=== PATIENT | female | born 1945 | race Caucasian/White ===

== ENCOUNTER 2017-05-26 20:09 | Inpatient (IN) | payer MEDICARE ==
[~2017-05-26] VITALS: Ht 157.5 cm; Wt 60.0 kg
[2017-05-26 22:30] VITALS: BP 130/75
[2017-05-26] MEDS ORDERED: MAGNESIUM HYDROXIDE 2,400 MG/30 ML ORAL.SUSP. PO PRN (22:45)
[2017-05-26] MEDS ORDERED: METHYL SALICYLATE/MENTHOL TOPICAL OINTMENT 29GM TUBE. TP PRN (22:45)
[2017-05-26] MEDS ORDERED: MAG HYDROX/AL HYDROX/SIMETH 30 ML ORAL.SUSP PO PRN (22:45)
[2017-05-26 23:11] LABS: BASO % 0 % (0-3); EOS # 0.1 x10^3/uL (0.0-0.7); EOS % 2 % (0-3); HEMATOCRIT 37.2 % (36.0-47.0); HEMOGLOBIN 12.6 g/dL (12.0-15.5); LYMPH # 1.3 x10^3/uL (1.0-4.8); LYMPH % 29 % (24-48); MEAN CORPUSCULAR HEMOGLOBIN 32 pg (25-35); MEAN CORPUSCULAR HGB CONC 34 g/dL (31-37); MEAN CORPUSCULAR VOLUME 95 fL (79-100); MONO # 0.5 x10^3/uL (0.0-1.1); MONO % 10 % (0-9); NEUT # 2.7 x10^3uL (1.8-7.7); NEUT % 59 % (31-73); PLATELET COUNT 256 x10^3/uL (140-400); RED BLOOD COUNT 3.93 x10^6/uL (3.50-5.40); RED CELL DISTRIBUTION WIDTH 12.5 % (11.5-14.5); WHITE BLOOD COUNT 4.6 x10^3/uL (4.0-11.0)
[2017-05-26 23:23] LABS: ALBUMIN 3.9 g/dL (3.4-5.0); ALBUMIN/GLOBULIN RATIO 1.1 (1.0-1.7); CALCIUM 9.3 mg/dL (8.5-10.1); CREATININE 1.1 mg/dL (0.6-1.0); GFR 48.7; MAGNESIUM 1.8 mg/dL (1.8-2.4); POTASSIUM 3.1 mmol/L (3.5-5.1); TOTAL BILIRUBIN 0.3 mg/dL (0.2-1.0); TOTAL PROTEIN 7.5 g/dL (6.4-8.2)
[2017-05-27] MEDS ORDERED: GLUC-12 PO (01:10)
[2017-05-27] MEDS ORDERED: FENO134C PO (01:10)
[2017-05-27] MEDS ORDERED: AMLO10TA4 PO (01:10)
[2017-05-27] MEDS ORDERED: CALC-157 PO (01:10)
[2017-05-27] MEDS ORDERED: ASPI325T8 PO (01:10)
[2017-05-27] MEDS ORDERED: HYDR25TA9 PO (01:18)
[2017-05-27] MEDS ORDERED: MEMA10TA PO (01:18)
[2017-05-27] MEDS ORDERED: OXYC-327 PO (01:18)
[2017-05-27] MEDS ORDERED: LOSA50TA2 PO (01:18)
[2017-05-27] MEDS ORDERED: OLAN2.5T3 PO (01:18)
[2017-05-27] MEDS ORDERED: VENL37.5 PO (01:23)
[2017-05-27] MEDS ORDERED: VENL75CA PO (01:23)
[2017-05-27] MEDS ORDERED: RIVA1PAT23 TD (01:25)
[2017-05-27] MEDS ORDERED: SIMV10TA3 PO (01:25)
[2017-05-27] MEDS: ACETAMINOPHEN 325 MG TABLET PO PRN (05:42)
[2017-05-27 05:56] VITALS: BP 110/65
--- NOTE | 2017-05-27 05:57 | EKG ---
[address] [address] Test Date: 2017-05-27 Test Time: 05:44:28 Pat Name: ANJELICA SCHMIDT Department: Room: [address] [place] [address] Gender: F Spray Machine Operator: JUDY : 1945 Requested By: ERLINDA DYKES Order Number: [id number] Reading MD: Zurdo Messina Measurements Intervals [place] Rate: 56 P: 90 LA: 154 QRS: 58 QRSD: 86 T: 59 QT: 394 QTc: 383 Interpretive Statements SINUS RHYTHM Electronically Signed On 06-02-2017 15:41:44 CDT by Zurdo Messina
[2017-05-27 07:23] LABS: CLARITY,URINE CLEAR; COLOR,URINE YELLOW
[2017-05-27 07:24] LABS: BACTERIA,URINE 0 /HPF (0-FEW); BILIRUBIN,URINE NEG (NEG); GLUCOSE,URINE NEG (NEG); NITRITE,URINE NEG (NEG); SQUAMOUS EPITHELIAL CELL,UR OCC /LPF; UROBILINOGEN,URINE 1 mg/dL (0.2 mg/dL); WBC,URINE OCC /HPF (0-4)
[2017-05-27] MEDS: OLANZapine 2.5 MG TABLET PO SCH (08:30)
[2017-05-27] MEDS: CALCIUM CARB/VIT D3 500/200 TABLET PO SCH (08:30)
[2017-05-27] MEDS: ASPIRIN 325 MG TABLET PO SCH (08:30)
[2017-05-27] MEDS: VENLAFAXINE XR 37.5 MG CAP.ER.24H. PO SCH (08:30)
[2017-05-27] MEDS: LOSARTAN 50 MG TABLET. PO SCH (08:31)
[2017-05-27] MEDS: hydroCHLOROthiazide 25 MG TABLET PO SCH (08:31)
[2017-05-27] MEDS: amLODIPine BESYLATE 10 MG TABLET PO SCH (08:31)
[2017-05-27] MEDS: GLUCOSAMINE/CHOND 500/400MG CAPSULE PO SCH (08:31)
[2017-05-27] MEDS ORDERED: RIVASTIGMINE 9.5MG PATCH. TD SCH (09:00)
[2017-05-27] MEDS ORDERED: MEMANTINE 10 MG TABLET. PO SCH (09:00)
[2017-05-27] MEDS ORDERED: NON FORMULARY ITEM (Venlafaxine Hcl (Effexor Xr) 75 MG) PO SCH (09:00)
[2017-05-27 15:14] LABS: THYROID STIM HORMONE (TSH) 3.423 uIU/mL (0.358-3.740)
[2017-05-27 16:19] VITALS: BP 112/67
[2017-05-27] MEDS: FENOFIBRATE NANOCRYSTALLIZED 145 MG TABLET PO SCH (17:02)
[2017-05-27 19:11] LABS: T3 TOTAL 100 ng/dL (71-180); THYROXINE 7.4 ug/dL (4.5-12.0)
[2017-05-27] MEDS: ATORVASTATIN CALCIUM 10 MG TABLET. PO SCH (19:55)
[2017-05-27] MEDS: POTASSIUM CHLORIDE 20 MEQ TABLET.ER. PO SCH (19:55)
[2017-05-27] MEDS: MEMANTINE 10 MG TABLET. PO SCH (19:56)
--- NOTE | 2017-05-27 20:01 | PDOC ---
Exam Niels Demential Exam: Niels Note: Please also refer to the separate dictated note~for this date of service dictated separately.~Patient seen individually. Discussed the patient with Nursing staff reviewed the chart.~Reviewed interim history and current functioning. Reviewed vital signs,~Labs/ Radiology~and current medications noted below. Continue current treatment with the changes noted in the dictated addendum note Assessment: Vital Signs: Vital Signs Date Time Temp Pulse Resp B/P (MAP) Pulse Ox O2 Delivery O2 Flow Rate FiO2 05/27/17 16:19 97.8 80 18 112/67 (82) 98 Labs: Laboratory Tests Test 05/26/17 22:50 05/27/17 06:15 White Blood Count 4.6 x10^3/uL (4.0-11.0) Red Blood Count 3.93 x10^6/uL (3.50-5.40) Hemoglobin 12.6 g/dL (12.0-15.5) Hematocrit 37.2 % (36.0-47.0) Mean Corpuscular Volume 95 fL (79-100) Mean Corpuscular Hemoglobin 32 pg (25-35) Mean Corpuscular Hemoglobin Concent 34 g/dL (31-37) Red Cell Distribution Width 12.5 % (11.5-14.5) Platelet Count 256 x10^3/uL (140-400) Neutrophils (%) (Auto) 59 % (31-73) Lymphocytes (%) (Auto) 29 % (24-48) Monocytes (%) (Auto) 10 % (0-9) H Eosinophils (%) (Auto) 2 % (0-3) Basophils (%) (Auto) 0 % (0-3) Neutrophils # (Auto) 2.7 x10^3uL (1.8-7.7) Lymphocytes # (Auto) 1.3 x10^3/uL (1.0-4.8) Monocytes # (Auto) 0.5 x10^3/uL (0.0-1.1) Eosinophils # (Auto) 0.1 x10^3/uL (0.0-0.7) Basophils # (Auto) 0.0 x10^3/uL (0.0-0.2) Sodium Level 144 mmol/L (136-145) Potassium Level 3.1 mmol/L (3.5-5.1) L Chloride Level 106 mmol/L (98-107) Carbon Dioxide Level 30 mmol/L (21-32) Anion Gap 8 (6-14) Blood Urea Nitrogen 28 mg/dL (7-20) H Creatinine 1.1 mg/dL (0.6-1.0) H Estimated GFR (Cockcroft-Gault) 48.7 BUN/Creatinine Ratio 25 (6-20) H Glucose Level 138 mg/dL (70-99) H Calcium Level 9.3 mg/dL (8.5-10.1) Magnesium Level 1.8 mg/dL (1.8-2.4) Iron Level 85 ug/dL (50-170) Total Iron Binding Capacity 489 ug/dL (250-450) H Iron Saturation 17 % (15-34) Total Bilirubin 0.3 mg/dL (0.2-1.0) Aspartate Amino Transferase (AST) 27 U/L (15-37) Alanine Aminotransferase (ALT) 20 U/L (14-59) Alkaline Phosphatase 53 U/L (46-116) Total Protein 7.5 g/dL (6.4-8.2) Albumin 3.9 g/dL (3.4-5.0) Albumin/Globulin Ratio 1.1 (1.0-1.7) Triglycerides Level 136 mg/dL (0-150) Cholesterol Level 218 mg/dL (0-200) H LDL Cholesterol, Calculated 114 mg/dL (0-100) H VLDL Cholesterol, Calculated 27 mg/dL (0-40) Non-HDL Cholesterol Calculated 141 mg/dL (0-129) H HDL Cholesterol 77 mg/dL (40-60) H Cholesterol/HDL Ratio 2.0 Vitamin B12 Level 376 pg/mL (247-911) 25-Hydroxy Vitamin D Total Pending Thyroid Stimulating Hormone (TSH) 3.423 uIU/mL (0.358-3.740) Thyroxine (T4) 7.4 ug/dL (4.5-12.0) Total Triiodothyronine (TT3) 100 ng/dL (71-180) RPR Titer Additional Testing Pending Urine Collection Type Unknown Urine Color Yellow Urine Clarity Clear Urine pH 5.5 Urine Specific [place] 1.020 Urine Protein Neg (NEG-TRACE) Urine Glucose (UA) Neg mg/dL (NEG) Urine Ketones (Stick) Neg mg/dL (NEG) Urine Blood Trace (NEG) Urine Nitrite Neg (NEG) Urine Bilirubin Neg (NEG) Urine Urobilinogen Dipstick 1 mg/dL (0.2 mg/dL) Urine Leukocyte Esterase Trace (NEG) Urine RBC 1-2 /HPF (0-2) Urine WBC Occ /HPF (0-4) Urine Squamous Epithelial Cells Occ /LPF Urine Bacteria 0 /HPF (0-FEW) Current Medications: Meds: Current Medications Acetaminophen (Tylenol) 650 mg PRN Q6HRS PRN PO PAIN / TEMP Last administered on 05/27/17 05:42; Start 05/26/17 at 22:45 Multi-Ingredient Ointment (Analgesic [place]) 1 tae PRN QID PRN TP MUSCLE PAIN; Start 05/26/17 at 22:45 Al Hydroxide/Mg Hydroxide (Mylanta Plus Xs) 15 ml PRN AFTMEALHC PRN PO DYSPEPSIA; Start 05/26/17 at 22:45 Magnesium Hydroxide (Milk Of Magnesia) 2,400 mg PRN QHS PRN PO CONSTIPATION; Start 05/26/17 at 22:45 Amlodipine Besylate (Norvasc) 10 mg DAILY PO Last administered on 05/27/17 08: 31; Start 05/27/17 at 09:00 Aspirin (Elsa Aspirin) 325 mg DAILY PO Last administered on 05/27/17 08:30; Start 05/27/17 at 09:00 Calcium/Vitamin D (Oscal D 500mg/ 200uts) 1 tab DAILY PO Last administered on 08:30; Start 05/27/17 at 09:00 Hydrochlorothiazide (Hydrodiuril) 25 mg DAILY PO Last administered on 05/27/17 08:31; Start 05/27/17 at 09:00 Losartan Potassium (Cozaar) 50 mg DAILY PO Last administered on 05/27/17 08:31 ; Start 05/27/17 at 09:00 Oxycodone/ Acetaminophen (Percocet 7.5/ 325) 1 tab PRN Q6HRS PRN PO SEVERE PAIN ; Start 05/27/17 at 01:30 Atorvastatin Calcium (Lipitor) 5 mg QHS PO Last administered on 05/27/17 19:55 ; Start 05/27/17 at 21:00 Fenofibrate (Tricor) 145 mg DAILYWSUP PO Last administered on 05/27/17 17:02; Start 05/27/17 at 17:00 Glucosamine/ Chondroitin (Glucosamine-Chondroitin 500/400mg) 1 cap DAILY PO Last administered on 05/27/17 08:31; Start 05/27/17 at 09:00 Memantine (Namenda) 10 mg DAILY PO Last administered on 05/27/17 08:30; Start 05/27/17 at 09:00; Stop 05/27/17 at 18:23; Status DC Olanzapine (ZyPREXA) 2.5 mg DAILY08 PO Last administered on 05/27/17 08:30; Start 05/27/17 at 08:00 Rivastigmine (Exelon) 1 patch DAILY TD Last administered on 05/27/17 08:31; Start 05/27/17 at 09:00; Stop 05/27/17 at 18:23; Status DC Venlafaxine HCl (Effexor Xr) 112.5 mg DAILY PO Last administered on 05/27/17 08 :30; Start 05/27/17 at 09:00 Non-Formulary Medication 75 mg DAILY PO ; Start 05/27/17 at 09:00; Status UNV Potassium Chloride (Klor-Con) 20 meq BID PO Last administered on 05/27/17 19:55 ; Start 05/27/17 at 21:00 Memantine (Namenda) 10 mg QHS PO Last administered on 05/27/17 19:56; Start 05/27/17 at 21:00 Rivastigmine (Exelon 13.3mg) 1 patch DAILY TD ; Start 05/28/17 at 09:00 Memantine (Namenda) 5 mg DAILY PO ; Start 05/28/17 at 09:00 Active Scripts Active Reported EXELON 9.5mg/24hr (Rivastigmine) 1 Each Patch.td24 1 Patch TD DAILY LAST DOSE GIVEN: DATE: TIME: NEXT DOSE DUE: DATE: TIME: Simvastatin 10 Mg Tablet 10 Mg PO HS LAST DOSE GIVEN: DATE: TIME: NEXT DOSE DUE: DATE: TIME: Effexor Xr (Venlafaxine Hcl) 75 Mg Cap.er.24h 75 Mg PO DAILY LAST DOSE GIVEN: DATE: TIME: NEXT DOSE DUE: DATE: TIME: Effexor Xr (Venlafaxine Hcl) 37.5 Mg Cap.er.24h 37.5 Mg PO DAILY LAST DOSE GIVEN: DATE: TIME: NEXT DOSE DUE: DATE: TIME: Percocet 7.5-325 Mg Tablet (Oxycodone Hcl/Acetaminophen) 1 Each Tablet 1 Tab PO PRN Q6HRS PRN LAST DOSE GIVEN: DATE: TIME: NEXT DOSE DUE: DATE: TIME: Zyprexa (Olanzapine) 2.5 Mg Tablet 2.5 Mg PO DAILY08 LAST DOSE GIVEN: DATE: TIME: NEXT DOSE DUE: DATE: TIME: Namenda (Memantine Hcl) 10 Mg Tablet 10 Mg PO DAILY LAST DOSE GIVEN: DATE: TIME: NEXT DOSE DUE: DATE: TIME: Cozaar (Losartan Potassium) 50 Mg Tablet 50 Mg PO DAILY LAST DOSE GIVEN: DATE: TIME: NEXT DOSE DUE: DATE: TIME: Hydrochlorothiazide Tablet (Hydrochlorothiazide) 25 Mg Tablet 25 Mg PO DAILY LAST DOSE GIVEN: DATE: TIME: NEXT DOSE DUE: DATE: TIME: Glucosamine Chondroit Msm Tab (Glucosamine/Msm/Chondroitin A) 1 Each Tablet 1 Tab PO DAILY LAST DOSE GIVEN: DATE: TIME: NEXT DOSE DUE: DATE: TIME: Calcium 500 + Vit D 200 Tablet (Calcium Carbonate/Vitamin D3) 1 Each Tablet 1 Tab PO DAILY Fenofibrate (Fenofibrate,Micronized) 134 Mg Capsule 134 Mg PO DAILYWSUP LAST DOSE GIVEN: DATE: TIME: NEXT DOSE DUE: DATE: TIME: Aspirin 325 Mg Tablet 325 Mg PO DAILY LAST DOSE GIVEN: DATE: TIME: NEXT DOSE DUE: DATE: TIME: Norvasc (Amlodipine Besylate) 10 Mg Tablet 10 Mg PO DAILY LAST DOSE GIVEN: DATE: TIME: NEXT DOSE DUE: DATE: TIME: Diagnosis: Problems: (1) Anxiety disorder (2) Dementia, vascular, with depression (3) Dementia, vascular, with delusions (4) Dementia in Alzheimer's disease with depression (5) Dementia in Alzheimer's disease with delusions (6) Impulse control disorder ERLINDA DYKES MD May 27, 2017 20:01
--- NOTE | 2017-05-28 00:07 | CONS ---
DATE OF CONSULTATION: 05/27/2017 HISTORY OF PRESENT ILLNESS: The patient is a 72-year-old female patient who lives at home with her and was seen in the [facility] Room and from there, she was [facility] on the account of increased confusion and aggression towards her scratching and throwing things at him, voiced homicidal ideation towards him worsening and her symptoms have been progressing all this in a background of dementia with behavioral disturbances as well as depression. PAST MEDICAL HISTORY: Significant for hypertension, hyperlipidemia as well as arthritis. PAST PSYCHIATRIC HISTORY: Significant for Alzheimer's dementia, depression, anxiety. PAST SURGICAL HISTORY: Significant for appendectomy and foot surgery as well as left heart catheterization, and angioplasty without stent deployment. FAMILY HISTORY: Unremarkable. SOCIAL HISTORY: She lives with her . She does not smoke, drink alcohol or use any recreational drugs. ALLERGIES: She is allergic to PENICILLIN and SELENIUM. MEDICATIONS: She is currently on following medications: Amlodipine besylate 10 mg once a day, aspirin 325 mg once a day, calcium carbonate with vitamin D3 one tablet daily, fenofibrate 134 mg p.o. daily, glucosamine/chondroitin sulfate 1 tablet once a day, hydrochlorothiazide 25 mg once a day, losartan potassium 50 mg once a day, Namenda 10 mg once a day, olanzapine 2.5 mg every 8 hours, oxycodone, hydrocodone/APAP 7.5/325 one tablet every 6 hours, Exelon 9.5 mg transdermal patch once a day, simvastatin 10 mg at bedtime, venlafaxine for Effexor XR 37.5 mg once a day, and Effexor XR 75 mg daily. REVIEW OF SYSTEMS: As per history of present illness. PHYSICAL EXAMINATION GENERAL: When I examined her, she was sitting comfortably in the edge of the bed, in no apparent respiratory distress. She was pale, but no jaundice, cyanosis or thyromegaly. No jugular venous distention. No limb edema. VITAL SIGNS: Her heart rate was 80, blood pressure was 112/67, temperature was 97.8, respiratory rate was 18, and oxygen saturation was 98%. HEAD, EYES, EARS, NOSE, AND THROAT: Showed normocephalic, atraumatic. NECK: Supple. HEART: Showed normal first and second heart sounds with no gallop, rub or murmur. CHEST: Clear to auscultation. No crepitation or rhonchi. ABDOMEN: Distended, soft, and nontender. NEUROLOGIC: She is demented, but without any obvious lateralizing sign. All her cranial nerves are intact. EXTREMITIES: She moves extremities without difficulty. She ambulates without assistance or assistive devices. LABORATORY DATA: Showed a white cell count of 4600, hemoglobin 12.6, hematocrit 37, MCV 95, and platelet count 256,000. Her serum sodium was 144, potassium 3.1, chloride 106, bicarbonate 30, anion gap of 8, BUN 28, creatinine 1.1, estimated GFR was 48 mL per minute. Her glucose 138. Calcium was 9.3, magnesium was 1.8. Serum iron was 85, TIBC was 489. Percent saturation was 17%. Her total bilirubin, AST, ALT, alkaline phosphatase were normal. Total protein was 7.5, albumin 3.9. Her triglycerides were 136, total cholesterol was 218, LDL cholesterol was 114, VLDL was 27, and HDL cholesterol was 77, the ratio was 2. Her vitamin B12 was 376. TSH was 3.423. Urinalysis was essentially unremarkable. The urine was yellow, clear with a pH of 5.5, specific gravity of 1.020. Urine was negative for protein, glucose, ketones, trace of blood, negative for nitrite, and trace of leukocyte esterase. There are 1-2 rbc's, occasional wbc's, and no bacteria. IMPRESSION: In summary, this is a 72-year-old female patient who was admitted with increased confusion, aggressive towards her , scratching, and throwing things at him. She also voiced homicidal ideation towards him and his symptoms have been worsening and progressing, all this in a background of depression and dementia with behavioral disturbances. Medically, she has hypertension, hyperlipidemia, arthritis, and very well controlled. All in all, the patient seems to be medically stable except that her potassium is low, so I will start her on potassium chloride that she is on hydrochlorothiazide. Otherwise, I will continue with all other medication. Thank you, Dr. Vaz for allowing me to participate in the care of this patient. JOCELYN CARDOZO MD DR: GABBI/gurmeet JOB#: [id number] / [id number]
--- NOTE | 2017-05-28 01:13 | ACF ---
Admission Criteria Forms PSYCHIATRIC DISORDERS Clinical Indications for Inpatient Care (Place 'X' for any and all applicable criteria): Ongoing inpatient care may be needed for 1 or more of the following(1)(2)(3)(4)( 6)(7)(8): [ ]I. Danger to self or others not manageable at lower level of care. [ ]II. Grave disability (eg, inability to perform self care necessary at lower level of care) [ ]III. Agitation or inappropriate behavior interfering with care for primary condition (eg, attempting to discontinue lines or drains prematurely, unable to cooperate with respiratory care) [X]IV. Severe disability or disorder indicated by ALL of the following: [X]a) Severe behavioral health disorder-related symptoms or condition indicated by 1 or more of the following: [ ]i) Severe problem with cognition, memory, judgment, or impulse control [X]ii) Severe clinical manifestations (eg, hallucinations, delusions, other acute psychotic symptoms, eddie, extreme agitation or anxiety) [X]b) Patient management at lower level of care is not feasible until acute intervention or modification is initiated. Extended stay beyond goal length of stay for the primary condition may be needed untilALLof the following are present(1)(2)(3)(4)(722)(23): [ ]a) Danger to self or others is absent or manageable at lower level of care [ ]b) Behavior crisis management, including physical or chemical restraints, is required and is not available at a lower level of care. [ ]c) Behavioral symptoms (e.g., agitation, somnolence, inappropriate behavior) are present, and are not manageable at a lower level of care. [ ]d) Patient cannot understand follow-up treatment and crisis plan. [ ]e) Provider and supports are sufficiently available at lower level of care. [ ]f) Patient can participate (e.g., verify absence of plan for harm) and is in needed of monitoring. The original [facility] [employer] content created by [employer] has been revised. The portions of the content which have been revised are identified through the use of italic text, and [employer] has neither reviewed nor approved the modified material. All other unmodified content is copyright [facility] [employer]. Please see references footnoted in the original [facility] edition 2015 Admission Criteria Met?: Yes TRENTON ORR May 28, 2017 01:13
[2017-05-28 06:25] VITALS: BP 143/80
[2017-05-28] MEDS: POTASSIUM CHLORIDE 20 MEQ TABLET.ER. PO SCH ×2 (08:56→19:54)
[2017-05-28] MEDS: VENLAFAXINE XR 37.5 MG CAP.ER.24H. PO SCH (08:56)
[2017-05-28] MEDS: OLANZapine 2.5 MG TABLET PO SCH (08:56)
[2017-05-28] MEDS: ASPIRIN 325 MG TABLET PO SCH (08:56)
[2017-05-28] MEDS: CALCIUM CARB/VIT D3 500/200 TABLET PO SCH (08:56)
[2017-05-28] MEDS: hydroCHLOROthiazide 25 MG TABLET PO SCH (08:56)
[2017-05-28] MEDS: GLUCOSAMINE/CHOND 500/400MG CAPSULE PO SCH (08:57)
[2017-05-28] MEDS: LOSARTAN 50 MG TABLET. PO SCH (08:57)
[2017-05-28] MEDS: amLODIPine BESYLATE 10 MG TABLET PO SCH (08:57)
[2017-05-28] MEDS: MEMANTINE 5 MG TABLET. PO SCH (09:04)
[2017-05-28] MEDS: RIVASTIGMINE 13.3MG PATCH. TD SCH (09:04)
[2017-05-28] MEDS: oxyCODONE/APAP 7.5/325 1 TAB TABLET PO PRN (09:11)
--- NOTE | 2017-05-28 13:48 | HP ---
ADMIT DATE: 05/27/2017 PSYCHIATRIC ADMISSION HISTORY/EVALUATION IDENTIFYING DATA: The patient is a 72-year-old female [facility] [place], [place]. She presented from home with a several week history of increased aggression towards her , worsening confusion, making statements that she was going to commit suicide, intermittently psychotic, depressed. She had failed outpatient psychiatric interventions. Behaviors were deemed to be a potential danger to herself and her and she was referred for inpatient stabilization by Dr. Melissa West, her primary care physician telephone . The patient was seen individually evening of 05/27/2017 for this assessment. CHIEF COMPLAINT: "I have been here for many weeks." The patient responded after a question when she came here. In fact, she was admitted, the evening of 05/26/2017. HISTORY OF PRESENT ILLNESS: The patient has a history of dementia, Alzheimer's vascular type. She has had some short term memory deficits, which seem to vary from time to time. When I met her late in the evening of 05/27/2017, she was able to tell me what she had for supper, which was a hamburger and this was accurate, but in other respect she seems confused, believing she lives at home with her 3 children, who are not yet teenagers. She has had sleep and appetite changes and intermittent psychotic symptoms. No clear suicidal or homicidal ideation. No clear history of bipolar disorder. PAST PSYCHIATRIC HISTORY: As above. MEDICAL HISTORY: Hypertension, hyperlipidemia, arthritis, Accu-Cheks none. DIET: Regular. MEDICATIONS: She takes them whole. LABORATORY DATA: UA on 05/26/2017, negative at [facility] according to the records. ALLERGIES: PENICILLIN and PSYLLIUM. CURRENT PSYCHOTROPICS: Namenda 10 mg daily, Zyprexa 2.5 mg daily with breakfast, Effexor XR 112.5 mg daily, Exelon patch 9.5 mg daily. FAMILY HISTORY: Noncontributory. 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 I am not sure if this is accurate social service staff will gathered historical information. No alcohol or drug abuse, physical, sexual, or elder abuse history is noted. She is not known to be a perpetrator. MENTAL STATUS EXAMINATION: The patient was seen individually evening of 05/27/2017. She is pleasant, cooperative. Insight, judgment, recent memory has some impairment, remote is intermittently impaired. She appears somewhat psychotic, delusional, thoroughly denies suicidal ideation and smiled when I questioned her since suicidal ideation was part of the presenting referral symptoms. No homicidal ideation. Attention span short, language function intact. Intellect average. REVIEW OF SYSTEMS: No CV, , pulmonary, eye, ENT system symptoms on review. IMPRESSION: Psychotic disorder, unspecified; major neurocognitive disorder, probably vascular with delusion, depression, behavioral disturbance; anxiety disorder, unspecified; impulse control disorder, unspecified. PLAN: Admit to the Geropsychiatry Unit at [facility]. I will see the patient daily individually from a psychiatric standpoint, medical followup with Dr. Gibbs/Dr. Vazquez. We will increase the patient's Exelon patch from 9.5 mg a day to 13.3 mg a day and Namenda from 10 mg daily to 5 mg in the morning and 10 mg in the evening; and continue Zyprexa, Effexor for now. We will observe further baseline and make further changes in psychotropics as clinically indicated. ERLINDA DYKES MD DR: MELISSA/gurmeet JOB#: [id number] / [id number]
[2017-05-28 16:32] VITALS: BP 103/63
[2017-05-28] MEDS: FENOFIBRATE NANOCRYSTALLIZED 145 MG TABLET PO SCH (17:03)
[2017-05-28] MEDS: ACETAMINOPHEN 325 MG TABLET PO PRN (18:19)
[2017-05-28] MEDS: ATORVASTATIN CALCIUM 10 MG TABLET. PO SCH (19:54)
[2017-05-28] MEDS: MEMANTINE 10 MG TABLET. PO SCH (19:54)
--- NOTE | 2017-05-28 22:22 | PDOC ---
Exam Niels Demential Exam: Niels Note: Please also refer to the separate dictated note~for this date of service dictated separately.~Patient seen individually. Discussed the patient with Nursing staff reviewed the chart.~Reviewed interim history and current functioning. Reviewed vital signs,~Labs/ Radiology~and current medications noted below. Continue current treatment with the changes noted in the dictated addendum note Assessment: Vital Signs: Vital Signs Date Time Temp Pulse Resp B/P (MAP) Pulse Ox O2 Delivery O2 Flow Rate FiO2 05/28/17 16:32 98.0 74 20 103/63 (76) 97 I&O Intake and Output 05/28/17 07:00 Intake Total 600 ml Balance 600 ml Intake Oral 600 ml Current Medications: Meds: Current Medications Acetaminophen (Tylenol) 650 mg PRN Q6HRS PRN PO PAIN / TEMP Last administered on 05/28/17 18:19; Start 05/26/17 at 22:45 Multi-Ingredient Ointment (Analgesic [place]) 1 tae PRN QID PRN TP MUSCLE PAIN; Start 05/26/17 at 22:45 Al Hydroxide/Mg Hydroxide (Mylanta Plus Xs) 15 ml PRN AFTMEALHC PRN PO DYSPEPSIA; Start 05/26/17 at 22:45 Magnesium Hydroxide (Milk Of Magnesia) 2,400 mg PRN QHS PRN PO CONSTIPATION; Start 05/26/17 at 22:45 Amlodipine Besylate (Norvasc) 10 mg DAILY PO Last administered on 05/28/17 08: 57; Start 05/27/17 at 09:00 Aspirin (Elsa Aspirin) 325 mg DAILY PO Last administered on 05/28/17 08:56; Start 05/27/17 at 09:00 Calcium/Vitamin D (Oscal D 500mg/ 200uts) 1 tab DAILY PO Last administered on 08:56; Start 05/27/17 at 09:00 Hydrochlorothiazide (Hydrodiuril) 25 mg DAILY PO Last administered on 05/28/17 08:56; Start 05/27/17 at 09:00 Losartan Potassium (Cozaar) 50 mg DAILY PO Last administered on 05/28/17 08:57 ; Start 05/27/17 at 09:00 Oxycodone/ Acetaminophen (Percocet 7.5/ 325) 1 tab PRN Q6HRS PRN PO SEVERE PAIN Last administered on 05/28/17 09:11; Start 05/27/17 at 01:30 Atorvastatin Calcium (Lipitor) 5 mg QHS PO Last administered on 05/28/17 19:54 ; Start 05/27/17 at 21:00 Fenofibrate (Tricor) 145 mg DAILYWSUP PO Last administered on 05/28/17 17:03; Start 05/27/17 at 17:00 Glucosamine/ Chondroitin (Glucosamine-Chondroitin 500/400mg) 1 cap DAILY PO Last administered on 05/28/17 08:57; Start 05/27/17 at 09:00 Memantine (Namenda) 10 mg DAILY PO Last administered on 05/27/17 08:30; Start 05/27/17 at 09:00; Stop 05/27/17 at 18:23; Status DC Olanzapine (ZyPREXA) 2.5 mg DAILY08 PO Last administered on 05/28/17 08:56; Start 05/27/17 at 08:00 Rivastigmine (Exelon) 1 patch DAILY TD Last administered on 05/27/17 08:31; Start 05/27/17 at 09:00; Stop 05/27/17 at 18:23; Status DC Venlafaxine HCl (Effexor Xr) 112.5 mg DAILY PO Last administered on 05/28/17 08 :56; Start 05/27/17 at 09:00 Non-Formulary Medication 75 mg DAILY PO ; Start 05/27/17 at 09:00; Status UNV Potassium Chloride (Klor-Con) 20 meq BID PO Last administered on 05/28/17 19:54 ; Start 05/27/17 at 21:00 Memantine (Namenda) 10 mg QHS PO Last administered on 05/28/17 19:54; Start 05/27/17 at 21:00 Rivastigmine (Exelon 13.3mg) 1 patch DAILY TD Last administered on 05/28/17 09: 04; Start 05/28/17 at 09:00 Memantine (Namenda) 5 mg DAILY PO Last administered on 05/28/17 09:04; Start at 09:00 Active Scripts Active Reported EXELON 9.5mg/24hr (Rivastigmine) 1 Each Patch.td24 1 Patch TD DAILY LAST DOSE GIVEN: DATE: TIME: NEXT DOSE DUE: DATE: TIME: Simvastatin 10 Mg Tablet 10 Mg PO HS LAST DOSE GIVEN: DATE: TIME: NEXT DOSE DUE: DATE: TIME: Effexor Xr (Venlafaxine Hcl) 75 Mg Cap.er.24h 75 Mg PO DAILY LAST DOSE GIVEN: DATE: TIME: NEXT DOSE DUE: DATE: TIME: Effexor Xr (Venlafaxine Hcl) 37.5 Mg Cap.er.24h 37.5 Mg PO DAILY LAST DOSE GIVEN: DATE: TIME: NEXT DOSE DUE: DATE: TIME: Percocet 7.5-325 Mg Tablet (Oxycodone Hcl/Acetaminophen) 1 Each Tablet 1 Tab PO PRN Q6HRS PRN LAST DOSE GIVEN: DATE: TIME: NEXT DOSE DUE: DATE: TIME: Zyprexa (Olanzapine) 2.5 Mg Tablet 2.5 Mg PO DAILY08 LAST DOSE GIVEN: DATE: TIME: NEXT DOSE DUE: DATE: TIME: Namenda (Memantine Hcl) 10 Mg Tablet 10 Mg PO DAILY LAST DOSE GIVEN: DATE: TIME: NEXT DOSE DUE: DATE: TIME: Cozaar (Losartan Potassium) 50 Mg Tablet 50 Mg PO DAILY LAST DOSE GIVEN: DATE: TIME: NEXT DOSE DUE: DATE: TIME: Hydrochlorothiazide Tablet (Hydrochlorothiazide) 25 Mg Tablet 25 Mg PO DAILY LAST DOSE GIVEN: DATE: TIME: NEXT DOSE DUE: DATE: TIME: Glucosamine Chondroit Msm Tab (Glucosamine/Msm/Chondroitin A) 1 Each Tablet 1 Tab PO DAILY LAST DOSE GIVEN: DATE: TIME: NEXT DOSE DUE: DATE: TIME: Calcium 500 + Vit D 200 Tablet (Calcium Carbonate/Vitamin D3) 1 Each Tablet 1 Tab PO DAILY Fenofibrate (Fenofibrate,Micronized) 134 Mg Capsule 134 Mg PO DAILYWSUP LAST DOSE GIVEN: DATE: TIME: NEXT DOSE DUE: DATE: TIME: Aspirin 325 Mg Tablet 325 Mg PO DAILY LAST DOSE GIVEN: DATE: TIME: NEXT DOSE DUE: DATE: TIME: Norvasc (Amlodipine Besylate) 10 Mg Tablet 10 Mg PO DAILY LAST DOSE GIVEN: DATE: TIME: NEXT DOSE DUE: DATE: TIME: Diagnosis: Problems: (1) Anxiety disorder (2) Dementia, vascular, with depression (3) Dementia, vascular, with delusions (4) Dementia in Alzheimer's disease with depression (5) Dementia in Alzheimer's disease with delusions (6) Impulse control disorder ERLINDA DYKES MD May 28, 2017 22:22
[2017-05-29] MEDS: oxyCODONE/APAP 7.5/325 1 TAB TABLET PO PRN ×3 (05:42→23:18)
[2017-05-29 06:25] VITALS: BP 121/68
[2017-05-29] MEDS: RIVASTIGMINE 13.3MG PATCH. TD SCH (08:18)
[2017-05-29] MEDS: LOSARTAN 50 MG TABLET. PO SCH (08:19)
[2017-05-29] MEDS: MEMANTINE 5 MG TABLET. PO SCH (08:19)
[2017-05-29] MEDS: amLODIPine BESYLATE 10 MG TABLET PO SCH (08:20)
[2017-05-29] MEDS: VENLAFAXINE XR 37.5 MG CAP.ER.24H. PO SCH (08:20)
[2017-05-29] MEDS: GLUCOSAMINE/CHOND 500/400MG CAPSULE PO SCH (08:21)
[2017-05-29] MEDS: POTASSIUM CHLORIDE 20 MEQ TABLET.ER. PO SCH ×2 (08:21→19:48)
[2017-05-29] MEDS: hydroCHLOROthiazide 25 MG TABLET PO SCH (08:21)
[2017-05-29] MEDS: CALCIUM CARB/VIT D3 500/200 TABLET PO SCH (08:21)
[2017-05-29] MEDS: ASPIRIN 325 MG TABLET PO SCH (08:21)
[2017-05-29] MEDS: OLANZapine 2.5 MG TABLET PO SCH (08:21)
[2017-05-29 08:57] LABS: CALCIUM 9.4 mg/dL (8.5-10.1); CREATININE 1.3 mg/dL (0.6-1.0); GFR 40.2; POTASSIUM 4.8 mmol/L (3.5-5.1)
[2017-05-29 15:53] VITALS: BP 108/66
[2017-05-29] MEDS: FENOFIBRATE NANOCRYSTALLIZED 145 MG TABLET PO SCH (17:26)
[2017-05-29] MEDS: MEMANTINE 10 MG TABLET. PO SCH (19:48)
[2017-05-29] MEDS: ATORVASTATIN CALCIUM 10 MG TABLET. PO SCH (19:48)
--- NOTE | 2017-05-29 19:55 | PDOC ---
Exam Niels Demential Exam: Niels Note: Please also refer to the separate dictated note~for this date of service dictated separately.~Patient seen individually. Discussed the patient with Nursing staff reviewed the chart.~Reviewed interim history and current functioning. Reviewed vital signs,~Labs/ Radiology~and current medications noted below. Continue current treatment with the changes noted in the dictated addendum note Assessment: Vital Signs: Vital Signs Date Time Temp Pulse Resp B/P (MAP) Pulse Ox O2 Delivery O2 Flow Rate FiO2 05/29/17 18:50 18 05/29/17 15:53 98.2 71 108/66 (80) 98 I&O Intake and Output 05/29/17 07:00 Intake Total 1080 ml Balance 1080 ml Intake Oral 1080 ml Labs: Laboratory Tests Test 05/29/17 06:45 Sodium Level 143 mmol/L (136-145) Potassium Level 4.8 mmol/L (3.5-5.1) Chloride Level 108 mmol/L (98-107) H Carbon Dioxide Level 30 mmol/L (21-32) Anion Gap 5 (6-14) L Blood Urea Nitrogen 37 mg/dL (7-20) H Creatinine 1.3 mg/dL (0.6-1.0) H Estimated GFR (Cockcroft-Gault) 40.2 Glucose Level 89 mg/dL (70-99) Calcium Level 9.4 mg/dL (8.5-10.1) Current Medications: Meds: Current Medications Acetaminophen (Tylenol) 650 mg PRN Q6HRS PRN PO PAIN / TEMP Last administered on 05/28/17 18:19; Start 05/26/17 at 22:45 Multi-Ingredient Ointment (Analgesic [place]) 1 tae PRN QID PRN TP MUSCLE PAIN; Start 05/26/17 at 22:45 Al Hydroxide/Mg Hydroxide (Mylanta Plus Xs) 15 ml PRN AFTMEALHC PRN PO DYSPEPSIA; Start 05/26/17 at 22:45 Magnesium Hydroxide (Milk Of Magnesia) 2,400 mg PRN QHS PRN PO CONSTIPATION; Start 05/26/17 at 22:45 Amlodipine Besylate (Norvasc) 10 mg DAILY PO Last administered on 05/29/17 08: 20; Start 05/27/17 at 09:00 Aspirin (Elsa Aspirin) 325 mg DAILY PO Last administered on 05/29/17 08:21; Start 05/27/17 at 09:00 Calcium/Vitamin D (Oscal D 500mg/ 200uts) 1 tab DAILY PO Last administered on 08:21; Start 05/27/17 at 09:00 Hydrochlorothiazide (Hydrodiuril) 25 mg DAILY PO Last administered on 05/29/17 08:21; Start 05/27/17 at 09:00; Stop 05/29/17 at 12:32; Status DC Losartan Potassium (Cozaar) 50 mg DAILY PO Last administered on 05/29/17 08:19 ; Start 05/27/17 at 09:00 Oxycodone/ Acetaminophen (Percocet 7.5/ 325) 1 tab PRN Q6HRS PRN PO SEVERE PAIN Last administered on 05/29/17 17:33; Start 05/27/17 at 01:30 Atorvastatin Calcium (Lipitor) 5 mg QHS PO Last administered on 05/29/17 19:48 ; Start 05/27/17 at 21:00 Fenofibrate (Tricor) 145 mg DAILYWSUP PO Last administered on 05/29/17 17:26; Start 05/27/17 at 17:00 Glucosamine/ Chondroitin (Glucosamine-Chondroitin 500/400mg) 1 cap DAILY PO Last administered on 05/29/17 08:21; Start 05/27/17 at 09:00 Memantine (Namenda) 10 mg DAILY PO Last administered on 05/27/17 08:30; Start 05/27/17 at 09:00; Stop 05/27/17 at 18:23; Status DC Olanzapine (ZyPREXA) 2.5 mg DAILY08 PO Last administered on 05/29/17 08:21; Start 05/27/17 at 08:00; Stop 05/29/17 at 18:52; Status DC Rivastigmine (Exelon) 1 patch DAILY TD Last administered on 05/27/17 08:31; Start 05/27/17 at 09:00; Stop 05/27/17 at 18:23; Status DC Venlafaxine HCl (Effexor Xr) 112.5 mg DAILY PO Last administered on 05/29/17 08 :20; Start 05/27/17 at 09:00 Non-Formulary Medication 75 mg DAILY PO ; Start 05/27/17 at 09:00; Status UNV Potassium Chloride (Klor-Con) 20 meq BID PO Last administered on 05/29/17 19:48 ; Start 05/27/17 at 21:00 Memantine (Namenda) 10 mg QHS PO Last administered on 05/29/17 19:48; Start 05/27/17 at 21:00 Rivastigmine (Exelon 13.3mg) 1 patch DAILY TD Last administered on 05/29/17 08: 18; Start 05/28/17 at 09:00 Memantine (Namenda) 5 mg DAILY PO Last administered on 05/29/17 08:19; Start at 09:00 Vitamin D (Vitamin D3) 50,000 unit WEEKLY PO ; Start 05/30/17 at 09:00 Quetiapine Fumarate (SEROquel) 12.5 mg BID92 PO ; Start 05/30/17 at 09:00 Active Scripts Active Reported EXELON 9.5mg/24hr (Rivastigmine) 1 Each Patch.td24 1 Patch TD DAILY LAST DOSE GIVEN: DATE: TIME: NEXT DOSE DUE: DATE: TIME: Simvastatin 10 Mg Tablet 10 Mg PO HS LAST DOSE GIVEN: DATE: TIME: NEXT DOSE DUE: DATE: TIME: Effexor Xr (Venlafaxine Hcl) 75 Mg Cap.er.24h 75 Mg PO DAILY LAST DOSE GIVEN: DATE: TIME: NEXT DOSE DUE: DATE: TIME: Effexor Xr (Venlafaxine Hcl) 37.5 Mg Cap.er.24h 37.5 Mg PO DAILY LAST DOSE GIVEN: DATE: TIME: NEXT DOSE DUE: DATE: TIME: Percocet 7.5-325 Mg Tablet (Oxycodone Hcl/Acetaminophen) 1 Each Tablet 1 Tab PO PRN Q6HRS PRN LAST DOSE GIVEN: DATE: TIME: NEXT DOSE DUE: DATE: TIME: Zyprexa (Olanzapine) 2.5 Mg Tablet 2.5 Mg PO DAILY08 LAST DOSE GIVEN: DATE: TIME: NEXT DOSE DUE: DATE: TIME: Namenda (Memantine Hcl) 10 Mg Tablet 10 Mg PO DAILY LAST DOSE GIVEN: DATE: TIME: NEXT DOSE DUE: DATE: TIME: Cozaar (Losartan Potassium) 50 Mg Tablet 50 Mg PO DAILY LAST DOSE GIVEN: DATE: TIME: NEXT DOSE DUE: DATE: TIME: Hydrochlorothiazide Tablet (Hydrochlorothiazide) 25 Mg Tablet 25 Mg PO DAILY LAST DOSE GIVEN: DATE: TIME: NEXT DOSE DUE: DATE: TIME: Glucosamine Chondroit Msm Tab (Glucosamine/Msm/Chondroitin A) 1 Each Tablet 1 Tab PO DAILY LAST DOSE GIVEN: DATE: TIME: NEXT DOSE DUE: DATE: TIME: Calcium 500 + Vit D 200 Tablet (Calcium Carbonate/Vitamin D3) 1 Each Tablet 1 Tab PO DAILY Fenofibrate (Fenofibrate,Micronized) 134 Mg Capsule 134 Mg PO DAILYWSUP LAST DOSE GIVEN: DATE: TIME: NEXT DOSE DUE: DATE: TIME: Aspirin 325 Mg Tablet 325 Mg PO DAILY LAST DOSE GIVEN: DATE: TIME: NEXT DOSE DUE: DATE: TIME: Norvasc (Amlodipine Besylate) 10 Mg Tablet 10 Mg PO DAILY LAST DOSE GIVEN: DATE: TIME: NEXT DOSE DUE: DATE: TIME: Diagnosis: Problems: (1) Anxiety disorder (2) Dementia, vascular, with depression (3) Dementia, vascular, with delusions (4) Dementia in Alzheimer's disease with depression (5) Dementia in Alzheimer's disease with delusions (6) Impulse control disorder ERLINDA DYKES MD May 29, 2017 19:55
--- NOTE | 2017-05-29 20:18 | PN ---
DATE: 05/28/2017 PSYCHIATRIC PROGRESS NOTE This is a late entry for 05/28/2017, covers elements not covered in my initial note of 05/28/2017. SUBJECTIVE: I met with the patient individually in her room the evening of 05/28/2017 and earlier in the dining area. The patient remains confused, believes she needs to go down, so that her can go pick her up. She was tearful as I met with her the evening of 05/28/2017 and depressed. REVIEW OF SYSTEMS: Complains of some back pain. No CV, , pulmonary, eye, ENT system symptoms on review. MENTAL STATUS EXAM: Oriented to herself and situation. Speech is coherent, abstraction fair, computation impaired. Mood and affect is depressed. LABORATORY DATA: Reviewed. IMPRESSION: Major neurocognitive disorder, Alzheimer, vascular with depression, delusions; anxiety disorder, unspecified; impulse control disorder, unspecified. PLAN: Continue Namenda 5 mg in the morning and 10 mg at night, Zyprexa 2.5 mg in the morning, Effexor XR 112.5 mg a day, and Exelon patch 13.3 mg a day. Adjust further as clinically indicated. MAN Amor DYKES MD DR: MELISSA/gurmeet JOB#: [id number] / [id number]
[2017-05-30] MEDS ORDERED: CHOL500050 PO (02:35)
[2017-05-30 06:07] VITALS: BP 146/83
[2017-05-30] MEDS: MEMANTINE 5 MG TABLET. PO SCH (08:11)
[2017-05-30] MEDS: ASPIRIN 325 MG TABLET PO SCH (08:11)
[2017-05-30] MEDS: LOSARTAN 50 MG TABLET. PO SCH (08:11)
[2017-05-30] MEDS: VENLAFAXINE XR 37.5 MG CAP.ER.24H. PO SCH (08:11)
[2017-05-30] MEDS: GLUCOSAMINE/CHOND 500/400MG CAPSULE PO SCH (08:12)
[2017-05-30] MEDS: POTASSIUM CHLORIDE 20 MEQ TABLET.ER. PO SCH ×2 (08:12→19:32)
[2017-05-30] MEDS: CALCIUM CARB/VIT D3 500/200 TABLET PO SCH (08:13)
[2017-05-30] MEDS: amLODIPine BESYLATE 10 MG TABLET PO SCH (08:13)
[2017-05-30] MEDS: RIVASTIGMINE 13.3MG PATCH. TD SCH (08:14)
[2017-05-30] MEDS: QUEtiapine 25 MG TABLET. PO SCH ×2 (08:15→14:00)
[2017-05-30] MEDS: CHOLECALCIFEROL (VITAMIN D3) 50,000 UNIT CAPSULE PO SCH (08:15)
[2017-05-30] MEDS: oxyCODONE/APAP 7.5/325 1 TAB TABLET PO PRN ×2 (08:17→19:32)
[2017-05-30 16:14] VITALS: BP 99/66
[2017-05-30] MEDS: FENOFIBRATE NANOCRYSTALLIZED 145 MG TABLET PO SCH (17:21)
[2017-05-30] MEDS: MEMANTINE 10 MG TABLET. PO SCH (19:32)
[2017-05-30] MEDS: ATORVASTATIN CALCIUM 10 MG TABLET. PO SCH (19:33)
--- NOTE | 2017-05-30 20:06 | PDOC ---
Exam Niels Demential Exam: Niels Note: Please also refer to the separate dictated note~for this date of service dictated separately.~Patient seen individually. Discussed the patient with Nursing staff reviewed the chart.~Reviewed interim history and current functioning. Reviewed vital signs,~Labs/ Radiology~and current medications noted below. Continue current treatment with the changes noted in the dictated addendum note Assessment: Vital Signs: Vital Signs Date Time Temp Pulse Resp B/P (MAP) Pulse Ox O2 Delivery O2 Flow Rate FiO2 05/30/17 19:32 97 Room Air 05/30/17 16:14 98.1 75 16 99/66 (77) I&O Intake and Output 05/30/17 07:00 Intake Total 1020 ml Balance 1020 ml Intake Oral 1020 ml Current Medications: Meds: Current Medications Acetaminophen (Tylenol) 650 mg PRN Q6HRS PRN PO PAIN / TEMP Last administered on 05/28/17 18:19; Start 05/26/17 at 22:45 Multi-Ingredient Ointment (Analgesic [place]) 1 tae PRN QID PRN TP MUSCLE PAIN; Start 05/26/17 at 22:45 Al Hydroxide/Mg Hydroxide (Mylanta Plus Xs) 15 ml PRN AFTMEALHC PRN PO DYSPEPSIA; Start 05/26/17 at 22:45 Magnesium Hydroxide (Milk Of Magnesia) 2,400 mg PRN QHS PRN PO CONSTIPATION; Start 05/26/17 at 22:45 Amlodipine Besylate (Norvasc) 10 mg DAILY PO Last administered on 05/30/17 08: 13; Start 05/27/17 at 09:00 Aspirin (Elsa Aspirin) 325 mg DAILY PO Last administered on 05/30/17 08:11; Start 05/27/17 at 09:00 Calcium/Vitamin D (Oscal D 500mg/ 200uts) 1 tab DAILY PO Last administered on 08:13; Start 05/27/17 at 09:00 Hydrochlorothiazide (Hydrodiuril) 25 mg DAILY PO Last administered on 05/29/17 08:21; Start 05/27/17 at 09:00; Stop 05/29/17 at 12:32; Status DC Losartan Potassium (Cozaar) 50 mg DAILY PO Last administered on 05/30/17 08:11 ; Start 05/27/17 at 09:00 Oxycodone/ Acetaminophen (Percocet 7.5/ 325) 1 tab PRN Q6HRS PRN PO SEVERE PAIN Last administered on 05/30/17 19:32; Start 05/27/17 at 01:30 Atorvastatin Calcium (Lipitor) 5 mg QHS PO Last administered on 05/30/17 19:33 ; Start 05/27/17 at 21:00 Fenofibrate (Tricor) 145 mg DAILYWSUP PO Last administered on 05/30/17 17:21; Start 05/27/17 at 17:00 Glucosamine/ Chondroitin (Glucosamine-Chondroitin 500/400mg) 1 cap DAILY PO Last administered on 05/30/17 08:12; Start 05/27/17 at 09:00 Memantine (Namenda) 10 mg DAILY PO Last administered on 05/27/17 08:30; Start 05/27/17 at 09:00; Stop 05/27/17 at 18:23; Status DC Olanzapine (ZyPREXA) 2.5 mg DAILY08 PO Last administered on 05/29/17 08:21; Start 05/27/17 at 08:00; Stop 05/29/17 at 18:52; Status DC Rivastigmine (Exelon) 1 patch DAILY TD Last administered on 05/27/17 08:31; Start 05/27/17 at 09:00; Stop 05/27/17 at 18:23; Status DC Venlafaxine HCl (Effexor Xr) 112.5 mg DAILY PO Last administered on 05/30/17 08 :11; Start 05/27/17 at 09:00 Non-Formulary Medication 75 mg DAILY PO ; Start 05/27/17 at 09:00; Status UNV Potassium Chloride (Klor-Con) 20 meq BID PO Last administered on 05/30/17 19:32 ; Start 05/27/17 at 21:00 Memantine (Namenda) 10 mg QHS PO Last administered on 05/30/17 19:32; Start 05/27/17 at 21:00 Rivastigmine (Exelon 13.3mg) 1 patch DAILY TD Last administered on 05/30/17 08: 14; Start 05/28/17 at 09:00 Memantine (Namenda) 5 mg DAILY PO Last administered on 05/30/17 08:11; Start at 09:00 Vitamin D (Vitamin D3) 50,000 unit WEEKLY PO Last administered on 05/30/17 08: 15; Start 05/30/17 at 09:00 Quetiapine Fumarate (SEROquel) 12.5 mg BID92 PO Last administered on 05/30/17 14:00; Start 05/30/17 at 09:00 Active Scripts Active Reported EXELON 9.5mg/24hr (Rivastigmine) 1 Each Patch.td24 1 Patch TD DAILY LAST DOSE GIVEN: DATE: TIME: NEXT DOSE DUE: DATE: TIME: Simvastatin 10 Mg Tablet 10 Mg PO HS LAST DOSE GIVEN: DATE: TIME: NEXT DOSE DUE: DATE: TIME: Effexor Xr (Venlafaxine Hcl) 75 Mg Cap.er.24h 75 Mg PO DAILY LAST DOSE GIVEN: DATE: TIME: NEXT DOSE DUE: DATE: TIME: Effexor Xr (Venlafaxine Hcl) 37.5 Mg Cap.er.24h 37.5 Mg PO DAILY LAST DOSE GIVEN: DATE: TIME: NEXT DOSE DUE: DATE: TIME: Percocet 7.5-325 Mg Tablet (Oxycodone Hcl/Acetaminophen) 1 Each Tablet 1 Tab PO PRN Q6HRS PRN LAST DOSE GIVEN: DATE: TIME: NEXT DOSE DUE: DATE: TIME: Zyprexa (Olanzapine) 2.5 Mg Tablet 2.5 Mg PO DAILY08 LAST DOSE GIVEN: DATE: TIME: NEXT DOSE DUE: DATE: TIME: Namenda (Memantine Hcl) 10 Mg Tablet 10 Mg PO DAILY LAST DOSE GIVEN: DATE: TIME: NEXT DOSE DUE: DATE: TIME: Cozaar (Losartan Potassium) 50 Mg Tablet 50 Mg PO DAILY LAST DOSE GIVEN: DATE: TIME: NEXT DOSE DUE: DATE: TIME: Hydrochlorothiazide Tablet (Hydrochlorothiazide) 25 Mg Tablet 25 Mg PO DAILY LAST DOSE GIVEN: DATE: TIME: NEXT DOSE DUE: DATE: TIME: Glucosamine Chondroit Msm Tab (Glucosamine/Msm/Chondroitin A) 1 Each Tablet 1 Tab PO DAILY LAST DOSE GIVEN: DATE: TIME: NEXT DOSE DUE: DATE: TIME: Calcium 500 + Vit D 200 Tablet (Calcium Carbonate/Vitamin D3) 1 Each Tablet 1 Tab PO DAILY Fenofibrate (Fenofibrate,Micronized) 134 Mg Capsule 134 Mg PO DAILYWSUP LAST DOSE GIVEN: DATE: TIME: NEXT DOSE DUE: DATE: TIME: Aspirin 325 Mg Tablet 325 Mg PO DAILY LAST DOSE GIVEN: DATE: TIME: NEXT DOSE DUE: DATE: TIME: Norvasc (Amlodipine Besylate) 10 Mg Tablet 10 Mg PO DAILY LAST DOSE GIVEN: DATE: TIME: NEXT DOSE DUE: DATE: TIME: Diagnosis: Problems: (1) Dementia, vascular, with depression (2) Anxiety disorder (3) Dementia, vascular, with delusions (4) Dementia in Alzheimer's disease with depression (5) Dementia in Alzheimer's disease with delusions (6) Impulse control disorder ERLINDA DYKES MD May 30, 2017 20:06
--- NOTE | 2017-05-31 00:59 | PN ---
DATE: 05/29/2017 SUBJECTIVE: This is a late entry 05/29/2017, covers elements not covered in my initial note of 05/29/2017. I met with the patient in the evening of 05/29/2017. The patient was quite confused the previous evening and had a good day on 05/29/2017 per nursing report. As I met with her, she complained of back pain. She has received p.r.n. for this per nursing report. She was crying in her room. REVIEW OF SYSTEMS: Other than back pain no CV, , pulmonary, eye, ENT, or integumentary system symptoms on review. Reliability poor. MENTAL STATUS EXAM: Oriented to herself. Insight, judgment, recent and remote memory, attention, concentration, and fund of knowledge poor consistent with her diagnosis as mentioned in my initial note. IMPRESSION: Major neurocognitive disorder, Alzheimer, vascular with depression, delusion, and behavioral disturbance. Rest unchanged. PLAN: Change Zyprexa 2.5 mg daily to Seroquel 12.5 mg at 9 a.m. and 2 p.m. Maintain Namenda 5 mg a.m. and 10 mg at bedtime, Effexor XR 112.5 mg a day, and Exelon patch 13.3 mg a day. Adjust further as clinically indicated. MAN Amor DYKES MD DR: MELISSA/gurmeet JOB#: [id number] / [id number]
[2017-05-31 05:50] VITALS: BP 125/73
[2017-05-31] MEDS: VENLAFAXINE XR 37.5 MG CAP.ER.24H. PO SCH (09:03)
[2017-05-31] MEDS: ASPIRIN 325 MG TABLET PO SCH (09:03)
[2017-05-31] MEDS: QUEtiapine 25 MG TABLET. PO SCH ×2 (09:03→13:56)
[2017-05-31] MEDS: POTASSIUM CHLORIDE 20 MEQ TABLET.ER. PO SCH ×2 (09:03→20:45)
[2017-05-31] MEDS: GLUCOSAMINE/CHOND 500/400MG CAPSULE PO SCH (09:03)
[2017-05-31] MEDS: LOSARTAN 50 MG TABLET. PO SCH (09:03)
[2017-05-31] MEDS: MEMANTINE 5 MG TABLET. PO SCH (09:03)
[2017-05-31] MEDS: CALCIUM CARB/VIT D3 500/200 TABLET PO SCH (09:03)
[2017-05-31] MEDS: amLODIPine BESYLATE 10 MG TABLET PO SCH (09:04)
[2017-05-31] MEDS: RIVASTIGMINE 13.3MG PATCH. TD SCH (09:04)
[2017-05-31] MEDS: oxyCODONE/APAP 7.5/325 1 TAB TABLET PO PRN ×2 (09:09→20:54)
[2017-05-31] MEDS: CYANOCOBALAMIN (VITAMIN B-12) 250 MCG TABLET PO SCH (11:30)
[2017-05-31 16:04] VITALS: BP 108/61
[2017-05-31] MEDS: FENOFIBRATE NANOCRYSTALLIZED 145 MG TABLET PO SCH (17:11)
--- NOTE | 2017-05-31 19:54 | PDOC ---
Exam Niels Demential Exam: Niels Note: Please also refer to the separate dictated note~for this date of service dictated separately.~Patient seen individually. Discussed the patient with Nursing staff reviewed the chart.~Reviewed interim history and current functioning. Reviewed vital signs,~Labs/ Radiology~and current medications noted below. Continue current treatment with the changes noted in the dictated addendum note Assessment: Vital Signs: Vital Signs Date Time Temp Pulse Resp B/P (MAP) Pulse Ox O2 Delivery O2 Flow Rate FiO2 05/31/17 16:04 98.3 72 19 108/61 (77) 99 05/30/17 20:32 Room Air I&O Intake and Output 05/31/17 07:00 Intake Total 900 ml Balance 900 ml Intake Oral 900 ml Current Medications: Meds: Current Medications Acetaminophen (Tylenol) 650 mg PRN Q6HRS PRN PO PAIN / TEMP Last administered on 05/28/17 18:19; Start 05/26/17 at 22:45 Multi-Ingredient Ointment (Analgesic [place]) 1 tae PRN QID PRN TP MUSCLE PAIN; Start 05/26/17 at 22:45 Al Hydroxide/Mg Hydroxide (Mylanta Plus Xs) 15 ml PRN AFTMEALHC PRN PO DYSPEPSIA; Start 05/26/17 at 22:45 Magnesium Hydroxide (Milk Of Magnesia) 2,400 mg PRN QHS PRN PO CONSTIPATION; Start 05/26/17 at 22:45 Amlodipine Besylate (Norvasc) 10 mg DAILY PO Last administered on 05/31/17 09: 04; Start 05/27/17 at 09:00 Aspirin (Elsa Aspirin) 325 mg DAILY PO Last administered on 05/31/17 09:03; Start 05/27/17 at 09:00 Calcium/Vitamin D (Oscal D 500mg/ 200uts) 1 tab DAILY PO Last administered on 09:03; Start 05/27/17 at 09:00 Hydrochlorothiazide (Hydrodiuril) 25 mg DAILY PO Last administered on 05/29/17 08:21; Start 05/27/17 at 09:00; Stop 05/29/17 at 12:32; Status DC Losartan Potassium (Cozaar) 50 mg DAILY PO Last administered on 05/31/17 09:03 ; Start 05/27/17 at 09:00 Oxycodone/ Acetaminophen (Percocet 7.5/ 325) 1 tab PRN Q6HRS PRN PO SEVERE PAIN Last administered on 05/31/17 09:09; Start 05/27/17 at 01:30; Stop 05/31/17 at 12:28; Status DC Atorvastatin Calcium (Lipitor) 5 mg QHS PO Last administered on 05/30/17 19:33 ; Start 05/27/17 at 21:00 Fenofibrate (Tricor) 145 mg DAILYWSUP PO Last administered on 05/31/17 17:11; Start 05/27/17 at 17:00 Glucosamine/ Chondroitin (Glucosamine-Chondroitin 500/400mg) 1 cap DAILY PO Last administered on 05/31/17 09:03; Start 05/27/17 at 09:00 Memantine (Namenda) 10 mg DAILY PO Last administered on 05/27/17 08:30; Start 05/27/17 at 09:00; Stop 05/27/17 at 18:23; Status DC Olanzapine (ZyPREXA) 2.5 mg DAILY08 PO Last administered on 05/29/17 08:21; Start 05/27/17 at 08:00; Stop 05/29/17 at 18:52; Status DC Rivastigmine (Exelon) 1 patch DAILY TD Last administered on 05/27/17 08:31; Start 05/27/17 at 09:00; Stop 05/27/17 at 18:23; Status DC Venlafaxine HCl (Effexor Xr) 112.5 mg DAILY PO Last administered on 05/31/17 09 :03; Start 05/27/17 at 09:00 Non-Formulary Medication 75 mg DAILY PO ; Start 05/27/17 at 09:00; Status UNV Potassium Chloride (Klor-Con) 20 meq BID PO Last administered on 05/31/17 09:03 ; Start 05/27/17 at 21:00 Memantine (Namenda) 10 mg QHS PO Last administered on 05/30/17 19:32; Start 05/27/17 at 21:00 Rivastigmine (Exelon 13.3mg) 1 patch DAILY TD Last administered on 05/31/17 09: 04; Start 05/28/17 at 09:00 Memantine (Namenda) 5 mg DAILY PO Last administered on 05/31/17 09:03; Start at 09:00 Vitamin D (Vitamin D3) 50,000 unit WEEKLY PO Last administered on 05/30/17 08: 15; Start 05/30/17 at 09:00 Quetiapine Fumarate (SEROquel) 12.5 mg BID92 PO Last administered on 05/31/17 13:56; Start 05/30/17 at 09:00 Cyanocobalamin (Vitamin B-12) 250 mcg DAILYBFRLUN PO Last administered on 11:30; Start 05/31/17 at 11:30 Oxycodone/ Acetaminophen (Percocet 7.5/ 325) 1 tab PRN BID PRN PO SEVERE PAIN; Start 05/31/17 at 18:00 Mirtazapine (Remeron) 7.5 mg QHS PO ; Start 05/31/17 at 21:00 Active Scripts Active Reported EXELON 9.5mg/24hr (Rivastigmine) 1 Each Patch.td24 1 Patch TD DAILY LAST DOSE GIVEN: DATE: TIME: NEXT DOSE DUE: DATE: TIME: Simvastatin 10 Mg Tablet 10 Mg PO HS LAST DOSE GIVEN: DATE: TIME: NEXT DOSE DUE: DATE: TIME: Effexor Xr (Venlafaxine Hcl) 75 Mg Cap.er.24h 75 Mg PO DAILY LAST DOSE GIVEN: DATE: TIME: NEXT DOSE DUE: DATE: TIME: Effexor Xr (Venlafaxine Hcl) 37.5 Mg Cap.er.24h 37.5 Mg PO DAILY LAST DOSE GIVEN: DATE: TIME: NEXT DOSE DUE: DATE: TIME: Percocet 7.5-325 Mg Tablet (Oxycodone Hcl/Acetaminophen) 1 Each Tablet 1 Tab PO PRN Q6HRS PRN LAST DOSE GIVEN: DATE: TIME: NEXT DOSE DUE: DATE: TIME: Zyprexa (Olanzapine) 2.5 Mg Tablet 2.5 Mg PO DAILY08 LAST DOSE GIVEN: DATE: TIME: NEXT DOSE DUE: DATE: TIME: Namenda (Memantine Hcl) 10 Mg Tablet 10 Mg PO DAILY LAST DOSE GIVEN: DATE: TIME: NEXT DOSE DUE: DATE: TIME: Cozaar (Losartan Potassium) 50 Mg Tablet 50 Mg PO DAILY LAST DOSE GIVEN: DATE: TIME: NEXT DOSE DUE: DATE: TIME: Hydrochlorothiazide Tablet (Hydrochlorothiazide) 25 Mg Tablet 25 Mg PO DAILY LAST DOSE GIVEN: DATE: TIME: NEXT DOSE DUE: DATE: TIME: Glucosamine Chondroit Msm Tab (Glucosamine/Msm/Chondroitin A) 1 Each Tablet 1 Tab PO DAILY LAST DOSE GIVEN: DATE: TIME: NEXT DOSE DUE: DATE: TIME: Calcium 500 + Vit D 200 Tablet (Calcium Carbonate/Vitamin D3) 1 Each Tablet 1 Tab PO DAILY Fenofibrate (Fenofibrate,Micronized) 134 Mg Capsule 134 Mg PO DAILYWSUP LAST DOSE GIVEN: DATE: TIME: NEXT DOSE DUE: DATE: TIME: Aspirin 325 Mg Tablet 325 Mg PO DAILY LAST DOSE GIVEN: DATE: TIME: NEXT DOSE DUE: DATE: TIME: Norvasc (Amlodipine Besylate) 10 Mg Tablet 10 Mg PO DAILY LAST DOSE GIVEN: DATE: TIME: NEXT DOSE DUE: DATE: TIME: Diagnosis: Problems: (1) Anxiety disorder (2) Dementia, vascular, with depression (3) Dementia, vascular, with delusions (4) Dementia in Alzheimer's disease with depression (5) Dementia in Alzheimer's disease with delusions ERLINDA DYKES MD May 31, 2017 19:54
[2017-05-31] MEDS: ATORVASTATIN CALCIUM 10 MG TABLET. PO SCH (20:45)
[2017-05-31] MEDS: MEMANTINE 10 MG TABLET. PO SCH (20:45)
[2017-05-31] MEDS ORDERED: MIRTAZAPINE 7.5 MG TABLET. PO SCH (21:00)
--- NOTE | 2017-05-31 23:41 | PN ---
DATE: 05/30/2017 PSYCHIATRIC PROGRESS NOTE This is a late entry for 05/30/2017, covers elements not covered in my initial note of 05/30/2017. SUBJECTIVE: Per nursing report, the patient is somewhat withdrawn, drowsy, pleasant, interactive. She was tearful the previous evening, but not during the day on 05/30/2017. I met with her the evening of 05/30/2017. REVIEW OF SYSTEMS: No CV, , eye, ENT or pulmonary system symptoms on review. Reliability fair. MENTAL STATUS EXAM: Oriented to herself and situation. Speech moderate latency, often responses monosyllabic. Abstraction fair, computation impaired, language function intact. Attention span short. Short term memory is impaired. No suicidal or homicidal ideation. No psychotic symptoms. LABORATORY DATA: Reviewed. IMPRESSION: Unchanged from initial note. PLAN: Continue Namenda 5 mg a.m. and 10 mg at bedtime. We will increase this in a day or so. Continue Effexor XR 112.5 mg a day, Exelon patch 13.3 mg patch daily, Seroquel 12.5 mg b.i.d., may need to adjust gradually as clinically indicated. MAN Amor DYKES MD DR: MELISSA/gurmeet JOB#: [id number] / [id number]
[2017-06-01 06:07] VITALS: BP 118/74
[2017-06-01] MEDS: CALCIUM CARB/VIT D3 500/200 TABLET PO SCH (08:13)
[2017-06-01] MEDS: VENLAFAXINE XR 37.5 MG CAP.ER.24H. PO SCH (08:13)
[2017-06-01] MEDS: GLUCOSAMINE/CHOND 500/400MG CAPSULE PO SCH (08:13)
[2017-06-01] MEDS: MEMANTINE 5 MG TABLET. PO SCH (08:14)
[2017-06-01] MEDS: POTASSIUM CHLORIDE 20 MEQ TABLET.ER. PO SCH ×3 (08:14→21:00)
[2017-06-01] MEDS: QUEtiapine 25 MG TABLET. PO SCH ×2 (08:15→15:16)
[2017-06-01] MEDS: ASPIRIN 325 MG TABLET PO SCH (08:15)
[2017-06-01] MEDS: RIVASTIGMINE 13.3MG PATCH. TD SCH (08:16)
[2017-06-01] MEDS: CYANOCOBALAMIN (VITAMIN B-12) 250 MCG TABLET PO SCH (08:17)
[2017-06-01] MEDS: amLODIPine BESYLATE 10 MG TABLET PO SCH (08:18)
[2017-06-01] MEDS: LOSARTAN 50 MG TABLET. PO SCH (08:18)
[2017-06-01 08:20] VITALS: BP 124/62
[2017-06-01 16:16] VITALS: BP 114/62
[2017-06-01] MEDS: FENOFIBRATE NANOCRYSTALLIZED 145 MG TABLET PO SCH (17:22)
[2017-06-01] MEDS: MEMANTINE 10 MG TABLET. PO SCH ×2 (19:29→21:00)
[2017-06-01] MEDS: oxyCODONE/APAP 7.5/325 1 TAB TABLET PO PRN (19:29)
[2017-06-01] MEDS: ATORVASTATIN CALCIUM 10 MG TABLET. PO SCH ×2 (19:29→21:00)
[2017-06-01] MEDS: MIRTAZAPINE 15 MG TABLET PO SCH ×2 (19:30→21:00)
--- NOTE | 2017-06-01 19:48 | PDOC ---
Exam Niels Demential Exam: Niels Note: Please also refer to the separate dictated note~for this date of service dictated separately.~Patient seen individually. Discussed the patient with Nursing staff reviewed the chart.~Reviewed interim history and current functioning. Reviewed vital signs,~Labs/ Radiology~and current medications noted below. Continue current treatment with the changes noted in the dictated addendum note Assessment: Vital Signs: Vital Signs Date Time Temp Pulse Resp B/P (MAP) Pulse Ox O2 Delivery O2 Flow Rate FiO2 06/01/17 19:29 100 Room Air 06/01/17 16:16 97.3 81 17 114/62 (79) I&O Intake and Output 06/01/17 07:00 Intake Total 900 ml Balance 900 ml Intake Oral 900 ml Current Medications: Meds: Current Medications Acetaminophen (Tylenol) 650 mg PRN Q6HRS PRN PO PAIN / TEMP Last administered on 05/28/17 18:19; Start 05/26/17 at 22:45 Multi-Ingredient Ointment (Analgesic Hollister) 1 tae PRN QID PRN TP MUSCLE PAIN; Start 05/26/17 at 22:45 Al Hydroxide/Mg Hydroxide (Mylanta Plus Xs) 15 ml PRN AFTMEALHC PRN PO DYSPEPSIA; Start 05/26/17 at 22:45 Magnesium Hydroxide (Milk Of Magnesia) 2,400 mg PRN QHS PRN PO CONSTIPATION; Start 05/26/17 at 22:45 Amlodipine Besylate (Norvasc) 10 mg DAILY PO Last administered on 06/01/17 08: 18; Start 05/27/17 at 09:00 Aspirin (Elsa Aspirin) 325 mg DAILY PO Last administered on 06/01/17 08:15; Start 05/27/17 at 09:00 Calcium/Vitamin D (Oscal D 500mg/ 200uts) 1 tab DAILY PO Last administered on 08:13; Start 05/27/17 at 09:00 Hydrochlorothiazide (Hydrodiuril) 25 mg DAILY PO Last administered on 05/29/17 08:21; Start 05/27/17 at 09:00; Stop 05/29/17 at 12:32; Status DC Losartan Potassium (Cozaar) 50 mg DAILY PO Last administered on 06/01/17 08:18 ; Start 05/27/17 at 09:00 Oxycodone/ Acetaminophen (Percocet 7.5/ 325) 1 tab PRN Q6HRS PRN PO SEVERE PAIN Last administered on 05/31/17 09:09; Start 05/27/17 at 01:30; Stop 05/31/17 at 12:28; Status DC Atorvastatin Calcium (Lipitor) 5 mg QHS PO Last administered on 06/01/17 19:29 ; Start 05/27/17 at 21:00 Fenofibrate (Tricor) 145 mg DAILYWSUP PO Last administered on 06/01/17 17:22; Start 05/27/17 at 17:00 Glucosamine/ Chondroitin (Glucosamine-Chondroitin 500/400mg) 1 cap DAILY PO Last administered on 06/01/17 08:13; Start 05/27/17 at 09:00 Memantine (Namenda) 10 mg DAILY PO Last administered on 05/27/17 08:30; Start 05/27/17 at 09:00; Stop 05/27/17 at 18:23; Status DC Olanzapine (ZyPREXA) 2.5 mg DAILY08 PO Last administered on 05/29/17 08:21; Start 05/27/17 at 08:00; Stop 05/29/17 at 18:52; Status DC Rivastigmine (Exelon) 1 patch DAILY TD Last administered on 05/27/17 08:31; Start 05/27/17 at 09:00; Stop 05/27/17 at 18:23; Status DC Venlafaxine HCl (Effexor Xr) 112.5 mg DAILY PO Last administered on 06/01/17 08 :13; Start 05/27/17 at 09:00 Non-Formulary Medication 75 mg DAILY PO ; Start 05/27/17 at 09:00; Status UNV Potassium Chloride (Klor-Con) 20 meq BID PO Last administered on 06/01/17 19:29 ; Start 05/27/17 at 21:00 Memantine (Namenda) 10 mg QHS PO Last administered on 06/01/17 19:29; Start 05/27/17 at 21:00 Rivastigmine (Exelon 13.3mg) 1 patch DAILY TD Last administered on 06/01/17 08: 16; Start 05/28/17 at 09:00 Memantine (Namenda) 5 mg DAILY PO Last administered on 06/01/17 08:14; Start at 09:00 Vitamin D (Vitamin D3) 50,000 unit WEEKLY PO Last administered on 05/30/17 08: 15; Start 05/30/17 at 09:00 Quetiapine Fumarate (SEROquel) 12.5 mg BID92 PO Last administered on 06/01/17 15:16; Start 05/30/17 at 09:00 Cyanocobalamin (Vitamin B-12) 250 mcg DAILYBFRLUN PO Last administered on 08:17; Start 05/31/17 at 11:30 Oxycodone/ Acetaminophen (Percocet 7.5/ 325) 1 tab PRN BID PRN PO SEVERE PAIN Last administered on 06/01/17 19:29; Start 05/31/17 at 18:00 Mirtazapine (Remeron) 7.5 mg QHS PO Last administered on 05/31/17 20:47; Start 05/31/17 at 21:00; Stop 06/01/17 at 18:30; Status DC Mirtazapine (Remeron) 15 mg QHS PO Last administered on 06/01/17 19:30; Start 06/01/17 at 21:00 Active Scripts Active Reported EXELON 9.5mg/24hr (Rivastigmine) 1 Each Patch.td24 1 Patch TD DAILY LAST DOSE GIVEN: DATE: TIME: NEXT DOSE DUE: DATE: TIME: Simvastatin 10 Mg Tablet 10 Mg PO HS LAST DOSE GIVEN: DATE: TIME: NEXT DOSE DUE: DATE: TIME: Effexor Xr (Venlafaxine Hcl) 75 Mg Cap.er.24h 75 Mg PO DAILY LAST DOSE GIVEN: DATE: TIME: NEXT DOSE DUE: DATE: TIME: Effexor Xr (Venlafaxine Hcl) 37.5 Mg Cap.er.24h 37.5 Mg PO DAILY LAST DOSE GIVEN: DATE: TIME: NEXT DOSE DUE: DATE: TIME: Percocet 7.5-325 Mg Tablet (Oxycodone Hcl/Acetaminophen) 1 Each Tablet 1 Tab PO PRN Q6HRS PRN LAST DOSE GIVEN: DATE: TIME: NEXT DOSE DUE: DATE: TIME: Zyprexa (Olanzapine) 2.5 Mg Tablet 2.5 Mg PO DAILY08 LAST DOSE GIVEN: DATE: TIME: NEXT DOSE DUE: DATE: TIME: Namenda (Memantine Hcl) 10 Mg Tablet 10 Mg PO DAILY LAST DOSE GIVEN: DATE: TIME: NEXT DOSE DUE: DATE: TIME: Cozaar (Losartan Potassium) 50 Mg Tablet 50 Mg PO DAILY LAST DOSE GIVEN: DATE: TIME: NEXT DOSE DUE: DATE: TIME: Hydrochlorothiazide Tablet (Hydrochlorothiazide) 25 Mg Tablet 25 Mg PO DAILY LAST DOSE GIVEN: DATE: TIME: NEXT DOSE DUE: DATE: TIME: Glucosamine Chondroit Msm Tab (Glucosamine/Msm/Chondroitin A) 1 Each Tablet 1 Tab PO DAILY LAST DOSE GIVEN: DATE: TIME: NEXT DOSE DUE: DATE: TIME: Calcium 500 + Vit D 200 Tablet (Calcium Carbonate/Vitamin D3) 1 Each Tablet 1 Tab PO DAILY Fenofibrate (Fenofibrate,Micronized) 134 Mg Capsule 134 Mg PO DAILYWSUP LAST DOSE GIVEN: DATE: TIME: NEXT DOSE DUE: DATE: TIME: Aspirin 325 Mg Tablet 325 Mg PO DAILY LAST DOSE GIVEN: DATE: TIME: NEXT DOSE DUE: DATE: TIME: Norvasc (Amlodipine Besylate) 10 Mg Tablet 10 Mg PO DAILY LAST DOSE GIVEN: DATE: TIME: NEXT DOSE DUE: DATE: TIME: Diagnosis: Problems: (1) Anxiety disorder (2) Dementia, vascular, with depression (3) Dementia, vascular, with delusions (4) Dementia in Alzheimer's disease with depression (5) Dementia in Alzheimer's disease with delusions (6) Impulse control disorder ERLINDA DYKES MD Jun 01, 2017 19:48
--- NOTE | 2017-06-02 00:40 | PN ---
DATE: 05/31/2017 PSYCHIATRIC PROGRESS NOTE This is a late entry of 05/31/2017 covers elements not covered in my initial note. SUBJECTIVE: I met with the patient in the evening of 05/31/2017. She slept 4 hours previous evening, otherwise, cooperative, less tearful. No CV, , pulmonary, eye, ENT system symptoms on review. Reliability poor. MENTAL STATUS EXAM: Oriented to herself. Insight, judgment, recent and remote memory, attention, concentration, fund of knowledge poor, consistent with her diagnosis. She is quite confused the previous evening done better during the day on 05/31/2017 per nursing report. LABORATORY DATA: Reviewed. IMPRESSION: Unchanged from initial note. PLAN: Continue Namenda 5 in the morning and 10 at night, Effexor XR 112.5 mg a day, Exelon 13.3 mg patch every day, Seroquel 12.5 b.i.d. Start Remeron 7.5 mg at bedtime. Adjust further as clinically indicated. Reviewed drug interaction risk benefit ratio indicates no further change at this time. ERLINDA DYKES MD DR: MELISSA/gurmeet JOB#: [id number] / [id number]
[2017-06-02] MEDS: oxyCODONE/APAP 7.5/325 1 TAB TABLET PO PRN (05:19)
[2017-06-02 06:48] VITALS: BP 118/71
[2017-06-02] MEDS: RIVASTIGMINE 13.3MG PATCH. TD SCH (10:17)
[2017-06-02] MEDS: LOSARTAN 50 MG TABLET. PO SCH (10:18)
[2017-06-02] MEDS: ASPIRIN 325 MG TABLET PO SCH (10:18)
[2017-06-02] MEDS: CALCIUM CARB/VIT D3 500/200 TABLET PO SCH (10:18)
[2017-06-02] MEDS: GLUCOSAMINE/CHOND 500/400MG CAPSULE PO SCH (10:18)
[2017-06-02] MEDS: POTASSIUM CHLORIDE 20 MEQ TABLET.ER. PO SCH ×2 (10:18→20:09)
[2017-06-02] MEDS: amLODIPine BESYLATE 10 MG TABLET PO SCH (10:18)
[2017-06-02] MEDS: QUEtiapine 25 MG TABLET. PO SCH ×2 (10:18→13:06)
[2017-06-02] MEDS: MEMANTINE 5 MG TABLET. PO SCH (10:19)
[2017-06-02] MEDS: VENLAFAXINE XR 37.5 MG CAP.ER.24H. PO SCH (10:19)
[2017-06-02] MEDS: CYANOCOBALAMIN (VITAMIN B-12) 250 MCG TABLET PO SCH (13:06)
[2017-06-02 16:29] VITALS: BP 126/64
[2017-06-02] MEDS: FENOFIBRATE NANOCRYSTALLIZED 145 MG TABLET PO SCH (17:19)
--- NOTE | 2017-06-02 19:51 | PDOC ---
Exam Niels Demential Exam: Niels Note: Please also refer to the separate dictated note~for this date of service dictated separately.~Patient seen individually. Discussed the patient with Nursing staff reviewed the chart.~Reviewed interim history and current functioning. Reviewed vital signs,~Labs/ Radiology~and current medications noted below. Continue current treatment with the changes noted in the dictated addendum note Assessment: Vital Signs: Vital Signs Date Time Temp Pulse Resp B/P (MAP) Pulse Ox O2 Delivery O2 Flow Rate FiO2 06/02/17 16:29 98.4 79 18 126/64 (84) 96 Room Air I&O Intake and Output 06/02/17 07:00 Intake Total 960 ml Balance 960 ml Intake Oral 960 ml Current Medications: Meds: Current Medications Acetaminophen (Tylenol) 650 mg PRN Q6HRS PRN PO PAIN / TEMP Last administered on 05/28/17 18:19; Start 05/26/17 at 22:45 Multi-Ingredient Ointment (Analgesic Delia) 1 tae PRN QID PRN TP MUSCLE PAIN; Start 05/26/17 at 22:45 Al Hydroxide/Mg Hydroxide (Mylanta Plus Xs) 15 ml PRN AFTMEALHC PRN PO DYSPEPSIA; Start 05/26/17 at 22:45 Magnesium Hydroxide (Milk Of Magnesia) 2,400 mg PRN QHS PRN PO CONSTIPATION; Start 05/26/17 at 22:45 Amlodipine Besylate (Norvasc) 10 mg DAILY PO Last administered on 06/02/17 10: 18; Start 05/27/17 at 09:00 Aspirin (Elsa Aspirin) 325 mg DAILY PO Last administered on 06/02/17 10:18; Start 05/27/17 at 09:00 Calcium/Vitamin D (Oscal D 500mg/ 200uts) 1 tab DAILY PO Last administered on 10:18; Start 05/27/17 at 09:00 Hydrochlorothiazide (Hydrodiuril) 25 mg DAILY PO Last administered on 05/29/17 08:21; Start 05/27/17 at 09:00; Stop 05/29/17 at 12:32; Status DC Losartan Potassium (Cozaar) 50 mg DAILY PO Last administered on 06/02/17 10:18 ; Start 05/27/17 at 09:00 Oxycodone/ Acetaminophen (Percocet 7.5/ 325) 1 tab PRN Q6HRS PRN PO SEVERE PAIN Last administered on 05/31/17 09:09; Start 05/27/17 at 01:30; Stop 05/31/17 at 12:28; Status DC Atorvastatin Calcium (Lipitor) 5 mg QHS PO Last administered on 05/31/17 20:45 ; Start 05/27/17 at 21:00 Fenofibrate (Tricor) 145 mg DAILYWSUP PO Last administered on 06/02/17 17:19; Start 05/27/17 at 17:00 Glucosamine/ Chondroitin (Glucosamine-Chondroitin 500/400mg) 1 cap DAILY PO Last administered on 06/02/17 10:18; Start 05/27/17 at 09:00 Memantine (Namenda) 10 mg DAILY PO Last administered on 05/27/17 08:30; Start 05/27/17 at 09:00; Stop 05/27/17 at 18:23; Status DC Olanzapine (ZyPREXA) 2.5 mg DAILY08 PO Last administered on 05/29/17 08:21; Start 05/27/17 at 08:00; Stop 05/29/17 at 18:52; Status DC Rivastigmine (Exelon) 1 patch DAILY TD Last administered on 05/27/17 08:31; Start 05/27/17 at 09:00; Stop 05/27/17 at 18:23; Status DC Venlafaxine HCl (Effexor Xr) 112.5 mg DAILY PO Last administered on 06/02/17 10:19; Start 05/27/17 at 09:00 Non-Formulary Medication 75 mg DAILY PO ; Start 05/27/17 at 09:00; Status UNV Potassium Chloride (Klor-Con) 20 meq BID PO Last administered on 06/02/17 10: 18; Start 05/27/17 at 21:00 Memantine (Namenda) 10 mg QHS PO Last administered on 05/31/17 20:45; Start 05/27/17 at 21:00 Rivastigmine (Exelon 13.3mg) 1 patch DAILY TD Last administered on 06/02/17 10 :17; Start 05/28/17 at 09:00 Memantine (Namenda) 5 mg DAILY PO Last administered on 06/02/17 10:19; Start 05/28/17 at 09:00 Vitamin D (Vitamin D3) 50,000 unit WEEKLY PO Last administered on 05/30/17 08: 15; Start 05/30/17 at 09:00 Quetiapine Fumarate (SEROquel) 12.5 mg BID92 PO Last administered on 06/02/17 13:06; Start 05/30/17 at 09:00 Cyanocobalamin (Vitamin B-12) 250 mcg DAILYBFRLUN PO Last administered on 13:06; Start 05/31/17 at 11:30 Oxycodone/ Acetaminophen (Percocet 7.5/ 325) 1 tab PRN BID PRN PO SEVERE PAIN Last administered on 06/02/17 05:19; Start 05/31/17 at 18:00 Mirtazapine (Remeron) 7.5 mg QHS PO Last administered on 05/31/17 20:47; Start 05/31/17 at 21:00; Stop 06/01/17 at 18:30; Status DC Mirtazapine (Remeron) 15 mg QHS PO ; Start 06/01/17 at 21:00 Active Scripts Active Reported EXELON 9.5mg/24hr (Rivastigmine) 1 Each Patch.td24 1 Patch TD DAILY LAST DOSE GIVEN: DATE: TIME: NEXT DOSE DUE: DATE: TIME: Simvastatin 10 Mg Tablet 10 Mg PO HS LAST DOSE GIVEN: DATE: TIME: NEXT DOSE DUE: DATE: TIME: Effexor Xr (Venlafaxine Hcl) 75 Mg Cap.er.24h 75 Mg PO DAILY LAST DOSE GIVEN: DATE: TIME: NEXT DOSE DUE: DATE: TIME: Effexor Xr (Venlafaxine Hcl) 37.5 Mg Cap.er.24h 37.5 Mg PO DAILY LAST DOSE GIVEN: DATE: TIME: NEXT DOSE DUE: DATE: TIME: Percocet 7.5-325 Mg Tablet (Oxycodone Hcl/Acetaminophen) 1 Each Tablet 1 Tab PO PRN Q6HRS PRN LAST DOSE GIVEN: DATE: TIME: NEXT DOSE DUE: DATE: TIME: Zyprexa (Olanzapine) 2.5 Mg Tablet 2.5 Mg PO DAILY08 LAST DOSE GIVEN: DATE: TIME: NEXT DOSE DUE: DATE: TIME: Namenda (Memantine Hcl) 10 Mg Tablet 10 Mg PO DAILY LAST DOSE GIVEN: DATE: TIME: NEXT DOSE DUE: DATE: TIME: Cozaar (Losartan Potassium) 50 Mg Tablet 50 Mg PO DAILY LAST DOSE GIVEN: DATE: TIME: NEXT DOSE DUE: DATE: TIME: Hydrochlorothiazide Tablet (Hydrochlorothiazide) 25 Mg Tablet 25 Mg PO DAILY LAST DOSE GIVEN: DATE: TIME: NEXT DOSE DUE: DATE: TIME: Glucosamine Chondroit Msm Tab (Glucosamine/Msm/Chondroitin A) 1 Each Tablet 1 Tab PO DAILY LAST DOSE GIVEN: DATE: TIME: NEXT DOSE DUE: DATE: TIME: Calcium 500 + Vit D 200 Tablet (Calcium Carbonate/Vitamin D3) 1 Each Tablet 1 Tab PO DAILY Fenofibrate (Fenofibrate,Micronized) 134 Mg Capsule 134 Mg PO DAILYWSUP LAST DOSE GIVEN: DATE: TIME: NEXT DOSE DUE: DATE: TIME: Aspirin 325 Mg Tablet 325 Mg PO DAILY LAST DOSE GIVEN: DATE: TIME: NEXT DOSE DUE: DATE: TIME: Norvasc (Amlodipine Besylate) 10 Mg Tablet 10 Mg PO DAILY LAST DOSE GIVEN: DATE: TIME: NEXT DOSE DUE: DATE: TIME: Diagnosis: Problems: (1) Anxiety disorder (2) Dementia, vascular, with depression (3) Dementia, vascular, with delusions (4) Dementia in Alzheimer's disease with depression (5) Dementia in Alzheimer's disease with delusions (6) Impulse control disorder ERLINDA DYKES MD Jun 02, 2017 19:51
[2017-06-02] MEDS: MEMANTINE 10 MG TABLET. PO SCH (20:09)
[2017-06-02] MEDS: ATORVASTATIN CALCIUM 10 MG TABLET. PO SCH (20:10)
[2017-06-02] MEDS: MIRTAZAPINE 15 MG TABLET PO SCH (20:10)
--- NOTE | 2017-06-02 22:51 | PN ---
DATE: 06/01/2017 This is a late entry for 06/01/2017 and covers the elements not covered in my initial note of 06/01/2017. SUBJECTIVE: I met with the patient evening of 06/01/2017. The patient slept 4-1/4 hours previous evening, withdrawn to her room much of the time, but not tearful, which is an improvement. REVIEW OF SYSTEMS: No CV, , eye, ENT or pulmonary system symptoms on review. Reliability poor. MENTAL STATUS EXAM: Oriented to herself and situation. Speech moderate latency, often responses monosyllabic, pleasant, verbal, as I met with her. Recent and remote memory, attention, concentration, fund of knowledge poor, consistent with her diagnosis mentioned in my initial note. PLAN: Continue current psychotropics. Increase Remeron from 7.5 at bedtime to 15 mg at bedtime. Adjust as further as clinically indicated. MAN Amor DYKES MD DR: MELISSA/gurmeet JOB#: [id number] / [id number]
[2017-06-03 05:50] VITALS: BP 123/62
[2017-06-03] MEDS: RIVASTIGMINE 13.3MG PATCH. TD SCH (09:30)
[2017-06-03] MEDS: ASPIRIN 325 MG TABLET PO SCH (09:31)
[2017-06-03] MEDS: LOSARTAN 50 MG TABLET. PO SCH (09:31)
[2017-06-03] MEDS: GLUCOSAMINE/CHOND 500/400MG CAPSULE PO SCH (09:31)
[2017-06-03] MEDS: VENLAFAXINE XR 37.5 MG CAP.ER.24H. PO SCH (09:31)
[2017-06-03] MEDS: amLODIPine BESYLATE 10 MG TABLET PO SCH (09:31)
[2017-06-03] MEDS: CALCIUM CARB/VIT D3 500/200 TABLET PO SCH (09:32)
[2017-06-03] MEDS: QUEtiapine 25 MG TABLET. PO SCH ×2 (09:32→13:43)
[2017-06-03] MEDS: MEMANTINE 5 MG TABLET. PO SCH (09:32)
[2017-06-03] MEDS: POTASSIUM CHLORIDE 20 MEQ TABLET.ER. PO SCH ×2 (09:34→19:22)
[2017-06-03] MEDS: CYANOCOBALAMIN (VITAMIN B-12) 250 MCG TABLET PO SCH (13:43)
[2017-06-03] MEDS: ACETAMINOPHEN 325 MG TABLET PO PRN (13:54)
[2017-06-03 16:10] VITALS: BP 109/68
[2017-06-03] MEDS: FENOFIBRATE NANOCRYSTALLIZED 145 MG TABLET PO SCH (16:33)
[2017-06-03] MEDS: MEMANTINE 10 MG TABLET. PO SCH (19:21)
[2017-06-03] MEDS: MIRTAZAPINE 15 MG TABLET PO SCH (19:21)
[2017-06-03] MEDS: ATORVASTATIN CALCIUM 10 MG TABLET. PO SCH (19:21)
[2017-06-03] MEDS: oxyCODONE/APAP 7.5/325 1 TAB TABLET PO PRN (19:22)
--- NOTE | 2017-06-03 19:57 | PDOC ---
Exam Niels Demential Exam: Niels Note: Please also refer to the separate dictated note~for this date of service dictated separately.~Patient seen individually. Discussed the patient with Nursing staff reviewed the chart.~Reviewed interim history and current functioning. Reviewed vital signs,~Labs/ Radiology~and current medications noted below. Continue current treatment with the changes noted in the dictated addendum note Assessment: Vital Signs: Vital Signs Date Time Temp Pulse Resp B/P (MAP) Pulse Ox O2 Delivery O2 Flow Rate FiO2 06/03/17 19:22 22 06/03/17 16:10 97.7 85 109/68 (82) 97 06/03/17 05:50 Room Air I&O Intake and Output 06/03/17 07:00 Intake Total 1140 ml Balance 1140 ml Intake Oral 1140 ml Current Medications: Meds: Current Medications Acetaminophen (Tylenol) 650 mg PRN Q6HRS PRN PO PAIN / TEMP Last administered on 06/03/17 13:54; Start 05/26/17 at 22:45 Multi-Ingredient Ointment (Analgesic Alpha) 1 tae PRN QID PRN TP MUSCLE PAIN; Start 05/26/17 at 22:45 Al Hydroxide/Mg Hydroxide (Mylanta Plus Xs) 15 ml PRN AFTMEALHC PRN PO DYSPEPSIA; Start 05/26/17 at 22:45 Magnesium Hydroxide (Milk Of Magnesia) 2,400 mg PRN QHS PRN PO CONSTIPATION; Start 05/26/17 at 22:45 Amlodipine Besylate (Norvasc) 10 mg DAILY PO Last administered on 06/03/17 09: 31; Start 05/27/17 at 09:00 Aspirin (Elsa Aspirin) 325 mg DAILY PO Last administered on 06/03/17 09:31; Start 05/27/17 at 09:00 Calcium/Vitamin D (Oscal D 500mg/ 200uts) 1 tab DAILY PO Last administered on 09:32; Start 05/27/17 at 09:00 Hydrochlorothiazide (Hydrodiuril) 25 mg DAILY PO Last administered on 05/29/17 08:21; Start 05/27/17 at 09:00; Stop 05/29/17 at 12:32; Status DC Losartan Potassium (Cozaar) 50 mg DAILY PO Last administered on 06/03/17 09:31 ; Start 05/27/17 at 09:00 Oxycodone/ Acetaminophen (Percocet 7.5/ 325) 1 tab PRN Q6HRS PRN PO SEVERE PAIN Last administered on 05/31/17 09:09; Start 05/27/17 at 01:30; Stop 05/31/17 at 12:28; Status DC Atorvastatin Calcium (Lipitor) 5 mg QHS PO Last administered on 06/03/17 19:21 ; Start 05/27/17 at 21:00 Fenofibrate (Tricor) 145 mg DAILYWSUP PO Last administered on 06/03/17 16:33; Start 05/27/17 at 17:00 Glucosamine/ Chondroitin (Glucosamine-Chondroitin 500/400mg) 1 cap DAILY PO Last administered on 06/03/17 09:31; Start 05/27/17 at 09:00 Memantine (Namenda) 10 mg DAILY PO Last administered on 05/27/17 08:30; Start 05/27/17 at 09:00; Stop 05/27/17 at 18:23; Status DC Olanzapine (ZyPREXA) 2.5 mg DAILY08 PO Last administered on 05/29/17 08:21; Start 05/27/17 at 08:00; Stop 05/29/17 at 18:52; Status DC Rivastigmine (Exelon) 1 patch DAILY TD Last administered on 05/27/17 08:31; Start 05/27/17 at 09:00; Stop 05/27/17 at 18:23; Status DC Venlafaxine HCl (Effexor Xr) 112.5 mg DAILY PO Last administered on 06/03/17 09:31; Start 05/27/17 at 09:00 Non-Formulary Medication 75 mg DAILY PO ; Start 05/27/17 at 09:00; Status UNV Potassium Chloride (Klor-Con) 20 meq BID PO Last administered on 06/03/17 19: 22; Start 05/27/17 at 21:00 Memantine (Namenda) 10 mg QHS PO Last administered on 06/03/17 19:21; Start at 21:00 Rivastigmine (Exelon 13.3mg) 1 patch DAILY TD Last administered on 06/03/17 09 :30; Start 05/28/17 at 09:00 Memantine (Namenda) 5 mg DAILY PO Last administered on 06/03/17 09:32; Start 05/28/17 at 09:00 Vitamin D (Vitamin D3) 50,000 unit WEEKLY PO Last administered on 05/30/17 08: 15; Start 05/30/17 at 09:00 Quetiapine Fumarate (SEROquel) 12.5 mg BID92 PO Last administered on 06/03/17 13:43; Start 05/30/17 at 09:00; Stop 06/03/17 at 18:32; Status DC Cyanocobalamin (Vitamin B-12) 250 mcg DAILYBFRLUN PO Last administered on 13:43; Start 05/31/17 at 11:30 Oxycodone/ Acetaminophen (Percocet 7.5/ 325) 1 tab PRN BID PRN PO SEVERE PAIN Last administered on 06/03/17 19:22; Start 05/31/17 at 18:00 Mirtazapine (Remeron) 7.5 mg QHS PO Last administered on 05/31/17 20:47; Start 05/31/17 at 21:00; Stop 06/01/17 at 18:30; Status DC Mirtazapine (Remeron) 15 mg QHS PO Last administered on 06/03/17 19:21; Start 06/01/17 at 21:00 Olanzapine (ZyPREXA ZYDIS) 1.25 mg PRN Q2HR PRN PO PSYCHOSIS; Start 06/03/17 at 18:30 Quetiapine Fumarate (SEROquel) 12.5 mg TID@0900,1400,1800 PO ; Start 06/04/17 at 09:00 Active Scripts Active Reported EXELON 9.5mg/24hr (Rivastigmine) 1 Each Patch.td24 1 Patch TD DAILY LAST DOSE GIVEN: DATE: TIME: NEXT DOSE DUE: DATE: TIME: Simvastatin 10 Mg Tablet 10 Mg PO HS LAST DOSE GIVEN: DATE: TIME: NEXT DOSE DUE: DATE: TIME: Effexor Xr (Venlafaxine Hcl) 75 Mg Cap.er.24h 75 Mg PO DAILY LAST DOSE GIVEN: DATE: TIME: NEXT DOSE DUE: DATE: TIME: Effexor Xr (Venlafaxine Hcl) 37.5 Mg Cap.er.24h 37.5 Mg PO DAILY LAST DOSE GIVEN: DATE: TIME: NEXT DOSE DUE: DATE: TIME: Percocet 7.5-325 Mg Tablet (Oxycodone Hcl/Acetaminophen) 1 Each Tablet 1 Tab PO PRN Q6HRS PRN LAST DOSE GIVEN: DATE: TIME: NEXT DOSE DUE: DATE: TIME: Zyprexa (Olanzapine) 2.5 Mg Tablet 2.5 Mg PO DAILY08 LAST DOSE GIVEN: DATE: TIME: NEXT DOSE DUE: DATE: TIME: Namenda (Memantine Hcl) 10 Mg Tablet 10 Mg PO DAILY LAST DOSE GIVEN: DATE: TIME: NEXT DOSE DUE: DATE: TIME: Cozaar (Losartan Potassium) 50 Mg Tablet 50 Mg PO DAILY LAST DOSE GIVEN: DATE: TIME: NEXT DOSE DUE: DATE: TIME: Hydrochlorothiazide Tablet (Hydrochlorothiazide) 25 Mg Tablet 25 Mg PO DAILY LAST DOSE GIVEN: DATE: TIME: NEXT DOSE DUE: DATE: TIME: Glucosamine Chondroit Msm Tab (Glucosamine/Msm/Chondroitin A) 1 Each Tablet 1 Tab PO DAILY LAST DOSE GIVEN: DATE: TIME: NEXT DOSE DUE: DATE: TIME: Calcium 500 + Vit D 200 Tablet (Calcium Carbonate/Vitamin D3) 1 Each Tablet 1 Tab PO DAILY Fenofibrate (Fenofibrate,Micronized) 134 Mg Capsule 134 Mg PO DAILYWSUP LAST DOSE GIVEN: DATE: TIME: NEXT DOSE DUE: DATE: TIME: Aspirin 325 Mg Tablet 325 Mg PO DAILY LAST DOSE GIVEN: DATE: TIME: NEXT DOSE DUE: DATE: TIME: Norvasc (Amlodipine Besylate) 10 Mg Tablet 10 Mg PO DAILY LAST DOSE GIVEN: DATE: TIME: NEXT DOSE DUE: DATE: TIME: Diagnosis: Problems: (1) Anxiety disorder (2) Dementia, vascular, with depression (3) Dementia, vascular, with delusions (4) Dementia in Alzheimer's disease with depression (5) Dementia in Alzheimer's disease with delusions (6) Impulse control disorder ERLINDA DYKES MD Jun 03, 2017 19:57
--- NOTE | 2017-06-03 22:18 | PN ---
DATE: 06/02/2017 This late entry 06/02/2017 covers elements not covered in my initial note. SUBJECTIVE: The patient was staffed at treatment team meeting with entire team morning of 06/02/2017 and seen individually evening of 06/02/2017. We tried to call the patient's daughter Melissa West, but she was not available for the treatment team meeting. The patient refused her medications previous evening, during the day compliant with the medications on 06/02/2017, sleeping about 5 hours, appetite 80%, tearful at times, calls out for her . REVIEW OF SYSTEMS: No CV, , pulmonary, eye, ENT system symptoms on review. Reliability poor. MENTAL STATUS EXAM: Oriented to herself. Insight, judgment, recent and remote memory, attention, concentration, fund of knowledge poor, consistent with her diagnosis mentioned in my initial note. PLAN: Continue psychotropics mentioned in my initial note including Effexor, Namenda, Exelon, Seroquel, Remeron. ERLINDA DYKES MD DR: MELISSA/gurmeet JOB#: [id number] / [id number]
[2017-06-04 06:16] VITALS: BP 149/81
[2017-06-04] MEDS: ASPIRIN 325 MG TABLET PO SCH (08:26)
[2017-06-04] MEDS: GLUCOSAMINE/CHOND 500/400MG CAPSULE PO SCH (08:26)
[2017-06-04] MEDS: VENLAFAXINE XR 37.5 MG CAP.ER.24H. PO SCH (08:26)
[2017-06-04] MEDS: CALCIUM CARB/VIT D3 500/200 TABLET PO SCH (08:27)
[2017-06-04] MEDS: POTASSIUM CHLORIDE 20 MEQ TABLET.ER. PO SCH ×2 (08:27→19:32)
[2017-06-04] MEDS: amLODIPine BESYLATE 10 MG TABLET PO SCH (08:27)
[2017-06-04] MEDS: MEMANTINE 5 MG TABLET. PO SCH (08:27)
[2017-06-04] MEDS: LOSARTAN 50 MG TABLET. PO SCH (08:27)
[2017-06-04] MEDS: RIVASTIGMINE 13.3MG PATCH. TD SCH (08:28)
[2017-06-04] MEDS: QUEtiapine 25 MG TABLET. PO SCH ×3 (08:29→17:13)
[2017-06-04] MEDS: CYANOCOBALAMIN (VITAMIN B-12) 250 MCG TABLET PO SCH (12:32)
[2017-06-04] MEDS: ACETAMINOPHEN 325 MG TABLET PO PRN (12:32)
[2017-06-04 16:30] VITALS: BP 119/65
[2017-06-04] MEDS: oxyCODONE/APAP 7.5/325 1 TAB TABLET PO PRN (17:13)
[2017-06-04] MEDS: FENOFIBRATE NANOCRYSTALLIZED 145 MG TABLET PO SCH (17:13)
[2017-06-04] MEDS: MEMANTINE 10 MG TABLET. PO SCH (19:32)
[2017-06-04] MEDS: ATORVASTATIN CALCIUM 10 MG TABLET. PO SCH (19:32)
[2017-06-04] MEDS: MIRTAZAPINE 15 MG TABLET PO SCH (19:32)
--- NOTE | 2017-06-04 20:50 | PN ---
DATE: 06/03/2017 This is a late entry for 06/03/2017 and covers elements not covered in my initial note. I met with the patient evening of 06/03/2017 for this evaluation and talked to the patient's daughter, Odette West at [phone] at some length on the telephone evening of 06/03/2017. Daughter is a nurse. We discussed the patient's diagnosis, current medications, risk/benefit ratio, placement options. The patient has been following outpatient at the [facility] and with her PCP, Dr. Radha Patterson. She did tell the previous evening. During most of the day, she did well, but by the evening I met with her, she was anxious, labile and tearful, paranoid, complains of feeling nausea because she wants to get home. Zyprexa was added p.r.n. REVIEW OF SYSTEMS: Other than nausea, no CV, , pulmonary, eye, ENT system symptoms on review. Reliability poor. MENTAL STATUS EXAM: Oriented to herself. Insight, judgment, recent and remote memory, attention, concentration, fund of knowledge poor, consistent with her diagnosis mentioned in my initial note. PLAN: Increase Seroquel from 12.5 mg b.i.d. to 12.5 mg t.i.d. Continue rest unchanged. Reviewed risks/benefit ratio, drug interactions at length and ratio indicates no further change at this time beyond the increase of Seroquel and adding Zyprexa p.r.n. ERLINDA DYKES MD DR: MELISSA/gurmeet JOB#: [id number] / [id number]
--- NOTE | 2017-06-04 23:16 | PDOC ---
Exam Niels Demential Exam: Niels Note: Please also refer to the separate dictated note~for this date of service dictated separately.~Patient seen individually. Discussed the patient with Nursing staff reviewed the chart.~Reviewed interim history and current functioning. Reviewed vital signs,~Labs/ Radiology~and current medications noted below. Continue current treatment with the changes noted in the dictated addendum note Assessment: Vital Signs: Vital Signs Date Time Temp Pulse Resp B/P (MAP) Pulse Ox O2 Delivery O2 Flow Rate FiO2 06/04/17 19:31 20 06/04/17 17:13 Room Air 06/04/17 16:30 97.7 86 119/65 (83) 97 I&O Intake and Output 06/04/17 07:00 Intake Total 1320 ml Balance 1320 ml Intake Oral 1320 ml Current Medications: Meds: Current Medications Acetaminophen (Tylenol) 650 mg PRN Q6HRS PRN PO PAIN / TEMP Last administered on 06/04/17 12:32; Start 05/26/17 at 22:45 Multi-Ingredient Ointment (Analgesic [place]) 1 tae PRN QID PRN TP MUSCLE PAIN; Start 05/26/17 at 22:45 Al Hydroxide/Mg Hydroxide (Mylanta Plus Xs) 15 ml PRN AFTMEALHC PRN PO DYSPEPSIA; Start 05/26/17 at 22:45 Magnesium Hydroxide (Milk Of Magnesia) 2,400 mg PRN QHS PRN PO CONSTIPATION; Start 05/26/17 at 22:45 Amlodipine Besylate (Norvasc) 10 mg DAILY PO Last administered on 06/04/17 08: 27; Start 05/27/17 at 09:00 Aspirin (Elsa Aspirin) 325 mg DAILY PO Last administered on 06/04/17 08:26; Start 05/27/17 at 09:00 Calcium/Vitamin D (Oscal D 500mg/ 200uts) 1 tab DAILY PO Last administered on 08:27; Start 05/27/17 at 09:00 Hydrochlorothiazide (Hydrodiuril) 25 mg DAILY PO Last administered on 05/29/17 08:21; Start 05/27/17 at 09:00; Stop 05/29/17 at 12:32; Status DC Losartan Potassium (Cozaar) 50 mg DAILY PO Last administered on 06/04/17 08:27 ; Start 05/27/17 at 09:00 Oxycodone/ Acetaminophen (Percocet 7.5/ 325) 1 tab PRN Q6HRS PRN PO SEVERE PAIN Last administered on 05/31/17 09:09; Start 05/27/17 at 01:30; Stop 05/31/17 at 12:28; Status DC Atorvastatin Calcium (Lipitor) 5 mg QHS PO Last administered on 06/04/17 19:32 ; Start 05/27/17 at 21:00 Fenofibrate (Tricor) 145 mg DAILYWSUP PO Last administered on 06/04/17 17:13; Start 05/27/17 at 17:00 Glucosamine/ Chondroitin (Glucosamine-Chondroitin 500/400mg) 1 cap DAILY PO Last administered on 06/04/17 08:26; Start 05/27/17 at 09:00 Memantine (Namenda) 10 mg DAILY PO Last administered on 05/27/17 08:30; Start 05/27/17 at 09:00; Stop 05/27/17 at 18:23; Status DC Olanzapine (ZyPREXA) 2.5 mg DAILY08 PO Last administered on 05/29/17 08:21; Start 05/27/17 at 08:00; Stop 05/29/17 at 18:52; Status DC Rivastigmine (Exelon) 1 patch DAILY TD Last administered on 05/27/17 08:31; Start 05/27/17 at 09:00; Stop 05/27/17 at 18:23; Status DC Venlafaxine HCl (Effexor Xr) 112.5 mg DAILY PO Last administered on 06/04/17 08:26; Start 05/27/17 at 09:00 Non-Formulary Medication 75 mg DAILY PO ; Start 05/27/17 at 09:00; Status UNV Potassium Chloride (Klor-Con) 20 meq BID PO Last administered on 06/04/17 19: 32; Start 05/27/17 at 21:00 Memantine (Namenda) 10 mg QHS PO Last administered on 06/04/17 19:32; Start at 21:00 Rivastigmine (Exelon 13.3mg) 1 patch DAILY TD Last administered on 06/04/17 08 :28; Start 05/28/17 at 09:00 Memantine (Namenda) 5 mg DAILY PO Last administered on 06/04/17 08:27; Start 05/28/17 at 09:00 Vitamin D (Vitamin D3) 50,000 unit WEEKLY PO Last administered on 05/30/17 08: 15; Start 05/30/17 at 09:00 Quetiapine Fumarate (SEROquel) 12.5 mg BID92 PO Last administered on 06/03/17 13:43; Start 05/30/17 at 09:00; Stop 06/03/17 at 18:32; Status DC Cyanocobalamin (Vitamin B-12) 250 mcg DAILYBFRLUN PO Last administered on 12:32; Start 05/31/17 at 11:30 Oxycodone/ Acetaminophen (Percocet 7.5/ 325) 1 tab PRN BID PRN PO SEVERE PAIN Last administered on 06/04/17 17:13; Start 05/31/17 at 18:00 Mirtazapine (Remeron) 7.5 mg QHS PO Last administered on 05/31/17 20:47; Start 05/31/17 at 21:00; Stop 06/01/17 at 18:30; Status DC Mirtazapine (Remeron) 15 mg QHS PO Last administered on 06/04/17 19:32; Start 06/01/17 at 21:00 Olanzapine (ZyPREXA ZYDIS) 1.25 mg PRN Q2HR PRN PO PSYCHOSIS Last administered on 06/04/17 20:52; Start 06/03/17 at 18:30 Quetiapine Fumarate (SEROquel) 12.5 mg TID@0900,1400,1800 PO Last administered on 06/04/17 17:13; Start 06/04/17 at 09:00 Active Scripts Active Reported EXELON 9.5mg/24hr (Rivastigmine) 1 Each Patch.td24 1 Patch TD DAILY LAST DOSE GIVEN: DATE: TIME: NEXT DOSE DUE: DATE: TIME: Simvastatin 10 Mg Tablet 10 Mg PO HS LAST DOSE GIVEN: DATE: TIME: NEXT DOSE DUE: DATE: TIME: Effexor Xr (Venlafaxine Hcl) 75 Mg Cap.er.24h 75 Mg PO DAILY LAST DOSE GIVEN: DATE: TIME: NEXT DOSE DUE: DATE: TIME: Effexor Xr (Venlafaxine Hcl) 37.5 Mg Cap.er.24h 37.5 Mg PO DAILY LAST DOSE GIVEN: DATE: TIME: NEXT DOSE DUE: DATE: TIME: Percocet 7.5-325 Mg Tablet (Oxycodone Hcl/Acetaminophen) 1 Each Tablet 1 Tab PO PRN Q6HRS PRN LAST DOSE GIVEN: DATE: TIME: NEXT DOSE DUE: DATE: TIME: Zyprexa (Olanzapine) 2.5 Mg Tablet 2.5 Mg PO DAILY08 LAST DOSE GIVEN: DATE: TIME: NEXT DOSE DUE: DATE: TIME: Namenda (Memantine Hcl) 10 Mg Tablet 10 Mg PO DAILY LAST DOSE GIVEN: DATE: TIME: NEXT DOSE DUE: DATE: TIME: Cozaar (Losartan Potassium) 50 Mg Tablet 50 Mg PO DAILY LAST DOSE GIVEN: DATE: TIME: NEXT DOSE DUE: DATE: TIME: Hydrochlorothiazide Tablet (Hydrochlorothiazide) 25 Mg Tablet 25 Mg PO DAILY LAST DOSE GIVEN: DATE: TIME: NEXT DOSE DUE: DATE: TIME: Glucosamine Chondroit Msm Tab (Glucosamine/Msm/Chondroitin A) 1 Each Tablet 1 Tab PO DAILY LAST DOSE GIVEN: DATE: TIME: NEXT DOSE DUE: DATE: TIME: Calcium 500 + Vit D 200 Tablet (Calcium Carbonate/Vitamin D3) 1 Each Tablet 1 Tab PO DAILY Fenofibrate (Fenofibrate,Micronized) 134 Mg Capsule 134 Mg PO DAILYWSUP LAST DOSE GIVEN: DATE: TIME: NEXT DOSE DUE: DATE: TIME: Aspirin 325 Mg Tablet 325 Mg PO DAILY LAST DOSE GIVEN: DATE: TIME: NEXT DOSE DUE: DATE: TIME: Norvasc (Amlodipine Besylate) 10 Mg Tablet 10 Mg PO DAILY LAST DOSE GIVEN: DATE: TIME: NEXT DOSE DUE: DATE: TIME: Diagnosis: Problems: (1) Anxiety disorder (2) Dementia, vascular, with depression (3) Dementia, vascular, with delusions (4) Dementia in Alzheimer'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
[2017-06-05 06:18] VITALS: BP 123/62
[2017-06-05] MEDS: RIVASTIGMINE 13.3MG PATCH. TD SCH (08:07)
[2017-06-05] MEDS: QUEtiapine 25 MG TABLET. PO SCH ×3 (08:08→18:00)
[2017-06-05] MEDS: amLODIPine BESYLATE 10 MG TABLET PO SCH (08:08)
[2017-06-05] MEDS: GLUCOSAMINE/CHOND 500/400MG CAPSULE PO SCH (08:08)
[2017-06-05] MEDS: VENLAFAXINE XR 37.5 MG CAP.ER.24H. PO SCH (08:08)
[2017-06-05] MEDS: MEMANTINE 5 MG TABLET. PO SCH (08:09)
[2017-06-05] MEDS: LOSARTAN 50 MG TABLET. PO SCH (08:10)
[2017-06-05] MEDS: ASPIRIN 325 MG TABLET PO SCH (08:10)
[2017-06-05] MEDS: POTASSIUM CHLORIDE 20 MEQ TABLET.ER. PO SCH ×2 (08:10→19:34)
[2017-06-05] MEDS: CALCIUM CARB/VIT D3 500/200 TABLET PO SCH (08:10)
[2017-06-05] MEDS: CYANOCOBALAMIN (VITAMIN B-12) 250 MCG TABLET PO SCH (14:40)
[2017-06-05] MEDS: oxyCODONE/APAP 7.5/325 1 TAB TABLET PO PRN ×2 (14:53→20:26)
[2017-06-05 17:30] VITALS: BP 158/73
[2017-06-05] MEDS: FENOFIBRATE NANOCRYSTALLIZED 145 MG TABLET PO SCH (18:26)
[2017-06-05] MEDS: MEMANTINE 10 MG TABLET. PO SCH (19:34)
[2017-06-05] MEDS: ATORVASTATIN CALCIUM 10 MG TABLET. PO SCH (19:34)
[2017-06-05] MEDS: MIRTAZAPINE 15 MG TABLET PO SCH (19:34)
--- NOTE | 2017-06-05 20:23 | PDOC ---
Exam Niels Demential Exam: Niels Note: Please also refer to the separate dictated note~for this date of service dictated separately.~Patient seen individually. Discussed the patient with Nursing staff reviewed the chart.~Reviewed interim history and current functioning. Reviewed vital signs,~Labs/ Radiology~and current medications noted below. Continue current treatment with the changes noted in the dictated addendum note Assessment: Vital Signs: Vital Signs Date Time Temp Pulse Resp B/P (MAP) Pulse Ox O2 Delivery O2 Flow Rate FiO2 06/05/17 17:30 99.1 63 18 158/73 (101) 93 06/04/17 17:13 Room Air I&O Intake and Output 06/05/17 07:00 Intake Total 900 ml Balance 900 ml Intake Oral 900 ml Current Medications: Meds: Current Medications Acetaminophen (Tylenol) 650 mg PRN Q6HRS PRN PO PAIN / TEMP Last administered on 06/04/17 12:32; Start 05/26/17 at 22:45 Multi-Ingredient Ointment (Analgesic [place]) 1 tae PRN QID PRN TP MUSCLE PAIN; Start 05/26/17 at 22:45 Al Hydroxide/Mg Hydroxide (Mylanta Plus Xs) 15 ml PRN AFTMEALHC PRN PO DYSPEPSIA; Start 05/26/17 at 22:45 Magnesium Hydroxide (Milk Of Magnesia) 2,400 mg PRN QHS PRN PO CONSTIPATION; Start 05/26/17 at 22:45 Amlodipine Besylate (Norvasc) 10 mg DAILY PO Last administered on 06/05/17 08: 08; Start 05/27/17 at 09:00 Aspirin (Elsa Aspirin) 325 mg DAILY PO Last administered on 06/05/17 08:10; Start 05/27/17 at 09:00 Calcium/Vitamin D (Oscal D 500mg/ 200uts) 1 tab DAILY PO Last administered on 08:10; Start 05/27/17 at 09:00 Hydrochlorothiazide (Hydrodiuril) 25 mg DAILY PO Last administered on 05/29/17 08:21; Start 05/27/17 at 09:00; Stop 05/29/17 at 12:32; Status DC Losartan Potassium (Cozaar) 50 mg DAILY PO Last administered on 06/05/17 08:10 ; Start 05/27/17 at 09:00 Oxycodone/ Acetaminophen (Percocet 7.5/ 325) 1 tab PRN Q6HRS PRN PO SEVERE PAIN Last administered on 05/31/17 09:09; Start 05/27/17 at 01:30; Stop 05/31/17 at 12:28; Status DC Atorvastatin Calcium (Lipitor) 5 mg QHS PO Last administered on 06/05/17 19:34 ; Start 05/27/17 at 21:00 Fenofibrate (Tricor) 145 mg DAILYWSUP PO Last administered on 06/05/17 18:26; Start 05/27/17 at 17:00 Glucosamine/ Chondroitin (Glucosamine-Chondroitin 500/400mg) 1 cap DAILY PO Last administered on 06/05/17 08:08; Start 05/27/17 at 09:00 Memantine (Namenda) 10 mg DAILY PO Last administered on 05/27/17 08:30; Start 05/27/17 at 09:00; Stop 05/27/17 at 18:23; Status DC Olanzapine (ZyPREXA) 2.5 mg DAILY08 PO Last administered on 05/29/17 08:21; Start 05/27/17 at 08:00; Stop 05/29/17 at 18:52; Status DC Rivastigmine (Exelon) 1 patch DAILY TD Last administered on 05/27/17 08:31; Start 05/27/17 at 09:00; Stop 05/27/17 at 18:23; Status DC Venlafaxine HCl (Effexor Xr) 112.5 mg DAILY PO Last administered on 06/05/17 08:08; Start 05/27/17 at 09:00 Non-Formulary Medication 75 mg DAILY PO ; Start 05/27/17 at 09:00; Status UNV Potassium Chloride (Klor-Con) 20 meq BID PO Last administered on 06/05/17 19: 34; Start 05/27/17 at 21:00 Memantine (Namenda) 10 mg QHS PO Last administered on 06/05/17 19:34; Start at 21:00 Rivastigmine (Exelon 13.3mg) 1 patch DAILY TD Last administered on 06/05/17 08 :07; Start 05/28/17 at 09:00 Memantine (Namenda) 5 mg DAILY PO Last administered on 06/05/17 08:09; Start 05/28/17 at 09:00 Vitamin D (Vitamin D3) 50,000 unit WEEKLY PO Last administered on 05/30/17 08: 15; Start 05/30/17 at 09:00 Quetiapine Fumarate (SEROquel) 12.5 mg BID92 PO Last administered on 06/03/17 13:43; Start 05/30/17 at 09:00; Stop 06/03/17 at 18:32; Status DC Cyanocobalamin (Vitamin B-12) 250 mcg DAILYBFRLUN PO Last administered on 14:40; Start 05/31/17 at 11:30 Oxycodone/ Acetaminophen (Percocet 7.5/ 325) 1 tab PRN BID PRN PO SEVERE PAIN Last administered on 06/05/17 14:53; Start 05/31/17 at 18:00 Mirtazapine (Remeron) 7.5 mg QHS PO Last administered on 05/31/17 20:47; Start 05/31/17 at 21:00; Stop 06/01/17 at 18:30; Status DC Mirtazapine (Remeron) 15 mg QHS PO Last administered on 06/05/17 19:34; Start 06/01/17 at 21:00 Olanzapine (ZyPREXA ZYDIS) 1.25 mg PRN Q2HR PRN PO PSYCHOSIS Last administered on 06/04/17 20:52; Start 06/03/17 at 18:30 Quetiapine Fumarate (SEROquel) 12.5 mg TID@0900,1400,1800 PO Last administered on 06/05/17 18:00; Start 06/04/17 at 09:00 Active Scripts Active Reported EXELON 9.5mg/24hr (Rivastigmine) 1 Each Patch.td24 1 Patch TD DAILY LAST DOSE GIVEN: DATE: TIME: NEXT DOSE DUE: DATE: TIME: Simvastatin 10 Mg Tablet 10 Mg PO HS LAST DOSE GIVEN: DATE: TIME: NEXT DOSE DUE: DATE: TIME: Effexor Xr (Venlafaxine Hcl) 75 Mg Cap.er.24h 75 Mg PO DAILY LAST DOSE GIVEN: DATE: TIME: NEXT DOSE DUE: DATE: TIME: Effexor Xr (Venlafaxine Hcl) 37.5 Mg Cap.er.24h 37.5 Mg PO DAILY LAST DOSE GIVEN: DATE: TIME: NEXT DOSE DUE: DATE: TIME: Percocet 7.5-325 Mg Tablet (Oxycodone Hcl/Acetaminophen) 1 Each Tablet 1 Tab PO PRN Q6HRS PRN LAST DOSE GIVEN: DATE: TIME: NEXT DOSE DUE: DATE: TIME: Zyprexa (Olanzapine) 2.5 Mg Tablet 2.5 Mg PO DAILY08 LAST DOSE GIVEN: DATE: TIME: NEXT DOSE DUE: DATE: TIME: Namenda (Memantine Hcl) 10 Mg Tablet 10 Mg PO DAILY LAST DOSE GIVEN: DATE: TIME: NEXT DOSE DUE: DATE: TIME: Cozaar (Losartan Potassium) 50 Mg Tablet 50 Mg PO DAILY LAST DOSE GIVEN: DATE: TIME: NEXT DOSE DUE: DATE: TIME: Hydrochlorothiazide Tablet (Hydrochlorothiazide) 25 Mg Tablet 25 Mg PO DAILY LAST DOSE GIVEN: DATE: TIME: NEXT DOSE DUE: DATE: TIME: Glucosamine Chondroit Msm Tab (Glucosamine/Msm/Chondroitin A) 1 Each Tablet 1 Tab PO DAILY LAST DOSE GIVEN: DATE: TIME: NEXT DOSE DUE: DATE: TIME: Calcium 500 + Vit D 200 Tablet (Calcium Carbonate/Vitamin D3) 1 Each Tablet 1 Tab PO DAILY Fenofibrate (Fenofibrate,Micronized) 134 Mg Capsule 134 Mg PO DAILYWSUP LAST DOSE GIVEN: DATE: TIME: NEXT DOSE DUE: DATE: TIME: Aspirin 325 Mg Tablet 325 Mg PO DAILY LAST DOSE GIVEN: DATE: TIME: NEXT DOSE DUE: DATE: TIME: Norvasc (Amlodipine Besylate) 10 Mg Tablet 10 Mg PO DAILY LAST DOSE GIVEN: DATE: TIME: NEXT DOSE DUE: DATE: TIME: Diagnosis: Problems: (1) Anxiety disorder (2) Dementia, vascular, with depression (3) Dementia, vascular, with delusions (4) Dementia in Alzheimer's disease with depression (5) Dementia in Alzheimer's disease with delusions (6) Impulse control disorder ERLINDA DYKES MD Jun 05, 2017 20:23
--- NOTE | 2017-06-05 20:35 | PN ---
DATE: 06/04/2017 This is a late entry for 06/04/2017 and covers elements not covered in my initial note of 06/04/2017. SUBJECTIVE: I met with the patient evening of 06/04/2017. Per nursing report, the patient has been anxious, pacing, crying, repeating herself, worse after the visit with her . REVIEW OF SYSTEMS: No CV, , pulmonary, eye, ENT system symptoms on review. Reliability poor. MENTAL STATUS EXAM: Oriented to herself. Insight, judgment, recent and remote memory, attention, concentration, fund of knowledge poor, consistent with her diagnosis mentioned in my initial note. LABORATORY DATA: Reviewed. IMPRESSION: Unchanged from initial note. PLAN: Continue current psychotropics. Adjust further as clinically indicated. MAN Amor DYKES MD DR: MELISSA/gurmeet JOB#: [id number] / [id number]
[2017-06-05] MEDS ORDERED: QUEtiapine 25 MG TABLET. PO ONE (21:30)
[2017-06-06 06:22] VITALS: BP 121/70
[2017-06-06] MEDS: VENLAFAXINE XR 37.5 MG CAP.ER.24H. PO SCH (08:09)
[2017-06-06] MEDS: RIVASTIGMINE 13.3MG PATCH. TD SCH (08:09)
[2017-06-06] MEDS: QUEtiapine 25 MG TABLET. PO SCH ×3 (08:10→17:27)
[2017-06-06] MEDS: POTASSIUM CHLORIDE 20 MEQ TABLET.ER. PO SCH ×2 (08:11→19:44)
[2017-06-06] MEDS: CALCIUM CARB/VIT D3 500/200 TABLET PO SCH (08:11)
[2017-06-06] MEDS: ASPIRIN 325 MG TABLET PO SCH (08:11)
[2017-06-06] MEDS: GLUCOSAMINE/CHOND 500/400MG CAPSULE PO SCH (08:11)
[2017-06-06] MEDS: LOSARTAN 50 MG TABLET. PO SCH (08:12)
[2017-06-06] MEDS: amLODIPine BESYLATE 10 MG TABLET PO SCH (08:12)
[2017-06-06] MEDS: CHOLECALCIFEROL (VITAMIN D3) 50,000 UNIT CAPSULE PO SCH (08:12)
[2017-06-06] MEDS: MEMANTINE 5 MG TABLET. PO SCH (08:14)
[2017-06-06] MEDS: CYANOCOBALAMIN (VITAMIN B-12) 250 MCG TABLET PO SCH (14:21)
[2017-06-06 16:55] VITALS: BP 110/71
[2017-06-06] MEDS: FENOFIBRATE NANOCRYSTALLIZED 145 MG TABLET PO SCH (17:27)
[2017-06-06] MEDS: MEMANTINE 10 MG TABLET. PO SCH (19:44)
[2017-06-06] MEDS: MIRTAZAPINE 15 MG TABLET PO SCH (19:44)
[2017-06-06] MEDS: ATORVASTATIN CALCIUM 10 MG TABLET. PO SCH (19:44)
--- NOTE | 2017-06-06 20:23 | PDOC ---
Exam Niels Demential Exam: Niels Note: Please also refer to the separate dictated note~for this date of service dictated separately.~Patient seen individually. Discussed the patient with Nursing staff reviewed the chart.~Reviewed interim history and current functioning. Reviewed vital signs,~Labs/ Radiology~and current medications noted below. Continue current treatment with the changes noted in the dictated addendum note Assessment: Vital Signs: Vital Signs Date Time Temp Pulse Resp B/P (MAP) Pulse Ox O2 Delivery O2 Flow Rate FiO2 06/06/17 16:55 98.0 77 18 110/71 (84) 95 06/04/17 17:13 Room Air I&O Intake and Output 06/06/17 07:00 Intake Total 720 ml Balance 720 ml Intake Oral 720 ml Current Medications: Meds: Current Medications Acetaminophen (Tylenol) 650 mg PRN Q6HRS PRN PO PAIN / TEMP Last administered on 06/04/17 12:32; Start 05/26/17 at 22:45 Multi-Ingredient Ointment (Analgesic [place]) 1 tae PRN QID PRN TP MUSCLE PAIN; Start 05/26/17 at 22:45 Al Hydroxide/Mg Hydroxide (Mylanta Plus Xs) 15 ml PRN AFTMEALHC PRN PO DYSPEPSIA; Start 05/26/17 at 22:45 Magnesium Hydroxide (Milk Of Magnesia) 2,400 mg PRN QHS PRN PO CONSTIPATION; Start 05/26/17 at 22:45 Amlodipine Besylate (Norvasc) 10 mg DAILY PO Last administered on 06/06/17 08: 12; Start 05/27/17 at 09:00 Aspirin (Elsa Aspirin) 325 mg DAILY PO Last administered on 06/06/17 08:11; Start 05/27/17 at 09:00 Calcium/Vitamin D (Oscal D 500mg/ 200uts) 1 tab DAILY PO Last administered on 08:11; Start 05/27/17 at 09:00 Hydrochlorothiazide (Hydrodiuril) 25 mg DAILY PO Last administered on 05/29/17 08:21; Start 05/27/17 at 09:00; Stop 05/29/17 at 12:32; Status DC Losartan Potassium (Cozaar) 50 mg DAILY PO Last administered on 06/06/17 08:12 ; Start 05/27/17 at 09:00 Oxycodone/ Acetaminophen (Percocet 7.5/ 325) 1 tab PRN Q6HRS PRN PO SEVERE PAIN Last administered on 05/31/17 09:09; Start 05/27/17 at 01:30; Stop 05/31/17 at 12:28; Status DC Atorvastatin Calcium (Lipitor) 5 mg QHS PO Last administered on 06/06/17 19:44 ; Start 05/27/17 at 21:00 Fenofibrate (Tricor) 145 mg DAILYWSUP PO Last administered on 06/06/17 17:27; Start 05/27/17 at 17:00 Glucosamine/ Chondroitin (Glucosamine-Chondroitin 500/400mg) 1 cap DAILY PO Last administered on 06/06/17 08:11; Start 05/27/17 at 09:00 Memantine (Namenda) 10 mg DAILY PO Last administered on 05/27/17 08:30; Start 05/27/17 at 09:00; Stop 05/27/17 at 18:23; Status DC Olanzapine (ZyPREXA) 2.5 mg DAILY08 PO Last administered on 05/29/17 08:21; Start 05/27/17 at 08:00; Stop 05/29/17 at 18:52; Status DC Rivastigmine (Exelon) 1 patch DAILY TD Last administered on 05/27/17 08:31; Start 05/27/17 at 09:00; Stop 05/27/17 at 18:23; Status DC Venlafaxine HCl (Effexor Xr) 112.5 mg DAILY PO Last administered on 06/06/17 08:09; Start 05/27/17 at 09:00 Non-Formulary Medication 75 mg DAILY PO ; Start 05/27/17 at 09:00; Status UNV Potassium Chloride (Klor-Con) 20 meq BID PO Last administered on 06/06/17 19: 44; Start 05/27/17 at 21:00 Memantine (Namenda) 10 mg QHS PO Last administered on 06/06/17 19:44; Start at 21:00 Rivastigmine (Exelon 13.3mg) 1 patch DAILY TD Last administered on 06/06/17 08 :09; Start 05/28/17 at 09:00 Memantine (Namenda) 5 mg DAILY PO Last administered on 06/06/17 08:14; Start 05/28/17 at 09:00 Vitamin D (Vitamin D3) 50,000 unit WEEKLY PO Last administered on 06/06/17 08: 12; Start 05/30/17 at 09:00 Quetiapine Fumarate (SEROquel) 12.5 mg BID92 PO Last administered on 06/03/17 13:43; Start 05/30/17 at 09:00; Stop 06/03/17 at 18:32; Status DC Cyanocobalamin (Vitamin B-12) 250 mcg DAILYBFRLUN PO Last administered on 14:21; Start 05/31/17 at 11:30 Oxycodone/ Acetaminophen (Percocet 7.5/ 325) 1 tab PRN BID PRN PO SEVERE PAIN Last administered on 06/05/17 20:26; Start 05/31/17 at 18:00 Mirtazapine (Remeron) 7.5 mg QHS PO Last administered on 05/31/17 20:47; Start 05/31/17 at 21:00; Stop 06/01/17 at 18:30; Status DC Mirtazapine (Remeron) 15 mg QHS PO Last administered on 06/06/17 19:44; Start 06/01/17 at 21:00 Olanzapine (ZyPREXA ZYDIS) 1.25 mg PRN Q2HR PRN PO PSYCHOSIS Last administered on 06/05/17 20:52; Start 06/03/17 at 18:30 Quetiapine Fumarate (SEROquel) 12.5 mg TID@0900,1400,1800 PO Last administered on 06/05/17 18:00; Start 06/04/17 at 09:00; Stop 06/05/17 at 21:22; Status DC Quetiapine Fumarate (SEROquel) 12.5 mg BID@0900,1400 PO Last administered on 14:22; Start 06/06/17 at 09:00 Quetiapine Fumarate (SEROquel) 37.5 mg DAILY@1800 PO Last administered on 17:27; Start 06/06/17 at 18:00 Quetiapine Fumarate (SEROquel) 25 mg 1X ONCE PO Last administered on t 21:27; Start 06/05/17 at 21:30; Stop 06/05/17 at 21:31; Status DC Active Scripts Active Reported EXELON 9.5mg/24hr (Rivastigmine) 1 Each Patch.td24 1 Patch TD DAILY LAST DOSE GIVEN: DATE: TIME: NEXT DOSE DUE: DATE: TIME: Simvastatin 10 Mg Tablet 10 Mg PO HS LAST DOSE GIVEN: DATE: TIME: NEXT DOSE DUE: DATE: TIME: Effexor Xr (Venlafaxine Hcl) 75 Mg Cap.er.24h 75 Mg PO DAILY LAST DOSE GIVEN: DATE: TIME: NEXT DOSE DUE: DATE: TIME: Effexor Xr (Venlafaxine Hcl) 37.5 Mg Cap.er.24h 37.5 Mg PO DAILY LAST DOSE GIVEN: DATE: TIME: NEXT DOSE DUE: DATE: TIME: Percocet 7.5-325 Mg Tablet (Oxycodone Hcl/Acetaminophen) 1 Each Tablet 1 Tab PO PRN Q6HRS PRN LAST DOSE GIVEN: DATE: TIME: NEXT DOSE DUE: DATE: TIME: Zyprexa (Olanzapine) 2.5 Mg Tablet 2.5 Mg PO DAILY08 LAST DOSE GIVEN: DATE: TIME: NEXT DOSE DUE: DATE: TIME: Namenda (Memantine Hcl) 10 Mg Tablet 10 Mg PO DAILY LAST DOSE GIVEN: DATE: TIME: NEXT DOSE DUE: DATE: TIME: Cozaar (Losartan Potassium) 50 Mg Tablet 50 Mg PO DAILY LAST DOSE GIVEN: DATE: TIME: NEXT DOSE DUE: DATE: TIME: Hydrochlorothiazide Tablet (Hydrochlorothiazide) 25 Mg Tablet 25 Mg PO DAILY LAST DOSE GIVEN: DATE: TIME: NEXT DOSE DUE: DATE: TIME: Glucosamine Chondroit Msm Tab (Glucosamine/Msm/Chondroitin A) 1 Each Tablet 1 Tab PO DAILY LAST DOSE GIVEN: DATE: TIME: NEXT DOSE DUE: DATE: TIME: Calcium 500 + Vit D 200 Tablet (Calcium Carbonate/Vitamin D3) 1 Each Tablet 1 Tab PO DAILY Fenofibrate (Fenofibrate,Micronized) 134 Mg Capsule 134 Mg PO DAILYWSUP LAST DOSE GIVEN: DATE: TIME: NEXT DOSE DUE: DATE: TIME: Aspirin 325 Mg Tablet 325 Mg PO DAILY LAST DOSE GIVEN: DATE: TIME: NEXT DOSE DUE: DATE: TIME: Norvasc (Amlodipine Besylate) 10 Mg Tablet 10 Mg PO DAILY LAST DOSE GIVEN: DATE: TIME: NEXT DOSE DUE: DATE: TIME: Diagnosis: Problems: (1) Anxiety disorder (2) Dementia, vascular, with depression (3) Dementia, vascular, with delusions (4) 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
[2017-06-07] MEDS: oxyCODONE/APAP 7.5/325 1 TAB TABLET PO PRN ×2 (04:59→21:31)
[2017-06-07 05:32] VITALS: BP 122/61
[2017-06-07] MEDS: POTASSIUM CHLORIDE 20 MEQ TABLET.ER. PO SCH ×2 (08:59→19:34)
[2017-06-07] MEDS: MEMANTINE 5 MG TABLET. PO SCH (08:59)
[2017-06-07] MEDS: VENLAFAXINE XR 37.5 MG CAP.ER.24H. PO SCH (08:59)
[2017-06-07] MEDS: QUEtiapine 25 MG TABLET. PO SCH ×3 (09:00→17:48)
[2017-06-07] MEDS: CALCIUM CARB/VIT D3 500/200 TABLET PO SCH (09:00)
[2017-06-07] MEDS: ASPIRIN 325 MG TABLET PO SCH (09:00)
[2017-06-07] MEDS: GLUCOSAMINE/CHOND 500/400MG CAPSULE PO SCH (09:00)
[2017-06-07] MEDS: LOSARTAN 50 MG TABLET. PO SCH (09:01)
[2017-06-07] MEDS: amLODIPine BESYLATE 10 MG TABLET PO SCH (09:01)
[2017-06-07] MEDS: RIVASTIGMINE 13.3MG PATCH. TD SCH (09:02)
[2017-06-07] MEDS: ACETAMINOPHEN 325 MG TABLET PO PRN (09:34)
[2017-06-07] MEDS: CYANOCOBALAMIN (VITAMIN B-12) 250 MCG TABLET PO SCH (11:37)
--- NOTE | 2017-06-07 12:46 | PN ---
DATE: 06/05/2017 PSYCHIATRIC PROGRESS NOTE This is a late entry for 06/05/2017, covers elements not covered in my initial note. SUBJECTIVE: I met with the patient in the evening of 06/05/2017. She slept 5 hours previous evening. Has been calm, gets delusional, feels she is a nurse on the unit. After I had seen her on rounds I was called around 10:00 p.m. by nursing staff. The patient was extremely agitated, aggressive, disruptive, delusional, believing she was a worker here rather than a patient. We did add p.r.n. medications to help with this. Family came to visit her on 06/05/2017. REVIEW OF SYSTEMS: No CV, , pulmonary, eye, ENT system symptoms on review. Reliability poor. MENTAL STATUS EXAM: Oriented to herself. Insight, judgment, recent and remote memory, attention, concentration, fund of knowledge poor, consistent with her diagnosis mentioned in my initial note. LABORATORY DATA: Reviewed. IMPRESSION: Unchanged from initial note. PLAN: Continue current psychotropics. Reviewed drug interaction risk/benefit ratio, favors no further change at this time. MAN Amor DYKES MD DR: MELISSA/gurmeet JOB#: [id number] / [id number]
[2017-06-07 16:31] VITALS: BP 114/65
[2017-06-07] MEDS: FENOFIBRATE NANOCRYSTALLIZED 145 MG TABLET PO SCH (17:48)
[2017-06-07] MEDS: MIRTAZAPINE 15 MG TABLET PO SCH (19:34)
[2017-06-07] MEDS: MEMANTINE 10 MG TABLET. PO SCH (19:34)
[2017-06-07] MEDS: ATORVASTATIN CALCIUM 10 MG TABLET. PO SCH (19:34)
--- NOTE | 2017-06-07 19:57 | PDOC ---
Exam Niels Demential Exam: Niels Note: Please also refer to the separate dictated note~for this date of service dictated separately.~Patient seen individually. Discussed the patient with Nursing staff reviewed the chart.~Reviewed interim history and current functioning. Reviewed vital signs,~Labs/ Radiology~and current medications noted below. Continue current treatment with the changes noted in the dictated addendum note Assessment: Vital Signs: Vital Signs Date Time Temp Pulse Resp B/P (MAP) Pulse Ox O2 Delivery O2 Flow Rate FiO2 06/07/17 16:31 98.2 94 18 114/65 (81) 96 06/07/17 05:59 Room Air I&O Intake and Output 06/07/17 07:00 Intake Total 1080 ml Balance 1080 ml Intake Oral 1080 ml Current Medications: Meds: Current Medications Acetaminophen (Tylenol) 650 mg PRN Q6HRS PRN PO PAIN / TEMP Last administered on 06/07/17 09:34; Start 05/26/17 at 22:45 Multi-Ingredient Ointment (Analgesic [place]) 1 tae PRN QID PRN TP MUSCLE PAIN; Start 05/26/17 at 22:45 Al Hydroxide/Mg Hydroxide (Mylanta Plus Xs) 15 ml PRN AFTMEALHC PRN PO DYSPEPSIA; Start 05/26/17 at 22:45 Magnesium Hydroxide (Milk Of Magnesia) 2,400 mg PRN QHS PRN PO CONSTIPATION; Start 05/26/17 at 22:45 Amlodipine Besylate (Norvasc) 10 mg DAILY PO Last administered on 06/07/17 09: 01; Start 05/27/17 at 09:00 Aspirin (Elsa Aspirin) 325 mg DAILY PO Last administered on 06/07/17 09:00; Start 05/27/17 at 09:00 Calcium/Vitamin D (Oscal D 500mg/ 200uts) 1 tab DAILY PO Last administered on 09:00; Start 05/27/17 at 09:00 Hydrochlorothiazide (Hydrodiuril) 25 mg DAILY PO Last administered on 05/29/17 08:21; Start 05/27/17 at 09:00; Stop 05/29/17 at 12:32; Status DC Losartan Potassium (Cozaar) 50 mg DAILY PO Last administered on 06/07/17 09:01 ; Start 05/27/17 at 09:00 Oxycodone/ Acetaminophen (Percocet 7.5/ 325) 1 tab PRN Q6HRS PRN PO SEVERE PAIN Last administered on 05/31/17 09:09; Start 05/27/17 at 01:30; Stop 05/31/17 at 12:28; Status DC Atorvastatin Calcium (Lipitor) 5 mg QHS PO Last administered on 06/07/17 19:34 ; Start 05/27/17 at 21:00 Fenofibrate (Tricor) 145 mg DAILYWSUP PO Last administered on 06/07/17 17:48; Start 05/27/17 at 17:00 Glucosamine/ Chondroitin (Glucosamine-Chondroitin 500/400mg) 1 cap DAILY PO Last administered on 06/07/17 09:00; Start 05/27/17 at 09:00 Memantine (Namenda) 10 mg DAILY PO Last administered on 05/27/17 08:30; Start 05/27/17 at 09:00; Stop 05/27/17 at 18:23; Status DC Olanzapine (ZyPREXA) 2.5 mg DAILY08 PO Last administered on 05/29/17 08:21; Start 05/27/17 at 08:00; Stop 05/29/17 at 18:52; Status DC Rivastigmine (Exelon) 1 patch DAILY TD Last administered on 05/27/17 08:31; Start 05/27/17 at 09:00; Stop 05/27/17 at 18:23; Status DC Venlafaxine HCl (Effexor Xr) 112.5 mg DAILY PO Last administered on 06/07/17 08:59; Start 05/27/17 at 09:00 Non-Formulary Medication 75 mg DAILY PO ; Start 05/27/17 at 09:00; Status UNV Potassium Chloride (Klor-Con) 20 meq BID PO Last administered on 06/07/17 19: 34; Start 05/27/17 at 21:00 Memantine (Namenda) 10 mg QHS PO Last administered on 06/06/17 19:44; Start at 21:00; Stop 06/07/17 at 13:34; Status DC Rivastigmine (Exelon 13.3mg) 1 patch DAILY TD Last administered on 06/07/17 09 :02; Start 05/28/17 at 09:00 Memantine (Namenda) 5 mg DAILY PO Last administered on 06/07/17 08:59; Start 05/28/17 at 09:00; Stop 06/07/17 at 13:34; Status DC Vitamin D (Vitamin D3) 50,000 unit WEEKLY PO Last administered on 06/06/17 08: 12; Start 05/30/17 at 09:00 Quetiapine Fumarate (SEROquel) 12.5 mg BID92 PO Last administered on 06/03/17 13:43; Start 05/30/17 at 09:00; Stop 06/03/17 at 18:32; Status DC Cyanocobalamin (Vitamin B-12) 250 mcg DAILYBFRLUN PO Last administered on 11:37; Start 05/31/17 at 11:30 Oxycodone/ Acetaminophen (Percocet 7.5/ 325) 1 tab PRN BID PRN PO SEVERE PAIN Last administered on 06/07/17 04:59; Start 05/31/17 at 18:00 Mirtazapine (Remeron) 7.5 mg QHS PO Last administered on 05/31/17 20:47; Start 05/31/17 at 21:00; Stop 06/01/17 at 18:30; Status DC Mirtazapine (Remeron) 15 mg QHS PO Last administered on 06/07/17 19:34; Start 06/01/17 at 21:00 Olanzapine (ZyPREXA ZYDIS) 1.25 mg PRN Q2HR PRN PO PSYCHOSIS Last administered on 06/07/17 13:23; Start 06/03/17 at 18:30 Quetiapine Fumarate (SEROquel) 12.5 mg TID@0900,1400,1800 PO Last administered on 06/05/17 18:00; Start 06/04/17 at 09:00; Stop 06/05/17 at 21:22; Status DC Quetiapine Fumarate (SEROquel) 12.5 mg BID@0900,1400 PO Last administered on 13:25; Start 06/06/17 at 09:00 Quetiapine Fumarate (SEROquel) 37.5 mg DAILY@1800 PO Last administered on 17:48; Start 06/06/17 at 18:00 Quetiapine Fumarate (SEROquel) 25 mg 1X ONCE PO Last administered on 21:27; Start 06/05/17 at 21:30; Stop 06/05/17 at 21:31; Status DC Memantine (Namenda) 10 mg BID PO Last administered on 06/07/17 19:34; Start at 21:00 Active Scripts Active Reported EXELON 9.5mg/24hr (Rivastigmine) 1 Each Patch.td24 1 Patch TD DAILY LAST DOSE GIVEN: DATE: TIME: NEXT DOSE DUE: DATE: TIME: Simvastatin 10 Mg Tablet 10 Mg PO HS LAST DOSE GIVEN: DATE: TIME: NEXT DOSE DUE: DATE: TIME: Effexor Xr (Venlafaxine Hcl) 75 Mg Cap.er.24h 75 Mg PO DAILY LAST DOSE GIVEN: DATE: TIME: NEXT DOSE DUE: DATE: TIME: Effexor Xr (Venlafaxine Hcl) 37.5 Mg Cap.er.24h 37.5 Mg PO DAILY LAST DOSE GIVEN: DATE: TIME: NEXT DOSE DUE: DATE: TIME: Percocet 7.5-325 Mg Tablet (Oxycodone Hcl/Acetaminophen) 1 Each Tablet 1 Tab PO PRN Q6HRS PRN LAST DOSE GIVEN: DATE: TIME: NEXT DOSE DUE: DATE: TIME: Zyprexa (Olanzapine) 2.5 Mg Tablet 2.5 Mg PO DAILY08 LAST DOSE GIVEN: DATE: TIME: NEXT DOSE DUE: DATE: TIME: Namenda (Memantine Hcl) 10 Mg Tablet 10 Mg PO DAILY LAST DOSE GIVEN: DATE: TIME: NEXT DOSE DUE: DATE: TIME: Cozaar (Losartan Potassium) 50 Mg Tablet 50 Mg PO DAILY LAST DOSE GIVEN: DATE: TIME: NEXT DOSE DUE: DATE: TIME: Hydrochlorothiazide Tablet (Hydrochlorothiazide) 25 Mg Tablet 25 Mg PO DAILY LAST DOSE GIVEN: DATE: TIME: NEXT DOSE DUE: DATE: TIME: Glucosamine Chondroit Msm Tab (Glucosamine/Msm/Chondroitin A) 1 Each Tablet 1 Tab PO DAILY LAST DOSE GIVEN: DATE: TIME: NEXT DOSE DUE: DATE: TIME: Calcium 500 + Vit D 200 Tablet (Calcium Carbonate/Vitamin D3) 1 Each Tablet 1 Tab PO DAILY Fenofibrate (Fenofibrate,Micronized) 134 Mg Capsule 134 Mg PO DAILYWSUP LAST DOSE GIVEN: DATE: TIME: NEXT DOSE DUE: DATE: TIME: Aspirin 325 Mg Tablet 325 Mg PO DAILY LAST DOSE GIVEN: DATE: TIME: NEXT DOSE DUE: DATE: TIME: Norvasc (Amlodipine Besylate) 10 Mg Tablet 10 Mg PO DAILY LAST DOSE GIVEN: DATE: TIME: NEXT DOSE DUE: DATE: TIME: Diagnosis: Problems: (1) Anxiety disorder (2) Dementia, vascular, with depression (3) Dementia, vascular, with delusions (4) 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
--- NOTE | 2017-06-08 04:08 | PN ---
DATE: 06/06/2017 elements not covered in my initial note of 06/06/2017. SUBJECTIVE: I met with the patient evening of 06/06/2017. Her visited her for supper. 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 REVIEW OF SYSTEMS: No CV, , pulmonary, eye, ENT system symptoms on review. Reliability poor. MENTAL STATUS EXAM: Oriented to herself. Insight, judgment, recent and remote memory, attention, concentration, fund of knowledge poor consistent with her diagnosis mentioned in my initial note. PLAN: Continue current psychotropics, reviewed the drug interaction, risk/benefit ratio favors no further change at this time, but is probably starting on the we will increase the Namenda to 10 mg twice a day. Continue Effexor, Exelon patch, Seroquel, Remeron along with Zyprexa p.r.n. ERLINDA DYKES MD DR: MELISSA/gurmeet JOB#: [id number] / [id number]
[2017-06-08 06:30] VITALS: BP 114/57
[2017-06-08 07:54] LABS: BASO % 0 % (0-3); EOS # 0.1 x10^3/uL (0.0-0.7); EOS % 3 % (0-3); HEMOGLOBIN 10.8 g/dL (12.0-15.5); LYMPH % 23 % (24-48); MEAN CORPUSCULAR HEMOGLOBIN 32 pg (25-35); MEAN CORPUSCULAR HGB CONC 34 g/dL (31-37); MEAN CORPUSCULAR VOLUME 95 fL (79-100); MONO # 0.4 x10^3/uL (0.0-1.1); MONO % 10 % (0-9); NEUT # 2.7 x10^3uL (1.8-7.7); NEUT % 63 % (31-73); PLATELET COUNT 243 x10^3/uL (140-400); RED BLOOD COUNT 3.37 x10^6/uL (3.50-5.40); RED CELL DISTRIBUTION WIDTH 12.2 % (11.5-14.5); WHITE BLOOD COUNT 4.2 x10^3/uL (4.0-11.0)
[2017-06-08] MEDS: POTASSIUM CHLORIDE 20 MEQ TABLET.ER. PO SCH ×2 (07:56→20:22)
[2017-06-08] MEDS: RIVASTIGMINE 13.3MG PATCH. TD SCH (07:56)
[2017-06-08] MEDS: ASPIRIN 325 MG TABLET PO SCH (07:56)
[2017-06-08] MEDS: amLODIPine BESYLATE 10 MG TABLET PO SCH (07:57)
[2017-06-08] MEDS: CALCIUM CARB/VIT D3 500/200 TABLET PO SCH (07:57)
[2017-06-08] MEDS: VENLAFAXINE XR 37.5 MG CAP.ER.24H. PO SCH (07:57)
[2017-06-08] MEDS: QUEtiapine 25 MG TABLET. PO SCH ×3 (07:58→17:21)
[2017-06-08] MEDS: GLUCOSAMINE/CHOND 500/400MG CAPSULE PO SCH (07:58)
[2017-06-08] MEDS: MEMANTINE 10 MG TABLET. PO SCH ×2 (07:58→20:22)
[2017-06-08] MEDS: LOSARTAN 50 MG TABLET. PO SCH (07:58)
[2017-06-08] MEDS: oxyCODONE/APAP 7.5/325 1 TAB TABLET PO PRN (08:04)
[2017-06-08 08:07] LABS: ALBUMIN 3.4 g/dL (3.4-5.0); ALBUMIN/GLOBULIN RATIO 1.1 (1.0-1.7); CALCIUM 8.9 mg/dL (8.5-10.1); CREATININE 0.9 mg/dL (0.6-1.0); GFR 61.4; POTASSIUM 4.3 mmol/L (3.5-5.1); TOTAL BILIRUBIN 0.3 mg/dL (0.2-1.0); TOTAL PROTEIN 6.4 g/dL (6.4-8.2)
[2017-06-08] MEDS: CYANOCOBALAMIN (VITAMIN B-12) 250 MCG TABLET PO SCH (12:04)
[2017-06-08 16:33] VITALS: BP 119/78
[2017-06-08] MEDS: FENOFIBRATE NANOCRYSTALLIZED 145 MG TABLET PO SCH (17:21)
--- NOTE | 2017-06-08 19:57 | PDOC ---
Exam Niels Demential Exam: Niels Note: Please also refer to the separate dictated note~for this date of service dictated separately.~Patient seen individually. Discussed the patient with Nursing staff reviewed the chart.~Reviewed interim history and current functioning. Reviewed vital signs,~Labs/ Radiology~and current medications noted below. Continue current treatment with the changes noted in the dictated addendum note Assessment: Vital Signs: Vital Signs Date Time Temp Pulse Resp B/P (MAP) Pulse Ox O2 Delivery O2 Flow Rate FiO2 06/08/17 16:33 98.8 78 18 119/78 (92) 97 06/07/17 22:31 Room Air I&O Intake and Output 06/08/17 07:00 Intake Total 1500 ml Balance 1500 ml Intake Oral 1500 ml # Bowel Movements 1 Labs: Laboratory Tests Test 06/08/17 07:17 White Blood Count 4.2 x10^3/uL (4.0-11.0) Red Blood Count 3.37 x10^6/uL (3.50-5.40) L Hemoglobin 10.8 g/dL (12.0-15.5) L Hematocrit 32.0 % (36.0-47.0) L Mean Corpuscular Volume 95 fL (79-100) Mean Corpuscular Hemoglobin 32 pg (25-35) Mean Corpuscular Hemoglobin Concent 34 g/dL (31-37) Red Cell Distribution Width 12.2 % (11.5-14.5) Platelet Count 243 x10^3/uL (140-400) Neutrophils (%) (Auto) 63 % (31-73) Lymphocytes (%) (Auto) 23 % (24-48) L Monocytes (%) (Auto) 10 % (0-9) H Eosinophils (%) (Auto) 3 % (0-3) Basophils (%) (Auto) 0 % (0-3) Neutrophils # (Auto) 2.7 x10^3uL (1.8-7.7) Lymphocytes # (Auto) 1.0 x10^3/uL (1.0-4.8) Monocytes # (Auto) 0.4 x10^3/uL (0.0-1.1) Eosinophils # (Auto) 0.1 x10^3/uL (0.0-0.7) Basophils # (Auto) 0.0 x10^3/uL (0.0-0.2) Sodium Level 144 mmol/L (136-145) Potassium Level 4.3 mmol/L (3.5-5.1) Chloride Level 110 mmol/L (98-107) H Carbon Dioxide Level 27 mmol/L (21-32) Anion Gap 7 (6-14) Blood Urea Nitrogen 26 mg/dL (7-20) H Creatinine 0.9 mg/dL (0.6-1.0) Estimated GFR (Cockcroft-Gault) 61.4 BUN/Creatinine Ratio 29 (6-20) H Glucose Level 82 mg/dL (70-99) Calcium Level 8.9 mg/dL (8.5-10.1) Total Bilirubin 0.3 mg/dL (0.2-1.0) Aspartate Amino Transferase (AST) 24 U/L (15-37) Alanine Aminotransferase (ALT) 16 U/L (14-59) Alkaline Phosphatase 42 U/L (46-116) L Total Protein 6.4 g/dL (6.4-8.2) Albumin 3.4 g/dL (3.4-5.0) Albumin/Globulin Ratio 1.1 (1.0-1.7) Current Medications: Meds: Current Medications Acetaminophen (Tylenol) 650 mg PRN Q6HRS PRN PO PAIN / TEMP Last administered on 06/07/17 09:34; Start 05/26/17 at 22:45 Multi-Ingredient Ointment (Analgesic [place]) 1 tae PRN QID PRN TP MUSCLE PAIN; Start 05/26/17 at 22:45 Al Hydroxide/Mg Hydroxide (Mylanta Plus Xs) 15 ml PRN AFTMEALHC PRN PO DYSPEPSIA; Start 05/26/17 at 22:45 Magnesium Hydroxide (Milk Of Magnesia) 2,400 mg PRN QHS PRN PO CONSTIPATION; Start 05/26/17 at 22:45 Amlodipine Besylate (Norvasc) 10 mg DAILY PO Last administered on 06/08/17 07: 57; Start 05/27/17 at 09:00 Aspirin (Elsa Aspirin) 325 mg DAILY PO Last administered on 06/08/17 07:56; Start 05/27/17 at 09:00 Calcium/Vitamin D (Oscal D 500mg/ 200uts) 1 tab DAILY PO Last administered on 07:57; Start 05/27/17 at 09:00 Hydrochlorothiazide (Hydrodiuril) 25 mg DAILY PO Last administered on 05/29/17 08:21; Start 05/27/17 at 09:00; Stop 05/29/17 at 12:32; Status DC Losartan Potassium (Cozaar) 50 mg DAILY PO Last administered on 06/08/17 07:58 ; Start 05/27/17 at 09:00 Oxycodone/ Acetaminophen (Percocet 7.5/ 325) 1 tab PRN Q6HRS PRN PO SEVERE PAIN Last administered on 05/31/17 09:09; Start 05/27/17 at 01:30; Stop 05/31/17 at 12:28; Status DC Atorvastatin Calcium (Lipitor) 5 mg QHS PO Last administered on 06/07/17 19:34 ; Start 05/27/17 at 21:00 Fenofibrate (Tricor) 145 mg DAILYWSUP PO Last administered on 06/08/17 17:21; Start 05/27/17 at 17:00 Glucosamine/ Chondroitin (Glucosamine-Chondroitin 500/400mg) 1 cap DAILY PO Last administered on 06/08/17 07:58; Start 05/27/17 at 09:00 Memantine (Namenda) 10 mg DAILY PO Last administered on 05/27/17 08:30; Start 05/27/17 at 09:00; Stop 05/27/17 at 18:23; Status DC Olanzapine (ZyPREXA) 2.5 mg DAILY08 PO Last administered on 05/29/17 08:21; Start 05/27/17 at 08:00; Stop 05/29/17 at 18:52; Status DC Rivastigmine (Exelon) 1 patch DAILY TD Last administered on 05/27/17 08:31; Start 05/27/17 at 09:00; Stop 05/27/17 at 18:23; Status DC Venlafaxine HCl (Effexor Xr) 112.5 mg DAILY PO Last administered on 06/08/17 07:57; Start 05/27/17 at 09:00 Non-Formulary Medication 75 mg DAILY PO ; Start 05/27/17 at 09:00; Status UNV Potassium Chloride (Klor-Con) 20 meq BID PO Last administered on 06/08/17 07: 56; Start 05/27/17 at 21:00 Memantine (Namenda) 10 mg QHS PO Last administered on 06/06/17 19:44; Start at 21:00; Stop 06/07/17 at 13:34; Status DC Rivastigmine (Exelon 13.3mg) 1 patch DAILY TD Last administered on 06/08/17 07 :56; Start 05/28/17 at 09:00 Memantine (Namenda) 5 mg DAILY PO Last administered on 06/07/17 08:59; Start 05/28/17 at 09:00; Stop 06/07/17 at 13:34; Status DC Vitamin D (Vitamin D3) 50,000 unit WEEKLY PO Last administered on 06/06/17 08: 12; Start 05/30/17 at 09:00 Quetiapine Fumarate (SEROquel) 12.5 mg BID92 PO Last administered on 06/03/17 13:43; Start 05/30/17 at 09:00; Stop 06/03/17 at 18:32; Status DC Cyanocobalamin (Vitamin B-12) 250 mcg DAILYBFRLUN PO Last administered on 12:04; Start 05/31/17 at 11:30 Oxycodone/ Acetaminophen (Percocet 7.5/ 325) 1 tab PRN BID PRN PO SEVERE PAIN Last administered on 06/08/17 08:04; Start 05/31/17 at 18:00 Mirtazapine (Remeron) 7.5 mg QHS PO Last administered on 05/31/17 20:47; Start 05/31/17 at 21:00; Stop 06/01/17 at 18:30; Status DC Mirtazapine (Remeron) 15 mg QHS PO Last administered on 06/07/17 19:34; Start 06/01/17 at 21:00 Olanzapine (ZyPREXA ZYDIS) 1.25 mg PRN Q2HR PRN PO PSYCHOSIS Last administered on 06/08/17 17:21; Start 06/03/17 at 18:30 Quetiapine Fumarate (SEROquel) 12.5 mg TID@0900,1400,1800 PO Last administered on 06/05/17 18:00; Start 06/04/17 at 09:00; Stop 06/05/17 at 21:22; Status DC Quetiapine Fumarate (SEROquel) 12.5 mg BID@0900,1400 PO Last administered on 13:37; Start 06/06/17 at 09:00 Quetiapine Fumarate (SEROquel) 37.5 mg DAILY@1800 PO Last administered on 17:21; Start 06/06/17 at 18:00; Stop 06/08/17 at 18:35; Status DC Quetiapine Fumarate (SEROquel) 25 mg 1X ONCE PO Last administered on 21:27; Start 06/05/17 at 21:30; Stop 06/05/17 at 21:31; Status DC Memantine (Namenda) 10 mg BID PO Last administered on 06/08/17 07:58; Start at 21:00 Quetiapine Fumarate (SEROquel) 50 mg 1700 PO ; Start 06/09/17 at 17:00 Active Scripts Active Reported EXELON 9.5mg/24hr (Rivastigmine) 1 Each Patch.td24 1 Patch TD DAILY LAST DOSE GIVEN: DATE: TIME: NEXT DOSE DUE: DATE: TIME: Simvastatin 10 Mg Tablet 10 Mg PO HS LAST DOSE GIVEN: DATE: TIME: NEXT DOSE DUE: DATE: TIME: Effexor Xr (Venlafaxine Hcl) 75 Mg Cap.er.24h 75 Mg PO DAILY LAST DOSE GIVEN: DATE: TIME: NEXT DOSE DUE: DATE: TIME: Effexor Xr (Venlafaxine Hcl) 37.5 Mg Cap.er.24h 37.5 Mg PO DAILY LAST DOSE GIVEN: DATE: TIME: NEXT DOSE DUE: DATE: TIME: Percocet 7.5-325 Mg Tablet (Oxycodone Hcl/Acetaminophen) 1 Each Tablet 1 Tab PO PRN Q6HRS PRN LAST DOSE GIVEN: DATE: TIME: NEXT DOSE DUE: DATE: TIME: Zyprexa (Olanzapine) 2.5 Mg Tablet 2.5 Mg PO DAILY08 LAST DOSE GIVEN: DATE: TIME: NEXT DOSE DUE: DATE: TIME: Namenda (Memantine Hcl) 10 Mg Tablet 10 Mg PO DAILY LAST DOSE GIVEN: DATE: TIME: NEXT DOSE DUE: DATE: TIME: Cozaar (Losartan Potassium) 50 Mg Tablet 50 Mg PO DAILY LAST DOSE GIVEN: DATE: TIME: NEXT DOSE DUE: DATE: TIME: Hydrochlorothiazide Tablet (Hydrochlorothiazide) 25 Mg Tablet 25 Mg PO DAILY LAST DOSE GIVEN: DATE: TIME: NEXT DOSE DUE: DATE: TIME: Glucosamine Chondroit Msm Tab (Glucosamine/Msm/Chondroitin A) 1 Each Tablet 1 Tab PO DAILY LAST DOSE GIVEN: DATE: TIME: NEXT DOSE DUE: DATE: TIME: Calcium 500 + Vit D 200 Tablet (Calcium Carbonate/Vitamin D3) 1 Each Tablet 1 Tab PO DAILY Fenofibrate (Fenofibrate,Micronized) 134 Mg Capsule 134 Mg PO DAILYWSUP LAST DOSE GIVEN: DATE: TIME: NEXT DOSE DUE: DATE: TIME: Aspirin 325 Mg Tablet 325 Mg PO DAILY LAST DOSE GIVEN: DATE: TIME: NEXT DOSE DUE: DATE: TIME: Norvasc (Amlodipine Besylate) 10 Mg Tablet 10 Mg PO DAILY LAST DOSE GIVEN: DATE: TIME: NEXT DOSE DUE: DATE: TIME: Diagnosis: Problems: (1) Dementia, vascular, with depression (2) Anxiety disorder (3) Dementia, vascular, with delusions (4) Dementia in Alzheimer's disease with depression (5) Dementia in Alzheimer's disease with delusions (6) Impulse control disorder ERLINDA DYKES MD Jun 08, 2017 19:57
[2017-06-08] MEDS: MIRTAZAPINE 15 MG TABLET PO SCH (20:23)
[2017-06-08] MEDS: ATORVASTATIN CALCIUM 10 MG TABLET. PO SCH (20:23)
[2017-06-09 05:55] VITALS: BP 133/85
--- NOTE | 2017-06-09 07:40 | PN ---
DATE: 06/07/2017 PSYCHIATRIC PROGRESS NOTE This late entry 06/07/2017, covers elements not covered in my initial note of 06/07/2017. SUBJECTIVE: The patient slept 6 hours previous evening, compliant with medications, confused, wanting to leave, wondering. REVIEW OF SYSTEMS: Complains of back pain, constantly obsessively asking to go home, short term memory is poor. Staffs have talked to her several times about discharge plans. 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 REVIEW OF SYSTEMS: No CV, , pulmonary, eye, ENT system symptoms on review. MENTAL STATUS EXAM: Oriented to herself. Insight, judgment, recent and remote memory, attention, concentration, fund of knowledge poor, consistent with her diagnosis mentioned in my initial note. PLAN: Continue current psychotropics mentioned in my initial note. May need to increase Seroquel if agitation, mood lability persists. Consider adding BuSpar. ERLINDA DYKES MD DR: MELISSA/gurmeet JOB#: [id number] / [id number]
[2017-06-09] MEDS: LOSARTAN 50 MG TABLET. PO SCH (08:29)
[2017-06-09] MEDS: RIVASTIGMINE 13.3MG PATCH. TD SCH (08:29)
[2017-06-09] MEDS: GLUCOSAMINE/CHOND 500/400MG CAPSULE PO SCH (08:29)
[2017-06-09] MEDS: amLODIPine BESYLATE 10 MG TABLET PO SCH (08:30)
[2017-06-09] MEDS: CALCIUM CARB/VIT D3 500/200 TABLET PO SCH (08:30)
[2017-06-09] MEDS: MEMANTINE 10 MG TABLET. PO SCH ×2 (08:30→19:23)
[2017-06-09] MEDS: POTASSIUM CHLORIDE 20 MEQ TABLET.ER. PO SCH ×2 (08:30→19:24)
[2017-06-09] MEDS: QUEtiapine 25 MG TABLET. PO SCH ×3 (08:32→17:05)
[2017-06-09] MEDS: VENLAFAXINE XR 37.5 MG CAP.ER.24H. PO SCH (08:32)
[2017-06-09] MEDS: ASPIRIN 325 MG TABLET PO SCH (08:32)
[2017-06-09] MEDS: oxyCODONE/APAP 7.5/325 1 TAB TABLET PO PRN ×2 (11:34→19:53)
[2017-06-09] MEDS: CYANOCOBALAMIN (VITAMIN B-12) 250 MCG TABLET PO SCH (11:34)
[2017-06-09 16:17] VITALS: BP 111/69
[2017-06-09] MEDS: FENOFIBRATE NANOCRYSTALLIZED 145 MG TABLET PO SCH (17:03)
[2017-06-09] MEDS: ACETAMINOPHEN 325 MG TABLET PO PRN ×2 (17:14→23:13)
[2017-06-09] MEDS: MIRTAZAPINE 15 MG TABLET PO SCH (19:23)
[2017-06-09] MEDS: ATORVASTATIN CALCIUM 10 MG TABLET. PO SCH (19:23)
--- NOTE | 2017-06-09 19:56 | PDOC ---
Exam Niels Demential Exam: Niels Note: Please also refer to the separate dictated note~for this date of service dictated separately.~Patient seen individually. Discussed the patient with Nursing staff reviewed the chart.~Reviewed interim history and current functioning. Reviewed vital signs,~Labs/ Radiology~and current medications noted below. Continue current treatment with the changes noted in the dictated addendum note Assessment: Vital Signs: Vital Signs Date Time Temp Pulse Resp B/P (MAP) Pulse Ox O2 Delivery O2 Flow Rate FiO2 06/09/17 19:53 20 06/09/17 16:17 98.8 95 111/69 (83) 94 06/07/17 22:31 Room Air I&O Intake and Output 06/09/17 07:00 Intake Total 1080 ml Balance 1080 ml Intake Oral 1080 ml # Voids 2 Current Medications: Meds: Current Medications Acetaminophen (Tylenol) 650 mg PRN Q6HRS PRN PO PAIN / TEMP Last administered on 06/09/17 17:14; Start 05/26/17 at 22:45 Multi-Ingredient Ointment (Analgesic [place]) 1 tae PRN QID PRN TP MUSCLE PAIN; Start 05/26/17 at 22:45 Al Hydroxide/Mg Hydroxide (Mylanta Plus Xs) 15 ml PRN AFTMEALHC PRN PO DYSPEPSIA; Start 05/26/17 at 22:45 Magnesium Hydroxide (Milk Of Magnesia) 2,400 mg PRN QHS PRN PO CONSTIPATION; Start 05/26/17 at 22:45 Amlodipine Besylate (Norvasc) 10 mg DAILY PO Last administered on 06/09/17 08: 30; Start 05/27/17 at 09:00 Aspirin (Elsa Aspirin) 325 mg DAILY PO Last administered on 06/09/17 08:32; Start 05/27/17 at 09:00 Calcium/Vitamin D (Oscal D 500mg/ 200uts) 1 tab DAILY PO Last administered on 08:30; Start 05/27/17 at 09:00 Hydrochlorothiazide (Hydrodiuril) 25 mg DAILY PO Last administered on 05/29/17 08:21; Start 05/27/17 at 09:00; Stop 05/29/17 at 12:32; Status DC Losartan Potassium (Cozaar) 50 mg DAILY PO Last administered on 06/09/17 08:29 ; Start 05/27/17 at 09:00 Oxycodone/ Acetaminophen (Percocet 7.5/ 325) 1 tab PRN Q6HRS PRN PO SEVERE PAIN Last administered on 05/31/17 09:09; Start 05/27/17 at 01:30; Stop 05/31/17 at 12:28; Status DC Atorvastatin Calcium (Lipitor) 5 mg QHS PO Last administered on 06/09/17 19:23 ; Start 05/27/17 at 21:00 Fenofibrate (Tricor) 145 mg DAILYWSUP PO Last administered on 06/09/17 17:03; Start 05/27/17 at 17:00 Glucosamine/ Chondroitin (Glucosamine-Chondroitin 500/400mg) 1 cap DAILY PO Last administered on 06/09/17 08:29; Start 05/27/17 at 09:00 Memantine (Namenda) 10 mg DAILY PO Last administered on 05/27/17 08:30; Start 05/27/17 at 09:00; Stop 05/27/17 at 18:23; Status DC Olanzapine (ZyPREXA) 2.5 mg DAILY08 PO Last administered on 05/29/17 08:21; Start 05/27/17 at 08:00; Stop 05/29/17 at 18:52; Status DC Rivastigmine (Exelon) 1 patch DAILY TD Last administered on 05/27/17 08:31; Start 05/27/17 at 09:00; Stop 05/27/17 at 18:23; Status DC Venlafaxine HCl (Effexor Xr) 112.5 mg DAILY PO Last administered on 06/09/17 08:32; Start 05/27/17 at 09:00 Non-Formulary Medication 75 mg DAILY PO ; Start 05/27/17 at 09:00; Status UNV Potassium Chloride (Klor-Con) 20 meq BID PO Last administered on 06/09/17 19: 24; Start 05/27/17 at 21:00 Memantine (Namenda) 10 mg QHS PO Last administered on 06/06/17 19:44; Start at 21:00; Stop 06/07/17 at 13:34; Status DC Rivastigmine (Exelon 13.3mg) 1 patch DAILY TD Last administered on 06/09/17 08 :29; Start 05/28/17 at 09:00 Memantine (Namenda) 5 mg DAILY PO Last administered on 06/07/17 08:59; Start 05/28/17 at 09:00; Stop 06/07/17 at 13:34; Status DC Vitamin D (Vitamin D3) 50,000 unit WEEKLY PO Last administered on 06/06/17 08: 12; Start 05/30/17 at 09:00 Quetiapine Fumarate (SEROquel) 12.5 mg BID92 PO Last administered on 06/03/17 13:43; Start 05/30/17 at 09:00; Stop 06/03/17 at 18:32; Status DC Cyanocobalamin (Vitamin B-12) 250 mcg DAILYBFRLUN PO Last administered on 11:34; Start 05/31/17 at 11:30 Oxycodone/ Acetaminophen (Percocet 7.5/ 325) 1 tab PRN BID PRN PO SEVERE PAIN Last administered on 06/09/17 19:53; Start 05/31/17 at 18:00 Mirtazapine (Remeron) 7.5 mg QHS PO Last administered on 05/31/17 20:47; Start 05/31/17 at 21:00; Stop 06/01/17 at 18:30; Status DC Mirtazapine (Remeron) 15 mg QHS PO Last administered on 06/09/17 19:23; Start 06/01/17 at 21:00 Olanzapine (ZyPREXA ZYDIS) 1.25 mg PRN Q2HR PRN PO PSYCHOSIS Last administered on 06/08/17 17:21; Start 06/03/17 at 18:30 Quetiapine Fumarate (SEROquel) 12.5 mg TID@0900,1400,1800 PO Last administered on 06/05/17 18:00; Start 06/04/17 at 09:00; Stop 06/05/17 at 21:22; Status DC Quetiapine Fumarate (SEROquel) 12.5 mg BID@0900,1400 PO Last administered on 14:40; Start 06/06/17 at 09:00 Quetiapine Fumarate (SEROquel) 37.5 mg DAILY@1800 PO Last administered on 17:21; Start 06/06/17 at 18:00; Stop 06/08/17 at 18:35; Status DC Quetiapine Fumarate (SEROquel) 25 mg 1X ONCE PO Last administered on 21:27; Start 06/05/17 at 21:30; Stop 06/05/17 at 21:31; Status DC Memantine (Namenda) 10 mg BID PO Last administered on 06/09/17 19:23; Start at 21:00 Quetiapine Fumarate (SEROquel) 50 mg 1700 PO Last administered on 06/09/17 17: 05; Start 06/09/17 at 17:00 Active Scripts Active Reported EXELON 9.5mg/24hr (Rivastigmine) 1 Each Patch.td24 1 Patch TD DAILY LAST DOSE GIVEN: DATE: TIME: NEXT DOSE DUE: DATE: TIME: Simvastatin 10 Mg Tablet 10 Mg PO HS LAST DOSE GIVEN: DATE: TIME: NEXT DOSE DUE: DATE: TIME: Effexor Xr (Venlafaxine Hcl) 75 Mg Cap.er.24h 75 Mg PO DAILY LAST DOSE GIVEN: DATE: TIME: NEXT DOSE DUE: DATE: TIME: Effexor Xr (Venlafaxine Hcl) 37.5 Mg Cap.er.24h 37.5 Mg PO DAILY LAST DOSE GIVEN: DATE: TIME: NEXT DOSE DUE: DATE: TIME: Percocet 7.5-325 Mg Tablet (Oxycodone Hcl/Acetaminophen) 1 Each Tablet 1 Tab PO PRN Q6HRS PRN LAST DOSE GIVEN: DATE: TIME: NEXT DOSE DUE: DATE: TIME: Zyprexa (Olanzapine) 2.5 Mg Tablet 2.5 Mg PO DAILY08 LAST DOSE GIVEN: DATE: TIME: NEXT DOSE DUE: DATE: TIME: Namenda (Memantine Hcl) 10 Mg Tablet 10 Mg PO DAILY LAST DOSE GIVEN: DATE: TIME: NEXT DOSE DUE: DATE: TIME: Cozaar (Losartan Potassium) 50 Mg Tablet 50 Mg PO DAILY LAST DOSE GIVEN: DATE: TIME: NEXT DOSE DUE: DATE: TIME: Hydrochlorothiazide Tablet (Hydrochlorothiazide) 25 Mg Tablet 25 Mg PO DAILY LAST DOSE GIVEN: DATE: TIME: NEXT DOSE DUE: DATE: TIME: Glucosamine Chondroit Msm Tab (Glucosamine/Msm/Chondroitin A) 1 Each Tablet 1 Tab PO DAILY LAST DOSE GIVEN: DATE: TIME: NEXT DOSE DUE: DATE: TIME: Calcium 500 + Vit D 200 Tablet (Calcium Carbonate/Vitamin D3) 1 Each Tablet 1 Tab PO DAILY Fenofibrate (Fenofibrate,Micronized) 134 Mg Capsule 134 Mg PO DAILYWSUP LAST DOSE GIVEN: DATE: TIME: NEXT DOSE DUE: DATE: TIME: Aspirin 325 Mg Tablet 325 Mg PO DAILY LAST DOSE GIVEN: DATE: TIME: NEXT DOSE DUE: DATE: TIME: Norvasc (Amlodipine Besylate) 10 Mg Tablet 10 Mg PO DAILY LAST DOSE GIVEN: DATE: TIME: NEXT DOSE DUE: DATE: TIME: Diagnosis: Problems: (1) Anxiety disorder (2) Dementia, vascular, with depression (3) Dementia, vascular, with delusions (4) Dementia in Alzheimer's disease with depression (5) Dementia in Alzheimer's disease with delusions (6) Impulse control disorder ERLINDA DYKES MD Jun 09, 2017 19:56
--- NOTE | 2017-06-09 23:59 | PN ---
DATE: 06/08/2017 This is a late entry for 06/08/2017 and covers elements not covered in my initial note of 06/08/2017. I met with the patient evening of 06/08/2017. She has been alert, oriented to herself and her birthday, did well on the morning of 06/08/2017. She was quite agitated after her left following a visit in the afternoon, received Zyprexa at 1730 hours p.r.n. for this, refused supper. REVIEW OF SYSTEMS: No CV, , pulmonary, eye, ENT system symptoms on review. Reliability poor. MENTAL STATUS EXAM: Oriented to herself. Insight, judgment, recent and remote memory, attention, concentration, fund of knowledge poor, consistent with her diagnosis as mentioned in my initial note. PLAN: The patient is currently on Seroquel 12.5 mg b.i.d. and 37.5 mg at 1800 hours. She seems to get more agitated with increased mood lability around 1700 hours. We will change the 1800 hours Seroquel 37.5 mg to 50 mg and administrate at 1700 hours. Maintain the rest unchanged. Reviewed drug interactions, risk/benefit ratio favors no further change in rest of her psychotropics as mentioned in my initial note. ERLINDA DYKES MD DR: MELISSA/gurmeet JOB#: [id number] / [id number]
[2017-06-10 06:13] VITALS: BP 118/54
[2017-06-10] MEDS: amLODIPine BESYLATE 10 MG TABLET PO SCH (09:00)
[2017-06-10] MEDS: LOSARTAN 50 MG TABLET. PO SCH (09:00)
[2017-06-10] MEDS: ASPIRIN 325 MG TABLET PO SCH (09:00)
[2017-06-10] MEDS: QUEtiapine 25 MG TABLET. PO SCH ×3 (09:01→17:21)
[2017-06-10] MEDS: CALCIUM CARB/VIT D3 500/200 TABLET PO SCH (09:01)
[2017-06-10] MEDS: VENLAFAXINE XR 37.5 MG CAP.ER.24H. PO SCH (09:02)
[2017-06-10] MEDS: GLUCOSAMINE/CHOND 500/400MG CAPSULE PO SCH (09:02)
[2017-06-10] MEDS: MEMANTINE 10 MG TABLET. PO SCH ×2 (09:02→19:32)
[2017-06-10] MEDS: POTASSIUM CHLORIDE 20 MEQ TABLET.ER. PO SCH ×2 (09:03→19:32)
[2017-06-10] MEDS: RIVASTIGMINE 13.3MG PATCH. TD SCH (09:04)
[2017-06-10] MEDS: CYANOCOBALAMIN (VITAMIN B-12) 250 MCG TABLET PO SCH (13:43)
[2017-06-10 16:43] VITALS: BP 104/59
[2017-06-10] MEDS: FENOFIBRATE NANOCRYSTALLIZED 145 MG TABLET PO SCH (17:20)
[2017-06-10] MEDS: MIRTAZAPINE 15 MG TABLET PO SCH (19:32)
[2017-06-10] MEDS: ATORVASTATIN CALCIUM 10 MG TABLET. PO SCH (19:32)
[2017-06-10] MEDS: hydrOXYzine HCL 25 MG TABLET PO PRN (19:33)
--- NOTE | 2017-06-10 20:00 | PDOC ---
Exam Niels Demential Exam: Niels Note: Please also refer to the separate dictated note~for this date of service dictated separately.~Patient seen individually. Discussed the patient with Nursing staff reviewed the chart.~Reviewed interim history and current functioning. Reviewed vital signs,~Labs/ Radiology~and current medications noted below. Continue current treatment with the changes noted in the dictated addendum note Assessment: Vital Signs: Vital Signs Date Time Temp Pulse Resp B/P (MAP) Pulse Ox O2 Delivery O2 Flow Rate FiO2 06/10/17 16:43 99.1 82 20 104/59 (74) 97 06/07/17 22:31 Room Air I&O Intake and Output 06/10/17 07:00 Intake Total 1440 ml Balance 1440 ml Intake Oral 1440 ml # Voids 1 Current Medications: Meds: Current Medications Acetaminophen (Tylenol) 650 mg PRN Q6HRS PRN PO PAIN / TEMP Last administered on 06/09/17 23:13; Start 05/26/17 at 22:45 Multi-Ingredient Ointment (Analgesic [place]) 1 tae PRN QID PRN TP MUSCLE PAIN; Start 05/26/17 at 22:45 Al Hydroxide/Mg Hydroxide (Mylanta Plus Xs) 15 ml PRN AFTMEALHC PRN PO DYSPEPSIA; Start 05/26/17 at 22:45 Magnesium Hydroxide (Milk Of Magnesia) 2,400 mg PRN QHS PRN PO CONSTIPATION; Start 05/26/17 at 22:45 Amlodipine Besylate (Norvasc) 10 mg DAILY PO Last administered on 06/09/17 08: 30; Start 05/27/17 at 09:00 Aspirin (Elsa Aspirin) 325 mg DAILY PO Last administered on 06/10/17 09:00; Start 05/27/17 at 09:00 Calcium/Vitamin D (Oscal D 500mg/ 200uts) 1 tab DAILY PO Last administered on 09:01; Start 05/27/17 at 09:00 Hydrochlorothiazide (Hydrodiuril) 25 mg DAILY PO Last administered on 05/29/17 08:21; Start 05/27/17 at 09:00; Stop 05/29/17 at 12:32; Status DC Losartan Potassium (Cozaar) 50 mg DAILY PO Last administered on 06/09/17 08:29 ; Start 05/27/17 at 09:00 Oxycodone/ Acetaminophen (Percocet 7.5/ 325) 1 tab PRN Q6HRS PRN PO SEVERE PAIN Last administered on 05/31/17 09:09; Start 05/27/17 at 01:30; Stop 05/31/17 at 12:28; Status DC Atorvastatin Calcium (Lipitor) 5 mg QHS PO Last administered on 06/10/17 19:32 ; Start 05/27/17 at 21:00 Fenofibrate (Tricor) 145 mg DAILYWSUP PO Last administered on 06/10/17 17:20; Start 05/27/17 at 17:00 Glucosamine/ Chondroitin (Glucosamine-Chondroitin 500/400mg) 1 cap DAILY PO Last administered on 06/10/17 09:02; Start 05/27/17 at 09:00 Memantine (Namenda) 10 mg DAILY PO Last administered on 05/27/17 08:30; Start 05/27/17 at 09:00; Stop 05/27/17 at 18:23; Status DC Olanzapine (ZyPREXA) 2.5 mg DAILY08 PO Last administered on 05/29/17 08:21; Start 05/27/17 at 08:00; Stop 05/29/17 at 18:52; Status DC Rivastigmine (Exelon) 1 patch DAILY TD Last administered on 05/27/17 08:31; Start 05/27/17 at 09:00; Stop 05/27/17 at 18:23; Status DC Venlafaxine HCl (Effexor Xr) 112.5 mg DAILY PO Last administered on 06/10/17 09:02; Start 05/27/17 at 09:00 Non-Formulary Medication 75 mg DAILY PO ; Start 05/27/17 at 09:00; Status UNV Potassium Chloride (Klor-Con) 20 meq BID PO Last administered on 06/10/17 19: 32; Start 05/27/17 at 21:00 Memantine (Namenda) 10 mg QHS PO Last administered on 06/06/17 19:44; Start at 21:00; Stop 06/07/17 at 13:34; Status DC Rivastigmine (Exelon 13.3mg) 1 patch DAILY TD Last administered on 06/10/17 09 :04; Start 05/28/17 at 09:00 Memantine (Namenda) 5 mg DAILY PO Last administered on 06/07/17 08:59; Start 05/28/17 at 09:00; Stop 06/07/17 at 13:34; Status DC Vitamin D (Vitamin D3) 50,000 unit WEEKLY PO Last administered on 06/06/17 08: 12; Start 05/30/17 at 09:00 Quetiapine Fumarate (SEROquel) 12.5 mg BID92 PO Last administered on 06/03/17 13:43; Start 05/30/17 at 09:00; Stop 06/03/17 at 18:32; Status DC Cyanocobalamin (Vitamin B-12) 250 mcg DAILYBFRLUN PO Last administered on 13:43; Start 05/31/17 at 11:30 Oxycodone/ Acetaminophen (Percocet 7.5/ 325) 1 tab PRN BID PRN PO SEVERE PAIN Last administered on 06/09/17 19:53; Start 05/31/17 at 18:00 Mirtazapine (Remeron) 7.5 mg QHS PO Last administered on 05/31/17 20:47; Start 05/31/17 at 21:00; Stop 06/01/17 at 18:30; Status DC Mirtazapine (Remeron) 15 mg QHS PO Last administered on 06/10/17 19:32; Start 06/01/17 at 21:00 Olanzapine (ZyPREXA ZYDIS) 1.25 mg PRN Q2HR PRN PO PSYCHOSIS Last administered on 06/09/17 21:12; Start 06/03/17 at 18:30 Quetiapine Fumarate (SEROquel) 12.5 mg TID@0900,1400,1800 PO Last administered on 06/05/17 18:00; Start 06/04/17 at 09:00; Stop 06/05/17 at 21:22; Status DC Quetiapine Fumarate (SEROquel) 12.5 mg BID@0900,1400 PO Last administered on 13:43; Start 06/06/17 at 09:00 Quetiapine Fumarate (SEROquel) 37.5 mg DAILY@1800 PO Last administered on 17:21; Start 06/06/17 at 18:00; Stop 06/08/17 at 18:35; Status DC Quetiapine Fumarate (SEROquel) 25 mg 1X ONCE PO Last administered on 21:27; Start 06/05/17 at 21:30; Stop 06/05/17 at 21:31; Status DC Memantine (Namenda) 10 mg BID PO Last administered on 06/10/17 19:32; Start at 21:00 Quetiapine Fumarate (SEROquel) 50 mg 1700 PO Last administered on 06/10/17 17: 21; Start 06/09/17 at 17:00 Hydroxyzine HCl (Atarax) 25 mg PRN Q2HR PRN PO PSYCHOSIS Last administered on 19:33; Start 06/10/17 at 18:30 Active Scripts Active Reported EXELON 9.5mg/24hr (Rivastigmine) 1 Each Patch.td24 1 Patch TD DAILY LAST DOSE GIVEN: DATE: TIME: NEXT DOSE DUE: DATE: TIME: Simvastatin 10 Mg Tablet 10 Mg PO HS LAST DOSE GIVEN: DATE: TIME: NEXT DOSE DUE: DATE: TIME: Effexor Xr (Venlafaxine Hcl) 75 Mg Cap.er.24h 75 Mg PO DAILY LAST DOSE GIVEN: DATE: TIME: NEXT DOSE DUE: DATE: TIME: Effexor Xr (Venlafaxine Hcl) 37.5 Mg Cap.er.24h 37.5 Mg PO DAILY LAST DOSE GIVEN: DATE: TIME: NEXT DOSE DUE: DATE: TIME: Percocet 7.5-325 Mg Tablet (Oxycodone Hcl/Acetaminophen) 1 Each Tablet 1 Tab PO PRN Q6HRS PRN LAST DOSE GIVEN: DATE: TIME: NEXT DOSE DUE: DATE: TIME: Zyprexa (Olanzapine) 2.5 Mg Tablet 2.5 Mg PO DAILY08 LAST DOSE GIVEN: DATE: TIME: NEXT DOSE DUE: DATE: TIME: Namenda (Memantine Hcl) 10 Mg Tablet 10 Mg PO DAILY LAST DOSE GIVEN: DATE: TIME: NEXT DOSE DUE: DATE: TIME: Cozaar (Losartan Potassium) 50 Mg Tablet 50 Mg PO DAILY LAST DOSE GIVEN: DATE: TIME: NEXT DOSE DUE: DATE: TIME: Hydrochlorothiazide Tablet (Hydrochlorothiazide) 25 Mg Tablet 25 Mg PO DAILY LAST DOSE GIVEN: DATE: TIME: NEXT DOSE DUE: DATE: TIME: Glucosamine Chondroit Msm Tab (Glucosamine/Msm/Chondroitin A) 1 Each Tablet 1 Tab PO DAILY LAST DOSE GIVEN: DATE: TIME: NEXT DOSE DUE: DATE: TIME: Calcium 500 + Vit D 200 Tablet (Calcium Carbonate/Vitamin D3) 1 Each Tablet 1 Tab PO DAILY Fenofibrate (Fenofibrate,Micronized) 134 Mg Capsule 134 Mg PO DAILYWSUP LAST DOSE GIVEN: DATE: TIME: NEXT DOSE DUE: DATE: TIME: Aspirin 325 Mg Tablet 325 Mg PO DAILY LAST DOSE GIVEN: DATE: TIME: NEXT DOSE DUE: DATE: TIME: Norvasc (Amlodipine Besylate) 10 Mg Tablet 10 Mg PO DAILY LAST DOSE GIVEN: DATE: TIME: NEXT DOSE DUE: DATE: TIME: Diagnosis: Problems: (1) Anxiety disorder (2) Dementia, vascular, with depression (3) Dementia, vascular, with delusions (4) Dementia in Alzheimer's disease with depression (5) Dementia in Alzheimer's disease with delusions (6) Impulse control disorder ERLINDA DYKES MD Jun 10, 2017 20:00
--- NOTE | 2017-06-11 02:19 | PN ---
DATE: 06/09/2017 This is a late entry for 06/09/2017 and covers elements not covered in my initial note of 06/09/2017. SUBJECTIVE: The patient was staffed at a treatment team meeting with the entire team morning of 06/09/2017, seen individually evening of 06/09/2017, slept 7-1/2 hours previous evening, tearful in the morning, labile after the family visited, complains of back pain, received Percocet. REVIEW OF SYSTEMS: No CV, , pulmonary, eye, ENT system symptoms on review. Reliability poor. MENTAL STATUS EXAM: Oriented to herself. Insight, judgment, recent and remote memory, attention, concentration, fund of knowledge poor, consistent with her diagnosis as mentioned in my initial note. The patient's daughter is a nurse at [employer]. The patient has been upset at her and gets more labile after he visits. LABORATORY DATA: Reviewed. IMPRESSION: Unchanged from initial note. PLAN: Continue current psychotropics, Namenda, Exelon patch, Seroquel, Remeron. Seroquel may need to be adjusted further. MAN Amor DYKES MD DR: MELISSA/gurmeet JOB#: [id number] / [id number]
[2017-06-11 06:14] VITALS: BP 112/68
[2017-06-11] MEDS: RIVASTIGMINE 13.3MG PATCH. TD SCH (08:15)
[2017-06-11] MEDS: ASPIRIN 325 MG TABLET PO SCH (08:15)
[2017-06-11] MEDS: VENLAFAXINE XR 37.5 MG CAP.ER.24H. PO SCH (08:15)
[2017-06-11] MEDS: QUEtiapine 25 MG TABLET. PO SCH ×3 (08:16→17:29)
[2017-06-11] MEDS: GLUCOSAMINE/CHOND 500/400MG CAPSULE PO SCH (08:17)
[2017-06-11] MEDS: POTASSIUM CHLORIDE 20 MEQ TABLET.ER. PO SCH ×2 (08:17→19:10)
[2017-06-11] MEDS: CALCIUM CARB/VIT D3 500/200 TABLET PO SCH (08:17)
[2017-06-11] MEDS: amLODIPine BESYLATE 10 MG TABLET PO SCH (08:18)
[2017-06-11] MEDS: MEMANTINE 10 MG TABLET. PO SCH ×2 (08:18→19:09)
[2017-06-11] MEDS: LOSARTAN 50 MG TABLET. PO SCH (08:18)
[2017-06-11] MEDS: CYANOCOBALAMIN (VITAMIN B-12) 250 MCG TABLET PO SCH (13:21)
[2017-06-11 15:52] VITALS: BP 130/78
[2017-06-11] MEDS: FENOFIBRATE NANOCRYSTALLIZED 145 MG TABLET PO SCH (17:29)
[2017-06-11] MEDS: hydrOXYzine HCL 25 MG TABLET PO PRN (17:29)
[2017-06-11] MEDS: MIRTAZAPINE 15 MG TABLET PO SCH (19:10)
[2017-06-11] MEDS: ATORVASTATIN CALCIUM 10 MG TABLET. PO SCH (19:10)
[2017-06-11] MEDS ORDERED: traZODone 50 MG TABLET. PO ONE (20:00)
--- NOTE | 2017-06-11 21:12 | PN ---
DATE: 06/10/2017 This late entry 06/10/2017 covers elements not covered in my initial note of 06/10/2017. I met with the patient in the evening of 06/10/2017. The patient remains anxious, restless, somewhat withdrawn, confused. The patient is directing another demented patient into the bed, when staff intervened. She was oblivious to what she was doing inappropriately. The patient was agitated the previous evening. We will start hydroxyzine 25 mg q.2 hours p.r.n. anxiety, max 100 mg in 24 hours. REVIEW OF SYSTEMS: No CV, , pulmonary, eye, ENT system symptoms on review. Reliability poor. MENTAL STATUS EXAM: Oriented to herself. Insight, judgment, recent and remote memory, attention, concentration, fund of knowledge poor, consistent with her diagnosis as mentioned in my initial note. LABORATORY DATA: Reviewed. PLAN: Continue current psychotropics, Namenda, Effexor, Exelon patch, Seroquel, Remeron, hydroxyzine has been added, Zyprexa p.r.n. Adjust further as clinically indicated. Reviewed drug interactions, risk/benefit ratio favors no further change as of now. ERLINDA DYKES MD DR: MELISSA/gurmeet JOB#: [id number] / [id number]
--- NOTE | 2017-06-11 23:27 | PDOC ---
Exam Niels Demential Exam: Niels Note: Please also refer to the separate dictated note~for this date of service dictated separately.~Patient seen individually. Discussed the patient with Nursing staff reviewed the chart.~Reviewed interim history and current functioning. Reviewed vital signs,~Labs/ Radiology~and current medications noted below. Continue current treatment with the changes noted in the dictated addendum note Assessment: Vital Signs: Vital Signs Date Time Temp Pulse Resp B/P (MAP) Pulse Ox O2 Delivery O2 Flow Rate FiO2 06/11/17 15:52 97.7 85 20 130/78 (95) 96 06/11/17 06:14 Room Air I&O Intake and Output 06/11/17 07:00 Intake Total 600 ml Balance 600 ml Intake Oral 600 ml Current Medications: Meds: Current Medications Acetaminophen (Tylenol) 650 mg PRN Q6HRS PRN PO PAIN / TEMP Last administered on 06/09/17 23:13; Start 05/26/17 at 22:45 Multi-Ingredient Ointment (Analgesic [place]) 1 tae PRN QID PRN TP MUSCLE PAIN; Start 05/26/17 at 22:45 Al Hydroxide/Mg Hydroxide (Mylanta Plus Xs) 15 ml PRN AFTMEALHC PRN PO DYSPEPSIA; Start 05/26/17 at 22:45 Magnesium Hydroxide (Milk Of Magnesia) 2,400 mg PRN QHS PRN PO CONSTIPATION; Start 05/26/17 at 22:45 Amlodipine Besylate (Norvasc) 10 mg DAILY PO Last administered on 06/09/17 08: 30; Start 05/27/17 at 09:00 Aspirin (Elsa Aspirin) 325 mg DAILY PO Last administered on 06/11/17 08:15; Start 05/27/17 at 09:00 Calcium/Vitamin D (Oscal D 500mg/ 200uts) 1 tab DAILY PO Last administered on 08:17; Start 05/27/17 at 09:00 Hydrochlorothiazide (Hydrodiuril) 25 mg DAILY PO Last administered on 05/29/17 08:21; Start 05/27/17 at 09:00; Stop 05/29/17 at 12:32; Status DC Losartan Potassium (Cozaar) 50 mg DAILY PO Last administered on 06/09/17 08:29 ; Start 05/27/17 at 09:00 Oxycodone/ Acetaminophen (Percocet 7.5/ 325) 1 tab PRN Q6HRS PRN PO SEVERE PAIN Last administered on 05/31/17 09:09; Start 05/27/17 at 01:30; Stop 05/31/17 at 12:28; Status DC Atorvastatin Calcium (Lipitor) 5 mg QHS PO Last administered on 06/11/17 19:10 ; Start 05/27/17 at 21:00 Fenofibrate (Tricor) 145 mg DAILYWSUP PO Last administered on 06/11/17 17:29; Start 05/27/17 at 17:00 Glucosamine/ Chondroitin (Glucosamine-Chondroitin 500/400mg) 1 cap DAILY PO Last administered on 06/11/17 08:17; Start 05/27/17 at 09:00 Memantine (Namenda) 10 mg DAILY PO Last administered on 05/27/17 08:30; Start 05/27/17 at 09:00; Stop 05/27/17 at 18:23; Status DC Olanzapine (ZyPREXA) 2.5 mg DAILY08 PO Last administered on 05/29/17 08:21; Start 05/27/17 at 08:00; Stop 05/29/17 at 18:52; Status DC Rivastigmine (Exelon) 1 patch DAILY TD Last administered on 05/27/17 08:31; Start 05/27/17 at 09:00; Stop 05/27/17 at 18:23; Status DC Venlafaxine HCl (Effexor Xr) 112.5 mg DAILY PO Last administered on 06/11/17 08:15; Start 05/27/17 at 09:00 Non-Formulary Medication 75 mg DAILY PO ; Start 05/27/17 at 09:00; Status UNV Potassium Chloride (Klor-Con) 20 meq BID PO Last administered on 06/11/17 19: 10; Start 05/27/17 at 21:00 Memantine (Namenda) 10 mg QHS PO Last administered on 06/06/17 19:44; Start at 21:00; Stop 06/07/17 at 13:34; Status DC Rivastigmine (Exelon 13.3mg) 1 patch DAILY TD Last administered on 06/11/17 08 :15; Start 05/28/17 at 09:00 Memantine (Namenda) 5 mg DAILY PO Last administered on 06/07/17 08:59; Start 05/28/17 at 09:00; Stop 06/07/17 at 13:34; Status DC Vitamin D (Vitamin D3) 50,000 unit WEEKLY PO Last administered on 06/06/17 08: 12; Start 05/30/17 at 09:00 Quetiapine Fumarate (SEROquel) 12.5 mg BID92 PO Last administered on 06/03/17 13:43; Start 05/30/17 at 09:00; Stop 06/03/17 at 18:32; Status DC Cyanocobalamin (Vitamin B-12) 250 mcg DAILYBFRLUN PO Last administered on 13:21; Start 05/31/17 at 11:30 Oxycodone/ Acetaminophen (Percocet 7.5/ 325) 1 tab PRN BID PRN PO SEVERE PAIN Last administered on 06/09/17 19:53; Start 05/31/17 at 18:00 Mirtazapine (Remeron) 7.5 mg QHS PO Last administered on 05/31/17 20:47; Start 05/31/17 at 21:00; Stop 06/01/17 at 18:30; Status DC Mirtazapine (Remeron) 15 mg QHS PO Last administered on 06/11/17 19:10; Start 06/01/17 at 21:00 Olanzapine (ZyPREXA ZYDIS) 1.25 mg PRN Q2HR PRN PO PSYCHOSIS Last administered on 06/11/17 19:11; Start 06/03/17 at 18:30 Quetiapine Fumarate (SEROquel) 12.5 mg TID@0900,1400,1800 PO Last administered on 06/05/17 18:00; Start 06/04/17 at 09:00; Stop 06/05/17 at 21:22; Status DC Quetiapine Fumarate (SEROquel) 12.5 mg BID@0900,1400 PO Last administered on 13:21; Start 06/06/17 at 09:00 Quetiapine Fumarate (SEROquel) 37.5 mg DAILY@1800 PO Last administered on 17:21; Start 06/06/17 at 18:00; Stop 06/08/17 at 18:35; Status DC Quetiapine Fumarate (SEROquel) 25 mg 1X ONCE PO Last administered on 21:27; Start 06/05/17 at 21:30; Stop 06/05/17 at 21:31; Status DC Memantine (Namenda) 10 mg BID PO Last administered on 06/11/17 19:09; Start at 21:00 Quetiapine Fumarate (SEROquel) 50 mg 1700 PO Last administered on 06/11/17 17: 29; Start 06/09/17 at 17:00 Hydroxyzine HCl (Atarax) 25 mg PRN Q2HR PRN PO PSYCHOSIS Last administered on 17:29; Start 06/10/17 at 18:30 Trazodone HCl (Desyrel) 12.5 mg DAILYWSUP PO ; Start 06/12/17 at 17:00 Trazodone HCl (Desyrel) 12.5 mg 1X ONCE PO Last administered on 06/11/17 19: 47; Start 06/11/17 at 20:00; Stop 06/11/17 at 20:01; Status DC Active Scripts Active Reported EXELON 9.5mg/24hr (Rivastigmine) 1 Each Patch.td24 1 Patch TD DAILY LAST DOSE GIVEN: DATE: TIME: NEXT DOSE DUE: DATE: TIME: Simvastatin 10 Mg Tablet 10 Mg PO HS LAST DOSE GIVEN: DATE: TIME: NEXT DOSE DUE: DATE: TIME: Effexor Xr (Venlafaxine Hcl) 75 Mg Cap.er.24h 75 Mg PO DAILY LAST DOSE GIVEN: DATE: TIME: NEXT DOSE DUE: DATE: TIME: Effexor Xr (Venlafaxine Hcl) 37.5 Mg Cap.er.24h 37.5 Mg PO DAILY LAST DOSE GIVEN: DATE: TIME: NEXT DOSE DUE: DATE: TIME: Percocet 7.5-325 Mg Tablet (Oxycodone Hcl/Acetaminophen) 1 Each Tablet 1 Tab PO PRN Q6HRS PRN LAST DOSE GIVEN: DATE: TIME: NEXT DOSE DUE: DATE: TIME: Zyprexa (Olanzapine) 2.5 Mg Tablet 2.5 Mg PO DAILY08 LAST DOSE GIVEN: DATE: TIME: NEXT DOSE DUE: DATE: TIME: Namenda (Memantine Hcl) 10 Mg Tablet 10 Mg PO DAILY LAST DOSE GIVEN: DATE: TIME: NEXT DOSE DUE: DATE: TIME: Cozaar (Losartan Potassium) 50 Mg Tablet 50 Mg PO DAILY LAST DOSE GIVEN: DATE: TIME: NEXT DOSE DUE: DATE: TIME: Hydrochlorothiazide Tablet (Hydrochlorothiazide) 25 Mg Tablet 25 Mg PO DAILY LAST DOSE GIVEN: DATE: TIME: NEXT DOSE DUE: DATE: TIME: Glucosamine Chondroit Msm Tab (Glucosamine/Msm/Chondroitin A) 1 Each Tablet 1 Tab PO DAILY LAST DOSE GIVEN: DATE: TIME: NEXT DOSE DUE: DATE: TIME: Calcium 500 + Vit D 200 Tablet (Calcium Carbonate/Vitamin D3) 1 Each Tablet 1 Tab PO DAILY Fenofibrate (Fenofibrate,Micronized) 134 Mg Capsule 134 Mg PO DAILYWSUP LAST DOSE GIVEN: DATE: TIME: NEXT DOSE DUE: DATE: TIME: Aspirin 325 Mg Tablet 325 Mg PO DAILY LAST DOSE GIVEN: DATE: TIME: NEXT DOSE DUE: DATE: TIME: Norvasc (Amlodipine Besylate) 10 Mg Tablet 10 Mg PO DAILY LAST DOSE GIVEN: DATE: TIME: NEXT DOSE DUE: DATE: TIME: Diagnosis: Problems: (1) Anxiety disorder (2) Dementia, vascular, with depression (3) Dementia, vascular, with delusions (4) Dementia in Alzheimer'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
[2017-06-12 05:45] VITALS: BP 130/72
[2017-06-12] MEDS: LOSARTAN 50 MG TABLET. PO SCH (08:48)
[2017-06-12] MEDS: VENLAFAXINE XR 37.5 MG CAP.ER.24H. PO SCH (08:48)
[2017-06-12] MEDS: ASPIRIN 325 MG TABLET PO SCH (08:49)
[2017-06-12] MEDS: MEMANTINE 10 MG TABLET. PO SCH ×2 (08:49→19:26)
[2017-06-12] MEDS: CALCIUM CARB/VIT D3 500/200 TABLET PO SCH (08:49)
[2017-06-12] MEDS: POTASSIUM CHLORIDE 20 MEQ TABLET.ER. PO SCH ×2 (08:49→19:26)
[2017-06-12] MEDS: traZODone 50 MG TABLET. PO SCH (08:49)
[2017-06-12] MEDS: GLUCOSAMINE/CHOND 500/400MG CAPSULE PO SCH (08:49)
[2017-06-12] MEDS: amLODIPine BESYLATE 10 MG TABLET PO SCH (08:50)
[2017-06-12] MEDS: RIVASTIGMINE 13.3MG PATCH. TD SCH (08:50)
[2017-06-12] MEDS: QUEtiapine 25 MG TABLET. PO SCH ×3 (09:00→16:48)
[2017-06-12] MEDS: CYANOCOBALAMIN (VITAMIN B-12) 250 MCG TABLET PO SCH (12:44)
[2017-06-12 16:22] VITALS: BP 118/66
[2017-06-12] MEDS: FENOFIBRATE NANOCRYSTALLIZED 145 MG TABLET PO SCH (16:48)
[2017-06-12] MEDS: MIRTAZAPINE 15 MG TABLET PO SCH (19:26)
[2017-06-12] MEDS: ATORVASTATIN CALCIUM 10 MG TABLET. PO SCH (19:26)
[2017-06-12] MEDS: oxyCODONE/APAP 7.5/325 1 TAB TABLET PO PRN (19:37)
--- NOTE | 2017-06-12 19:54 | PDOC ---
Exam Niels Demential Exam: Niels Note: Please also refer to the separate dictated note~for this date of service dictated separately.~Patient seen individually. Discussed the patient with Nursing staff reviewed the chart.~Reviewed interim history and current functioning. Reviewed vital signs,~Labs/ Radiology~and current medications noted below. Continue current treatment with the changes noted in the dictated addendum note Assessment: Vital Signs: Vital Signs Date Time Temp Pulse Resp B/P (MAP) Pulse Ox O2 Delivery O2 Flow Rate FiO2 06/12/17 19:37 20 06/12/17 16:22 97.7 71 118/66 (83) 99 Room Air I&O Intake and Output 06/12/17 07:00 Intake Total 840 ml Balance 840 ml Intake Oral 840 ml Current Medications: Meds: Current Medications Acetaminophen (Tylenol) 650 mg PRN Q6HRS PRN PO PAIN / TEMP Last administered on 06/09/17 23:13; Start 05/26/17 at 22:45 Multi-Ingredient Ointment (Analgesic [place]) 1 tae PRN QID PRN TP MUSCLE PAIN; Start 05/26/17 at 22:45 Al Hydroxide/Mg Hydroxide (Mylanta Plus Xs) 15 ml PRN AFTMEALHC PRN PO DYSPEPSIA; Start 05/26/17 at 22:45 Magnesium Hydroxide (Milk Of Magnesia) 2,400 mg PRN QHS PRN PO CONSTIPATION; Start 05/26/17 at 22:45 Amlodipine Besylate (Norvasc) 10 mg DAILY PO Last administered on 06/12/17 08: 50; Start 05/27/17 at 09:00 Aspirin (Elsa Aspirin) 325 mg DAILY PO Last administered on 06/12/17 08:49; Start 05/27/17 at 09:00 Calcium/Vitamin D (Oscal D 500mg/ 200uts) 1 tab DAILY PO Last administered on 08:49; Start 05/27/17 at 09:00 Hydrochlorothiazide (Hydrodiuril) 25 mg DAILY PO Last administered on 05/29/17 08:21; Start 05/27/17 at 09:00; Stop 05/29/17 at 12:32; Status DC Losartan Potassium (Cozaar) 50 mg DAILY PO Last administered on 06/12/17 08:48 ; Start 05/27/17 at 09:00 Oxycodone/ Acetaminophen (Percocet 7.5/ 325) 1 tab PRN Q6HRS PRN PO SEVERE PAIN Last administered on 05/31/17 09:09; Start 05/27/17 at 01:30; Stop 05/31/17 at 12:28; Status DC Atorvastatin Calcium (Lipitor) 5 mg QHS PO Last administered on 06/12/17 19:26 ; Start 05/27/17 at 21:00 Fenofibrate (Tricor) 145 mg DAILYWSUP PO Last administered on 06/12/17 16:48; Start 05/27/17 at 17:00 Glucosamine/ Chondroitin (Glucosamine-Chondroitin 500/400mg) 1 cap DAILY PO Last administered on 06/12/17 08:49; Start 05/27/17 at 09:00 Memantine (Namenda) 10 mg DAILY PO Last administered on 05/27/17 08:30; Start 05/27/17 at 09:00; Stop 05/27/17 at 18:23; Status DC Olanzapine (ZyPREXA) 2.5 mg DAILY08 PO Last administered on 05/29/17 08:21; Start 05/27/17 at 08:00; Stop 05/29/17 at 18:52; Status DC Rivastigmine (Exelon) 1 patch DAILY TD Last administered on 05/27/17 08:31; Start 05/27/17 at 09:00; Stop 05/27/17 at 18:23; Status DC Venlafaxine HCl (Effexor Xr) 112.5 mg DAILY PO Last administered on 06/12/17 08:48; Start 05/27/17 at 09:00 Non-Formulary Medication 75 mg DAILY PO ; Start 05/27/17 at 09:00; Status UNV Potassium Chloride (Klor-Con) 20 meq BID PO Last administered on 06/12/17 19: 26; Start 05/27/17 at 21:00 Memantine (Namenda) 10 mg QHS PO Last administered on 06/06/17 19:44; Start at 21:00; Stop 06/07/17 at 13:34; Status DC Rivastigmine (Exelon 13.3mg) 1 patch DAILY TD Last administered on 06/12/17 08 :50; Start 05/28/17 at 09:00 Memantine (Namenda) 5 mg DAILY PO Last administered on 06/07/17 08:59; Start 05/28/17 at 09:00; Stop 06/07/17 at 13:34; Status DC Vitamin D (Vitamin D3) 50,000 unit WEEKLY PO Last administered on 06/06/17 08: 12; Start 05/30/17 at 09:00 Quetiapine Fumarate (SEROquel) 12.5 mg BID92 PO Last administered on 06/03/17 13:43; Start 05/30/17 at 09:00; Stop 06/03/17 at 18:32; Status DC Cyanocobalamin (Vitamin B-12) 250 mcg DAILYBFRLUN PO Last administered on 12:44; Start 05/31/17 at 11:30 Oxycodone/ Acetaminophen (Percocet 7.5/ 325) 1 tab PRN BID PRN PO SEVERE PAIN Last administered on 06/12/17 19:37; Start 05/31/17 at 18:00 Mirtazapine (Remeron) 7.5 mg QHS PO Last administered on 05/31/17 20:47; Start 05/31/17 at 21:00; Stop 06/01/17 at 18:30; Status DC Mirtazapine (Remeron) 15 mg QHS PO Last administered on 06/12/17 19:26; Start 06/01/17 at 21:00 Olanzapine (ZyPREXA ZYDIS) 1.25 mg PRN Q2HR PRN PO PSYCHOSIS Last administered on 06/11/17 19:11; Start 06/03/17 at 18:30 Quetiapine Fumarate (SEROquel) 12.5 mg TID@0900,1400,1800 PO Last administered on 06/05/17 18:00; Start 06/04/17 at 09:00; Stop 06/05/17 at 21:22; Status DC Quetiapine Fumarate (SEROquel) 12.5 mg BID@0900,1400 PO Last administered on 12:45; Start 06/06/17 at 09:00 Quetiapine Fumarate (SEROquel) 37.5 mg DAILY@1800 PO Last administered on 17:21; Start 06/06/17 at 18:00; Stop 06/08/17 at 18:35; Status DC Quetiapine Fumarate (SEROquel) 25 mg 1X ONCE PO Last administered on 21:27; Start 06/05/17 at 21:30; Stop 06/05/17 at 21:31; Status DC Memantine (Namenda) 10 mg BID PO Last administered on 06/12/17 19:26; Start at 21:00 Quetiapine Fumarate (SEROquel) 50 mg 1700 PO Last administered on 06/12/17 16: 48; Start 06/09/17 at 17:00 Hydroxyzine HCl (Atarax) 25 mg PRN Q2HR PRN PO PSYCHOSIS Last administered on 17:29; Start 06/10/17 at 18:30 Trazodone HCl (Desyrel) 12.5 mg DAILYWSUP PO Last administered on 06/12/17 08: 49; Start 06/12/17 at 17:00 Trazodone HCl (Desyrel) 12.5 mg 1X ONCE PO Last administered on 06/11/17 19: 47; Start 06/11/17 at 20:00; Stop 06/11/17 at 20:01; Status DC Active Scripts Active Reported EXELON 9.5mg/24hr (Rivastigmine) 1 Each Patch.td24 1 Patch TD DAILY LAST DOSE GIVEN: DATE: TIME: NEXT DOSE DUE: DATE: TIME: Simvastatin 10 Mg Tablet 10 Mg PO HS LAST DOSE GIVEN: DATE: TIME: NEXT DOSE DUE: DATE: TIME: Effexor Xr (Venlafaxine Hcl) 75 Mg Cap.er.24h 75 Mg PO DAILY LAST DOSE GIVEN: DATE: TIME: NEXT DOSE DUE: DATE: TIME: Effexor Xr (Venlafaxine Hcl) 37.5 Mg Cap.er.24h 37.5 Mg PO DAILY LAST DOSE GIVEN: DATE: TIME: NEXT DOSE DUE: DATE: TIME: Percocet 7.5-325 Mg Tablet (Oxycodone Hcl/Acetaminophen) 1 Each Tablet 1 Tab PO PRN Q6HRS PRN LAST DOSE GIVEN: DATE: TIME: NEXT DOSE DUE: DATE: TIME: Zyprexa (Olanzapine) 2.5 Mg Tablet 2.5 Mg PO DAILY08 LAST DOSE GIVEN: DATE: TIME: NEXT DOSE DUE: DATE: TIME: Namenda (Memantine Hcl) 10 Mg Tablet 10 Mg PO DAILY LAST DOSE GIVEN: DATE: TIME: NEXT DOSE DUE: DATE: TIME: Cozaar (Losartan Potassium) 50 Mg Tablet 50 Mg PO DAILY LAST DOSE GIVEN: DATE: TIME: NEXT DOSE DUE: DATE: TIME: Hydrochlorothiazide Tablet (Hydrochlorothiazide) 25 Mg Tablet 25 Mg PO DAILY LAST DOSE GIVEN: DATE: TIME: NEXT DOSE DUE: DATE: TIME: Glucosamine Chondroit Msm Tab (Glucosamine/Msm/Chondroitin A) 1 Each Tablet 1 Tab PO DAILY LAST DOSE GIVEN: DATE: TIME: NEXT DOSE DUE: DATE: TIME: Calcium 500 + Vit D 200 Tablet (Calcium Carbonate/Vitamin D3) 1 Each Tablet 1 Tab PO DAILY Fenofibrate (Fenofibrate,Micronized) 134 Mg Capsule 134 Mg PO DAILYWSUP LAST DOSE GIVEN: DATE: TIME: NEXT DOSE DUE: DATE: TIME: Aspirin 325 Mg Tablet 325 Mg PO DAILY LAST DOSE GIVEN: DATE: TIME: NEXT DOSE DUE: DATE: TIME: Norvasc (Amlodipine Besylate) 10 Mg Tablet 10 Mg PO DAILY LAST DOSE GIVEN: DATE: TIME: NEXT DOSE DUE: DATE: TIME: Diagnosis: Problems: (1) Anxiety disorder (2) Dementia, vascular, with depression (3) Dementia, vascular, with delusions (4) 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
--- NOTE | 2017-06-13 00:21 | PN ---
DATE: 06/11/2017 This late entry 06/11/2017 covers elements not covered in my initial note of 06/11/2017. SUBJECTIVE: I met with the patient evening of 06/11/2017. She has had a good day, but starting in the evening around 5 or 6 p.m. she gets more delusional, believes she is a staff member assisting other patients, even though she may negatively impact them as far as ambulation and falls. Delusional at shift change per nursing report. REVIEW OF SYSTEMS: No CV, , pulmonary, eye, ENT system symptoms on review. Reliability poor. MENTAL STATUS EXAM: Oriented to herself. Insight, judgment, recent and remote memory, attention, concentration, fund of knowledge poor, consistent with her diagnosis mentioned in my initial note. PLAN: Start trazodone 12.5 mg at 5 p.m. to help with anxiety. Maintain the rest of the psychotropics as clinically indicated. Review of drug interactions risk/benefit ratio favors no further change. ERLINDA DYKES MD DR: MELISSA/gurmeet JOB#: [id number] / [id number]
[2017-06-13 06:14] VITALS: BP 119/68
[2017-06-13] MEDS: RIVASTIGMINE 13.3MG PATCH. TD SCH (07:49)
[2017-06-13] MEDS: amLODIPine BESYLATE 10 MG TABLET PO SCH (07:49)
[2017-06-13] MEDS: CHOLECALCIFEROL (VITAMIN D3) 50,000 UNIT CAPSULE PO SCH (07:50)
[2017-06-13] MEDS: VENLAFAXINE XR 37.5 MG CAP.ER.24H. PO SCH (07:50)
[2017-06-13] MEDS: LOSARTAN 50 MG TABLET. PO SCH (07:50)
[2017-06-13] MEDS: ASPIRIN 325 MG TABLET PO SCH (07:50)
[2017-06-13] MEDS: GLUCOSAMINE/CHOND 500/400MG CAPSULE PO SCH (07:50)
[2017-06-13] MEDS: POTASSIUM CHLORIDE 20 MEQ TABLET.ER. PO SCH ×2 (07:50→19:12)
[2017-06-13] MEDS: CALCIUM CARB/VIT D3 500/200 TABLET PO SCH (07:50)
[2017-06-13] MEDS: QUEtiapine 25 MG TABLET. PO SCH ×3 (07:51→16:35)
[2017-06-13] MEDS: MEMANTINE 10 MG TABLET. PO SCH ×2 (07:55→19:12)
[2017-06-13] MEDS: CYANOCOBALAMIN (VITAMIN B-12) 250 MCG TABLET PO SCH (13:46)
[2017-06-13] MEDS: ACETAMINOPHEN 325 MG TABLET PO PRN (14:32)
[2017-06-13 16:06] VITALS: BP 113/67
[2017-06-13] MEDS: traZODone 50 MG TABLET. PO SCH (16:35)
[2017-06-13] MEDS: FENOFIBRATE NANOCRYSTALLIZED 145 MG TABLET PO SCH (16:35)
[2017-06-13] MEDS: ATORVASTATIN CALCIUM 10 MG TABLET. PO SCH (19:12)
[2017-06-13] MEDS: MIRTAZAPINE 15 MG TABLET PO SCH (19:12)
[2017-06-13] MEDS: oxyCODONE/APAP 7.5/325 1 TAB TABLET PO PRN (19:12)
--- NOTE | 2017-06-13 19:52 | PDOC ---
Exam Niels Demential Exam: Niels Note: Please also refer to the separate dictated note~for this date of service dictated separately.~Patient seen individually. Discussed the patient with Nursing staff reviewed the chart.~Reviewed interim history and current functioning. Reviewed vital signs,~Labs/ Radiology~and current medications noted below. Continue current treatment with the changes noted in the dictated addendum note Assessment: Vital Signs: Vital Signs Date Time Temp Pulse Resp B/P (MAP) Pulse Ox O2 Delivery O2 Flow Rate FiO2 06/13/17 19:12 20 Room Air 06/13/17 16:06 98.9 73 113/67 (82) 97 I&O Intake and Output 06/13/17 06:59 Intake Total 1140 ml Balance 1140 ml Intake Oral 1140 ml Current Medications: Meds: Current Medications Acetaminophen (Tylenol) 650 mg PRN Q6HRS PRN PO PAIN / TEMP Last administered on 06/13/17 14:32; Start 05/26/17 at 22:45 Multi-Ingredient Ointment (Analgesic [place]) 1 tae PRN QID PRN TP MUSCLE PAIN; Start 05/26/17 at 22:45 Al Hydroxide/Mg Hydroxide (Mylanta Plus Xs) 15 ml PRN AFTMEALHC PRN PO DYSPEPSIA; Start 05/26/17 at 22:45 Magnesium Hydroxide (Milk Of Magnesia) 2,400 mg PRN QHS PRN PO CONSTIPATION; Start 05/26/17 at 22:45 Amlodipine Besylate (Norvasc) 10 mg DAILY PO Last administered on 06/13/17 07: 49; Start 05/27/17 at 09:00 Aspirin (Elsa Aspirin) 325 mg DAILY PO Last administered on 06/13/17 07:50; Start 05/27/17 at 09:00 Calcium/Vitamin D (Oscal D 500mg/ 200uts) 1 tab DAILY PO Last administered on 07:50; Start 05/27/17 at 09:00 Hydrochlorothiazide (Hydrodiuril) 25 mg DAILY PO Last administered on 05/29/17 08:21; Start 05/27/17 at 09:00; Stop 05/29/17 at 12:32; Status DC Losartan Potassium (Cozaar) 50 mg DAILY PO Last administered on 06/13/17 07:50 ; Start 05/27/17 at 09:00 Oxycodone/ Acetaminophen (Percocet 7.5/ 325) 1 tab PRN Q6HRS PRN PO SEVERE PAIN Last administered on 05/31/17 09:09; Start 05/27/17 at 01:30; Stop 05/31/17 at 12:28; Status DC Atorvastatin Calcium (Lipitor) 5 mg QHS PO Last administered on 06/13/17 19:12 ; Start 05/27/17 at 21:00 Fenofibrate (Tricor) 145 mg DAILYWSUP PO Last administered on 06/13/17 16:35; Start 05/27/17 at 17:00 Glucosamine/ Chondroitin (Glucosamine-Chondroitin 500/400mg) 1 cap DAILY PO Last administered on 06/13/17 07:50; Start 05/27/17 at 09:00 Memantine (Namenda) 10 mg DAILY PO Last administered on 05/27/17 08:30; Start 05/27/17 at 09:00; Stop 05/27/17 at 18:23; Status DC Olanzapine (ZyPREXA) 2.5 mg DAILY08 PO Last administered on 05/29/17 08:21; Start 05/27/17 at 08:00; Stop 05/29/17 at 18:52; Status DC Rivastigmine (Exelon) 1 patch DAILY TD Last administered on 05/27/17 08:31; Start 05/27/17 at 09:00; Stop 05/27/17 at 18:23; Status DC Venlafaxine HCl (Effexor Xr) 112.5 mg DAILY PO Last administered on 06/13/17 07:50; Start 05/27/17 at 09:00 Non-Formulary Medication 75 mg DAILY PO ; Start 05/27/17 at 09:00; Status UNV Potassium Chloride (Klor-Con) 20 meq BID PO Last administered on 06/13/17 19: 12; Start 05/27/17 at 21:00 Memantine (Namenda) 10 mg QHS PO Last administered on 06/06/17 19:44; Start at 21:00; Stop 06/07/17 at 13:34; Status DC Rivastigmine (Exelon 13.3mg) 1 patch DAILY TD Last administered on 06/13/17 07 :49; Start 05/28/17 at 09:00 Memantine (Namenda) 5 mg DAILY PO Last administered on 06/07/17 08:59; Start 05/28/17 at 09:00; Stop 06/07/17 at 13:34; Status DC Vitamin D (Vitamin D3) 50,000 unit WEEKLY PO Last administered on 06/13/17 07: 50; Start 05/30/17 at 09:00 Quetiapine Fumarate (SEROquel) 12.5 mg BID92 PO Last administered on 06/03/17 13:43; Start 05/30/17 at 09:00; Stop 06/03/17 at 18:32; Status DC Cyanocobalamin (Vitamin B-12) 250 mcg DAILYBFRLUN PO Last administered on 13:46; Start 05/31/17 at 11:30 Oxycodone/ Acetaminophen (Percocet 7.5/ 325) 1 tab PRN BID PRN PO SEVERE PAIN Last administered on 06/13/17 19:12; Start 05/31/17 at 18:00 Mirtazapine (Remeron) 7.5 mg QHS PO Last administered on 05/31/17 20:47; Start 05/31/17 at 21:00; Stop 06/01/17 at 18:30; Status DC Mirtazapine (Remeron) 15 mg QHS PO Last administered on 06/13/17 19:12; Start 06/01/17 at 21:00 Olanzapine (ZyPREXA ZYDIS) 1.25 mg PRN Q2HR PRN PO PSYCHOSIS Last administered on 06/11/17 19:11; Start 06/03/17 at 18:30 Quetiapine Fumarate (SEROquel) 12.5 mg TID@0900,1400,1800 PO Last administered on 06/05/17 18:00; Start 06/04/17 at 09:00; Stop 06/05/17 at 21:22; Status DC Quetiapine Fumarate (SEROquel) 12.5 mg BID@0900,1400 PO Last administered on 13:46; Start 06/06/17 at 09:00 Quetiapine Fumarate (SEROquel) 37.5 mg DAILY@1800 PO Last administered on 17:21; Start 06/06/17 at 18:00; Stop 06/08/17 at 18:35; Status DC Quetiapine Fumarate (SEROquel) 25 mg 1X ONCE PO Last administered on 21:27; Start 06/05/17 at 21:30; Stop 06/05/17 at 21:31; Status DC Memantine (Namenda) 10 mg BID PO Last administered on 06/13/17 19:12; Start at 21:00 Quetiapine Fumarate (SEROquel) 50 mg 1700 PO Last administered on 06/13/17 16: 35; Start 06/09/17 at 17:00 Hydroxyzine HCl (Atarax) 25 mg PRN Q2HR PRN PO PSYCHOSIS Last administered on 17:29; Start 06/10/17 at 18:30 Trazodone HCl (Desyrel) 12.5 mg DAILYWSUP PO Last administered on 06/13/17 16: 35; Start 06/12/17 at 17:00 Trazodone HCl (Desyrel) 12.5 mg 1X ONCE PO Last administered on 06/11/17 19: 47; Start 06/11/17 at 20:00; Stop 06/11/17 at 20:01; Status DC Active Scripts Active Reported EXELON 9.5mg/24hr (Rivastigmine) 1 Each Patch.td24 1 Patch TD DAILY LAST DOSE GIVEN: DATE: TIME: NEXT DOSE DUE: DATE: TIME: Simvastatin 10 Mg Tablet 10 Mg PO HS LAST DOSE GIVEN: DATE: TIME: NEXT DOSE DUE: DATE: TIME: Effexor Xr (Venlafaxine Hcl) 75 Mg Cap.er.24h 75 Mg PO DAILY LAST DOSE GIVEN: DATE: TIME: NEXT DOSE DUE: DATE: TIME: Effexor Xr (Venlafaxine Hcl) 37.5 Mg Cap.er.24h 37.5 Mg PO DAILY LAST DOSE GIVEN: DATE: TIME: NEXT DOSE DUE: DATE: TIME: Percocet 7.5-325 Mg Tablet (Oxycodone Hcl/Acetaminophen) 1 Each Tablet 1 Tab PO PRN Q6HRS PRN LAST DOSE GIVEN: DATE: TIME: NEXT DOSE DUE: DATE: TIME: Zyprexa (Olanzapine) 2.5 Mg Tablet 2.5 Mg PO DAILY08 LAST DOSE GIVEN: DATE: TIME: NEXT DOSE DUE: DATE: TIME: Namenda (Memantine Hcl) 10 Mg Tablet 10 Mg PO DAILY LAST DOSE GIVEN: DATE: TIME: NEXT DOSE DUE: DATE: TIME: Cozaar (Losartan Potassium) 50 Mg Tablet 50 Mg PO DAILY LAST DOSE GIVEN: DATE: TIME: NEXT DOSE DUE: DATE: TIME: Hydrochlorothiazide Tablet (Hydrochlorothiazide) 25 Mg Tablet 25 Mg PO DAILY LAST DOSE GIVEN: DATE: TIME: NEXT DOSE DUE: DATE: TIME: Glucosamine Chondroit Msm Tab (Glucosamine/Msm/Chondroitin A) 1 Each Tablet 1 Tab PO DAILY LAST DOSE GIVEN: DATE: TIME: NEXT DOSE DUE: DATE: TIME: Calcium 500 + Vit D 200 Tablet (Calcium Carbonate/Vitamin D3) 1 Each Tablet 1 Tab PO DAILY Fenofibrate (Fenofibrate,Micronized) 134 Mg Capsule 134 Mg PO DAILYWSUP LAST DOSE GIVEN: DATE: TIME: NEXT DOSE DUE: DATE: TIME: Aspirin 325 Mg Tablet 325 Mg PO DAILY LAST DOSE GIVEN: DATE: TIME: NEXT DOSE DUE: DATE: TIME: Norvasc (Amlodipine Besylate) 10 Mg Tablet 10 Mg PO DAILY LAST DOSE GIVEN: DATE: TIME: NEXT DOSE DUE: DATE: TIME: Diagnosis: Problems: (1) Anxiety disorder (2) Dementia, vascular, with depression (3) Dementia, vascular, with delusions (4) Dementia in Alzheimer's disease with depression (5) Dementia in Alzheimer's disease with delusions (6) Impulse control disorder ERLINDA DYKES MD Jun 13, 2017 19:52
--- NOTE | 2017-06-14 00:22 | PN ---
DATE: 06/12/2017 This is a late entry for 06/12/2017 and covers elements not covered in my initial note. I met with the patient in the evening of 06/12/2017 in her room. She is quite confused, but less agitated evening of 06/12/2017 as compared to previous evenings. REVIEW OF SYSTEMS: No CV, , pulmonary, eye, ENT system symptoms on review. Reliability poor. MENTAL STATUS EXAM: Oriented to herself. Insight, judgment, recent and remote memory, attention, concentration, fund of knowledge poor, consistent with her diagnosis mentioned in my initial note. PLAN: Continue current psychotropics, reviewed drug contractions, risk/benefit ratio favors no further change as of now and trazodone was added in the evening to help with anxiety. MAN Amor DYKES MD DR: MELISSA/gurmeet JOB#: [id number] / [id number]
[2017-06-14 05:56] VITALS: BP 118/66
[2017-06-14] MEDS: MEMANTINE 10 MG TABLET. PO SCH ×2 (08:46→19:30)
[2017-06-14] MEDS: amLODIPine BESYLATE 10 MG TABLET PO SCH (08:46)
[2017-06-14] MEDS: GLUCOSAMINE/CHOND 500/400MG CAPSULE PO SCH (08:46)
[2017-06-14] MEDS: CALCIUM CARB/VIT D3 500/200 TABLET PO SCH (08:46)
[2017-06-14] MEDS: QUEtiapine 25 MG TABLET. PO SCH ×2 (08:46→13:16)
[2017-06-14] MEDS: ASPIRIN 325 MG TABLET PO SCH (08:46)
[2017-06-14] MEDS: VENLAFAXINE XR 37.5 MG CAP.ER.24H. PO SCH (08:46)
[2017-06-14] MEDS: POTASSIUM CHLORIDE 20 MEQ TABLET.ER. PO SCH ×2 (08:46→19:31)
[2017-06-14] MEDS: RIVASTIGMINE 13.3MG PATCH. TD SCH (08:47)
[2017-06-14] MEDS: LOSARTAN 50 MG TABLET. PO SCH (08:47)
[2017-06-14] MEDS: CYANOCOBALAMIN (VITAMIN B-12) 250 MCG TABLET PO SCH (13:15)
[2017-06-14] MEDS: hydrOXYzine HCL 25 MG TABLET PO PRN (15:58)
[2017-06-14 16:09] VITALS: BP 124/69
[2017-06-14] MEDS: QUEtiapine 50 MG TABLET. PO SCH (17:20)
[2017-06-14] MEDS: traZODone 50 MG TABLET. PO SCH (17:20)
[2017-06-14] MEDS: FENOFIBRATE NANOCRYSTALLIZED 145 MG TABLET PO SCH (17:20)
--- NOTE | 2017-06-14 18:49 | PDOC ---
Exam Niels Demential Exam: Niels Note: Please also refer to the separate dictated note~for this date of service dictated separately.~Patient seen individually. Discussed the patient with Nursing staff reviewed the chart.~Reviewed interim history and current functioning. Reviewed vital signs,~Labs/ Radiology~and current medications noted below. Continue current treatment with the changes noted in the dictated addendum note Assessment: Vital Signs: Vital Signs Date Time Temp Pulse Resp B/P (MAP) Pulse Ox O2 Delivery O2 Flow Rate FiO2 06/14/17 16:09 97.6 90 18 124/69 (87) 99 06/13/17 20:15 Room Air I&O Intake and Output 06/14/17 07:00 Intake Total 1200 ml Balance 1200 ml Intake Oral 1200 ml Current Medications: Meds: Current Medications Acetaminophen (Tylenol) 650 mg PRN Q6HRS PRN PO PAIN / TEMP Last administered on 06/13/17 14:32; Start 05/26/17 at 22:45 Multi-Ingredient Ointment (Analgesic [place]) 1 tae PRN QID PRN TP MUSCLE PAIN; Start 05/26/17 at 22:45 Al Hydroxide/Mg Hydroxide (Mylanta Plus Xs) 15 ml PRN AFTMEALHC PRN PO DYSPEPSIA; Start 05/26/17 at 22:45 Magnesium Hydroxide (Milk Of Magnesia) 2,400 mg PRN QHS PRN PO CONSTIPATION; Start 05/26/17 at 22:45 Amlodipine Besylate (Norvasc) 10 mg DAILY PO Last administered on 06/14/17 08: 46; Start 05/27/17 at 09:00 Aspirin (Elsa Aspirin) 325 mg DAILY PO Last administered on 06/14/17 08:46; Start 05/27/17 at 09:00 Calcium/Vitamin D (Oscal D 500mg/ 200uts) 1 tab DAILY PO Last administered on 08:46; Start 05/27/17 at 09:00 Hydrochlorothiazide (Hydrodiuril) 25 mg DAILY PO Last administered on 05/29/17 08:21; Start 05/27/17 at 09:00; Stop 05/29/17 at 12:32; Status DC Losartan Potassium (Cozaar) 50 mg DAILY PO Last administered on 06/14/17 08:47 ; Start 05/27/17 at 09:00 Oxycodone/ Acetaminophen (Percocet 7.5/ 325) 1 tab PRN Q6HRS PRN PO SEVERE PAIN Last administered on 05/31/17 09:09; Start 05/27/17 at 01:30; Stop 05/31/17 at 12:28; Status DC Atorvastatin Calcium (Lipitor) 5 mg QHS PO Last administered on 06/13/17 19:12 ; Start 05/27/17 at 21:00 Fenofibrate (Tricor) 145 mg DAILYWSUP PO Last administered on 06/14/17 17:20; Start 05/27/17 at 17:00 Glucosamine/ Chondroitin (Glucosamine-Chondroitin 500/400mg) 1 cap DAILY PO Last administered on 06/14/17 08:46; Start 05/27/17 at 09:00 Memantine (Namenda) 10 mg DAILY PO Last administered on 05/27/17 08:30; Start 05/27/17 at 09:00; Stop 05/27/17 at 18:23; Status DC Olanzapine (ZyPREXA) 2.5 mg DAILY08 PO Last administered on 05/29/17 08:21; Start 05/27/17 at 08:00; Stop 05/29/17 at 18:52; Status DC Rivastigmine (Exelon) 1 patch DAILY TD Last administered on 05/27/17 08:31; Start 05/27/17 at 09:00; Stop 05/27/17 at 18:23; Status DC Venlafaxine HCl (Effexor Xr) 112.5 mg DAILY PO Last administered on 06/14/17 08:46; Start 05/27/17 at 09:00 Non-Formulary Medication 75 mg DAILY PO ; Start 05/27/17 at 09:00; Status UNV Potassium Chloride (Klor-Con) 20 meq BID PO Last administered on 06/14/17 08: 46; Start 05/27/17 at 21:00 Memantine (Namenda) 10 mg QHS PO Last administered on 06/06/17 19:44; Start at 21:00; Stop 06/07/17 at 13:34; Status DC Rivastigmine (Exelon 13.3mg) 1 patch DAILY TD Last administered on 06/14/17 08 :47; Start 05/28/17 at 09:00 Memantine (Namenda) 5 mg DAILY PO Last administered on 06/07/17 08:59; Start 05/28/17 at 09:00; Stop 06/07/17 at 13:34; Status DC Vitamin D (Vitamin D3) 50,000 unit WEEKLY PO Last administered on 06/13/17 07: 50; Start 05/30/17 at 09:00 Quetiapine Fumarate (SEROquel) 12.5 mg BID92 PO Last administered on 06/03/17 13:43; Start 05/30/17 at 09:00; Stop 06/03/17 at 18:32; Status DC Cyanocobalamin (Vitamin B-12) 250 mcg DAILYBFRLUN PO Last administered on 13:15; Start 05/31/17 at 11:30 Oxycodone/ Acetaminophen (Percocet 7.5/ 325) 1 tab PRN BID PRN PO SEVERE PAIN Last administered on 06/13/17 19:12; Start 05/31/17 at 18:00 Mirtazapine (Remeron) 7.5 mg QHS PO Last administered on 05/31/17 20:47; Start 05/31/17 at 21:00; Stop 06/01/17 at 18:30; Status DC Mirtazapine (Remeron) 15 mg QHS PO Last administered on 06/13/17 19:12; Start 06/01/17 at 21:00 Olanzapine (ZyPREXA ZYDIS) 1.25 mg PRN Q2HR PRN PO PSYCHOSIS Last administered on 06/11/17 19:11; Start 06/03/17 at 18:30 Quetiapine Fumarate (SEROquel) 12.5 mg TID@0900,1400,1800 PO Last administered on 06/05/17 18:00; Start 06/04/17 at 09:00; Stop 06/05/17 at 21:22; Status DC Quetiapine Fumarate (SEROquel) 12.5 mg BID@0900,1400 PO Last administered on 13:16; Start 06/06/17 at 09:00 Quetiapine Fumarate (SEROquel) 37.5 mg DAILY@1800 PO Last administered on 17:21; Start 06/06/17 at 18:00; Stop 06/08/17 at 18:35; Status DC Quetiapine Fumarate (SEROquel) 25 mg 1X ONCE PO Last administered on 21:27; Start 06/05/17 at 21:30; Stop 06/05/17 at 21:31; Status DC Memantine (Namenda) 10 mg BID PO Last administered on 06/14/17 08:46; Start at 21:00 Quetiapine Fumarate (SEROquel) 50 mg 1700 PO Last administered on 06/13/17 16: 35; Start 06/09/17 at 17:00; Stop 06/14/17 at 13:03; Status DC Hydroxyzine HCl (Atarax) 25 mg PRN Q2HR PRN PO PSYCHOSIS Last administered on 15:58; Start 06/10/17 at 18:30 Trazodone HCl (Desyrel) 12.5 mg DAILYWSUP PO Last administered on 06/14/17 17: 20; Start 06/12/17 at 17:00 Trazodone HCl (Desyrel) 12.5 mg 1X ONCE PO Last administered on 06/11/17 19: 47; Start 06/11/17 at 20:00; Stop 06/11/17 at 20:01; Status DC Quetiapine Fumarate (SEROquel) 50 mg 1700 PO Last administered on 06/14/17 17: 20; Start 06/14/17 at 17:00 Trazodone HCl (Desyrel) 12.5 mg NOON PO ; Start 06/15/17 at 12:00; Status UNV Active Scripts Active Reported EXELON 9.5mg/24hr (Rivastigmine) 1 Each Patch.td24 1 Patch TD DAILY LAST DOSE GIVEN: DATE: TIME: NEXT DOSE DUE: DATE: TIME: Simvastatin 10 Mg Tablet 10 Mg PO HS LAST DOSE GIVEN: DATE: TIME: NEXT DOSE DUE: DATE: TIME: Effexor Xr (Venlafaxine Hcl) 75 Mg Cap.er.24h 75 Mg PO DAILY LAST DOSE GIVEN: DATE: TIME: NEXT DOSE DUE: DATE: TIME: Effexor Xr (Venlafaxine Hcl) 37.5 Mg Cap.er.24h 37.5 Mg PO DAILY LAST DOSE GIVEN: DATE: TIME: NEXT DOSE DUE: DATE: TIME: Percocet 7.5-325 Mg Tablet (Oxycodone Hcl/Acetaminophen) 1 Each Tablet 1 Tab PO PRN Q6HRS PRN LAST DOSE GIVEN: DATE: TIME: NEXT DOSE DUE: DATE: TIME: Zyprexa (Olanzapine) 2.5 Mg Tablet 2.5 Mg PO DAILY08 LAST DOSE GIVEN: DATE: TIME: NEXT DOSE DUE: DATE: TIME: Namenda (Memantine Hcl) 10 Mg Tablet 10 Mg PO DAILY LAST DOSE GIVEN: DATE: TIME: NEXT DOSE DUE: DATE: TIME: Cozaar (Losartan Potassium) 50 Mg Tablet 50 Mg PO DAILY LAST DOSE GIVEN: DATE: TIME: NEXT DOSE DUE: DATE: TIME: Hydrochlorothiazide Tablet (Hydrochlorothiazide) 25 Mg Tablet 25 Mg PO DAILY LAST DOSE GIVEN: DATE: TIME: NEXT DOSE DUE: DATE: TIME: Glucosamine Chondroit Msm Tab (Glucosamine/Msm/Chondroitin A) 1 Each Tablet 1 Tab PO DAILY LAST DOSE GIVEN: DATE: TIME: NEXT DOSE DUE: DATE: TIME: Calcium 500 + Vit D 200 Tablet (Calcium Carbonate/Vitamin D3) 1 Each Tablet 1 Tab PO DAILY Fenofibrate (Fenofibrate,Micronized) 134 Mg Capsule 134 Mg PO DAILYWSUP LAST DOSE GIVEN: DATE: TIME: NEXT DOSE DUE: DATE: TIME: Aspirin 325 Mg Tablet 325 Mg PO DAILY LAST DOSE GIVEN: DATE: TIME: NEXT DOSE DUE: DATE: TIME: Norvasc (Amlodipine Besylate) 10 Mg Tablet 10 Mg PO DAILY LAST DOSE GIVEN: DATE: TIME: NEXT DOSE DUE: DATE: TIME: Diagnosis: Problems: (1) Impulse control disorder (2) Dementia in Alzheimer's disease with delusions (3) Dementia in Alzheimer's disease with depression (4) Dementia, vascular, with delusions (5) Dementia, vascular, with depression (6) Anxiety disorder ERLINDA DYKES MD Jun 14, 2017 18:49
[2017-06-14] MEDS: ATORVASTATIN CALCIUM 10 MG TABLET. PO SCH (19:31)
[2017-06-14] MEDS: MIRTAZAPINE 15 MG TABLET PO SCH (19:31)
[2017-06-14] MEDS: oxyCODONE/APAP 7.5/325 1 TAB TABLET PO PRN (22:23)
--- NOTE | 2017-06-15 04:31 | PN ---
DATE: 06/13/2017 This late entry 06/13/2017 covers elements not covered in my initial note. SUBJECTIVE: The patient has been cooperative with her medications, remains confused, had a nap in the afternoon, did better after that, quite labile with her during visits. Nevertheless, since we added the afternoon trazodone, she has done better in the evening, less anxious, less fixated on having to do a job here rather than being a patient. REVIEW OF SYSTEMS: No CV, , pulmonary, eye, ENT system symptoms on review. Reliability poor. MENTAL STATUS EXAM: Oriented to herself. Insight, judgment, recent and remote memory, attention, concentration, fund of knowledge poor, consistent with her diagnosis mentioned in my initial note. PLAN: Continue psychotropics mentioned in my initial note reviewed and drug interactions, risk/benefit ratio favors no further change as of now. MAN Amor DYKES MD DR: MELISSA/gurmeet JOB#: [id number] / [id number]
[2017-06-15 06:26] VITALS: BP 107/61
[2017-06-15] MEDS: QUEtiapine 25 MG TABLET. PO SCH ×2 (10:00→12:47)
[2017-06-15] MEDS: LOSARTAN 50 MG TABLET. PO SCH (10:01)
[2017-06-15] MEDS: VENLAFAXINE XR 37.5 MG CAP.ER.24H. PO SCH (10:01)
[2017-06-15] MEDS: CYANOCOBALAMIN (VITAMIN B-12) 250 MCG TABLET PO SCH (10:01)
[2017-06-15] MEDS: ASPIRIN 325 MG TABLET PO SCH (10:01)
[2017-06-15] MEDS: POTASSIUM CHLORIDE 20 MEQ TABLET.ER. PO SCH ×2 (10:01→19:32)
[2017-06-15] MEDS: GLUCOSAMINE/CHOND 500/400MG CAPSULE PO SCH (10:02)
[2017-06-15] MEDS: amLODIPine BESYLATE 10 MG TABLET PO SCH (10:02)
[2017-06-15] MEDS: CALCIUM CARB/VIT D3 500/200 TABLET PO SCH (10:02)
[2017-06-15] MEDS: MEMANTINE 10 MG TABLET. PO SCH ×2 (10:02→19:30)
[2017-06-15] MEDS: RIVASTIGMINE 13.3MG PATCH. TD SCH (10:05)
[2017-06-15] MEDS: traZODone 50 MG TABLET. PO SCH ×2 (12:31→17:19)
[2017-06-15 16:29] VITALS: BP 118/63
[2017-06-15] MEDS: QUEtiapine 50 MG TABLET. PO SCH (17:19)
[2017-06-15] MEDS: FENOFIBRATE NANOCRYSTALLIZED 145 MG TABLET PO SCH (17:19)
--- NOTE | 2017-06-15 18:34 | PDOC ---
Exam Niels Demential Exam: Niels Note: Please also refer to the separate dictated note~for this date of service dictated separately.~Patient seen individually. Discussed the patient with Nursing staff reviewed the chart.~Reviewed interim history and current functioning. Reviewed vital signs,~Labs/ Radiology~and current medications noted below. Continue current treatment with the changes noted in the dictated addendum note Assessment: Vital Signs: Vital Signs Date Time Temp Pulse Resp B/P (MAP) Pulse Ox O2 Delivery O2 Flow Rate FiO2 06/15/17 16:29 98.2 93 18 118/63 (81) 93 06/15/17 00:04 Room Air I&O Intake and Output 06/15/17 07:00 Intake Total 840 ml Balance 840 ml Intake Oral 840 ml Current Medications: Meds: Current Medications Acetaminophen (Tylenol) 650 mg PRN Q6HRS PRN PO PAIN / TEMP Last administered on 06/13/17 14:32; Start 05/26/17 at 22:45 Multi-Ingredient Ointment (Analgesic [place]) 1 tae PRN QID PRN TP MUSCLE PAIN; Start 05/26/17 at 22:45 Al Hydroxide/Mg Hydroxide (Mylanta Plus Xs) 15 ml PRN AFTMEALHC PRN PO DYSPEPSIA; Start 05/26/17 at 22:45 Magnesium Hydroxide (Milk Of Magnesia) 2,400 mg PRN QHS PRN PO CONSTIPATION; Start 05/26/17 at 22:45 Amlodipine Besylate (Norvasc) 10 mg DAILY PO Last administered on 06/15/17 10: 02; Start 05/27/17 at 09:00 Aspirin (Elsa Aspirin) 325 mg DAILY PO Last administered on 06/15/17 10:01; Start 05/27/17 at 09:00 Calcium/Vitamin D (Oscal D 500mg/ 200uts) 1 tab DAILY PO Last administered on 10:02; Start 05/27/17 at 09:00 Hydrochlorothiazide (Hydrodiuril) 25 mg DAILY PO Last administered on 05/29/17 08:21; Start 05/27/17 at 09:00; Stop 05/29/17 at 12:32; Status DC Losartan Potassium (Cozaar) 50 mg DAILY PO Last administered on 06/15/17 10:01 ; Start 05/27/17 at 09:00 Oxycodone/ Acetaminophen (Percocet 7.5/ 325) 1 tab PRN Q6HRS PRN PO SEVERE PAIN Last administered on 05/31/17 09:09; Start 05/27/17 at 01:30; Stop 05/31/17 at 12:28; Status DC Atorvastatin Calcium (Lipitor) 5 mg QHS PO Last administered on 06/14/17 19:31 ; Start 05/27/17 at 21:00 Fenofibrate (Tricor) 145 mg DAILYWSUP PO Last administered on 06/15/17 17:19; Start 05/27/17 at 17:00 Glucosamine/ Chondroitin (Glucosamine-Chondroitin 500/400mg) 1 cap DAILY PO Last administered on 06/15/17 10:02; Start 05/27/17 at 09:00 Memantine (Namenda) 10 mg DAILY PO Last administered on 05/27/17 08:30; Start 05/27/17 at 09:00; Stop 05/27/17 at 18:23; Status DC Olanzapine (ZyPREXA) 2.5 mg DAILY08 PO Last administered on 05/29/17 08:21; Start 05/27/17 at 08:00; Stop 05/29/17 at 18:52; Status DC Rivastigmine (Exelon) 1 patch DAILY TD Last administered on 05/27/17 08:31; Start 05/27/17 at 09:00; Stop 05/27/17 at 18:23; Status DC Venlafaxine HCl (Effexor Xr) 112.5 mg DAILY PO Last administered on 06/15/17 10:01; Start 05/27/17 at 09:00 Non-Formulary Medication 75 mg DAILY PO ; Start 05/27/17 at 09:00; Status UNV Potassium Chloride (Klor-Con) 20 meq BID PO Last administered on 06/15/17 10: 01; Start 05/27/17 at 21:00 Memantine (Namenda) 10 mg QHS PO Last administered on 06/06/17 19:44; Start at 21:00; Stop 06/07/17 at 13:34; Status DC Rivastigmine (Exelon 13.3mg) 1 patch DAILY TD Last administered on 06/15/17 10 :05; Start 05/28/17 at 09:00 Memantine (Namenda) 5 mg DAILY PO Last administered on 06/07/17 08:59; Start 05/28/17 at 09:00; Stop 06/07/17 at 13:34; Status DC Vitamin D (Vitamin D3) 50,000 unit WEEKLY PO Last administered on 06/13/17 07: 50; Start 05/30/17 at 09:00 Quetiapine Fumarate (SEROquel) 12.5 mg BID92 PO Last administered on 06/03/17 13:43; Start 05/30/17 at 09:00; Stop 06/03/17 at 18:32; Status DC Cyanocobalamin (Vitamin B-12) 250 mcg DAILYBFRLUN PO Last administered on 10:01; Start 05/31/17 at 11:30 Oxycodone/ Acetaminophen (Percocet 7.5/ 325) 1 tab PRN BID PRN PO SEVERE PAIN Last administered on 06/14/17 22:23; Start 05/31/17 at 18:00 Mirtazapine (Remeron) 7.5 mg QHS PO Last administered on 05/31/17 20:47; Start 05/31/17 at 21:00; Stop 06/01/17 at 18:30; Status DC Mirtazapine (Remeron) 15 mg QHS PO Last administered on 06/14/17 19:31; Start 06/01/17 at 21:00 Olanzapine (ZyPREXA ZYDIS) 1.25 mg PRN Q2HR PRN PO PSYCHOSIS Last administered on 06/11/17 19:11; Start 06/03/17 at 18:30 Quetiapine Fumarate (SEROquel) 12.5 mg TID@0900,1400,1800 PO Last administered on 06/05/17 18:00; Start 06/04/17 at 09:00; Stop 06/05/17 at 21:22; Status DC Quetiapine Fumarate (SEROquel) 12.5 mg BID@0900,1400 PO Last administered on 12:47; Start 06/06/17 at 09:00 Quetiapine Fumarate (SEROquel) 37.5 mg DAILY@1800 PO Last administered on 17:21; Start 06/06/17 at 18:00; Stop 06/08/17 at 18:35; Status DC Quetiapine Fumarate (SEROquel) 25 mg 1X ONCE PO Last administered on 21:27; Start 06/05/17 at 21:30; Stop 06/05/17 at 21:31; Status DC Memantine (Namenda) 10 mg BID PO Last administered on 06/15/17 10:02; Start at 21:00 Quetiapine Fumarate (SEROquel) 50 mg 1700 PO Last administered on 06/13/17 16: 35; Start 06/09/17 at 17:00; Stop 06/14/17 at 13:03; Status DC Hydroxyzine HCl (Atarax) 25 mg PRN Q2HR PRN PO PSYCHOSIS Last administered on 15:58; Start 06/10/17 at 18:30 Trazodone HCl (Desyrel) 12.5 mg DAILYWSUP PO Last administered on 06/15/17 17: 19; Start 06/12/17 at 17:00 Trazodone HCl (Desyrel) 12.5 mg 1X ONCE PO Last administered on 06/11/17 19: 47; Start 06/11/17 at 20:00; Stop 06/11/17 at 20:01; Status DC Quetiapine Fumarate (SEROquel) 50 mg 1700 PO Last administered on 06/15/17 17: 19; Start 06/14/17 at 17:00 Trazodone HCl (Desyrel) 12.5 mg NOON PO Last administered on 06/15/17 12:31; Start 06/15/17 at 12:00 Active Scripts Active Reported EXELON 9.5mg/24hr (Rivastigmine) 1 Each Patch.td24 1 Patch TD DAILY LAST DOSE GIVEN: DATE: TIME: NEXT DOSE DUE: DATE: TIME: Simvastatin 10 Mg Tablet 10 Mg PO HS LAST DOSE GIVEN: DATE: TIME: NEXT DOSE DUE: DATE: TIME: Effexor Xr (Venlafaxine Hcl) 75 Mg Cap.er.24h 75 Mg PO DAILY LAST DOSE GIVEN: DATE: TIME: NEXT DOSE DUE: DATE: TIME: Effexor Xr (Venlafaxine Hcl) 37.5 Mg Cap.er.24h 37.5 Mg PO DAILY LAST DOSE GIVEN: DATE: TIME: NEXT DOSE DUE: DATE: TIME: Percocet 7.5-325 Mg Tablet (Oxycodone Hcl/Acetaminophen) 1 Each Tablet 1 Tab PO PRN Q6HRS PRN LAST DOSE GIVEN: DATE: TIME: NEXT DOSE DUE: DATE: TIME: Zyprexa (Olanzapine) 2.5 Mg Tablet 2.5 Mg PO DAILY08 LAST DOSE GIVEN: DATE: TIME: NEXT DOSE DUE: DATE: TIME: Namenda (Memantine Hcl) 10 Mg Tablet 10 Mg PO DAILY LAST DOSE GIVEN: DATE: TIME: NEXT DOSE DUE: DATE: TIME: Cozaar (Losartan Potassium) 50 Mg Tablet 50 Mg PO DAILY LAST DOSE GIVEN: DATE: TIME: NEXT DOSE DUE: DATE: TIME: Hydrochlorothiazide Tablet (Hydrochlorothiazide) 25 Mg Tablet 25 Mg PO DAILY LAST DOSE GIVEN: DATE: TIME: NEXT DOSE DUE: DATE: TIME: Glucosamine Chondroit Msm Tab (Glucosamine/Msm/Chondroitin A) 1 Each Tablet 1 Tab PO DAILY LAST DOSE GIVEN: DATE: TIME: NEXT DOSE DUE: DATE: TIME: Calcium 500 + Vit D 200 Tablet (Calcium Carbonate/Vitamin D3) 1 Each Tablet 1 Tab PO DAILY Fenofibrate (Fenofibrate,Micronized) 134 Mg Capsule 134 Mg PO DAILYWSUP LAST DOSE GIVEN: DATE: TIME: NEXT DOSE DUE: DATE: TIME: Aspirin 325 Mg Tablet 325 Mg PO DAILY LAST DOSE GIVEN: DATE: TIME: NEXT DOSE DUE: DATE: TIME: Norvasc (Amlodipine Besylate) 10 Mg Tablet 10 Mg PO DAILY LAST DOSE GIVEN: DATE: TIME: NEXT DOSE DUE: DATE: TIME: Diagnosis: Problems: (1) Impulse control disorder (2) Dementia in Alzheimer's disease with delusions (3) Dementia in Alzheimer's disease with depression (4) Dementia, vascular, with delusions (5) Dementia, vascular, with depression (6) Anxiety disorder ERLINDA DYKES MD Jun 15, 2017 18:34
[2017-06-15] MEDS: ATORVASTATIN CALCIUM 10 MG TABLET. PO SCH (19:32)
[2017-06-15] MEDS: hydrOXYzine HCL 25 MG TABLET PO PRN (19:33)
[2017-06-15] MEDS: MIRTAZAPINE 15 MG TABLET PO SCH (19:33)
[2017-06-15] MEDS: oxyCODONE/APAP 7.5/325 1 TAB TABLET PO PRN (20:49)
--- NOTE | 2017-06-16 03:42 | PN ---
DATE: 06/14/2017 PSYCHIATRIC PROGRESS NOTE This is a late entry of 06/14/2017 covers elements not covered in my initial note. I met with the patient in the evening of 06/14/2017. SUBJECTIVE: The patient slept 6-1/4 hours previous evening, remains confused, little more intrusive after 3 p.m. Believes, she is a nurse. Behaviors, agitation worsened after her left. REVIEW OF SYSTEMS: No CV, , pulmonary, eye, ENT system symptoms on review. Reliability poor. MENTAL STATUS EXAM: Oriented to herself. Insight, judgment, recent and remote memory, attention, concentration, fund of knowledge poor, consistent with her diagnosis mentioned in my initial note. PLAN: Increase trazodone from 12.5 mg at 1700 to 12.5 mg noon and 1700. Maintain the rest unchanged. Reviewed drug interactions, risk and benefit ratio favors no further change as of now. ERLINDA DYKES MD DR: MELISSA/gurmeet JOB#: [id number] / [id number]
[2017-06-16 06:17] VITALS: BP 149/80
[2017-06-16] MEDS: ASPIRIN 325 MG TABLET PO SCH (10:18)
[2017-06-16] MEDS: POTASSIUM CHLORIDE 20 MEQ TABLET.ER. PO SCH ×2 (10:19→19:25)
[2017-06-16] MEDS: MEMANTINE 10 MG TABLET. PO SCH ×2 (10:19→19:25)
[2017-06-16] MEDS: LOSARTAN 50 MG TABLET. PO SCH (10:19)
[2017-06-16] MEDS: CALCIUM CARB/VIT D3 500/200 TABLET PO SCH (10:19)
[2017-06-16] MEDS: QUEtiapine 25 MG TABLET. PO SCH ×2 (10:20→13:29)
[2017-06-16] MEDS: GLUCOSAMINE/CHOND 500/400MG CAPSULE PO SCH (10:20)
[2017-06-16] MEDS: amLODIPine BESYLATE 10 MG TABLET PO SCH (10:20)
[2017-06-16] MEDS: VENLAFAXINE XR 37.5 MG CAP.ER.24H. PO SCH (10:21)
[2017-06-16] MEDS: RIVASTIGMINE 13.3MG PATCH. TD SCH (10:21)
[2017-06-16] MEDS: traZODone 50 MG TABLET. PO SCH ×2 (13:29→17:07)
[2017-06-16] MEDS: CYANOCOBALAMIN (VITAMIN B-12) 250 MCG TABLET PO SCH (13:29)
[2017-06-16 16:14] VITALS: BP 103/58
[2017-06-16] MEDS: QUEtiapine 50 MG TABLET. PO SCH (17:07)
[2017-06-16] MEDS: FENOFIBRATE NANOCRYSTALLIZED 145 MG TABLET PO SCH (17:08)
[2017-06-16] MEDS: oxyCODONE/APAP 7.5/325 1 TAB TABLET PO PRN (18:41)
[2017-06-16] MEDS: ATORVASTATIN CALCIUM 10 MG TABLET. PO SCH (19:25)
[2017-06-16] MEDS: MIRTAZAPINE 15 MG TABLET PO SCH (19:25)
--- NOTE | 2017-06-16 20:40 | PDOC ---
Exam Niels Demential Exam: Niels Note: Please also refer to the separate dictated note~for this date of service dictated separately.~Patient seen individually. Discussed the patient with Nursing staff reviewed the chart.~Reviewed interim history and current functioning. Reviewed vital signs,~Labs/ Radiology~and current medications noted below. Continue current treatment with the changes noted in the dictated addendum note Assessment: Vital Signs: Vital Signs Date Time Temp Pulse Resp B/P (MAP) Pulse Ox O2 Delivery O2 Flow Rate FiO2 06/16/17 16:14 97.2 80 18 103/58 (73) 99 06/15/17 21:49 Room Air I&O Intake and Output 06/16/17 07:00 Intake Total 1560 ml Balance 1560 ml Intake Oral 1560 ml Current Medications: Meds: Current Medications Acetaminophen (Tylenol) 650 mg PRN Q6HRS PRN PO PAIN / TEMP Last administered on 06/13/17 14:32; Start 05/26/17 at 22:45 Multi-Ingredient Ointment (Analgesic [place]) 1 tae PRN QID PRN TP MUSCLE PAIN; Start 05/26/17 at 22:45 Al Hydroxide/Mg Hydroxide (Mylanta Plus Xs) 15 ml PRN AFTMEALHC PRN PO DYSPEPSIA; Start 05/26/17 at 22:45 Magnesium Hydroxide (Milk Of Magnesia) 2,400 mg PRN QHS PRN PO CONSTIPATION; Start 05/26/17 at 22:45 Amlodipine Besylate (Norvasc) 10 mg DAILY PO Last administered on 06/16/17 10: 20; Start 05/27/17 at 09:00 Aspirin (Elsa Aspirin) 325 mg DAILY PO Last administered on 06/16/17 10:18; Start 05/27/17 at 09:00 Calcium/Vitamin D (Oscal D 500mg/ 200uts) 1 tab DAILY PO Last administered on 10:19; Start 05/27/17 at 09:00 Hydrochlorothiazide (Hydrodiuril) 25 mg DAILY PO Last administered on 05/29/17 08:21; Start 05/27/17 at 09:00; Stop 05/29/17 at 12:32; Status DC Losartan Potassium (Cozaar) 50 mg DAILY PO Last administered on 06/16/17 10:19 ; Start 05/27/17 at 09:00 Oxycodone/ Acetaminophen (Percocet 7.5/ 325) 1 tab PRN Q6HRS PRN PO SEVERE PAIN Last administered on 05/31/17 09:09; Start 05/27/17 at 01:30; Stop 05/31/17 at 12:28; Status DC Atorvastatin Calcium (Lipitor) 5 mg QHS PO Last administered on 06/16/17 19:25 ; Start 05/27/17 at 21:00 Fenofibrate (Tricor) 145 mg DAILYWSUP PO Last administered on 06/16/17 17:08; Start 05/27/17 at 17:00 Glucosamine/ Chondroitin (Glucosamine-Chondroitin 500/400mg) 1 cap DAILY PO Last administered on 06/16/17 10:20; Start 05/27/17 at 09:00 Memantine (Namenda) 10 mg DAILY PO Last administered on 05/27/17 08:30; Start 05/27/17 at 09:00; Stop 05/27/17 at 18:23; Status DC Olanzapine (ZyPREXA) 2.5 mg DAILY08 PO Last administered on 05/29/17 08:21; Start 05/27/17 at 08:00; Stop 05/29/17 at 18:52; Status DC Rivastigmine (Exelon) 1 patch DAILY TD Last administered on 05/27/17 08:31; Start 05/27/17 at 09:00; Stop 05/27/17 at 18:23; Status DC Venlafaxine HCl (Effexor Xr) 112.5 mg DAILY PO Last administered on 06/16/17 10:21; Start 05/27/17 at 09:00 Non-Formulary Medication 75 mg DAILY PO ; Start 05/27/17 at 09:00; Status UNV Potassium Chloride (Klor-Con) 20 meq BID PO Last administered on 06/16/17 19: 25; Start 05/27/17 at 21:00 Memantine (Namenda) 10 mg QHS PO Last administered on 06/06/17 19:44; Start at 21:00; Stop 06/07/17 at 13:34; Status DC Rivastigmine (Exelon 13.3mg) 1 patch DAILY TD Last administered on 06/16/17 10 :21; Start 05/28/17 at 09:00 Memantine (Namenda) 5 mg DAILY PO Last administered on 06/07/17 08:59; Start 05/28/17 at 09:00; Stop 06/07/17 at 13:34; Status DC Vitamin D (Vitamin D3) 50,000 unit WEEKLY PO Last administered on 06/13/17 07: 50; Start 05/30/17 at 09:00 Quetiapine Fumarate (SEROquel) 12.5 mg BID92 PO Last administered on 06/03/17 13:43; Start 05/30/17 at 09:00; Stop 06/03/17 at 18:32; Status DC Cyanocobalamin (Vitamin B-12) 250 mcg DAILYBFRLUN PO Last administered on 13:29; Start 05/31/17 at 11:30 Oxycodone/ Acetaminophen (Percocet 7.5/ 325) 1 tab PRN BID PRN PO SEVERE PAIN Last administered on 06/16/17 18:41; Start 05/31/17 at 18:00 Mirtazapine (Remeron) 7.5 mg QHS PO Last administered on 05/31/17 20:47; Start 05/31/17 at 21:00; Stop 06/01/17 at 18:30; Status DC Mirtazapine (Remeron) 15 mg QHS PO Last administered on 06/16/17 19:25; Start 06/01/17 at 21:00 Olanzapine (ZyPREXA ZYDIS) 1.25 mg PRN Q2HR PRN PO PSYCHOSIS Last administered on 06/16/17 00:22; Start 06/03/17 at 18:30 Quetiapine Fumarate (SEROquel) 12.5 mg TID@0900,1400,1800 PO Last administered on 06/05/17 18:00; Start 06/04/17 at 09:00; Stop 06/05/17 at 21:22; Status DC Quetiapine Fumarate (SEROquel) 12.5 mg BID@0900,1400 PO Last administered on 13:29; Start 06/06/17 at 09:00 Quetiapine Fumarate (SEROquel) 37.5 mg DAILY@1800 PO Last administered on 17:21; Start 06/06/17 at 18:00; Stop 06/08/17 at 18:35; Status DC Quetiapine Fumarate (SEROquel) 25 mg 1X ONCE PO Last administered on 21:27; Start 06/05/17 at 21:30; Stop 06/05/17 at 21:31; Status DC Memantine (Namenda) 10 mg BID PO Last administered on 06/16/17 19:25; Start at 21:00 Quetiapine Fumarate (SEROquel) 50 mg 1700 PO Last administered on 06/13/17 16: 35; Start 06/09/17 at 17:00; Stop 06/14/17 at 13:03; Status DC Hydroxyzine HCl (Atarax) 25 mg PRN Q2HR PRN PO PSYCHOSIS Last administered on 19:33; Start 06/10/17 at 18:30 Trazodone HCl (Desyrel) 12.5 mg DAILYWSUP PO Last administered on 06/16/17 17: 07; Start 06/12/17 at 17:00 Trazodone HCl (Desyrel) 12.5 mg 1X ONCE PO Last administered on 06/11/17 19: 47; Start 06/11/17 at 20:00; Stop 06/11/17 at 20:01; Status DC Quetiapine Fumarate (SEROquel) 50 mg 1700 PO Last administered on 06/16/17 17: 07; Start 06/14/17 at 17:00 Trazodone HCl (Desyrel) 12.5 mg NOON PO Last administered on 06/16/17 13:29; Start 06/15/17 at 12:00 Active Scripts Active Reported EXELON 9.5mg/24hr (Rivastigmine) 1 Each Patch.td24 1 Patch TD DAILY LAST DOSE GIVEN: DATE: TIME: NEXT DOSE DUE: DATE: TIME: Simvastatin 10 Mg Tablet 10 Mg PO HS LAST DOSE GIVEN: DATE: TIME: NEXT DOSE DUE: DATE: TIME: Effexor Xr (Venlafaxine Hcl) 75 Mg Cap.er.24h 75 Mg PO DAILY LAST DOSE GIVEN: DATE: TIME: NEXT DOSE DUE: DATE: TIME: Effexor Xr (Venlafaxine Hcl) 37.5 Mg Cap.er.24h 37.5 Mg PO DAILY LAST DOSE GIVEN: DATE: TIME: NEXT DOSE DUE: DATE: TIME: Percocet 7.5-325 Mg Tablet (Oxycodone Hcl/Acetaminophen) 1 Each Tablet 1 Tab PO PRN Q6HRS PRN LAST DOSE GIVEN: DATE: TIME: NEXT DOSE DUE: DATE: TIME: Zyprexa (Olanzapine) 2.5 Mg Tablet 2.5 Mg PO DAILY08 LAST DOSE GIVEN: DATE: TIME: NEXT DOSE DUE: DATE: TIME: Namenda (Memantine Hcl) 10 Mg Tablet 10 Mg PO DAILY LAST DOSE GIVEN: DATE: TIME: NEXT DOSE DUE: DATE: TIME: Cozaar (Losartan Potassium) 50 Mg Tablet 50 Mg PO DAILY LAST DOSE GIVEN: DATE: TIME: NEXT DOSE DUE: DATE: TIME: Hydrochlorothiazide Tablet (Hydrochlorothiazide) 25 Mg Tablet 25 Mg PO DAILY LAST DOSE GIVEN: DATE: TIME: NEXT DOSE DUE: DATE: TIME: Glucosamine Chondroit Msm Tab (Glucosamine/Msm/Chondroitin A) 1 Each Tablet 1 Tab PO DAILY LAST DOSE GIVEN: DATE: TIME: NEXT DOSE DUE: DATE: TIME: Calcium 500 + Vit D 200 Tablet (Calcium Carbonate/Vitamin D3) 1 Each Tablet 1 Tab PO DAILY Fenofibrate (Fenofibrate,Micronized) 134 Mg Capsule 134 Mg PO DAILYWSUP LAST DOSE GIVEN: DATE: TIME: NEXT DOSE DUE: DATE: TIME: Aspirin 325 Mg Tablet 325 Mg PO DAILY LAST DOSE GIVEN: DATE: TIME: NEXT DOSE DUE: DATE: TIME: Norvasc (Amlodipine Besylate) 10 Mg Tablet 10 Mg PO DAILY LAST DOSE GIVEN: DATE: TIME: NEXT DOSE DUE: DATE: TIME: Diagnosis: Problems: (1) Anxiety disorder (2) Dementia, vascular, with depression (3) Dementia, vascular, with delusions (4) Dementia in Alzheimer's disease with depression (5) Dementia in Alzheimer's disease with delusions (6) Impulse control disorder ERLINDA DYKES MD Jun 16, 2017 20:40
--- NOTE | 2017-06-17 01:12 | PN ---
DATE: 06/15/2017 PSYCHIATRIC PROGRESS NOTE This late entry 06/15/2017, covers elements not covered in my initial note. I met with the patient in the evening of 06/15/2017. The patient has been tearful all day after the told that she may have to go to a fpc. She stated "You are throwing me away." Her left crying himself and staff did intervene to help . REVIEW OF SYSTEMS: No CV, , pulmonary, eye, ENT system symptoms on review, as I met with her in her room. Reliability poor. MENTAL STATUS EXAM: Oriented to herself. Insight, judgment, recent and remote memory, attention, concentration, fund of knowledge poor, consistent with her diagnosis mentioned in my initial note. PLAN: Continue current psychotropics, reviewed the drug contractions, risk/benefit ratio favors no further change as of now. ERLINDA DYKES MD DR: MELISSA/gurmeet JOB#: [id number] / [id number]
[2017-06-17 06:02] VITALS: BP 145/70
[2017-06-17] MEDS: VENLAFAXINE XR 37.5 MG CAP.ER.24H. PO SCH (08:06)
[2017-06-17] MEDS: amLODIPine BESYLATE 10 MG TABLET PO SCH (08:06)
[2017-06-17] MEDS: QUEtiapine 25 MG TABLET. PO SCH ×2 (08:06→12:10)
[2017-06-17] MEDS: MEMANTINE 10 MG TABLET. PO SCH ×2 (08:06→19:32)
[2017-06-17] MEDS: POTASSIUM CHLORIDE 20 MEQ TABLET.ER. PO SCH ×2 (08:06→19:32)
[2017-06-17] MEDS: ASPIRIN 325 MG TABLET PO SCH (08:06)
[2017-06-17] MEDS: CALCIUM CARB/VIT D3 500/200 TABLET PO SCH (08:06)
[2017-06-17] MEDS: GLUCOSAMINE/CHOND 500/400MG CAPSULE PO SCH (08:06)
[2017-06-17] MEDS: RIVASTIGMINE 13.3MG PATCH. TD SCH (08:07)
[2017-06-17] MEDS: LOSARTAN 50 MG TABLET. PO SCH (08:07)
--- NOTE | 2017-06-17 10:15 | PDOC ---
Exam Niels Demential Exam: Niels Note: Please also refer to the separate dictated note~for this date of service dictated separately.~Patient seen individually. Discussed the patient with Nursing staff reviewed the chart.~Reviewed interim history and current functioning. Reviewed vital signs,~Labs/ Radiology~and current medications noted below. Continue current treatment with the changes noted in the dictated addendum note Assessment: Vital Signs: Vital Signs Date Time Temp Pulse Resp B/P (MAP) Pulse Ox O2 Delivery O2 Flow Rate FiO2 06/17/17 08:07 72 145/70 06/17/17 06:02 97.5 16 95 06/16/17 19:41 Room Air I&O Intake and Output 06/17/17 07:00 Intake Total 940 ml Balance 940 ml Intake Oral 940 ml Current Medications: Meds: Current Medications Acetaminophen (Tylenol) 650 mg PRN Q6HRS PRN PO PAIN / TEMP Last administered on 06/13/17 14:32; Start 05/26/17 at 22:45 Multi-Ingredient Ointment (Analgesic [place]) 1 tae PRN QID PRN TP MUSCLE PAIN; Start 05/26/17 at 22:45 Al Hydroxide/Mg Hydroxide (Mylanta Plus Xs) 15 ml PRN AFTMEALHC PRN PO DYSPEPSIA; Start 05/26/17 at 22:45 Magnesium Hydroxide (Milk Of Magnesia) 2,400 mg PRN QHS PRN PO CONSTIPATION; Start 05/26/17 at 22:45 Amlodipine Besylate (Norvasc) 10 mg DAILY PO Last administered on 06/17/17 08: 06; Start 05/27/17 at 09:00 Aspirin (Elsa Aspirin) 325 mg DAILY PO Last administered on 06/17/17 08:06; Start 05/27/17 at 09:00 Calcium/Vitamin D (Oscal D 500mg/ 200uts) 1 tab DAILY PO Last administered on 08:06; Start 05/27/17 at 09:00 Hydrochlorothiazide (Hydrodiuril) 25 mg DAILY PO Last administered on 05/29/17 08:21; Start 05/27/17 at 09:00; Stop 05/29/17 at 12:32; Status DC Losartan Potassium (Cozaar) 50 mg DAILY PO Last administered on 06/17/17 08:07 ; Start 05/27/17 at 09:00 Oxycodone/ Acetaminophen (Percocet 7.5/ 325) 1 tab PRN Q6HRS PRN PO SEVERE PAIN Last administered on 05/31/17 09:09; Start 05/27/17 at 01:30; Stop 05/31/17 at 12:28; Status DC Atorvastatin Calcium (Lipitor) 5 mg QHS PO Last administered on 06/16/17 19:25 ; Start 05/27/17 at 21:00 Fenofibrate (Tricor) 145 mg DAILYWSUP PO Last administered on 06/16/17 17:08; Start 05/27/17 at 17:00 Glucosamine/ Chondroitin (Glucosamine-Chondroitin 500/400mg) 1 cap DAILY PO Last administered on 06/17/17 08:06; Start 05/27/17 at 09:00 Memantine (Namenda) 10 mg DAILY PO Last administered on 05/27/17 08:30; Start 05/27/17 at 09:00; Stop 05/27/17 at 18:23; Status DC Olanzapine (ZyPREXA) 2.5 mg DAILY08 PO Last administered on 05/29/17 08:21; Start 05/27/17 at 08:00; Stop 05/29/17 at 18:52; Status DC Rivastigmine (Exelon) 1 patch DAILY TD Last administered on 05/27/17 08:31; Start 05/27/17 at 09:00; Stop 05/27/17 at 18:23; Status DC Venlafaxine HCl (Effexor Xr) 112.5 mg DAILY PO Last administered on 06/17/17 08:06; Start 05/27/17 at 09:00 Non-Formulary Medication 75 mg DAILY PO ; Start 05/27/17 at 09:00; Status UNV Potassium Chloride (Klor-Con) 20 meq BID PO Last administered on 06/17/17 08: 06; Start 05/27/17 at 21:00 Memantine (Namenda) 10 mg QHS PO Last administered on 06/06/17 19:44; Start at 21:00; Stop 06/07/17 at 13:34; Status DC Rivastigmine (Exelon 13.3mg) 1 patch DAILY TD Last administered on 06/17/17 08 :07; Start 05/28/17 at 09:00 Memantine (Namenda) 5 mg DAILY PO Last administered on 06/07/17 08:59; Start 05/28/17 at 09:00; Stop 06/07/17 at 13:34; Status DC Vitamin D (Vitamin D3) 50,000 unit WEEKLY PO Last administered on 06/13/17 07: 50; Start 05/30/17 at 09:00 Quetiapine Fumarate (SEROquel) 12.5 mg BID92 PO Last administered on 06/03/17 13:43; Start 05/30/17 at 09:00; Stop 06/03/17 at 18:32; Status DC Cyanocobalamin (Vitamin B-12) 250 mcg DAILYBFRLUN PO Last administered on 13:29; Start 05/31/17 at 11:30 Oxycodone/ Acetaminophen (Percocet 7.5/ 325) 1 tab PRN BID PRN PO SEVERE PAIN Last administered on 06/16/17 18:41; Start 05/31/17 at 18:00 Mirtazapine (Remeron) 7.5 mg QHS PO Last administered on 05/31/17 20:47; Start 05/31/17 at 21:00; Stop 06/01/17 at 18:30; Status DC Mirtazapine (Remeron) 15 mg QHS PO Last administered on 06/16/17 19:25; Start 06/01/17 at 21:00 Olanzapine (ZyPREXA ZYDIS) 1.25 mg PRN Q2HR PRN PO PSYCHOSIS Last administered on 06/16/17 00:22; Start 06/03/17 at 18:30 Quetiapine Fumarate (SEROquel) 12.5 mg TID@0900,1400,1800 PO Last administered on 06/05/17 18:00; Start 06/04/17 at 09:00; Stop 06/05/17 at 21:22; Status DC Quetiapine Fumarate (SEROquel) 12.5 mg BID@0900,1400 PO Last administered on 08:06; Start 06/06/17 at 09:00 Quetiapine Fumarate (SEROquel) 37.5 mg DAILY@1800 PO Last administered on 17:21; Start 06/06/17 at 18:00; Stop 06/08/17 at 18:35; Status DC Quetiapine Fumarate (SEROquel) 25 mg 1X ONCE PO Last administered on 21:27; Start 06/05/17 at 21:30; Stop 06/05/17 at 21:31; Status DC Memantine (Namenda) 10 mg BID PO Last administered on 06/17/17 08:06; Start at 21:00 Quetiapine Fumarate (SEROquel) 50 mg 1700 PO Last administered on 06/13/17 16: 35; Start 06/09/17 at 17:00; Stop 06/14/17 at 13:03; Status DC Hydroxyzine HCl (Atarax) 25 mg PRN Q2HR PRN PO PSYCHOSIS Last administered on 19:33; Start 06/10/17 at 18:30 Trazodone HCl (Desyrel) 12.5 mg DAILYWSUP PO Last administered on 06/16/17 17: 07; Start 06/12/17 at 17:00 Trazodone HCl (Desyrel) 12.5 mg 1X ONCE PO Last administered on 06/11/17 19: 47; Start 06/11/17 at 20:00; Stop 06/11/17 at 20:01; Status DC Quetiapine Fumarate (SEROquel) 50 mg 1700 PO Last administered on 06/16/17 17: 07; Start 06/14/17 at 17:00 Trazodone HCl (Desyrel) 12.5 mg NOON PO Last administered on 06/16/17 13:29; Start 06/15/17 at 12:00 Active Scripts Active Reported EXELON 9.5mg/24hr (Rivastigmine) 1 Each Patch.td24 1 Patch TD DAILY LAST DOSE GIVEN: DATE: TIME: NEXT DOSE DUE: DATE: TIME: Simvastatin 10 Mg Tablet 10 Mg PO HS LAST DOSE GIVEN: DATE: TIME: NEXT DOSE DUE: DATE: TIME: Effexor Xr (Venlafaxine Hcl) 75 Mg Cap.er.24h 75 Mg PO DAILY LAST DOSE GIVEN: DATE: TIME: NEXT DOSE DUE: DATE: TIME: Effexor Xr (Venlafaxine Hcl) 37.5 Mg Cap.er.24h 37.5 Mg PO DAILY LAST DOSE GIVEN: DATE: TIME: NEXT DOSE DUE: DATE: TIME: Percocet 7.5-325 Mg Tablet (Oxycodone Hcl/Acetaminophen) 1 Each Tablet 1 Tab PO PRN Q6HRS PRN LAST DOSE GIVEN: DATE: TIME: NEXT DOSE DUE: DATE: TIME: Zyprexa (Olanzapine) 2.5 Mg Tablet 2.5 Mg PO DAILY08 LAST DOSE GIVEN: DATE: TIME: NEXT DOSE DUE: DATE: TIME: Namenda (Memantine Hcl) 10 Mg Tablet 10 Mg PO DAILY LAST DOSE GIVEN: DATE: TIME: NEXT DOSE DUE: DATE: TIME: Cozaar (Losartan Potassium) 50 Mg Tablet 50 Mg PO DAILY LAST DOSE GIVEN: DATE: TIME: NEXT DOSE DUE: DATE: TIME: Hydrochlorothiazide Tablet (Hydrochlorothiazide) 25 Mg Tablet 25 Mg PO DAILY LAST DOSE GIVEN: DATE: TIME: NEXT DOSE DUE: DATE: TIME: Glucosamine Chondroit Msm Tab (Glucosamine/Msm/Chondroitin A) 1 Each Tablet 1 Tab PO DAILY LAST DOSE GIVEN: DATE: TIME: NEXT DOSE DUE: DATE: TIME: Calcium 500 + Vit D 200 Tablet (Calcium Carbonate/Vitamin D3) 1 Each Tablet 1 Tab PO DAILY Fenofibrate (Fenofibrate,Micronized) 134 Mg Capsule 134 Mg PO DAILYWSUP LAST DOSE GIVEN: DATE: TIME: NEXT DOSE DUE: DATE: TIME: Aspirin 325 Mg Tablet 325 Mg PO DAILY LAST DOSE GIVEN: DATE: TIME: NEXT DOSE DUE: DATE: TIME: Norvasc (Amlodipine Besylate) 10 Mg Tablet 10 Mg PO DAILY LAST DOSE GIVEN: DATE: TIME: NEXT DOSE DUE: DATE: TIME: Diagnosis: Problems: (1) Impulse control disorder (2) Dementia in Alzheimer's disease with delusions (3) Dementia in Alzheimer's disease with depression (4) Dementia, vascular, with delusions (5) Dementia, vascular, with depression (6) Anxiety disorder ERLINDA DYKES MD Jun 17, 2017 10:15
[2017-06-17] MEDS: oxyCODONE/APAP 7.5/325 1 TAB TABLET PO PRN (12:09)
[2017-06-17] MEDS: CYANOCOBALAMIN (VITAMIN B-12) 250 MCG TABLET PO SCH (12:10)
[2017-06-17] MEDS: traZODone 50 MG TABLET. PO SCH ×2 (12:10→17:29)
[2017-06-17 15:55] VITALS: BP 101/50
[2017-06-17] MEDS: FENOFIBRATE NANOCRYSTALLIZED 145 MG TABLET PO SCH (17:29)
[2017-06-17] MEDS: QUEtiapine 50 MG TABLET. PO SCH (17:34)
--- NOTE | 2017-06-17 19:13 | PN ---
DATE: 06/16/2017 This note covers the elements not covered in my initial note of 06/16/2017. SUBJECTIVE: The patient was staffed with treatment team meeting with the entire team morning of 06/16/2017, seen individually evening of 06/16/2017. Reviewed the patient's history, placement options, and the treatment team meeting. REVIEW OF SYSTEMS: No CV, , pulmonary, eye, ENT system symptoms on review. Reliability poor. MENTAL STATUS EXAM: Oriented to herself. Insight, judgment, recent and remote memory, attention, concentration, fund of knowledge poor, consistent with her diagnosis mentioned in my initial note. PLAN: Continue current psychotropics, reviewed drug interactions, risk/benefit ratio favors no further changes of now. ERLINDA DYKES MD DR: MELISSA/gurmeet JOB#: [id number] / [id number]
[2017-06-17] MEDS: ATORVASTATIN CALCIUM 10 MG TABLET. PO SCH (19:31)
[2017-06-17] MEDS: MIRTAZAPINE 15 MG TABLET PO SCH (19:32)
--- NOTE | 2017-06-17 19:53 | PDOC ---
Exam Niels Demential Exam: Niels Note: Please also refer to the separate dictated note~for this date of service dictated separately.~Patient seen individually. Discussed the patient with Nursing staff reviewed the chart.~Reviewed interim history and current functioning. Reviewed vital signs,~Labs/ Radiology~and current medications noted below. Continue current treatment with the changes noted in the dictated addendum note Assessment: Vital Signs: Vital Signs Date Time Temp Pulse Resp B/P (MAP) Pulse Ox O2 Delivery O2 Flow Rate FiO2 06/17/17 15:55 97.6 86 20 101/50 (67) 95 06/16/17 19:41 Room Air I&O Intake and Output 06/17/17 06:59 Intake Total 940 ml Balance 940 ml Intake Oral 940 ml Current Medications: Meds: Current Medications Acetaminophen (Tylenol) 650 mg PRN Q6HRS PRN PO PAIN / TEMP Last administered on 06/13/17 14:32; Start 05/26/17 at 22:45 Multi-Ingredient Ointment (Analgesic [place]) 1 tae PRN QID PRN TP MUSCLE PAIN; Start 05/26/17 at 22:45 Al Hydroxide/Mg Hydroxide (Mylanta Plus Xs) 15 ml PRN AFTMEALHC PRN PO DYSPEPSIA; Start 05/26/17 at 22:45 Magnesium Hydroxide (Milk Of Magnesia) 2,400 mg PRN QHS PRN PO CONSTIPATION; Start 05/26/17 at 22:45 Amlodipine Besylate (Norvasc) 10 mg DAILY PO Last administered on 06/17/17 08: 06; Start 05/27/17 at 09:00 Aspirin (Elsa Aspirin) 325 mg DAILY PO Last administered on 06/17/17 08:06; Start 05/27/17 at 09:00 Calcium/Vitamin D (Oscal D 500mg/ 200uts) 1 tab DAILY PO Last administered on 08:06; Start 05/27/17 at 09:00 Hydrochlorothiazide (Hydrodiuril) 25 mg DAILY PO Last administered on 05/29/17 08:21; Start 05/27/17 at 09:00; Stop 05/29/17 at 12:32; Status DC Losartan Potassium (Cozaar) 50 mg DAILY PO Last administered on 06/17/17 08:07 ; Start 05/27/17 at 09:00 Oxycodone/ Acetaminophen (Percocet 7.5/ 325) 1 tab PRN Q6HRS PRN PO SEVERE PAIN Last administered on 05/31/17 09:09; Start 05/27/17 at 01:30; Stop 05/31/17 at 12:28; Status DC Atorvastatin Calcium (Lipitor) 5 mg QHS PO Last administered on 06/17/17 19:31 ; Start 05/27/17 at 21:00 Fenofibrate (Tricor) 145 mg DAILYWSUP PO Last administered on 06/17/17 17:29; Start 05/27/17 at 17:00 Glucosamine/ Chondroitin (Glucosamine-Chondroitin 500/400mg) 1 cap DAILY PO Last administered on 06/17/17 08:06; Start 05/27/17 at 09:00 Memantine (Namenda) 10 mg DAILY PO Last administered on 05/27/17 08:30; Start 05/27/17 at 09:00; Stop 05/27/17 at 18:23; Status DC Olanzapine (ZyPREXA) 2.5 mg DAILY08 PO Last administered on 05/29/17 08:21; Start 05/27/17 at 08:00; Stop 05/29/17 at 18:52; Status DC Rivastigmine (Exelon) 1 patch DAILY TD Last administered on 05/27/17 08:31; Start 05/27/17 at 09:00; Stop 05/27/17 at 18:23; Status DC Venlafaxine HCl (Effexor Xr) 112.5 mg DAILY PO Last administered on 06/17/17 08:06; Start 05/27/17 at 09:00 Non-Formulary Medication 75 mg DAILY PO ; Start 05/27/17 at 09:00; Status UNV Potassium Chloride (Klor-Con) 20 meq BID PO Last administered on 06/17/17 19: 32; Start 05/27/17 at 21:00 Memantine (Namenda) 10 mg QHS PO Last administered on 06/06/17 19:44; Start at 21:00; Stop 06/07/17 at 13:34; Status DC Rivastigmine (Exelon 13.3mg) 1 patch DAILY TD Last administered on 06/17/17 08 :07; Start 05/28/17 at 09:00 Memantine (Namenda) 5 mg DAILY PO Last administered on 06/07/17 08:59; Start 05/28/17 at 09:00; Stop 06/07/17 at 13:34; Status DC Vitamin D (Vitamin D3) 50,000 unit WEEKLY PO Last administered on 06/13/17 07: 50; Start 05/30/17 at 09:00 Quetiapine Fumarate (SEROquel) 12.5 mg BID92 PO Last administered on 06/03/17 13:43; Start 05/30/17 at 09:00; Stop 06/03/17 at 18:32; Status DC Cyanocobalamin (Vitamin B-12) 250 mcg DAILYBFRLUN PO Last administered on 12:10; Start 05/31/17 at 11:30 Oxycodone/ Acetaminophen (Percocet 7.5/ 325) 1 tab PRN BID PRN PO SEVERE PAIN Last administered on 06/17/17 12:09; Start 05/31/17 at 18:00 Mirtazapine (Remeron) 7.5 mg QHS PO Last administered on 05/31/17 20:47; Start 05/31/17 at 21:00; Stop 06/01/17 at 18:30; Status DC Mirtazapine (Remeron) 15 mg QHS PO Last administered on 06/17/17 19:32; Start 06/01/17 at 21:00 Olanzapine (ZyPREXA ZYDIS) 1.25 mg PRN Q2HR PRN PO PSYCHOSIS Last administered on 06/16/17 00:22; Start 06/03/17 at 18:30 Quetiapine Fumarate (SEROquel) 12.5 mg TID@0900,1400,1800 PO Last administered on 06/05/17 18:00; Start 06/04/17 at 09:00; Stop 06/05/17 at 21:22; Status DC Quetiapine Fumarate (SEROquel) 12.5 mg BID@0900,1400 PO Last administered on 12:10; Start 06/06/17 at 09:00 Quetiapine Fumarate (SEROquel) 37.5 mg DAILY@1800 PO Last administered on 17:21; Start 06/06/17 at 18:00; Stop 06/08/17 at 18:35; Status DC Quetiapine Fumarate (SEROquel) 25 mg 1X ONCE PO Last administered on 21:27; Start 06/05/17 at 21:30; Stop 06/05/17 at 21:31; Status DC Memantine (Namenda) 10 mg BID PO Last administered on 06/17/17 19:32; Start at 21:00 Quetiapine Fumarate (SEROquel) 50 mg 1700 PO Last administered on 06/13/17 16: 35; Start 06/09/17 at 17:00; Stop 06/14/17 at 13:03; Status DC Hydroxyzine HCl (Atarax) 25 mg PRN Q2HR PRN PO PSYCHOSIS Last administered on 19:33; Start 06/10/17 at 18:30 Trazodone HCl (Desyrel) 12.5 mg DAILYWSUP PO Last administered on 06/17/17 17: 29; Start 06/12/17 at 17:00 Trazodone HCl (Desyrel) 12.5 mg 1X ONCE PO Last administered on 06/11/17 19: 47; Start 06/11/17 at 20:00; Stop 06/11/17 at 20:01; Status DC Quetiapine Fumarate (SEROquel) 50 mg 1700 PO Last administered on 06/17/17 17: 34; Start 06/14/17 at 17:00 Trazodone HCl (Desyrel) 12.5 mg NOON PO Last administered on 06/17/17 12:10; Start 06/15/17 at 12:00 Active Scripts Active Reported EXELON 9.5mg/24hr (Rivastigmine) 1 Each Patch.td24 1 Patch TD DAILY LAST DOSE GIVEN: DATE: TIME: NEXT DOSE DUE: DATE: TIME: Simvastatin 10 Mg Tablet 10 Mg PO HS LAST DOSE GIVEN: DATE: TIME: NEXT DOSE DUE: DATE: TIME: Effexor Xr (Venlafaxine Hcl) 75 Mg Cap.er.24h 75 Mg PO DAILY LAST DOSE GIVEN: DATE: TIME: NEXT DOSE DUE: DATE: TIME: Effexor Xr (Venlafaxine Hcl) 37.5 Mg Cap.er.24h 37.5 Mg PO DAILY LAST DOSE GIVEN: DATE: TIME: NEXT DOSE DUE: DATE: TIME: Percocet 7.5-325 Mg Tablet (Oxycodone Hcl/Acetaminophen) 1 Each Tablet 1 Tab PO PRN Q6HRS PRN LAST DOSE GIVEN: DATE: TIME: NEXT DOSE DUE: DATE: TIME: Zyprexa (Olanzapine) 2.5 Mg Tablet 2.5 Mg PO DAILY08 LAST DOSE GIVEN: DATE: TIME: NEXT DOSE DUE: DATE: TIME: Namenda (Memantine Hcl) 10 Mg Tablet 10 Mg PO DAILY LAST DOSE GIVEN: DATE: TIME: NEXT DOSE DUE: DATE: TIME: Cozaar (Losartan Potassium) 50 Mg Tablet 50 Mg PO DAILY LAST DOSE GIVEN: DATE: TIME: NEXT DOSE DUE: DATE: TIME: Hydrochlorothiazide Tablet (Hydrochlorothiazide) 25 Mg Tablet 25 Mg PO DAILY LAST DOSE GIVEN: DATE: TIME: NEXT DOSE DUE: DATE: TIME: Glucosamine Chond[place] Msm Tab (Glucosamine/Msm/Chondroitin A) 1 Each Tablet 1 Tab PO DAILY LAST DOSE GIVEN: DATE: TIME: NEXT DOSE DUE: DATE: TIME: Calcium 500 + Vit D 200 Tablet (Calcium Carbonate/Vitamin D3) 1 Each Tablet 1 Tab PO DAILY Fenofibrate (Fenofibrate,Micronized) 134 Mg Capsule 134 Mg PO DAILYWSUP LAST DOSE GIVEN: DATE: TIME: NEXT DOSE DUE: DATE: TIME: Aspirin 325 Mg Tablet 325 Mg PO DAILY LAST DOSE GIVEN: DATE: TIME: NEXT DOSE DUE: DATE: TIME: Norvasc (Amlodipine Besylate) 10 Mg Tablet 10 Mg PO DAILY LAST DOSE GIVEN: DATE: TIME: NEXT DOSE DUE: DATE: TIME: Diagnosis: Problems: (1) Anxiety disorder (2) Dementia, vascular, with depression (3) Dementia, vascular, with delusions (4) Dementia in Alzheimer'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
[2017-06-17] MEDS: ACETAMINOPHEN 325 MG TABLET PO PRN (21:58)
--- NOTE | 2017-06-18 03:53 | PN ---
DATE: 06/17/2017 This note covers elements not covered in my initial note of 06/17/2017. SUBJECTIVE: I met with the patient in the morning of 06/17/2017. The patient remains confused, wanders the hallways, was cooperative the previous evening. Compliant with her medications. Labs are to be checked in the morning. REVIEW OF SYSTEMS: No CV, , pulmonary, eye, ENT system symptoms on review. Reliability poor. MENTAL STATUS EXAM: Oriented to herself. Insight, judgment, recent and remote memory, attention, concentration, fund of knowledge poor, consistent with her diagnosis mentioned in my initial note. PLAN: Continue current psychotropics. She is tolerating the increase of Seroquel. Reviewed drug interactions. Risk/benefit ratio favors no change at this time. MAN Amor DYKES MD DR: MELISSA/gurmeet JOB#: [id number] / [id number]
[2017-06-18 06:05] VITALS: BP 109/69
[2017-06-18] MEDS: RIVASTIGMINE 13.3MG PATCH. TD SCH (07:58)
[2017-06-18] MEDS: GLUCOSAMINE/CHOND 500/400MG CAPSULE PO SCH (07:58)
[2017-06-18] MEDS: CALCIUM CARB/VIT D3 500/200 TABLET PO SCH (07:58)
[2017-06-18] MEDS: ASPIRIN 325 MG TABLET PO SCH (07:59)
[2017-06-18] MEDS: LOSARTAN 50 MG TABLET. PO SCH (07:59)
[2017-06-18] MEDS: POTASSIUM CHLORIDE 20 MEQ TABLET.ER. PO SCH ×2 (07:59→19:58)
[2017-06-18] MEDS: amLODIPine BESYLATE 10 MG TABLET PO SCH (07:59)
[2017-06-18] MEDS: QUEtiapine 25 MG TABLET. PO SCH ×2 (07:59→13:58)
[2017-06-18] MEDS: VENLAFAXINE XR 37.5 MG CAP.ER.24H. PO SCH (07:59)
[2017-06-18] MEDS: MEMANTINE 10 MG TABLET. PO SCH ×2 (07:59→19:59)
[2017-06-18 08:05] LABS: BASO % 0 % (0-3); EOS # 0.2 x10^3/uL (0.0-0.7); EOS % 3 % (0-3); HEMATOCRIT 31.4 % (36.0-47.0); HEMOGLOBIN 10.6 g/dL (12.0-15.5); LYMPH # 1.1 x10^3/uL (1.0-4.8); LYMPH % 19 % (24-48); MEAN CORPUSCULAR HEMOGLOBIN 32 pg (25-35); MEAN CORPUSCULAR HGB CONC 34 g/dL (31-37); MEAN CORPUSCULAR VOLUME 94 fL (79-100); MONO # 0.6 x10^3/uL (0.0-1.1); MONO % 10 % (0-9); NEUT # 3.8 x10^3uL (1.8-7.7); NEUT % 68 % (31-73); PLATELET COUNT 269 x10^3/uL (140-400); RED BLOOD COUNT 3.32 x10^6/uL (3.50-5.40); RED CELL DISTRIBUTION WIDTH 12.4 % (11.5-14.5); WHITE BLOOD COUNT 5.7 x10^3/uL (4.0-11.0)
[2017-06-18 08:16] LABS: ALBUMIN 3.2 g/dL (3.4-5.0); CALCIUM 8.7 mg/dL (8.5-10.1); CREATININE 0.9 mg/dL (0.6-1.0); GFR 61.4; POTASSIUM 4.6 mmol/L (3.5-5.1); TOTAL BILIRUBIN 0.2 mg/dL (0.2-1.0); TOTAL PROTEIN 6.4 g/dL (6.4-8.2)
[2017-06-18] MEDS: CYANOCOBALAMIN (VITAMIN B-12) 250 MCG TABLET PO SCH (13:56)
[2017-06-18] MEDS: QUEtiapine 50 MG TABLET. PO SCH ×2 (13:57→17:00)
[2017-06-18] MEDS: traZODone 50 MG TABLET. PO SCH ×2 (13:57→17:00)
[2017-06-18 15:39] VITALS: BP 92/54
[2017-06-18] MEDS: FENOFIBRATE NANOCRYSTALLIZED 145 MG TABLET PO SCH (17:00)
[2017-06-18] MEDS: ATORVASTATIN CALCIUM 10 MG TABLET. PO SCH (19:59)
[2017-06-18] MEDS: MIRTAZAPINE 15 MG TABLET PO SCH (19:59)
[2017-06-18] MEDS: oxyCODONE/APAP 7.5/325 1 TAB TABLET PO PRN (22:32)
[2017-06-19 06:37] VITALS: BP 115/75
[2017-06-19] MEDS: RIVASTIGMINE 13.3MG PATCH. TD SCH (07:30)
[2017-06-19] MEDS: LOSARTAN 50 MG TABLET. PO SCH (07:30)
[2017-06-19] MEDS: QUEtiapine 25 MG TABLET. PO SCH ×2 (07:30→12:20)
[2017-06-19] MEDS: POTASSIUM CHLORIDE 20 MEQ TABLET.ER. PO SCH ×2 (07:30→19:46)
[2017-06-19] MEDS: GLUCOSAMINE/CHOND 500/400MG CAPSULE PO SCH (07:30)
[2017-06-19] MEDS: amLODIPine BESYLATE 10 MG TABLET PO SCH (07:31)
[2017-06-19] MEDS: ASPIRIN 325 MG TABLET PO SCH (07:31)
[2017-06-19] MEDS: VENLAFAXINE XR 37.5 MG CAP.ER.24H. PO SCH (07:31)
[2017-06-19] MEDS: CALCIUM CARB/VIT D3 500/200 TABLET PO SCH (07:31)
[2017-06-19] MEDS: MEMANTINE 10 MG TABLET. PO SCH ×2 (07:31→19:47)
[2017-06-19] MEDS: oxyCODONE/APAP 7.5/325 1 TAB TABLET PO PRN ×2 (09:22→21:53)
[2017-06-19] MEDS: LIDOCAINE (700MG/PATCH) PATCH. TD SCH (12:15)
[2017-06-19] MEDS: traZODone 50 MG TABLET. PO SCH ×3 (12:18→21:53)
[2017-06-19] MEDS: CYANOCOBALAMIN (VITAMIN B-12) 250 MCG TABLET PO SCH (12:19)
[2017-06-19 16:43] VITALS: BP 103/62
[2017-06-19] MEDS: FENOFIBRATE NANOCRYSTALLIZED 145 MG TABLET PO SCH (17:20)
[2017-06-19] MEDS: QUEtiapine 50 MG TABLET. PO SCH (17:20)
--- NOTE | 2017-06-19 19:44 | PDOC ---
Exam Niels Demential Exam: Niels Note: Please also refer to the separate dictated note~for this date of service dictated separately.~Patient seen individually. Discussed the patient with Nursing staff reviewed the chart.~Reviewed interim history and current functioning. Reviewed vital signs,~Labs/ Radiology~and current medications noted below. Continue current treatment with the changes noted in the dictated addendum note Assessment: Vital Signs: Vital Signs Date Time Temp Pulse Resp B/P (MAP) Pulse Ox O2 Delivery O2 Flow Rate FiO2 06/19/17 16:43 98.8 81 20 103/62 (76) 98 06/18/17 22:32 Room Air I&O Intake and Output 06/19/17 06:59 Intake Total 840 ml Balance 840 ml Intake Oral 840 ml Current Medications: Meds: Current Medications Acetaminophen (Tylenol) 650 mg PRN Q6HRS PRN PO PAIN / TEMP Last administered on 06/17/17 21:58; Start 05/26/17 at 22:45 Multi-Ingredient Ointment (Analgesic [place]) 1 tae PRN QID PRN TP MUSCLE PAIN; Start 05/26/17 at 22:45 Al Hydroxide/Mg Hydroxide (Mylanta Plus Xs) 15 ml PRN AFTMEALHC PRN PO DYSPEPSIA; Start 05/26/17 at 22:45 Magnesium Hydroxide (Milk Of Magnesia) 2,400 mg PRN QHS PRN PO CONSTIPATION; Start 05/26/17 at 22:45 Amlodipine Besylate (Norvasc) 10 mg DAILY PO Last administered on 06/19/17 07: 31; Start 05/27/17 at 09:00 Aspirin (Elsa Aspirin) 325 mg DAILY PO Last administered on 06/19/17 07:31; Start 05/27/17 at 09:00 Calcium/Vitamin D (Oscal D 500mg/ 200uts) 1 tab DAILY PO Last administered on 07:31; Start 05/27/17 at 09:00 Hydrochlorothiazide (Hydrodiuril) 25 mg DAILY PO Last administered on 05/29/17 08:21; Start 05/27/17 at 09:00; Stop 05/29/17 at 12:32; Status DC Losartan Potassium (Cozaar) 50 mg DAILY PO Last administered on 06/19/17 07:30 ; Start 05/27/17 at 09:00 Oxycodone/ Acetaminophen (Percocet 7.5/ 325) 1 tab PRN Q6HRS PRN PO SEVERE PAIN Last administered on 05/31/17 09:09; Start 05/27/17 at 01:30; Stop 05/31/17 at 12:28; Status DC Atorvastatin Calcium (Lipitor) 5 mg QHS PO Last administered on 06/18/17 19:59 ; Start 05/27/17 at 21:00 Fenofibrate (Tricor) 145 mg DAILYWSUP PO Last administered on 06/19/17 17:20; Start 05/27/17 at 17:00 Glucosamine/ Chondroitin (Glucosamine-Chondroitin 500/400mg) 1 cap DAILY PO Last administered on 06/19/17 07:30; Start 05/27/17 at 09:00 Memantine (Namenda) 10 mg DAILY PO Last administered on 05/27/17 08:30; Start 05/27/17 at 09:00; Stop 05/27/17 at 18:23; Status DC Olanzapine (ZyPREXA) 2.5 mg DAILY08 PO Last administered on 05/29/17 08:21; Start 05/27/17 at 08:00; Stop 05/29/17 at 18:52; Status DC Rivastigmine (Exelon) 1 patch DAILY TD Last administered on 05/27/17 08:31; Start 05/27/17 at 09:00; Stop 05/27/17 at 18:23; Status DC Venlafaxine HCl (Effexor Xr) 112.5 mg DAILY PO Last administered on 06/19/17 07:31; Start 05/27/17 at 09:00 Non-Formulary Medication 75 mg DAILY PO ; Start 05/27/17 at 09:00; Status UNV Potassium Chloride (Klor-Con) 20 meq BID PO Last administered on 06/19/17 07: 30; Start 05/27/17 at 21:00 Memantine (Namenda) 10 mg QHS PO Last administered on 06/06/17 19:44; Start at 21:00; Stop 06/07/17 at 13:34; Status DC Rivastigmine (Exelon 13.3mg) 1 patch DAILY TD Last administered on 06/19/17 07 :30; Start 05/28/17 at 09:00 Memantine (Namenda) 5 mg DAILY PO Last administered on 06/07/17 08:59; Start 05/28/17 at 09:00; Stop 06/07/17 at 13:34; Status DC Vitamin D (Vitamin D3) 50,000 unit WEEKLY PO Last administered on 06/13/17 07: 50; Start 05/30/17 at 09:00 Quetiapine Fumarate (SEROquel) 12.5 mg BID92 PO Last administered on 06/03/17 13:43; Start 05/30/17 at 09:00; Stop 06/03/17 at 18:32; Status DC Cyanocobalamin (Vitamin B-12) 250 mcg DAILYBFRLUN PO Last administered on 12:19; Start 05/31/17 at 11:30 Oxycodone/ Acetaminophen (Percocet 7.5/ 325) 1 tab PRN BID PRN PO SEVERE PAIN Last administered on 06/19/17 09:22; Start 05/31/17 at 18:00 Mirtazapine (Remeron) 7.5 mg QHS PO Last administered on 05/31/17 20:47; Start 05/31/17 at 21:00; Stop 06/01/17 at 18:30; Status DC Mirtazapine (Remeron) 15 mg QHS PO Last administered on 06/18/17 19:59; Start 06/01/17 at 21:00 Olanzapine (ZyPREXA ZYDIS) 1.25 mg PRN Q2HR PRN PO PSYCHOSIS Last administered on 06/17/17 21:59; Start 06/03/17 at 18:30 Quetiapine Fumarate (SEROquel) 12.5 mg TID@0900,1400,1800 PO Last administered on 06/05/17 18:00; Start 06/04/17 at 09:00; Stop 06/05/17 at 21:22; Status DC Quetiapine Fumarate (SEROquel) 12.5 mg BID@0900,1400 PO Last administered on 12:20; Start 06/06/17 at 09:00 Quetiapine Fumarate (SEROquel) 37.5 mg DAILY@1800 PO Last administered on 17:21; Start 06/06/17 at 18:00; Stop 06/08/17 at 18:35; Status DC Quetiapine Fumarate (SEROquel) 25 mg 1X ONCE PO Last administered on 21:27; Start 06/05/17 at 21:30; Stop 06/05/17 at 21:31; Status DC Memantine (Namenda) 10 mg BID PO Last administered on 06/19/17 07:31; Start at 21:00 Quetiapine Fumarate (SEROquel) 50 mg 1700 PO Last administered on 06/13/17 16: 35; Start 06/09/17 at 17:00; Stop 06/14/17 at 13:03; Status DC Hydroxyzine HCl (Atarax) 25 mg PRN Q2HR PRN PO PSYCHOSIS Last administered on 19:33; Start 06/10/17 at 18:30 Trazodone HCl (Desyrel) 12.5 mg DAILYWSUP PO Last administered on 06/18/17 17: 00; Start 06/12/17 at 17:00; Stop 06/19/17 at 04:21; Status DC Trazodone HCl (Desyrel) 12.5 mg 1X ONCE PO Last administered on 06/11/17 19: 47; Start 06/11/17 at 20:00; Stop 06/11/17 at 20:01; Status DC Quetiapine Fumarate (SEROquel) 50 mg 1700 PO Last administered on 06/19/17 17: 20; Start 06/14/17 at 17:00 Trazodone HCl (Desyrel) 12.5 mg NOON PO Last administered on 06/18/17 13:57; Start 06/15/17 at 12:00; Stop 06/19/17 at 04:21; Status DC Trazodone HCl (Desyrel) 12.5 mg BID@1200,1700 PO Last administered on 17:20; Start 06/19/17 at 12:00 Lidocaine (Lidoderm) 1 patch DAILY TD Last administered on 06/19/17 12:15; Start 06/19/17 at 12:30 Active Scripts Active Reported EXELON 9.5mg/24hr (Rivastigmine) 1 Each Patch.td24 1 Patch TD DAILY LAST DOSE GIVEN: DATE: TIME: NEXT DOSE DUE: DATE: TIME: Simvastatin 10 Mg Tablet 10 Mg PO HS LAST DOSE GIVEN: DATE: TIME: NEXT DOSE DUE: DATE: TIME: Effexor Xr (Venlafaxine Hcl) 75 Mg Cap.er.24h 75 Mg PO DAILY LAST DOSE GIVEN: DATE: TIME: NEXT DOSE DUE: DATE: TIME: Effexor Xr (Venlafaxine Hcl) 37.5 Mg Cap.er.24h 37.5 Mg PO DAILY LAST DOSE GIVEN: DATE: TIME: NEXT DOSE DUE: DATE: TIME: Percocet 7.5-325 Mg Tablet (Oxycodone Hcl/Acetaminophen) 1 Each Tablet 1 Tab PO PRN Q6HRS PRN LAST DOSE GIVEN: DATE: TIME: NEXT DOSE DUE: DATE: TIME: Zyprexa (Olanzapine) 2.5 Mg Tablet 2.5 Mg PO DAILY08 LAST DOSE GIVEN: DATE: TIME: NEXT DOSE DUE: DATE: TIME: Namenda (Memantine Hcl) 10 Mg Tablet 10 Mg PO DAILY LAST DOSE GIVEN: DATE: TIME: NEXT DOSE DUE: DATE: TIME: Cozaar (Losartan Potassium) 50 Mg Tablet 50 Mg PO DAILY LAST DOSE GIVEN: DATE: TIME: NEXT DOSE DUE: DATE: TIME: Hydrochlorothiazide Tablet (Hydrochlorothiazide) 25 Mg Tablet 25 Mg PO DAILY LAST DOSE GIVEN: DATE: TIME: NEXT DOSE DUE: DATE: TIME: Glucosamine [place] Msm Tab (Glucosamine/Msm/Chondroitin A) 1 Each Tablet 1 Tab PO DAILY LAST DOSE GIVEN: DATE: TIME: NEXT DOSE DUE: DATE: TIME: Calcium 500 + Vit D 200 Tablet (Calcium Carbonate/Vitamin D3) 1 Each Tablet 1 Tab PO DAILY Fenofibrate (Fenofibrate,Micronized) 134 Mg Capsule 134 Mg PO DAILYWSUP LAST DOSE GIVEN: DATE: TIME: NEXT DOSE DUE: DATE: TIME: Aspirin 325 Mg Tablet 325 Mg PO DAILY LAST DOSE GIVEN: DATE: TIME: NEXT DOSE DUE: DATE: TIME: Norvasc (Amlodipine Besylate) 10 Mg Tablet 10 Mg PO DAILY LAST DOSE GIVEN: DATE: TIME: NEXT DOSE DUE: DATE: TIME: Diagnosis: Problems: (1) Anxiety disorder (2) Dementia, vascular, with depression (3) Dementia, vascular, with delusions (4) Dementia in Alzheimer's disease with depression (5) Dementia in Alzheimer's disease with delusions (6) Impulse control disorder ERLINDA DYKES MD Jun 19, 2017 19:44
[2017-06-19] MEDS: MIRTAZAPINE 15 MG TABLET PO SCH (19:46)
[2017-06-19] MEDS: ATORVASTATIN CALCIUM 10 MG TABLET. PO SCH (19:47)
[2017-06-20 06:02] VITALS: BP 112/70
[2017-06-20] MEDS: GLUCOSAMINE/CHOND 500/400MG CAPSULE PO SCH (08:12)
[2017-06-20] MEDS: CALCIUM CARB/VIT D3 500/200 TABLET PO SCH (08:12)
[2017-06-20] MEDS: ASPIRIN 325 MG TABLET PO SCH (08:12)
[2017-06-20] MEDS: CHOLECALCIFEROL (VITAMIN D3) 50,000 UNIT CAPSULE PO SCH (08:13)
[2017-06-20] MEDS: MEMANTINE 10 MG TABLET. PO SCH ×2 (08:13→19:44)
[2017-06-20] MEDS: amLODIPine BESYLATE 10 MG TABLET PO SCH (08:13)
[2017-06-20] MEDS: LOSARTAN 50 MG TABLET. PO SCH (08:13)
[2017-06-20] MEDS: POTASSIUM CHLORIDE 20 MEQ TABLET.ER. PO SCH ×2 (08:13→19:44)
[2017-06-20] MEDS: QUEtiapine 25 MG TABLET. PO SCH ×2 (08:14→14:21)
[2017-06-20] MEDS: VENLAFAXINE XR 37.5 MG CAP.ER.24H. PO SCH (08:14)
[2017-06-20] MEDS: RIVASTIGMINE 13.3MG PATCH. TD SCH (08:15)
[2017-06-20] MEDS: LIDOCAINE (700MG/PATCH) PATCH. TD SCH (08:16)
[2017-06-20] MEDS: traZODone 50 MG TABLET. PO SCH ×4 (11:38→19:03)
[2017-06-20] MEDS: CYANOCOBALAMIN (VITAMIN B-12) 250 MCG TABLET PO SCH (11:45)
[2017-06-20 15:48] VITALS: BP 101/67
[2017-06-20] MEDS: CETIRIZINE HCL 10 MG TABLET PO SCH (16:00)
[2017-06-20] MEDS: FENOFIBRATE NANOCRYSTALLIZED 145 MG TABLET PO SCH (16:42)
[2017-06-20] MEDS: QUEtiapine 50 MG TABLET. PO SCH (16:42)
[2017-06-20] MEDS: FLUTICASONE 50MCG/NASAL SPRAY 16GM BOTTLE. NS SCH (17:09)
[2017-06-20] MEDS: ATORVASTATIN CALCIUM 10 MG TABLET. PO SCH (19:44)
[2017-06-20] MEDS: MIRTAZAPINE 15 MG TABLET PO SCH (19:44)
--- NOTE | 2017-06-20 19:51 | PDOC ---
Exam Niels Demential Exam: Niels Note: Please also refer to the separate dictated note~for this date of service dictated separately.~Patient seen individually. Discussed the patient with Nursing staff reviewed the chart.~Reviewed interim history and current functioning. Reviewed vital signs,~Labs/ Radiology~and current medications noted below. Continue current treatment with the changes noted in the dictated addendum note Assessment: Vital Signs: Vital Signs Date Time Temp Pulse Resp B/P (MAP) Pulse Ox O2 Delivery O2 Flow Rate FiO2 06/20/17 15:48 97.8 95 20 101/67 (78) 95 06/19/17 21:53 Room Air I&O Intake and Output 06/20/17 07:00 Intake Total 1080 ml Balance 1080 ml Intake Oral 1080 ml # Voids 2 Current Medications: Meds: Current Medications Acetaminophen (Tylenol) 650 mg PRN Q6HRS PRN PO PAIN / TEMP Last administered on 06/17/17 21:58; Start 05/26/17 at 22:45 Multi-Ingredient Ointment (Analgesic [place]) 1 tae PRN QID PRN TP MUSCLE PAIN; Start 05/26/17 at 22:45 Al Hydroxide/Mg Hydroxide (Mylanta Plus Xs) 15 ml PRN AFTMEALHC PRN PO DYSPEPSIA; Start 05/26/17 at 22:45 Magnesium Hydroxide (Milk Of Magnesia) 2,400 mg PRN QHS PRN PO CONSTIPATION; Start 05/26/17 at 22:45 Amlodipine Besylate (Norvasc) 10 mg DAILY PO Last administered on 06/20/17 08: 13; Start 05/27/17 at 09:00 Aspirin (Elsa Aspirin) 325 mg DAILY PO Last administered on 06/20/17 08:12; Start 05/27/17 at 09:00 Calcium/Vitamin D (Oscal D 500mg/ 200uts) 1 tab DAILY PO Last administered on 08:12; Start 05/27/17 at 09:00 Hydrochlorothiazide (Hydrodiuril) 25 mg DAILY PO Last administered on 05/29/17 08:21; Start 05/27/17 at 09:00; Stop 05/29/17 at 12:32; Status DC Losartan Potassium (Cozaar) 50 mg DAILY PO Last administered on 06/20/17 08:13 ; Start 05/27/17 at 09:00 Oxycodone/ Acetaminophen (Percocet 7.5/ 325) 1 tab PRN Q6HRS PRN PO SEVERE PAIN Last administered on 05/31/17 09:09; Start 05/27/17 at 01:30; Stop 05/31/17 at 12:28; Status DC Atorvastatin Calcium (Lipitor) 5 mg QHS PO Last administered on 06/20/17 19:44 ; Start 05/27/17 at 21:00 Fenofibrate (Tricor) 145 mg DAILYWSUP PO Last administered on 06/20/17 16:42; Start 05/27/17 at 17:00 Glucosamine/ Chondroitin (Glucosamine-Chondroitin 500/400mg) 1 cap DAILY PO Last administered on 06/20/17 08:12; Start 05/27/17 at 09:00 Memantine (Namenda) 10 mg DAILY PO Last administered on 05/27/17 08:30; Start 05/27/17 at 09:00; Stop 05/27/17 at 18:23; Status DC Olanzapine (ZyPREXA) 2.5 mg DAILY08 PO Last administered on 05/29/17 08:21; Start 05/27/17 at 08:00; Stop 05/29/17 at 18:52; Status DC Rivastigmine (Exelon) 1 patch DAILY TD Last administered on 05/27/17 08:31; Start 05/27/17 at 09:00; Stop 05/27/17 at 18:23; Status DC Venlafaxine HCl (Effexor Xr) 112.5 mg DAILY PO Last administered on 06/20/17 08:14; Start 05/27/17 at 09:00 Non-Formulary Medication 75 mg DAILY PO ; Start 05/27/17 at 09:00; Status UNV Potassium Chloride (Klor-Con) 20 meq BID PO Last administered on 06/20/17 19: 44; Start 05/27/17 at 21:00 Memantine (Namenda) 10 mg QHS PO Last administered on 06/06/17 19:44; Start at 21:00; Stop 06/07/17 at 13:34; Status DC Rivastigmine (Exelon 13.3mg) 1 patch DAILY TD Last administered on 06/20/17 08 :15; Start 05/28/17 at 09:00 Memantine (Namenda) 5 mg DAILY PO Last administered on 06/07/17 08:59; Start 05/28/17 at 09:00; Stop 06/07/17 at 13:34; Status DC Vitamin D (Vitamin D3) 50,000 unit WEEKLY PO Last administered on 06/20/17 08: 13; Start 05/30/17 at 09:00 Quetiapine Fumarate (SEROquel) 12.5 mg BID92 PO Last administered on 06/03/17 13:43; Start 05/30/17 at 09:00; Stop 06/03/17 at 18:32; Status DC Cyanocobalamin (Vitamin B-12) 250 mcg DAILYBFRLUN PO Last administered on 11:45; Start 05/31/17 at 11:30 Oxycodone/ Acetaminophen (Percocet 7.5/ 325) 1 tab PRN BID PRN PO SEVERE PAIN Last administered on 06/19/17 21:53; Start 05/31/17 at 18:00 Mirtazapine (Remeron) 7.5 mg QHS PO Last administered on 05/31/17 20:47; Start 05/31/17 at 21:00; Stop 06/01/17 at 18:30; Status DC Mirtazapine (Remeron) 15 mg QHS PO Last administered on 06/20/17 19:44; Start 06/01/17 at 21:00 Olanzapine (ZyPREXA ZYDIS) 1.25 mg PRN Q2HR PRN PO PSYCHOSIS Last administered on 06/19/17 21:26; Start 06/03/17 at 18:30 Quetiapine Fumarate (SEROquel) 12.5 mg TID@0900,1400,1800 PO Last administered on 06/05/17 18:00; Start 06/04/17 at 09:00; Stop 06/05/17 at 21:22; Status DC Quetiapine Fumarate (SEROquel) 12.5 mg BID@0900,1400 PO Last administered on 14:21; Start 06/06/17 at 09:00 Quetiapine Fumarate (SEROquel) 37.5 mg DAILY@1800 PO Last administered on 17:21; Start 06/06/17 at 18:00; Stop 06/08/17 at 18:35; Status DC Quetiapine Fumarate (SEROquel) 25 mg 1X ONCE PO Last administered on 21:27; Start 06/05/17 at 21:30; Stop 06/05/17 at 21:31; Status DC Memantine (Namenda) 10 mg BID PO Last administered on 06/20/17 19:44; Start at 21:00 Quetiapine Fumarate (SEROquel) 50 mg 1700 PO Last administered on 06/13/17 16: 35; Start 06/09/17 at 17:00; Stop 06/14/17 at 13:03; Status DC Hydroxyzine HCl (Atarax) 25 mg PRN Q2HR PRN PO PSYCHOSIS Last administered on 19:33; Start 06/10/17 at 18:30 Trazodone HCl (Desyrel) 12.5 mg DAILYWSUP PO Last administered on 06/18/17 17: 00; Start 06/12/17 at 17:00; Stop 06/19/17 at 04:21; Status DC Trazodone HCl (Desyrel) 12.5 mg 1X ONCE PO Last administered on 06/11/17 19: 47; Start 06/11/17 at 20:00; Stop 06/11/17 at 20:01; Status DC Quetiapine Fumarate (SEROquel) 50 mg 1700 PO Last administered on 06/20/17 16: 42; Start 06/14/17 at 17:00 Trazodone HCl (Desyrel) 12.5 mg NOON PO Last administered on 06/18/17 13:57; Start 06/15/17 at 12:00; Stop 06/19/17 at 04:21; Status DC Trazodone HCl (Desyrel) 12.5 mg BID@1200,1700 PO Last administered on 16:43; Start 06/19/17 at 12:00; Stop 06/20/17 at 18:19; Status DC Lidocaine (Lidoderm) 1 patch DAILY TD Last administered on 06/20/17 08:16; Start 06/19/17 at 12:30 Trazodone HCl (Desyrel) 25 mg DAILY@1900 PO Last administered on 06/20/17 19: 03; Start 06/19/17 at 22:00; Stop 06/20/17 at 19:05; Status DC Cetirizine HCl (ZyrTEC) 10 mg DAILY PO Last administered on 06/20/17 16:00; Start 06/20/17 at 16:00 Fluticasone Propionate (Flonase) 2 spray DAILY NS Last administered on 17:09; Start 06/20/17 at 16:00 Trazodone HCl (Desyrel) 25 mg TID@1200,1700,1900 PO ; Start 06/20/17 at 19:00 Active Scripts Active Reported EXELON 9.5mg/24hr (Rivastigmine) 1 Each Patch.td24 1 Patch TD DAILY LAST DOSE GIVEN: DATE: TIME: NEXT DOSE DUE: DATE: TIME: Simvastatin 10 Mg Tablet 10 Mg PO HS LAST DOSE GIVEN: DATE: TIME: NEXT DOSE DUE: DATE: TIME: Effexor Xr (Venlafaxine Hcl) 75 Mg Cap.er.24h 75 Mg PO DAILY LAST DOSE GIVEN: DATE: TIME: NEXT DOSE DUE: DATE: TIME: Effexor Xr (Venlafaxine Hcl) 37.5 Mg Cap.er.24h 37.5 Mg PO DAILY LAST DOSE GIVEN: DATE: TIME: NEXT DOSE DUE: DATE: TIME: Percocet 7.5-325 Mg Tablet (Oxycodone Hcl/Acetaminophen) 1 Each Tablet 1 Tab PO PRN Q6HRS PRN LAST DOSE GIVEN: DATE: TIME: NEXT DOSE DUE: DATE: TIME: Zyprexa (Olanzapine) 2.5 Mg Tablet 2.5 Mg PO DAILY08 LAST DOSE GIVEN: DATE: TIME: NEXT DOSE DUE: DATE: TIME: Namenda (Memantine Hcl) 10 Mg Tablet 10 Mg PO DAILY LAST DOSE GIVEN: DATE: TIME: NEXT DOSE DUE: DATE: TIME: Cozaar (Losartan Potassium) 50 Mg Tablet 50 Mg PO DAILY LAST DOSE GIVEN: DATE: TIME: NEXT DOSE DUE: DATE: TIME: Hydrochlorothiazide Tablet (Hydrochlorothiazide) 25 Mg Tablet 25 Mg PO DAILY LAST DOSE GIVEN: DATE: TIME: NEXT DOSE DUE: DATE: TIME: Glucosamine Chondroit Msm Tab (Glucosamine/Msm/Chondroitin A) 1 Each Tablet 1 Tab PO DAILY LAST DOSE GIVEN: DATE: TIME: NEXT DOSE DUE: DATE: TIME: Calcium 500 + Vit D 200 Tablet (Calcium Carbonate/Vitamin D3) 1 Each Tablet 1 Tab PO DAILY Fenofibrate (Fenofibrate,Micronized) 134 Mg Capsule 134 Mg PO DAILYWSUP LAST DOSE GIVEN: DATE: TIME: NEXT DOSE DUE: DATE: TIME: Aspirin 325 Mg Tablet 325 Mg PO DAILY LAST DOSE GIVEN: DATE: TIME: NEXT DOSE DUE: DATE: TIME: Norvasc (Amlodipine Besylate) 10 Mg Tablet 10 Mg PO DAILY LAST DOSE GIVEN: DATE: TIME: NEXT DOSE DUE: DATE: TIME: Diagnosis: Problems: (1) Anxiety disorder (2) Dementia, vascular, with depression (3) Dementia, vascular, with delusions (4) Dementia in Alzheimer'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
[2017-06-21 07:45] VITALS: BP 118/57
[2017-06-21] MEDS: POTASSIUM CHLORIDE 20 MEQ TABLET.ER. PO SCH ×2 (08:38→19:05)
[2017-06-21] MEDS: MEMANTINE 10 MG TABLET. PO SCH ×2 (08:38→19:05)
[2017-06-21] MEDS: CETIRIZINE HCL 10 MG TABLET PO SCH (08:38)
[2017-06-21] MEDS: ASPIRIN 325 MG TABLET PO SCH (08:38)
[2017-06-21] MEDS: LOSARTAN 50 MG TABLET. PO SCH (08:39)
[2017-06-21] MEDS: CALCIUM CARB/VIT D3 500/200 TABLET PO SCH (08:39)
[2017-06-21] MEDS: VENLAFAXINE XR 37.5 MG CAP.ER.24H. PO SCH (08:41)
[2017-06-21] MEDS: GLUCOSAMINE/CHOND 500/400MG CAPSULE PO SCH (08:42)
[2017-06-21] MEDS: amLODIPine BESYLATE 10 MG TABLET PO SCH (08:42)
[2017-06-21] MEDS: RIVASTIGMINE 13.3MG PATCH. TD SCH (08:42)
[2017-06-21] MEDS: QUEtiapine 25 MG TABLET. PO SCH ×2 (08:42→13:59)
[2017-06-21] MEDS: LIDOCAINE (700MG/PATCH) PATCH. TD SCH (08:43)
[2017-06-21] MEDS: FLUTICASONE 50MCG/NASAL SPRAY 16GM BOTTLE. NS SCH (08:44)
--- NOTE | 2017-06-21 09:37 | PN ---
DATE: 06/19/2017 PSYCHIATRIC PROGRESS NOTE This is a late entry 06/19/2017, covers elements not covered in my initial note. SUBJECTIVE: I met with the patient the evening of 06/19/2017. At times, the patient is more irritable especially in the evening, calm, more compliant during the day. REVIEW OF SYSTEMS: No CV, , pulmonary, eye, ENT system symptoms on review. MENTAL STATUS EXAM: Oriented to herself. Insight, judgment, recent and remote memory, attention, concentration, fund of knowledge poor, consistent with her diagnoses mentioned in my initial note. PLAN: During the evening hours, the patient gets the way she feels she is a staff member, intrusive, disruptive. Discussed with staff. We will go ahead and increase her trazodone from 12.5 mg b.i.d. at noon . Make further adjustments as clinically indicated. Review drug interactions, risk/benefit ratio, favors no further changes of now. ERLINDA DYKES MD DR: MELISSA/gurmeet JOB#: [id number] / [id number]
[2017-06-21] MEDS: CYANOCOBALAMIN (VITAMIN B-12) 250 MCG TABLET PO SCH (11:30)
[2017-06-21] MEDS: traZODone 50 MG TABLET. PO SCH ×3 (11:32→19:07)
[2017-06-21] MEDS: oxyCODONE/APAP 7.5/325 1 TAB TABLET PO PRN (14:05)
[2017-06-21 15:53] VITALS: BP 113/69
[2017-06-21] MEDS: FENOFIBRATE NANOCRYSTALLIZED 145 MG TABLET PO SCH (17:33)
[2017-06-21] MEDS: QUEtiapine 50 MG TABLET. PO SCH (17:33)
[2017-06-21] MEDS: MIRTAZAPINE 15 MG TABLET PO SCH (19:05)
[2017-06-21] MEDS: ATORVASTATIN CALCIUM 10 MG TABLET. PO SCH (19:06)
--- NOTE | 2017-06-21 19:51 | PDOC ---
Exam Niels Demential Exam: Niels Note: Please also refer to the separate dictated note~for this date of service dictated separately.~Patient seen individually. Discussed the patient with Nursing staff reviewed the chart.~Reviewed interim history and current functioning. Reviewed vital signs,~Labs/ Radiology~and current medications noted below. Continue current treatment with the changes noted in the dictated addendum note Assessment: Vital Signs: Vital Signs Date Time Temp Pulse Resp B/P (MAP) Pulse Ox O2 Delivery O2 Flow Rate FiO2 06/21/17 15:53 97.6 73 18 113/69 (84) 97 06/21/17 07:45 Room Air I&O Intake and Output 06/22/17 07:00 Intake Total 840 ml Balance 840 ml Intake Oral 840 ml Current Medications: Meds: Current Medications Acetaminophen (Tylenol) 650 mg PRN Q6HRS PRN PO PAIN / TEMP Last administered on 06/17/17 21:58; Start 05/26/17 at 22:45 Multi-Ingredient Ointment (Analgesic [place]) 1 tae PRN QID PRN TP MUSCLE PAIN; Start 05/26/17 at 22:45 Al Hydroxide/Mg Hydroxide (Mylanta Plus Xs) 15 ml PRN AFTMEALHC PRN PO DYSPEPSIA; Start 05/26/17 at 22:45 Magnesium Hydroxide (Milk Of Magnesia) 2,400 mg PRN QHS PRN PO CONSTIPATION; Start 05/26/17 at 22:45 Amlodipine Besylate (Norvasc) 10 mg DAILY PO Last administered on 06/21/17 08: 42; Start 05/27/17 at 09:00 Aspirin (Elsa Aspirin) 325 mg DAILY PO Last administered on 06/21/17 08:38; Start 05/27/17 at 09:00 Calcium/Vitamin D (Oscal D 500mg/ 200uts) 1 tab DAILY PO Last administered on 08:39; Start 05/27/17 at 09:00 Hydrochlorothiazide (Hydrodiuril) 25 mg DAILY PO Last administered on 05/29/17 08:21; Start 05/27/17 at 09:00; Stop 05/29/17 at 12:32; Status DC Losartan Potassium (Cozaar) 50 mg DAILY PO Last administered on 06/21/17 08:39 ; Start 05/27/17 at 09:00 Oxycodone/ Acetaminophen (Percocet 7.5/ 325) 1 tab PRN Q6HRS PRN PO SEVERE PAIN Last administered on 05/31/17 09:09; Start 05/27/17 at 01:30; Stop 05/31/17 at 12:28; Status DC Atorvastatin Calcium (Lipitor) 5 mg QHS PO Last administered on 06/21/17 19:06 ; Start 05/27/17 at 21:00 Fenofibrate (Tricor) 145 mg DAILYWSUP PO Last administered on 06/21/17 17:33; Start 05/27/17 at 17:00 Glucosamine/ Chondroitin (Glucosamine-Chondroitin 500/400mg) 1 cap DAILY PO Last administered on 06/21/17 08:42; Start 05/27/17 at 09:00 Memantine (Namenda) 10 mg DAILY PO Last administered on 05/27/17 08:30; Start 05/27/17 at 09:00; Stop 05/27/17 at 18:23; Status DC Olanzapine (ZyPREXA) 2.5 mg DAILY08 PO Last administered on 05/29/17 08:21; Start 05/27/17 at 08:00; Stop 05/29/17 at 18:52; Status DC Rivastigmine (Exelon) 1 patch DAILY TD Last administered on 05/27/17 08:31; Start 05/27/17 at 09:00; Stop 05/27/17 at 18:23; Status DC Venlafaxine HCl (Effexor Xr) 112.5 mg DAILY PO Last administered on 06/21/17 08:41; Start 05/27/17 at 09:00 Non-Formulary Medication 75 mg DAILY PO ; Start 05/27/17 at 09:00; Status UNV Potassium Chloride (Klor-Con) 20 meq BID PO Last administered on 06/21/17 19: 05; Start 05/27/17 at 21:00 Memantine (Namenda) 10 mg QHS PO Last administered on 06/06/17 19:44; Start at 21:00; Stop 06/07/17 at 13:34; Status DC Rivastigmine (Exelon 13.3mg) 1 patch DAILY TD Last administered on 06/21/17 08 :42; Start 05/28/17 at 09:00 Memantine (Namenda) 5 mg DAILY PO Last administered on 06/07/17 08:59; Start 05/28/17 at 09:00; Stop 06/07/17 at 13:34; Status DC Vitamin D (Vitamin D3) 50,000 unit WEEKLY PO Last administered on 06/20/17 08: 13; Start 05/30/17 at 09:00 Quetiapine Fumarate (SEROquel) 12.5 mg BID92 PO Last administered on 06/03/17 13:43; Start 05/30/17 at 09:00; Stop 06/03/17 at 18:32; Status DC Cyanocobalamin (Vitamin B-12) 250 mcg DAILYBFRLUN PO Last administered on 11:30; Start 05/31/17 at 11:30 Oxycodone/ Acetaminophen (Percocet 7.5/ 325) 1 tab PRN BID PRN PO SEVERE PAIN Last administered on 06/21/17 14:05; Start 05/31/17 at 18:00 Mirtazapine (Remeron) 7.5 mg QHS PO Last administered on 05/31/17 20:47; Start 05/31/17 at 21:00; Stop 06/01/17 at 18:30; Status DC Mirtazapine (Remeron) 15 mg QHS PO Last administered on 06/21/17 19:05; Start 06/01/17 at 21:00 Olanzapine (ZyPREXA ZYDIS) 1.25 mg PRN Q2HR PRN PO PSYCHOSIS Last administered on 06/19/17 21:26; Start 06/03/17 at 18:30 Quetiapine Fumarate (SEROquel) 12.5 mg TID@0900,1400,1800 PO Last administered on 06/05/17 18:00; Start 06/04/17 at 09:00; Stop 06/05/17 at 21:22; Status DC Quetiapine Fumarate (SEROquel) 12.5 mg BID@0900,1400 PO Last administered on 13:59; Start 06/06/17 at 09:00 Quetiapine Fumarate (SEROquel) 37.5 mg DAILY@1800 PO Last administered on 17:21; Start 06/06/17 at 18:00; Stop 06/08/17 at 18:35; Status DC Quetiapine Fumarate (SEROquel) 25 mg 1X ONCE PO Last administered on 21:27; Start 06/05/17 at 21:30; Stop 06/05/17 at 21:31; Status DC Memantine (Namenda) 10 mg BID PO Last administered on 06/21/17 19:05; Start at 21:00 Quetiapine Fumarate (SEROquel) 50 mg 1700 PO Last administered on 06/13/17 16: 35; Start 06/09/17 at 17:00; Stop 06/14/17 at 13:03; Status DC Hydroxyzine HCl (Atarax) 25 mg PRN Q2HR PRN PO PSYCHOSIS Last administered on 19:33; Start 06/10/17 at 18:30 Trazodone HCl (Desyrel) 12.5 mg DAILYWSUP PO Last administered on 06/18/17 17: 00; Start 06/12/17 at 17:00; Stop 06/19/17 at 04:21; Status DC Trazodone HCl (Desyrel) 12.5 mg 1X ONCE PO Last administered on 06/11/17 19: 47; Start 06/11/17 at 20:00; Stop 06/11/17 at 20:01; Status DC Quetiapine Fumarate (SEROquel) 50 mg 1700 PO Last administered on 06/21/17 17: 33; Start 06/14/17 at 17:00 Trazodone HCl (Desyrel) 12.5 mg NOON PO Last administered on 06/18/17 13:57; Start 06/15/17 at 12:00; Stop 06/19/17 at 04:21; Status DC Trazodone HCl (Desyrel) 12.5 mg BID@1200,1700 PO Last administered on 16:43; Start 06/19/17 at 12:00; Stop 06/20/17 at 18:19; Status DC Lidocaine (Lidoderm) 1 patch DAILY TD Last administered on 06/21/17 08:43; Start 06/19/17 at 12:30 Trazodone HCl (Desyrel) 25 mg DAILY@1900 PO Last administered on 06/20/17 19: 03; Start 06/19/17 at 22:00; Stop 06/20/17 at 19:05; Status DC Cetirizine HCl (ZyrTEC) 10 mg DAILY PO Last administered on 06/21/17 08:38; Start 06/20/17 at 16:00 Fluticasone Propionate (Flonase) 2 spray DAILY NS Last administered on 08:44; Start 06/20/17 at 16:00 Trazodone HCl (Desyrel) 25 mg TID@1200,1700,1900 PO Last administered on 19:07; Start 06/20/17 at 19:00 Active Scripts Active Reported EXELON 9.5mg/24hr (Rivastigmine) 1 Each Patch.td24 1 Patch TD DAILY LAST DOSE GIVEN: DATE: TIME: NEXT DOSE DUE: DATE: TIME: Simvastatin 10 Mg Tablet 10 Mg PO HS LAST DOSE GIVEN: DATE: TIME: NEXT DOSE DUE: DATE: TIME: Effexor Xr (Venlafaxine Hcl) 75 Mg Cap.er.24h 75 Mg PO DAILY LAST DOSE GIVEN: DATE: TIME: NEXT DOSE DUE: DATE: TIME: Effexor Xr (Venlafaxine Hcl) 37.5 Mg Cap.er.24h 37.5 Mg PO DAILY LAST DOSE GIVEN: DATE: TIME: NEXT DOSE DUE: DATE: TIME: Percocet 7.5-325 Mg Tablet (Oxycodone Hcl/Acetaminophen) 1 Each Tablet 1 Tab PO PRN Q6HRS PRN LAST DOSE GIVEN: DATE: TIME: NEXT DOSE DUE: DATE: TIME: Zyprexa (Olanzapine) 2.5 Mg Tablet 2.5 Mg PO DAILY08 LAST DOSE GIVEN: DATE: TIME: NEXT DOSE DUE: DATE: TIME: Namenda (Memantine Hcl) 10 Mg Tablet 10 Mg PO DAILY LAST DOSE GIVEN: DATE: TIME: NEXT DOSE DUE: DATE: TIME: Cozaar (Losartan Potassium) 50 Mg Tablet 50 Mg PO DAILY LAST DOSE GIVEN: DATE: TIME: NEXT DOSE DUE: DATE: TIME: Hydrochlorothiazide Tablet (Hydrochlorothiazide) 25 Mg Tablet 25 Mg PO DAILY LAST DOSE GIVEN: DATE: TIME: NEXT DOSE DUE: DATE: TIME: Glucosamine Chondroit Msm Tab (Glucosamine/Msm/Chondroitin A) 1 Each Tablet 1 Tab PO DAILY LAST DOSE GIVEN: DATE: TIME: NEXT DOSE DUE: DATE: TIME: Calcium 500 + Vit D 200 Tablet (Calcium Carbonate/Vitamin D3) 1 Each Tablet 1 Tab PO DAILY Fenofibrate (Fenofibrate,Micronized) 134 Mg Capsule 134 Mg PO DAILYWSUP LAST DOSE GIVEN: DATE: TIME: NEXT DOSE DUE: DATE: TIME: Aspirin 325 Mg Tablet 325 Mg PO DAILY LAST DOSE GIVEN: DATE: TIME: NEXT DOSE DUE: DATE: TIME: Norvasc (Amlodipine Besylate) 10 Mg Tablet 10 Mg PO DAILY LAST DOSE GIVEN: DATE: TIME: NEXT DOSE DUE: DATE: TIME: Diagnosis: Problems: (1) Anxiety disorder (2) Dementia, vascular, with depression (3) Dementia, vascular, with delusions (4) Dementia in Alzheimer's disease with depression (5) Dementia in Alzheimer's disease with delusions (6) Impulse control disorder ERLINDA DYKES MD Jun 21, 2017 19:51
--- NOTE | 2017-06-22 01:44 | PN ---
DATE: 06/20/2017 PSYCHIATRIC PROGRESS NOTE This is a late entry for 06/20/2017, covers elements not covered in my initial note of 06/20/2017. SUBJECTIVE: I met with the patient the evening of 06/20/2017. At times, the patient is difficult to redirect more in the evening. Previous evening, she was delusional, Zyprexa had had little help. Today, she is roaming the hallways, anxious, restless, more so in the evening. REVIEW OF SYSTEMS: No CV, , pulmonary, eye, ENT system symptoms on review. Reliability poor. MENTAL STATUS EXAM: Oriented to herself. Insight, judgment, recent and remote memory, attention, concentration, fund of knowledge poor, consistent with her diagnosis mentioned in my initial note. PLAN: Increase trazodone to 25 mg 3 times a day. Maintain the rest of the psychotropics as before including Namenda, Exelon patch, Seroquel, Remeron and Zyprexa p.r.n., Atarax p.r.n. Adjust further as clinically indicated. Reviewed drug interactions. Risk/benefit ratio favors no further change as of now. MAN Amor DYKES MD DR: MELISSA/gurmeet JOB#: [id number] / [id number]
[2017-06-22 05:58] VITALS: BP 104/63
[2017-06-22] MEDS: CETIRIZINE HCL 10 MG TABLET PO SCH (08:24)
[2017-06-22] MEDS: FLUTICASONE 50MCG/NASAL SPRAY 16GM BOTTLE. NS SCH (08:24)
[2017-06-22] MEDS: ASPIRIN 325 MG TABLET PO SCH (08:25)
[2017-06-22] MEDS: LOSARTAN 50 MG TABLET. PO SCH (08:25)
[2017-06-22] MEDS: GLUCOSAMINE/CHOND 500/400MG CAPSULE PO SCH (08:25)
[2017-06-22] MEDS: QUEtiapine 25 MG TABLET. PO SCH ×2 (08:26→13:43)
[2017-06-22] MEDS: POTASSIUM CHLORIDE 20 MEQ TABLET.ER. PO SCH ×2 (08:26→19:16)
[2017-06-22] MEDS: MEMANTINE 10 MG TABLET. PO SCH ×2 (08:26→19:17)
[2017-06-22] MEDS: VENLAFAXINE XR 37.5 MG CAP.ER.24H. PO SCH (08:27)
[2017-06-22] MEDS: amLODIPine BESYLATE 10 MG TABLET PO SCH (08:27)
[2017-06-22] MEDS: CALCIUM CARB/VIT D3 500/200 TABLET PO SCH (08:27)
[2017-06-22] MEDS: RIVASTIGMINE 13.3MG PATCH. TD SCH (08:28)
[2017-06-22] MEDS: LIDOCAINE (700MG/PATCH) PATCH. TD SCH (08:29)
[2017-06-22] MEDS: CYANOCOBALAMIN (VITAMIN B-12) 250 MCG TABLET PO SCH (11:47)
[2017-06-22] MEDS: traZODone 50 MG TABLET. PO SCH ×3 (11:49→19:16)
[2017-06-22 16:16] VITALS: BP 94/52
[2017-06-22] MEDS: QUEtiapine 50 MG TABLET. PO SCH (17:32)
[2017-06-22] MEDS: FENOFIBRATE NANOCRYSTALLIZED 145 MG TABLET PO SCH (17:33)
[2017-06-22] MEDS: MIRTAZAPINE 15 MG TABLET PO SCH (19:16)
[2017-06-22] MEDS: ATORVASTATIN CALCIUM 10 MG TABLET. PO SCH (19:17)
--- NOTE | 2017-06-22 19:59 | PDOC ---
Exam Niels Demential Exam: Niels Note: Please also refer to the separate dictated note~for this date of service dictated separately.~Patient seen individually. Discussed the patient with Nursing staff reviewed the chart.~Reviewed interim history and current functioning. Reviewed vital signs,~Labs/ Radiology~and current medications noted below. Continue current treatment with the changes noted in the dictated addendum note Assessment: Vital Signs: Vital Signs Date Time Temp Pulse Resp B/P (MAP) Pulse Ox O2 Delivery O2 Flow Rate FiO2 06/22/17 16:16 98.4 72 18 94/52 (66) 98 06/21/17 07:45 Room Air I&O Intake and Output 06/23/17 07:00 Intake Total 1200 ml Balance 1200 ml Intake Oral 1200 ml Current Medications: Meds: Current Medications Acetaminophen (Tylenol) 650 mg PRN Q6HRS PRN PO PAIN / TEMP Last administered on 06/17/17 21:58; Start 05/26/17 at 22:45 Multi-Ingredient Ointment (Analgesic [place]) 1 tae PRN QID PRN TP MUSCLE PAIN; Start 05/26/17 at 22:45 Al Hydroxide/Mg Hydroxide (Mylanta Plus Xs) 15 ml PRN AFTMEALHC PRN PO DYSPEPSIA; Start 05/26/17 at 22:45 Magnesium Hydroxide (Milk Of Magnesia) 2,400 mg PRN QHS PRN PO CONSTIPATION; Start 05/26/17 at 22:45 Amlodipine Besylate (Norvasc) 10 mg DAILY PO Last administered on 06/22/17 08: 27; Start 05/27/17 at 09:00 Aspirin (Elsa Aspirin) 325 mg DAILY PO Last administered on 06/22/17 08:25; Start 05/27/17 at 09:00 Calcium/Vitamin D (Oscal D 500mg/ 200uts) 1 tab DAILY PO Last administered on 08:27; Start 05/27/17 at 09:00 Hydrochlorothiazide (Hydrodiuril) 25 mg DAILY PO Last administered on 05/29/17 08:21; Start 05/27/17 at 09:00; Stop 05/29/17 at 12:32; Status DC Losartan Potassium (Cozaar) 50 mg DAILY PO Last administered on 06/22/17 08:25 ; Start 05/27/17 at 09:00 Oxycodone/ Acetaminophen (Percocet 7.5/ 325) 1 tab PRN Q6HRS PRN PO SEVERE PAIN Last administered on 05/31/17 09:09; Start 05/27/17 at 01:30; Stop 05/31/17 at 12:28; Status DC Atorvastatin Calcium (Lipitor) 5 mg QHS PO Last administered on 06/22/17 19:17 ; Start 05/27/17 at 21:00 Fenofibrate (Tricor) 145 mg DAILYWSUP PO Last administered on 06/22/17 17:33; Start 05/27/17 at 17:00 Glucosamine/ Chondroitin (Glucosamine-Chondroitin 500/400mg) 1 cap DAILY PO Last administered on 06/22/17 08:25; Start 05/27/17 at 09:00 Memantine (Namenda) 10 mg DAILY PO Last administered on 05/27/17 08:30; Start 05/27/17 at 09:00; Stop 05/27/17 at 18:23; Status DC Olanzapine (ZyPREXA) 2.5 mg DAILY08 PO Last administered on 05/29/17 08:21; Start 05/27/17 at 08:00; Stop 05/29/17 at 18:52; Status DC Rivastigmine (Exelon) 1 patch DAILY TD Last administered on 05/27/17 08:31; Start 05/27/17 at 09:00; Stop 05/27/17 at 18:23; Status DC Venlafaxine HCl (Effexor Xr) 112.5 mg DAILY PO Last administered on 06/22/17 08:27; Start 05/27/17 at 09:00 Non-Formulary Medication 75 mg DAILY PO ; Start 05/27/17 at 09:00; Status UNV Potassium Chloride (Klor-Con) 20 meq BID PO Last administered on 06/22/17 19: 16; Start 05/27/17 at 21:00 Memantine (Namenda) 10 mg QHS PO Last administered on 06/06/17 19:44; Start at 21:00; Stop 06/07/17 at 13:34; Status DC Rivastigmine (Exelon 13.3mg) 1 patch DAILY TD Last administered on 06/22/17 08 :28; Start 05/28/17 at 09:00 Memantine (Namenda) 5 mg DAILY PO Last administered on 06/07/17 08:59; Start 05/28/17 at 09:00; Stop 06/07/17 at 13:34; Status DC Vitamin D (Vitamin D3) 50,000 unit WEEKLY PO Last administered on 06/20/17 08: 13; Start 05/30/17 at 09:00 Quetiapine Fumarate (SEROquel) 12.5 mg BID92 PO Last administered on 06/03/17 13:43; Start 05/30/17 at 09:00; Stop 06/03/17 at 18:32; Status DC Cyanocobalamin (Vitamin B-12) 250 mcg DAILYBFRLUN PO Last administered on 11:47; Start 05/31/17 at 11:30 Oxycodone/ Acetaminophen (Percocet 7.5/ 325) 1 tab PRN BID PRN PO SEVERE PAIN Last administered on 06/21/17 14:05; Start 05/31/17 at 18:00 Mirtazapine (Remeron) 7.5 mg QHS PO Last administered on 05/31/17 20:47; Start 05/31/17 at 21:00; Stop 06/01/17 at 18:30; Status DC Mirtazapine (Remeron) 15 mg QHS PO Last administered on 06/22/17 19:16; Start 06/01/17 at 21:00 Olanzapine (ZyPREXA ZYDIS) 1.25 mg PRN Q2HR PRN PO PSYCHOSIS Last administered on 06/19/17 21:26; Start 06/03/17 at 18:30 Quetiapine Fumarate (SEROquel) 12.5 mg TID@0900,1400,1800 PO Last administered on 06/05/17 18:00; Start 06/04/17 at 09:00; Stop 06/05/17 at 21:22; Status DC Quetiapine Fumarate (SEROquel) 12.5 mg BID@0900,1400 PO Last administered on 13:43; Start 06/06/17 at 09:00 Quetiapine Fumarate (SEROquel) 37.5 mg DAILY@1800 PO Last administered on 17:21; Start 06/06/17 at 18:00; Stop 06/08/17 at 18:35; Status DC Quetiapine Fumarate (SEROquel) 25 mg 1X ONCE PO Last administered on 21:27; Start 06/05/17 at 21:30; Stop 06/05/17 at 21:31; Status DC Memantine (Namenda) 10 mg BID PO Last administered on 06/22/17 19:17; Start at 21:00 Quetiapine Fumarate (SEROquel) 50 mg 1700 PO Last administered on 06/13/17 16: 35; Start 06/09/17 at 17:00; Stop 06/14/17 at 13:03; Status DC Hydroxyzine HCl (Atarax) 25 mg PRN Q2HR PRN PO PSYCHOSIS Last administered on 19:33; Start 06/10/17 at 18:30 Trazodone HCl (Desyrel) 12.5 mg DAILYWSUP PO Last administered on 06/18/17 17: 00; Start 06/12/17 at 17:00; Stop 06/19/17 at 04:21; Status DC Trazodone HCl (Desyrel) 12.5 mg 1X ONCE PO Last administered on 06/11/17 19: 47; Start 06/11/17 at 20:00; Stop 06/11/17 at 20:01; Status DC Quetiapine Fumarate (SEROquel) 50 mg 1700 PO Last administered on 06/22/17 17: 32; Start 06/14/17 at 17:00 Trazodone HCl (Desyrel) 12.5 mg NOON PO Last administered on 06/18/17 13:57; Start 06/15/17 at 12:00; Stop 06/19/17 at 04:21; Status DC Trazodone HCl (Desyrel) 12.5 mg BID@1200,1700 PO Last administered on 16:43; Start 06/19/17 at 12:00; Stop 06/20/17 at 18:19; Status DC Lidocaine (Lidoderm) 1 patch DAILY TD Last administered on 06/22/17 08:29; Start 06/19/17 at 12:30 Trazodone HCl (Desyrel) 25 mg DAILY@1900 PO Last administered on 06/20/17 19: 03; Start 06/19/17 at 22:00; Stop 06/20/17 at 19:05; Status DC Cetirizine HCl (ZyrTEC) 10 mg DAILY PO Last administered on 06/22/17 08:24; Start 06/20/17 at 16:00 Fluticasone Propionate (Flonase) 2 spray DAILY NS Last administered on 08:24; Start 06/20/17 at 16:00 Trazodone HCl (Desyrel) 25 mg TID@1200,1700,1900 PO Last administered on 19:16; Start 06/20/17 at 19:00 Active Scripts Active Reported EXELON 9.5mg/24hr (Rivastigmine) 1 Each Patch.td24 1 Patch TD DAILY LAST DOSE GIVEN: DATE: TIME: NEXT DOSE DUE: DATE: TIME: Simvastatin 10 Mg Tablet 10 Mg PO HS LAST DOSE GIVEN: DATE: TIME: NEXT DOSE DUE: DATE: TIME: Effexor Xr (Venlafaxine Hcl) 75 Mg Cap.er.24h 75 Mg PO DAILY LAST DOSE GIVEN: DATE: TIME: NEXT DOSE DUE: DATE: TIME: Effexor Xr (Venlafaxine Hcl) 37.5 Mg Cap.er.24h 37.5 Mg PO DAILY LAST DOSE GIVEN: DATE: TIME: NEXT DOSE DUE: DATE: TIME: Percocet 7.5-325 Mg Tablet (Oxycodone Hcl/Acetaminophen) 1 Each Tablet 1 Tab PO PRN Q6HRS PRN LAST DOSE GIVEN: DATE: TIME: NEXT DOSE DUE: DATE: TIME: Zyprexa (Olanzapine) 2.5 Mg Tablet 2.5 Mg PO DAILY08 LAST DOSE GIVEN: DATE: TIME: NEXT DOSE DUE: DATE: TIME: Namenda (Memantine Hcl) 10 Mg Tablet 10 Mg PO DAILY LAST DOSE GIVEN: DATE: TIME: NEXT DOSE DUE: DATE: TIME: Cozaar (Losartan Potassium) 50 Mg Tablet 50 Mg PO DAILY LAST DOSE GIVEN: DATE: TIME: NEXT DOSE DUE: DATE: TIME: Hydrochlorothiazide Tablet (Hydrochlorothiazide) 25 Mg Tablet 25 Mg PO DAILY LAST DOSE GIVEN: DATE: TIME: NEXT DOSE DUE: DATE: TIME: Glucosamine Chondroit Msm Tab (Glucosamine/Msm/Chondroitin A) 1 Each Tablet 1 Tab PO DAILY LAST DOSE GIVEN: DATE: TIME: NEXT DOSE DUE: DATE: TIME: Calcium 500 + Vit D 200 Tablet (Calcium Carbonate/Vitamin D3) 1 Each Tablet 1 Tab PO DAILY Fenofibrate (Fenofibrate,Micronized) 134 Mg Capsule 134 Mg PO DAILYWSUP LAST DOSE GIVEN: DATE: TIME: NEXT DOSE DUE: DATE: TIME: Aspirin 325 Mg Tablet 325 Mg PO DAILY LAST DOSE GIVEN: DATE: TIME: NEXT DOSE DUE: DATE: TIME: Norvasc (Amlodipine Besylate) 10 Mg Tablet 10 Mg PO DAILY LAST DOSE GIVEN: DATE: TIME: NEXT DOSE DUE: DATE: TIME: Diagnosis: Problems: (1) Anxiety disorder (2) Dementia, vascular, with depression (3) Dementia, vascular, with delusions (4) Dementia in Alzheimer'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
[2017-06-22] MEDS: oxyCODONE/APAP 7.5/325 1 TAB TABLET PO PRN (20:30)
--- NOTE | 2017-06-23 00:47 | PN ---
DATE: 06/21/2017 This late entry 06/21/2017 covers elements not covered in my initial note of 06/21/2017. I met with the patient evening of 06/21/2017. I also met with the patient's at some length, discussed the patient's progress, diagnosis, and aftercare plans. The patient slept 5 hours previous evening, did well previous night, cooperative, not fixated on working, and less intrusive needing less redirections. REVIEW OF SYSTEMS: No CV, , pulmonary, eye, ENT system symptoms on review. MENTAL STATUS EXAM: Oriented to herself. Insight, judgment, recent memory is impaired. Language function intact, attention span short. Mood and affect still somewhat anxious, but improved. No suicidal or homicidal ideation. LABORATORY DATA: Reviewed. IMPRESSION: Unchanged from initial note. PLAN: Continue current psychotropics. Reviewed drug interactions, risk/benefit ratio favors no further change as of now. ERLINDA DYKES MD DR: MELISSA/gurmeet JOB#: [id number] / [id number]
[2017-06-23] MEDS ORDERED: ACET325T9 PO (02:31)
[2017-06-23] MEDS ORDERED: CETI10TA16 PO (02:34)
[2017-06-23] MEDS ORDERED: CYAN250T PO (02:37)
[2017-06-23] MEDS ORDERED: FENO145T32 PO (02:40)
[2017-06-23] MEDS ORDERED: FLUT9.9S NS (02:40)
[2017-06-23] MEDS ORDERED: LIDO700A39 TD (02:42)
[2017-06-23] MEDS ORDERED: MAG30ORA2 PO (02:44)
[2017-06-23] MEDS ORDERED: MAGN400O7 PO (02:45)
[2017-06-23] MEDS ORDERED: METH29OI TP (02:46)
[2017-06-23] MEDS ORDERED: MIRT15TA3 PO (02:46)
[2017-06-23] MEDS ORDERED: POTA20TA4 PO (02:48)
[2017-06-23] MEDS ORDERED: OLAN5TAB5 PO (02:48)
[2017-06-23] MEDS ORDERED: QUET25TA5 PO (02:49)
[2017-06-23] MEDS ORDERED: QUET50TA5 PO (02:50)
[2017-06-23] MEDS ORDERED: RIVA1PAT5 TD (02:51)
[2017-06-23] MEDS ORDERED: HYDR25TA PO (03:08)
[2017-06-23] MEDS ORDERED: TRAZ50TA15 PO (03:10)
[2017-06-23] MEDS: oxyCODONE/APAP 7.5/325 1 TAB TABLET PO PRN (05:28)
[2017-06-23 06:11] VITALS: BP 123/73
[2017-06-23] MEDS: CETIRIZINE HCL 10 MG TABLET PO SCH (08:05)
[2017-06-23] MEDS: CALCIUM CARB/VIT D3 500/200 TABLET PO SCH (08:05)
[2017-06-23] MEDS: LOSARTAN 50 MG TABLET. PO SCH (08:06)
[2017-06-23] MEDS: ASPIRIN 325 MG TABLET PO SCH (08:06)
[2017-06-23] MEDS: QUEtiapine 25 MG TABLET. PO SCH ×2 (08:06→13:50)
[2017-06-23] MEDS: MEMANTINE 10 MG TABLET. PO SCH ×2 (08:06→19:46)
[2017-06-23] MEDS: POTASSIUM CHLORIDE 20 MEQ TABLET.ER. PO SCH ×2 (08:07→19:46)
[2017-06-23] MEDS: VENLAFAXINE XR 37.5 MG CAP.ER.24H. PO SCH (08:07)
[2017-06-23] MEDS: amLODIPine BESYLATE 10 MG TABLET PO SCH (08:07)
[2017-06-23] MEDS: GLUCOSAMINE/CHOND 500/400MG CAPSULE PO SCH (08:07)
[2017-06-23] MEDS: LIDOCAINE (700MG/PATCH) PATCH. TD SCH (08:08)
[2017-06-23] MEDS: RIVASTIGMINE 13.3MG PATCH. TD SCH (08:08)
[2017-06-23] MEDS: FLUTICASONE 50MCG/NASAL SPRAY 16GM BOTTLE. NS SCH (08:09)
[2017-06-23] MEDS: CYANOCOBALAMIN (VITAMIN B-12) 250 MCG TABLET PO SCH (11:29)
[2017-06-23] MEDS: ACETAMINOPHEN 325 MG TABLET PO PRN (11:29)
[2017-06-23] MEDS: traZODone 50 MG TABLET. PO SCH ×3 (11:29→18:14)
[2017-06-23] MEDS: FENOFIBRATE NANOCRYSTALLIZED 145 MG TABLET PO SCH (16:14)
[2017-06-23 16:16] VITALS: BP 113/61
[2017-06-23] MEDS: QUEtiapine 50 MG TABLET. PO SCH (16:17)
[2017-06-23] MEDS: ATORVASTATIN CALCIUM 10 MG TABLET. PO SCH (19:46)
[2017-06-23] MEDS: MIRTAZAPINE 15 MG TABLET PO SCH (19:46)
--- NOTE | 2017-06-23 19:58 | PDOC ---
Exam Niels Demential Exam: Niels Note: Please also refer to the separate dictated note~for this date of service dictated separately.~Patient seen individually. Discussed the patient with Nursing staff reviewed the chart.~Reviewed interim history and current functioning. Reviewed vital signs,~Labs/ Radiology~and current medications noted below. Continue current treatment with the changes noted in the dictated addendum note Assessment: Vital Signs: Vital Signs Date Time Temp Pulse Resp B/P (MAP) Pulse Ox O2 Delivery O2 Flow Rate FiO2 06/23/17 16:16 97.3 78 16 113/61 (78) 97 06/23/17 06:36 Room Air I&O Intake and Output 06/24/17 06:59 Intake Total 1080 ml Balance 1080 ml Intake Oral 1080 ml Current Medications: Meds: Current Medications Acetaminophen (Tylenol) 650 mg PRN Q6HRS PRN PO PAIN / TEMP Last administered on 06/23/17 11:29; Start 05/26/17 at 22:45 Multi-Ingredient Ointment (Analgesic [place]) 1 edi PRN QID PRN TP MUSCLE PAIN; Start 05/26/17 at 22:45 Al Hydroxide/Mg Hydroxide (Mylanta Plus Xs) 15 ml PRN AFTMEALHC PRN PO DYSPEPSIA; Start 05/26/17 at 22:45 Magnesium Hydroxide (Milk Of Magnesia) 2,400 mg PRN QHS PRN PO CONSTIPATION; Start 05/26/17 at 22:45 Amlodipine Besylate (Norvasc) 10 mg DAILY PO Last administered on 06/23/17 08: 07; Start 05/27/17 at 09:00 Aspirin (Elsa Aspirin) 325 mg DAILY PO Last administered on 06/23/17 08:06; Start 05/27/17 at 09:00 Calcium/Vitamin D (Oscal D 500mg/ 200uts) 1 tab DAILY PO Last administered on 08:05; Start 05/27/17 at 09:00 Hydrochlorothiazide (Hydrodiuril) 25 mg DAILY PO Last administered on 05/29/17 08:21; Start 05/27/17 at 09:00; Stop 05/29/17 at 12:32; Status DC Losartan Potassium (Cozaar) 50 mg DAILY PO Last administered on 06/23/17 08:06 ; Start 05/27/17 at 09:00 Oxycodone/ Acetaminophen (Percocet 7.5/ 325) 1 tab PRN Q6HRS PRN PO SEVERE PAIN Last administered on 05/31/17 09:09; Start 05/27/17 at 01:30; Stop 05/31/17 at 12:28; Status DC Atorvastatin Calcium (Lipitor) 5 mg QHS PO Last administered on 06/23/17 19:46 ; Start 05/27/17 at 21:00 Fenofibrate (Tricor) 145 mg DAILYWSUP PO Last administered on 06/23/17 16:14; Start 05/27/17 at 17:00 Glucosamine/ Chondroitin (Glucosamine-Chondroitin 500/400mg) 1 cap DAILY PO Last administered on 06/23/17 08:07; Start 05/27/17 at 09:00 Memantine (Namenda) 10 mg DAILY PO Last administered on 05/27/17 08:30; Start 05/27/17 at 09:00; Stop 05/27/17 at 18:23; Status DC Olanzapine (ZyPREXA) 2.5 mg DAILY08 PO Last administered on 05/29/17 08:21; Start 05/27/17 at 08:00; Stop 05/29/17 at 18:52; Status DC Rivastigmine (Exelon) 1 patch DAILY TD Last administered on 05/27/17 08:31; Start 05/27/17 at 09:00; Stop 05/27/17 at 18:23; Status DC Venlafaxine HCl (Effexor Xr) 112.5 mg DAILY PO Last administered on 06/23/17 08:07; Start 05/27/17 at 09:00 Non-Formulary Medication 75 mg DAILY PO ; Start 05/27/17 at 09:00; Status UNV Potassium Chloride (Klor-Con) 20 meq BID PO Last administered on 06/23/17 19: 46; Start 05/27/17 at 21:00 Memantine (Namenda) 10 mg QHS PO Last administered on 06/06/17 19:44; Start at 21:00; Stop 06/07/17 at 13:34; Status DC Rivastigmine (Exelon 13.3mg) 1 patch DAILY TD Last administered on 06/23/17 08 :08; Start 05/28/17 at 09:00 Memantine (Namenda) 5 mg DAILY PO Last administered on 06/07/17 08:59; Start 05/28/17 at 09:00; Stop 06/07/17 at 13:34; Status DC Vitamin D (Vitamin D3) 50,000 unit WEEKLY PO Last administered on 06/20/17 08: 13; Start 05/30/17 at 09:00 Quetiapine Fumarate (SEROquel) 12.5 mg BID92 PO Last administered on 06/03/17 13:43; Start 05/30/17 at 09:00; Stop 06/03/17 at 18:32; Status DC Cyanocobalamin (Vitamin B-12) 250 mcg DAILYBFRLUN PO Last administered on 11:29; Start 05/31/17 at 11:30 Oxycodone/ Acetaminophen (Percocet 7.5/ 325) 1 tab PRN BID PRN PO SEVERE PAIN Last administered on 06/23/17 05:28; Start 05/31/17 at 18:00 Mirtazapine (Remeron) 7.5 mg QHS PO Last administered on 05/31/17 20:47; Start 05/31/17 at 21:00; Stop 06/01/17 at 18:30; Status DC Mirtazapine (Remeron) 15 mg QHS PO Last administered on 06/23/17 19:46; Start 06/01/17 at 21:00 Olanzapine (ZyPREXA ZYDIS) 1.25 mg PRN Q2HR PRN PO PSYCHOSIS Last administered on 06/19/17 21:26; Start 06/03/17 at 18:30 Quetiapine Fumarate (SEROquel) 12.5 mg TID@0900,1400,1800 PO Last administered on 06/05/17 18:00; Start 06/04/17 at 09:00; Stop 06/05/17 at 21:22; Status DC Quetiapine Fumarate (SEROquel) 12.5 mg BID@0900,1400 PO Last administered on 13:50; Start 06/06/17 at 09:00 Quetiapine Fumarate (SEROquel) 37.5 mg DAILY@1800 PO Last administered on 17:21; Start 06/06/17 at 18:00; Stop 06/08/17 at 18:35; Status DC Quetiapine Fumarate (SEROquel) 25 mg 1X ONCE PO Last administered on 21:27; Start 06/05/17 at 21:30; Stop 06/05/17 at 21:31; Status DC Memantine (Namenda) 10 mg BID PO Last administered on 06/23/17 19:46; Start at 21:00 Quetiapine Fumarate (SEROquel) 50 mg 1700 PO Last administered on 06/13/17 16: 35; Start 06/09/17 at 17:00; Stop 06/14/17 at 13:03; Status DC Hydroxyzine HCl (Atarax) 25 mg PRN Q2HR PRN PO PSYCHOSIS Last administered on 19:33; Start 06/10/17 at 18:30 Trazodone HCl (Desyrel) 12.5 mg DAILYWSUP PO Last administered on 06/18/17 17: 00; Start 06/12/17 at 17:00; Stop 06/19/17 at 04:21; Status DC Trazodone HCl (Desyrel) 12.5 mg 1X ONCE PO Last administered on 06/11/17 19: 47; Start 06/11/17 at 20:00; Stop 06/11/17 at 20:01; Status DC Quetiapine Fumarate (SEROquel) 50 mg 1700 PO Last administered on 06/23/17 16: 17; Start 06/14/17 at 17:00 Trazodone HCl (Desyrel) 12.5 mg NOON PO Last administered on 06/18/17 13:57; Start 06/15/17 at 12:00; Stop 06/19/17 at 04:21; Status DC Trazodone HCl (Desyrel) 12.5 mg BID@1200,1700 PO Last administered on 16:43; Start 06/19/17 at 12:00; Stop 06/20/17 at 18:19; Status DC Lidocaine (Lidoderm) 1 patch DAILY TD Last administered on 06/23/17 08:08; Start 06/19/17 at 12:30 Trazodone HCl (Desyrel) 25 mg DAILY@1900 PO Last administered on 06/20/17 19: 03; Start 06/19/17 at 22:00; Stop 06/20/17 at 19:05; Status DC Cetirizine HCl (ZyrTEC) 10 mg DAILY PO Last administered on 06/23/17 08:05; Start 06/20/17 at 16:00 Fluticasone Propionate (Flonase) 2 spray DAILY NS Last administered on 08:09; Start 06/20/17 at 16:00 Trazodone HCl (Desyrel) 25 mg TID@1200,1700,1900 PO Last administered on 18:14; Start 06/20/17 at 19:00 Active Scripts Active Reported Trazodone Hcl 50 Mg Tablet 25 Mg PO TID@1200,1700,1900 Hydroxyzine Hcl 25 Mg Tablet 25 Mg PO PRN Q2HR PRN EXELON 13.3mg/24hr (Rivastigmine) 1 Each Patch.td24 1 Patch TD DAILY Seroquel (Quetiapine Fumarate) 50 Mg Tablet 50 Mg PO DAILY@1700 Seroquel (Quetiapine Fumarate) 25 Mg Tablet 12.5 Mg PO BID@0900,1400 Klor-Con M20 (Potassium Chloride) 20 Meq Tab.er.prt 20 Meq PO BID Zyprexa Zydis (Olanzapine) 5 Mg Tab.rapdis 1.25 Mg PO PRN Q2HR PRN Mirtazapine 15 Mg Tablet 15 Mg PO QHS Analgesic [place] (Methyl Salicylate/Menthol) 28 Gm Oint...g. 1 Edi TP PRN QID PRN Milk Of Magnesia (Magnesium Hydroxide) 400 Mg/5 Ml Oral.susp 2,400 Mg PO PRN QHS PRN Mag-Al Plus Xs Suspension (Mag Hydrox/Al Hydrox/Simeth) 30 Ml Oral.susp 15 Ml PO PRN AFTMEALHC PRN Lidocaine 1 Each Adh..patch 1 Patch TD DAILY Flonase Allergy Relief (Fluticasone Propionate) 9.9 Ml [place].susp 2 Sprays NS DAILY Tricor (Fenofibrate Nanocrystallized) 145 Mg Tablet 145 Mg PO DAILYWSUP Vitamin B-12 (Cyanocobalamin (Vitamin B-12)) 250 Mcg Tablet 250 Mcg PO DAILYBFRLUN Vitamin D3 (Cholecalciferol (Vitamin D3)) 50,000 Unit Capsule 50,000 Unit PO WEEKLY Cetirizine Hcl 10 Mg Tablet 10 Mg PO DAILY Tylenol (Acetaminophen) 325 Mg Tablet 650 Mg PO PRN Q6HRS PRN EXELON 9.5mg/24hr (Rivastigmine) 1 Each Patch.td24 1 Patch TD DAILY LAST DOSE GIVEN: DATE: TIME: NEXT DOSE DUE: DATE: TIME: Simvastatin 10 Mg Tablet 10 Mg PO HS LAST DOSE GIVEN: DATE: TIME: NEXT DOSE DUE: DATE: TIME: Effexor Xr (Venlafaxine Hcl) 75 Mg Cap.er.24h 75 Mg PO DAILY LAST DOSE GIVEN: DATE: TIME: NEXT DOSE DUE: DATE: TIME: Effexor Xr (Venlafaxine Hcl) 37.5 Mg Cap.er.24h 37.5 Mg PO DAILY LAST DOSE GIVEN: DATE: TIME: NEXT DOSE DUE: DATE: TIME: Percocet 7.5-325 Mg Tablet (Oxycodone Hcl/Acetaminophen) 1 Each Tablet 1 Tab PO PRN Q6HRS PRN LAST DOSE GIVEN: DATE: TIME: NEXT DOSE DUE: DATE: TIME: Zyprexa (Olanzapine) 2.5 Mg Tablet 2.5 Mg PO DAILY08 LAST DOSE GIVEN: DATE: TIME: NEXT DOSE DUE: DATE: TIME: Namenda (Memantine Hcl) 10 Mg Tablet 10 Mg PO DAILY LAST DOSE GIVEN: DATE: TIME: NEXT DOSE DUE: DATE: TIME: Cozaar (Losartan Potassium) 50 Mg Tablet 50 Mg PO DAILY LAST DOSE GIVEN: DATE: TIME: NEXT DOSE DUE: DATE: TIME: Hydrochlorothiazide Tablet (Hydrochlorothiazide) 25 Mg Tablet 25 Mg PO DAILY LAST DOSE GIVEN: DATE: TIME: NEXT DOSE DUE: DATE: TIME: Glucosamine Chondroit Msm Tab (Glucosamine/Msm/Chondroitin A) 1 Each Tablet 1 Tab PO DAILY LAST DOSE GIVEN: DATE: TIME: NEXT DOSE DUE: DATE: TIME: Calcium 500 + Vit D 200 Tablet (Calcium Carbonate/Vitamin D3) 1 Each Tablet 1 Tab PO DAILY Fenofibrate (Fenofibrate,Micronized) 134 Mg Capsule 134 Mg PO DAILYWSUP LAST DOSE GIVEN: DATE: TIME: NEXT DOSE DUE: DATE: TIME: Aspirin 325 Mg Tablet 325 Mg PO DAILY LAST DOSE GIVEN: DATE: TIME: NEXT DOSE DUE: DATE: TIME: Norvasc (Amlodipine Besylate) 10 Mg Tablet 10 Mg PO DAILY LAST DOSE GIVEN: DATE: TIME: NEXT DOSE DUE: DATE: TIME: Diagnosis: Problems: (1) Anxiety disorder (2) Dementia, vascular, with depression (3) Dementia, vascular, with delusions (4) Dementia in Alzheimer's disease with depression (5) Dementia in Alzheimer's disease with delusions (6) Impulse control disorder ERLINDA DYKES MD Jun 23, 2017 19:58
--- NOTE | 2017-06-24 01:25 | PN ---
DATE: 06/22/2017 This late entry 06/22/2017 covers elements not covered in my initial note of 06/22/2017. SUBJECTIVE: I met with the patient in the evening of 06/22/2017. The patient was quite tearful, then her visited and was going to leave less intrusive, able to accept that she does not need to be working anymore. She has done enough of that during her earlier days and now is time for her to let others take care of her. I addressed this with her individually at some length. She seemed to comprehend this. REVIEW OF SYSTEMS: No CV, , pulmonary, eye, ENT system symptoms on review. MENTAL STATUS EXAM: Oriented to herself and situation. Speech coherent. She is pleasant, verbal, holding my hand, more animated, not tearful. Insight, judgment, recent and remote memory, attention, concentration, fund of knowledge poor, consistent with her diagnosis mentioned in my initial note. PLAN: Continue current psychotropics, reviewed drug interactions, risk/benefit ratio favors no change at this time. MAN Amor DYKES MD DR: MELISSA/gurmeet JOB#: [id number] / [id number]
[2017-06-24] MEDS: ACETAMINOPHEN 325 MG TABLET PO PRN (08:16)
[2017-06-24] MEDS: FLUTICASONE 50MCG/NASAL SPRAY 16GM BOTTLE. NS SCH (09:00)
[2017-06-24] MEDS: ASPIRIN 325 MG TABLET PO SCH (10:35)
[2017-06-24] MEDS: MEMANTINE 10 MG TABLET. PO SCH ×2 (10:36→19:25)
[2017-06-24] MEDS: GLUCOSAMINE/CHOND 500/400MG CAPSULE PO SCH (10:36)
[2017-06-24] MEDS: POTASSIUM CHLORIDE 20 MEQ TABLET.ER. PO SCH ×2 (10:36→19:25)
[2017-06-24] MEDS: amLODIPine BESYLATE 10 MG TABLET PO SCH (10:37)
[2017-06-24] MEDS: LOSARTAN 50 MG TABLET. PO SCH (10:38)
[2017-06-24] MEDS: CALCIUM CARB/VIT D3 500/200 TABLET PO SCH (10:40)
[2017-06-24] MEDS: CETIRIZINE HCL 10 MG TABLET PO SCH (10:41)
[2017-06-24] MEDS: QUEtiapine 25 MG TABLET. PO SCH ×2 (10:41→14:00)
[2017-06-24] MEDS: VENLAFAXINE XR 37.5 MG CAP.ER.24H. PO SCH (10:42)
[2017-06-24] MEDS: LIDOCAINE (700MG/PATCH) PATCH. TD SCH (10:42)
[2017-06-24] MEDS: RIVASTIGMINE 13.3MG PATCH. TD SCH (10:43)
[2017-06-24] MEDS: traZODone 50 MG TABLET. PO SCH ×3 (12:10→18:11)
[2017-06-24] MEDS: CYANOCOBALAMIN (VITAMIN B-12) 250 MCG TABLET PO SCH (12:11)
[2017-06-24 16:10] VITALS: BP 117/74
[2017-06-24] MEDS: FENOFIBRATE NANOCRYSTALLIZED 145 MG TABLET PO SCH (16:43)
[2017-06-24] MEDS: QUEtiapine 50 MG TABLET. PO SCH (16:43)
[2017-06-24] MEDS: MIRTAZAPINE 15 MG TABLET PO SCH (19:25)
[2017-06-24] MEDS: ATORVASTATIN CALCIUM 10 MG TABLET. PO SCH (19:25)
--- NOTE | 2017-06-24 19:49 | PDOC ---
Exam Niels Demential Exam: Niels Note: Please also refer to the separate dictated note~for this date of service dictated separately.~Patient seen individually. Discussed the patient with Nursing staff reviewed the chart.~Reviewed interim history and current functioning. Reviewed vital signs,~Labs/ Radiology~and current medications noted below. Continue current treatment with the changes noted in the dictated addendum note Assessment: Vital Signs: Vital Signs Date Time Temp Pulse Resp B/P (MAP) Pulse Ox O2 Delivery O2 Flow Rate FiO2 06/24/17 16:10 98.1 73 18 117/74 (88) 97 06/23/17 06:36 Room Air I&O Intake and Output 06/25/17 07:00 Intake Total 960 ml Balance 960 ml Intake Oral 960 ml Current Medications: Meds: Current Medications Acetaminophen (Tylenol) 650 mg PRN Q6HRS PRN PO PAIN / TEMP Last administered on 06/24/17 08:16; Start 05/26/17 at 22:45 Multi-Ingredient Ointment (Analgesic Florence) 1 edi PRN QID PRN TP MUSCLE PAIN; Start 05/26/17 at 22:45 Al Hydroxide/Mg Hydroxide (Mylanta Plus Xs) 15 ml PRN AFTMEALHC PRN PO DYSPEPSIA; Start 05/26/17 at 22:45 Magnesium Hydroxide (Milk Of Magnesia) 2,400 mg PRN QHS PRN PO CONSTIPATION; Start 05/26/17 at 22:45 Amlodipine Besylate (Norvasc) 10 mg DAILY PO Last administered on 06/24/17 10: 37; Start 05/27/17 at 09:00 Aspirin (Elsa Aspirin) 325 mg DAILY PO Last administered on 06/24/17 10:35; Start 05/27/17 at 09:00 Calcium/Vitamin D (Oscal D 500mg/ 200uts) 1 tab DAILY PO Last administered on 10:40; Start 05/27/17 at 09:00 Hydrochlorothiazide (Hydrodiuril) 25 mg DAILY PO Last administered on 05/29/17 08:21; Start 05/27/17 at 09:00; Stop 05/29/17 at 12:32; Status DC Losartan Potassium (Cozaar) 50 mg DAILY PO Last administered on 06/24/17 10:38 ; Start 05/27/17 at 09:00 Oxycodone/ Acetaminophen (Percocet 7.5/ 325) 1 tab PRN Q6HRS PRN PO SEVERE PAIN Last administered on 05/31/17 09:09; Start 05/27/17 at 01:30; Stop 05/31/17 at 12:28; Status DC Atorvastatin Calcium (Lipitor) 5 mg QHS PO Last administered on 06/24/17 19:25 ; Start 05/27/17 at 21:00 Fenofibrate (Tricor) 145 mg DAILYWSUP PO Last administered on 06/24/17 16:43; Start 05/27/17 at 17:00 Glucosamine/ Chondroitin (Glucosamine-Chondroitin 500/400mg) 1 cap DAILY PO Last administered on 06/24/17 10:36; Start 05/27/17 at 09:00 Memantine (Namenda) 10 mg DAILY PO Last administered on 05/27/17 08:30; Start 05/27/17 at 09:00; Stop 05/27/17 at 18:23; Status DC Olanzapine (ZyPREXA) 2.5 mg DAILY08 PO Last administered on 05/29/17 08:21; Start 05/27/17 at 08:00; Stop 05/29/17 at 18:52; Status DC Rivastigmine (Exelon) 1 patch DAILY TD Last administered on 05/27/17 08:31; Start 05/27/17 at 09:00; Stop 05/27/17 at 18:23; Status DC Venlafaxine HCl (Effexor Xr) 112.5 mg DAILY PO Last administered on 06/24/17 10 :42; Start 05/27/17 at 09:00 Non-Formulary Medication 75 mg DAILY PO ; Start 05/27/17 at 09:00; Status UNV Potassium Chloride (Klor-Con) 20 meq BID PO Last administered on 06/24/17 19:25 ; Start 05/27/17 at 21:00 Memantine (Namenda) 10 mg QHS PO Last administered on 06/06/17 19:44; Start at 21:00; Stop 06/07/17 at 13:34; Status DC Rivastigmine (Exelon 13.3mg) 1 patch DAILY TD Last administered on 06/24/17 10: 43; Start 05/28/17 at 09:00 Memantine (Namenda) 5 mg DAILY PO Last administered on 06/07/17 08:59; Start 05/28/17 at 09:00; Stop 06/07/17 at 13:34; Status DC Vitamin D (Vitamin D3) 50,000 unit WEEKLY PO Last administered on 06/20/17 08: 13; Start 05/30/17 at 09:00 Quetiapine Fumarate (SEROquel) 12.5 mg BID92 PO Last administered on 06/03/17 13:43; Start 05/30/17 at 09:00; Stop 06/03/17 at 18:32; Status DC Cyanocobalamin (Vitamin B-12) 250 mcg DAILYBFRLUN PO Last administered on 12:11; Start 05/31/17 at 11:30 Oxycodone/ Acetaminophen (Percocet 7.5/ 325) 1 tab PRN BID PRN PO SEVERE PAIN Last administered on 06/23/17 05:28; Start 05/31/17 at 18:00 Mirtazapine (Remeron) 7.5 mg QHS PO Last administered on 05/31/17 20:47; Start 05/31/17 at 21:00; Stop 06/01/17 at 18:30; Status DC Mirtazapine (Remeron) 15 mg QHS PO Last administered on 06/24/17 19:25; Start 06/01/17 at 21:00 Olanzapine (ZyPREXA ZYDIS) 1.25 mg PRN Q2HR PRN PO PSYCHOSIS Last administered on 06/19/17 21:26; Start 06/03/17 at 18:30 Quetiapine Fumarate (SEROquel) 12.5 mg TID@0900,1400,1800 PO Last administered on 06/05/17 18:00; Start 06/04/17 at 09:00; Stop 06/05/17 at 21:22; Status DC Quetiapine Fumarate (SEROquel) 12.5 mg BID@0900,1400 PO Last administered on 10:41; Start 06/06/17 at 09:00 Quetiapine Fumarate (SEROquel) 37.5 mg DAILY@1800 PO Last administered on 17:21; Start 06/06/17 at 18:00; Stop 06/08/17 at 18:35; Status DC Quetiapine Fumarate (SEROquel) 25 mg 1X ONCE PO Last administered on 21:27; Start 06/05/17 at 21:30; Stop 06/05/17 at 21:31; Status DC Memantine (Namenda) 10 mg BID PO Last administered on 06/24/17 19:25; Start at 21:00 Quetiapine Fumarate (SEROquel) 50 mg 1700 PO Last administered on 06/13/17 16: 35; Start 06/09/17 at 17:00; Stop 06/14/17 at 13:03; Status DC Hydroxyzine HCl (Atarax) 25 mg PRN Q2HR PRN PO PSYCHOSIS Last administered on 19:33; Start 06/10/17 at 18:30 Trazodone HCl (Desyrel) 12.5 mg DAILYWSUP PO Last administered on 06/18/17 17: 00; Start 06/12/17 at 17:00; Stop 06/19/17 at 04:21; Status DC Trazodone HCl (Desyrel) 12.5 mg 1X ONCE PO Last administered on 06/11/17 19: 47; Start 06/11/17 at 20:00; Stop 06/11/17 at 20:01; Status DC Quetiapine Fumarate (SEROquel) 50 mg 1700 PO Last administered on 06/24/17 16: 43; Start 06/14/17 at 17:00 Trazodone HCl (Desyrel) 12.5 mg NOON PO Last administered on 06/18/17 13:57; Start 06/15/17 at 12:00; Stop 06/19/17 at 04:21; Status DC Trazodone HCl (Desyrel) 12.5 mg BID@1200,1700 PO Last administered on 16:43; Start 06/19/17 at 12:00; Stop 06/20/17 at 18:19; Status DC Lidocaine (Lidoderm) 1 patch DAILY TD Last administered on 06/24/17 10:42; Start 06/19/17 at 12:30 Trazodone HCl (Desyrel) 25 mg DAILY@1900 PO Last administered on 06/20/17 19: 03; Start 06/19/17 at 22:00; Stop 06/20/17 at 19:05; Status DC Cetirizine HCl (ZyrTEC) 10 mg DAILY PO Last administered on 06/24/17 10:41; Start 06/20/17 at 16:00 Fluticasone Propionate (Flonase) 2 spray DAILY NS Last administered on 08:09; Start 06/20/17 at 16:00 Trazodone HCl (Desyrel) 25 mg TID@1200,1700,1900 PO Last administered on 18:11; Start 06/20/17 at 19:00 Active Scripts Active Reported Trazodone Hcl 50 Mg Tablet 25 Mg PO TID@1200,1700,1900 Hydroxyzine Hcl 25 Mg Tablet 25 Mg PO PRN Q2HR PRN EXELON 13.3mg/24hr (Rivastigmine) 1 Each Patch.td24 1 Patch TD DAILY Seroquel (Quetiapine Fumarate) 50 Mg Tablet 50 Mg PO DAILY@1700 Seroquel (Quetiapine Fumarate) 25 Mg Tablet 12.5 Mg PO BID@0900,1400 Klor-Con M20 (Potassium Chloride) 20 Meq Tab.er.prt 20 Meq PO BID Zyprexa Zydis (Olanzapine) 5 Mg Tab.rapdis 1.25 Mg PO PRN Q2HR PRN Mirtazapine 15 Mg Tablet 15 Mg PO QHS Analgesic [place] (Methyl Salicylate/Menthol) 28 Gm Oint...g. 1 Edi TP PRN QID PRN Milk Of Magnesia (Magnesium Hydroxide) 400 Mg/5 Ml Oral.susp 2,400 Mg PO PRN QHS PRN Mag-Al Plus Xs Suspension (Mag Hydrox/Al Hydrox/Simeth) 30 Ml Oral.susp 15 Ml PO PRN AFTMEALHC PRN Lidocaine 1 Each Adh..patch 1 Patch TD DAILY Flonase Allergy Relief (Fluticasone Propionate) 9.9 Ml [place].susp 2 Sprays NS DAILY Tricor (Fenofibrate Nanocrystallized) 145 Mg Tablet 145 Mg PO DAILYWSUP Vitamin B-12 (Cyanocobalamin (Vitamin B-12)) 250 Mcg Tablet 250 Mcg PO DAILYBFRLUN Vitamin D3 (Cholecalciferol (Vitamin D3)) 50,000 Unit Capsule 50,000 Unit PO WEEKLY Cetirizine Hcl 10 Mg Tablet 10 Mg PO DAILY Tylenol (Acetaminophen) 325 Mg Tablet 650 Mg PO PRN Q6HRS PRN EXELON 9.5mg/24hr (Rivastigmine) 1 Each Patch.td24 1 Patch TD DAILY LAST DOSE GIVEN: DATE: TIME: NEXT DOSE DUE: DATE: TIME: Simvastatin 10 Mg Tablet 10 Mg PO HS LAST DOSE GIVEN: DATE: TIME: NEXT DOSE DUE: DATE: TIME: Effexor Xr (Venlafaxine Hcl) 75 Mg Cap.er.24h 75 Mg PO DAILY LAST DOSE GIVEN: DATE: TIME: NEXT DOSE DUE: DATE: TIME: Effexor Xr (Venlafaxine Hcl) 37.5 Mg Cap.er.24h 37.5 Mg PO DAILY LAST DOSE GIVEN: DATE: TIME: NEXT DOSE DUE: DATE: TIME: Percocet 7.5-325 Mg Tablet (Oxycodone Hcl/Acetaminophen) 1 Each Tablet 1 Tab PO PRN Q6HRS PRN LAST DOSE GIVEN: DATE: TIME: NEXT DOSE DUE: DATE: TIME: Zyprexa (Olanzapine) 2.5 Mg Tablet 2.5 Mg PO DAILY08 LAST DOSE GIVEN: DATE: TIME: NEXT DOSE DUE: DATE: TIME: Namenda (Memantine Hcl) 10 Mg Tablet 10 Mg PO DAILY LAST DOSE GIVEN: DATE: TIME: NEXT DOSE DUE: DATE: TIME: Cozaar (Losartan Potassium) 50 Mg Tablet 50 Mg PO DAILY LAST DOSE GIVEN: DATE: TIME: NEXT DOSE DUE: DATE: TIME: Hydrochlorothiazide Tablet (Hydrochlorothiazide) 25 Mg Tablet 25 Mg PO DAILY LAST DOSE GIVEN: DATE: TIME: NEXT DOSE DUE: DATE: TIME: Glucosamine Chondroit Msm Tab (Glucosamine/Msm/Chondroitin A) 1 Each Tablet 1 Tab PO DAILY LAST DOSE GIVEN: DATE: TIME: NEXT DOSE DUE: DATE: TIME: Calcium 500 + Vit D 200 Tablet (Calcium Carbonate/Vitamin D3) 1 Each Tablet 1 Tab PO DAILY Fenofibrate (Fenofibrate,Micronized) 134 Mg Capsule 134 Mg PO DAILYWSUP LAST DOSE GIVEN: DATE: TIME: NEXT DOSE DUE: DATE: TIME: Aspirin 325 Mg Tablet 325 Mg PO DAILY LAST DOSE GIVEN: DATE: TIME: NEXT DOSE DUE: DATE: TIME: Norvasc (Amlodipine Besylate) 10 Mg Tablet 10 Mg PO DAILY LAST DOSE GIVEN: DATE: TIME: NEXT DOSE DUE: DATE: TIME: Diagnosis: Problems: (1) Anxiety disorder (2) Dementia, vascular, with depression (3) Dementia, vascular, with delusions (4) Dementia in Alzheimer's disease with depression (5) Dementia in Alzheimer's disease with delusions (6) Impulse control disorder ELRINDA DYKES MD Jun 24, 2017 19:49
[2017-06-25 05:48] VITALS: BP 124/63
[2017-06-25] MEDS: ASPIRIN 325 MG TABLET PO SCH (08:09)
--- NOTE | 2017-06-25 08:09 | PN ---
DATE: 06/23/2017 This late entry 06/23/2017 covers elements not covered in my initial note of 06/23/2017. SUBJECTIVE: The patient was staffed at a treatment team meeting morning of 06/23/2017. Seen individually evening of 06/23/2017. Reviewed history at length during the treatment team meeting. Overall, the patient remains confused, still at times believes she is a staff member wants to help, rather than accepting she is a patient. REVIEW OF SYSTEMS: No CV, , pulmonary, eye, ENT system symptoms on review. MENTAL STATUS EXAM: Oriented to herself and at times to situation. Speech coherent. Abstraction fair. Insight, judgment, recent and remote memory, attention, concentration, fund of knowledge poor, consistent with her diagnosis. Pleasant, verbal, holding my hand as I met with her individually. LABORATORY DATA: Reviewed. IMPRESSION: Unchanged from initial note. PLAN: Continue current psychotropics. Reviewed drug interactions, risk/benefit ratio favors no further change. ERLINDA DYKES MD DR: MELISSA/gurmeet JOB#: [id number] / [id number]
[2017-06-25] MEDS: POTASSIUM CHLORIDE 20 MEQ TABLET.ER. PO SCH (08:10)
[2017-06-25] MEDS: LOSARTAN 50 MG TABLET. PO SCH (08:10)
[2017-06-25] MEDS: VENLAFAXINE XR 37.5 MG CAP.ER.24H. PO SCH (08:10)
[2017-06-25] MEDS: GLUCOSAMINE/CHOND 500/400MG CAPSULE PO SCH (08:10)
[2017-06-25] MEDS: MEMANTINE 10 MG TABLET. PO SCH (08:10)
[2017-06-25 08:11] VITALS: BP 124/63
[2017-06-25] MEDS: QUEtiapine 25 MG TABLET. PO SCH (08:11)
[2017-06-25] MEDS: CALCIUM CARB/VIT D3 500/200 TABLET PO SCH (08:11)
[2017-06-25] MEDS: amLODIPine BESYLATE 10 MG TABLET PO SCH (08:11)
[2017-06-25] MEDS: LIDOCAINE (700MG/PATCH) PATCH. TD SCH (08:12)
[2017-06-25] MEDS: CETIRIZINE HCL 10 MG TABLET PO SCH (08:12)
[2017-06-25] MEDS: RIVASTIGMINE 13.3MG PATCH. TD SCH (08:12)
[2017-06-25 09:36] LABS: ALBUMIN 3.4 g/dL (3.4-5.0); ALBUMIN/GLOBULIN RATIO 1.1 (1.0-1.7); CALCIUM 9.1 mg/dL (8.5-10.1); GFR 54.3; POTASSIUM 3.8 mmol/L (3.5-5.1); TOTAL BILIRUBIN 0.2 mg/dL (0.2-1.0); TOTAL PROTEIN 6.6 g/dL (6.4-8.2)
[2017-06-25 10:11] LABS: BASO % 0 % (0-3); EOS # 0.1 x10^3/uL (0.0-0.7); EOS % 1 % (0-3); HEMATOCRIT 33.6 % (36.0-47.0); LYMPH % 18 % (24-48); MEAN CORPUSCULAR HEMOGLOBIN 31 pg (25-35); MEAN CORPUSCULAR HGB CONC 33 g/dL (31-37); MEAN CORPUSCULAR VOLUME 94 fL (79-100); MONO # 0.3 x10^3/uL (0.0-1.1); MONO % 6 % (0-9); NEUT # 4.3 x10^3uL (1.8-7.7); NEUT % 75 % (31-73); PLATELET COUNT 293 x10^3/uL (140-400); RED BLOOD COUNT 3.56 x10^6/uL (3.50-5.40); RED CELL DISTRIBUTION WIDTH 12.8 % (11.5-14.5); WHITE BLOOD COUNT 5.7 x10^3/uL (4.0-11.0)
--- NOTE | 2017-06-26 03:32 | PN ---
DATE: 06/24/2017 PSYCHIATRIC PROGRESS NOTE This is a late entry 06/24/2017 covers elements not covered in my initial note of 06/24/2017. SUBJECTIVE: I met with the patient individually evening of 06/24/2017 in her room. Per nursing report, she has been tearful at times especially when her showed up she wanted to leave with him. The new facility should be going to shared with staff. They will be making arrangements so that she believes she is in a supervisory nursing role there to help given her persistent delusions about this, even though they are much improved. We additionally processed this individually. No CV, , pulmonary, eye, ENT system symptoms on review. MENTAL STATUS EXAM: Oriented to herself and situation. Speech coherent, abstraction fair, computation impaired, language function intact, attention span short. Mood and affect has improved. LABORATORY DATA: Reviewed. IMPRESSION: Unchanged from initial note. PLAN: Continue current psychotropics reviewed drug interactions risk/benefit ratio favors no further change. Transition to custodial on 06/25/2017. ERLINDA DYKES MD DR: MELISSA/gurmeet JOB#: [id number] / [id number]
--- NOTE | 2017-06-26 20:42 | DS ---
DATE OF DISCHARGE: 06/25/2017 DISCHARGE SUMMARY/PSYCHIATRIC PROGRESS NOTE REASON FOR ADMISSION: Please refer to the admission history for details. Briefly, the patient is a 72-year-old female who is living at home and admitted via the Emergency Room at [facility] after she presented there with the family on account of increased confusion and aggression towards the . She was scratching the throwing things at him, voiced homicidal ideation towards him. Symptoms are worsening with sundowning, paranoia, psychosis. She had failed outpatient psychiatric interventions taken to the Emergency Room by the family, deemed by the ER physician to be a danger needing inpatient psychiatric stabilization and referred to us. SIGNIFICANT FINDINGS AND CLINICAL COURSE: Following admission, the patient was seen daily individually by myself, followed medically per Dr. Gibbs/Dr Vazquez. 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 Adjustments were made in her psychotropics and she seemed to respond to a combination of Namenda 10 mg twice a day, Effexor XR 112.5 mg a day, Exelon patch 13.3 mg a day, Seroquel 12.5 mg at 0900 and 1400, 50 mg at 1700; Remeron 15 mg at bedtime, Zyprexa p.r.n., Atarax p.r.n., trazodone 25 mg 3 times a day for anxiety that had not responded adequately to the Seroquel as a mood stabilizer. Prior to discharge on 06/25/2017 temperature 97.6, BP 124/63, pulse 79, respirations 20. REVIEW OF SYSTEMS: No CV, , pulmonary, eye, ENT system symptoms on review. Reliability poor. MENTAL STATUS EXAM: Oriented to herself at times to situation. Speech coherent, abstraction fair, computation impaired, language function intact. Attention span short. Insight, judgment, recent memory is impaired. Mood and affect overall improved. LABORATORY DATA: Reviewed. CONDITION ON DISCHARGE: Improved. FINAL DIAGNOSES: Major neurocognitive disorder, Alzheimer, vascular with depression, delusion, behavioral disturbance; anxiety disorder, unspecified; impulse control disorder, unspecified. Rest diagnosis is unchanged from admission. DISCHARGE MEDICATIONS: Please refer to the MRAD. DISCHARGE INSTRUCTIONS: Outpatient psychiatric and medical followup at the group home. MAN Amor DYKES MD DR: Jaswinder JOB#: [id number] / [id number]
== END 2017-06-25 10:40 | DRG 884 ==
LOC: GEROPSY 22:20
PROVIDERS: ADMIT Psychiatry & Neurology Psychiatry; ATTEND Psychiatry & Neurology Psychiatry
DX: F01.51 Vascular dementia, unspecified severity, with behavioral disturbance (principal); G30.9 Alzheimer's disease, unspecified; F02.81 Dementia in other diseases classified elsewhere, unspecified severity, with behavioral disturbance; E78.5 Hyperlipidemia, unspecified; F22 Delusional disorders; F32.9 Major depressive disorder, single episode, unspecified; F41.9 Anxiety disorder, unspecified; F63.9 Impulse disorder, unspecified; I10 Essential (primary) hypertension; M19.90 Unspecified osteoarthritis, unspecified site; R45.850 Homicidal ideations; M54.9 Dorsalgia, unspecified; Z90.49 Acquired absence of other specified parts of digestive tract; Z98.61 Coronary angioplasty status; Z88.0 Allergy status to penicillin; Z88.8 Allergy status to other drugs, medicaments and biological substances; Z79.899 Other long term (current) drug therapy; Z79.82 Long term (current) use of aspirin
CPT/HCPCS: 36415; 80048; 80053; 80061; 81001; 82306; 82607; 83036; 83540; 83550; 83735; 84436; 84443; 84480; 85025; 85027; 86592; 86593; 87086; 87186; 93005